=== PATIENT | male | born 1965 | race Caucasian/White ===

== ENCOUNTER 2019-09-06 09:58 | Inpatient (IN) | payer OTHER, MEDICARE, SELFPAY ==
[2019-09-06] VITALS (12 sets, daily range): BP systolic 123–150; BP diastolic 55–75; PULSE 64–118; RESP 15–24; TEMP 36.2–36.9; O2SAT 93–99; BMI 49.5
--- NOTE | ~2019-09-06 | US_ITS ---
US retroperitoneal comp 09/07/2019 14:34 Procedure: Realtime transabdominal ultrasound of the kidneys and bladder. Indication: Renal failure Comparison: No prior studies for comparison. Findings: Study is limited due to patient body habitus and bowel gas. Renal echotexture is normal coreen aterally without hydronephrosis, contour deforming mass or renal calculus. The right kidney measures 9.3 cm and left kidney measures 11.3 cm. Bladder within normal limits. Impression: 1: Unremarkable renal ultrasound. No stones, masses or hydronephrosis. Limited study. Reviewed, dictated and finalized at location A. Impression: 1: Unremarkable renal ultrasound. No stones, masses or hydronephrosis. Limited study.
--- NOTE | ~2019-09-06 | XR_ITS ---
EXAMINATION: XR fl guide central line place DATE: 09/14/2019 14:33 INDICATION: Central line placement. TECHNIQUE: 6 intraoperative fluoroscopic views of the chest were obtained. I was not present. Fluoros copy exposure time was 294 seconds. COMPARISON: Chest single view 09/14/2019 FINDINGS: There is a right internal jugular central venous catheter with tip at superior cavoatrial j unction. IMPRESSION: 1. Catheter tip at superior cavoatrial junction. Reviewed, dictated and finalized at location A.
--- NOTE | ~2019-09-06 | XR_ITS ---
XR chest port-a-cath/central 09/07/2019 14:15 Indication: Catheter placement Procedure: AP portable chest Comparison: Comparison to multiple prior studies sequentially, with oldest reviewed study dated 01/2006. Findings: Cardiomegaly. No focal air space disease, pulmonary edema, pleural effusion or suspected pn eumothorax. Right IJ central venous catheter tip in the SVC. Impression: 1: No acute cardiopulmonary disease. 2: Cardiomegaly. Reviewed, dictated and finalized at location A. Impression: 1: No acute cardiopulmonary disease. 2: Cardiomegaly.
--- NOTE | ~2019-09-06 | XR_ITS ---
EXAMINATION: XR chest port-a-cath/central DATE: 09/14/2019 14:55 INDICATION: Central line placement. TECHNIQUE: A single frontal view of the chest was obtained on 2 radiographs. COMPARISON: Chest single view 09/07/2019 FINDINGS: There is mild atelectasis in left lower lung zone. No pleural effusion or pneumothorax. Car diomegaly is distended. There is a right internal jugular central venous catheter with tip at superio r cavoatrial junction. A left internal jugular central venous catheter is seen with tip at superior c avoatrial junction. IMPRESSION: 1. Central line tips at superior cavoatrial junction. 2. Mild atelectasis in left lower lung zone. 3. Cardiomegaly. Reviewed, dictated and finalized at location A.
--- NOTE | ~2019-09-06 | XR_ITS ---
EXAMINATION: XR foot RT min 3V DATE: 09/06/2019 10:30 INDICATION: Necrosis at the heel and first metatarsal of the right foot TECHNIQUE: Dorsoplantar, two oblique and lateral views of the right foot were obtained. COMPARISON: 01/20/2019 FINDINGS: Again seen are changes of prior fourth metatarsal proximal trans diaphyseal amputation. Deep ulcerati ons are seen along the plantar aspect of the foot at the level of the base of the great toe, at the m idfoot and at the heel, the latter extending to near the surface of the calcaneus. There is cortical erosion of the underlying inferior margin of the posterior tuberosity of the calcaneus consistent wit h osteomyelitis. Again seen is disorganization and destructive changes with increased density involvi ng the tarsal bones and the midfoot most likely related to chronic Charcot joint. Osteolysis cannot b e absolutely excluded however the overlying ulceration appears relatively shallow and there is no def initive cortical erosion to the profiled plantar surfaces of the tarsal bones to more specifically sandoval ggest this. Interval appearance of a chronic deformity of the first proximal and distal phalanges whi ch are fused which are without evident osteolysis to suggest osteomyelitis. IMPRESSION: 1. Likely osteomyelitis at the inferior most posterior tuberosity of the calcaneus underlying a deep plantar ulceration. 2. Advanced Charcot joint/neuropathic changes involving the tarsal bones in the midfoot without findi ngs to more specifically suggest osteomyelitis. 3. Chronic deformity of the first proximal distal phalanges and fusion across the interphalangeal aníbal nt likely sequela of prior trauma, surgery or chronic osteomyelitis without findings to more specific ally suggest osteomyelitis. Reviewed, dictated and finalized at location A. IMPRESSION: 1. Likely osteomyelitis at the inferior most posterior tuberosity of the calcan eus underlying a deep plantar ulceration. 2. Advanced Charcot joint/neuropathic changes involving the tarsal bones in the midfoot without findings to more specifically suggest osteomyelitis. 3. Chronic deformity of the first proximal distal phalanges and fusion across t he interphalangeal joint likely sequela of prior trauma, surgery or chronic ost eomyelitis without findings to more specifically suggest osteomyelitis.
--- NOTE | ~2019-09-06 | US_ITS ---
EXAMINATION: US art doppler w press LE BI EXAM DATE: 09/06/2019 15:46 INDICATION: Left big toe amputation/surgery. Right-sided fourth toes. Right foot ulcer. Peripheral ar terial disease. TECHNIQUE: Segmental pressures and plethysmographic and Doppler waveforms of the brachial and lower e xtremity arteries were obtained. There is no prior study for comparison. FINDINGS: Right and left brachial artery pressures of 179 mm Hg and 162 mm Hg, respectively, are concordant (no rmal difference <= 30 mmHg). RIGHT LEG: The ankle-brachial index (JASE) is 0.90 (normal >= 0.9-1). The great toe-brachial index (TBI) is 0.64 (normal >= 0.65). The lower extremity ratios, segmental pressure gradients as follows; Proximal superficial femoral artery:- Difficult due to body habitus ( mmHg). Distal superficial femoral artery: ----- 0.88 (158 mmHg). Popliteal: 1.03 (185 mmHg). Dorsalis pedis: 0.77 (137 mmHg). Posterior tibial: 0.90 (161 mmHg). (Normal gradients <= 20-30 mmHg between adjacent levels on the same leg or the same levels on the two legs). Arterial waveforms are essentially monophasic. LEFT LEG: The ankle-brachial index (JASE) is 0.84 (normal >= 0.9-1). The second toe-brachial index (TBI) is 0.86 (normal >= 0.65). The lower extremity ratios, segmental pressure gradients as follows; Proximal superficial femoral artery:- Difficult, body habitus limitations ( mmHg). Distal superficial femoral artery: ----- 0.94 (168 mmHg). Popliteal: 0.85 (152 mmHg). Dorsalis pedis: 0.84 (150 mmHg). Posterior tibial: 0.75 (135 mmHg). (Normal gradients <= 20-30 mmHg between adjacent levels on the same leg or the same levels on the two legs). Arterial waveforms are essentially monophasic. IMPRESSION: 1. Right ankle-brachial index 0.90, normal. 2. Left ankle-brachial index 0.84, mildly decreased. 3. Segmental pressures as above. Reviewed, dictated and finalized at location A.
--- NOTE | 2019-09-06 10:14 | ED.WOUNDLAC ---
HPI - Wound/Laceration General Chief Complaint: Wound/Laceration Stated Complaint: wound treatment Time Seen by Provider: 09/06/19 10:01 History of Present Illness HPI narrative: Patient is a 53-year-old male who presents the ER from wound care clinic for a significant foot wound on the right side. Patient reports over the last month he has developed a wound over his heel that has been breaking down and has been draining. He contacted his primary care physician on 08/25/2019. At that time he had told him he was having fevers and some sweats that had resolved but he was having purulent drainage. He was started on clindamycin. Patient reports he is completed his clindamycin but the wound has not improved. He has difficulty feeling his foot due to his diabetes. He is not having any pain up his leg. He does have increased swelling to the foot over the last month. No chest pain or shortness of breath. It appears he has had a previous foot surgery with amputation of the fourth toe and metatarsal in 2012. Reports he was recently hospitalized last January for a infection of the right foot. Related Data Home Medications Medication Instructions Recorded Confirmed oxycodone 15 mg tablet 15 mg PO Q6H PRN 08/25/19 09/06/19 gabapentin 600 mg PO TID 09/06/19 09/06/19 Allergies Allergy/AdvReac Type Severity Reaction Status Date / Time Penicillins Allergy Unknown Unknown Verified 08/25/19 13:19 Review of Systems Review of Systems: All systems reviewed & are unremarkable except as noted in HPI and below Constitutional: Constitutional: Denies chills, Reports fever(s) and Denies weakness ENT: Denies nasal congestion and Denies sore throat Cardiovascular: Cardiovascular: Denies chest pain Respiratory: Respiratory: Denies cough, Denies dyspnea and Denies wheezing Gastrointestinal: Gastrointestinal: Denies abdominal pain, Denies nausea and Denies vomiting Musculoskeletal: Comments: Right foot swelling with plantar foot wounds at the first MTP and over the heel and midfoot PMFSH Past Medical History Medical History (Updated 09/06/19 @ 12:58 by Ayaan Lobo MD) Anxiety Charcot's joint of right foot Chronic low back pain with sciatica CKD (chronic kidney disease) stage 4, GFR 15-29 ml/min Depression Diabetic polyneuropathy associated with type 2 diabetes mellitus Dyslipidemia 10/19/2018 Essential (primary) hypertension Insomnia KT (obstructive sleep apnea) Type 2 diabetes mellitus with hyperglycemia, without long-term current use of insulin Surgical History Surgical History (Updated 09/06/19 @ 11:41 by Ayaan Lobo MD) Amputated toe Social History Social History (Updated 08/25/19 @ 16:21 by Lyly Carrera) Smoking status: Heavy tobacco smoker Tobacco type: cigarettes Second hand tobacco smoke exposure: Yes Alcohol intake: current Substance use: never Substance use type: does not use Gender identity (if verbalized by the patient): Male Exam Narrative: Exam Narrative: GENERAL: Unkempt-appearing, obese, and in no acute distress. HEAD: Normocephalic, atraumatic. EYES: PERRL and EOMI. ENT: Mucous membranes moist. CHEST: Clear to auscultation. No respiratory distress. HEART: Regular rate and rhythm. Normal peripheral pulses. ABDOMEN: Soft, nontender, nondistended. EXTREMITIES: Swelling of the right foot compared to the left. Previous fourth toe amputation on the right side. There is a 2 cm x 2 cm chronic wound to the first MTP plantar aspect but there is a large and deep heel ulceration nearly to the bone with fetid odor and skin breakdown to the midfoot. No cellulitis moving proximal to this. Normal strength and range of motion of the upper extremities left lower extremity. SKIN: Warm, dry, wounds as noted above NEURO: Alert and oriented x3. Course Course Emergency Course: Patient informed of results. After further discussion patient reports he has been told he has kidney issues
[2019-09-06 10:17] LABS: Glucose Point of Care 117 (65-105)
[2019-09-06 10:54] LABS: Basophils Absolute Auto 0.1 K/mm3 (0.0-0.1); Basophils Percent Auto 0.4 % (0.2-1.2); Eosinophils Absolute Auto 0.3 K/mm3 (0-0.3); Eosinophils Percent Auto 1.9 % (0-4.4); Hemoglobin 7.7 g/dL (14.0-18.0); Immature Granulocyte Percent A 1.6 % (0-0.5); Lymphocytes Absolute Auto 2.53 K/mm3 (0.9-3.2); Lymphocytes Percent Auto 13.8 % (18.3-44.2); Mean Corpuscular HGB Conc 29.6 g/dl (32-36); Mean Corpuscular Hemoglobin 26.6 pg (26-34); Mean Platelet Volume 9.6 fl (7.4-10.4); Monocytes Absolute Auto 1.4 K/mm3 (0.1-0.6); Monocytes Percent Auto 7.5 % (2.6-8.5); Neutrophils Absolute Auto 13.7 K/mm3 (1.3-6.7); Neutrophils Percent Auto 74.8 % (45.5-73.1); Platelet Count Result 527 k/mm3 (150-375); Red Blood Count 2.89 M/mm3 (4.6-6.20); Red Cell Distribution Width 14.2 % (11.5-14.5); White Blood Count 18.3 K/mm3 (4.5-10.0)
[2019-09-06 10:59] LABS: Hypochromasia 1+ (NORMAL); Platelet Estimate Increased (Adequate)
[2019-09-06 11:06] LABS: Lactic Acid Reflex 0.9 mmol/L (0.7-2.1)
[2019-09-06 11:11] LABS: INR 1.2; Prothrombin Time 15.2 Seconds (11.1-14.7)
[2019-09-06 11:13] LABS: Blood Urea Nitrogen 67 mg/dL (9-20); Calcium 8.2 mg/dL (8.4-10.2); Carbon Dioxide 16 mmol/L (22-30); Chloride 107 mmol/L (98-107); Estimated CRCL calculation 20 ml/min; Estimated Glomerular Filt Rate 10; Glucose 119 mg/dL (75-110); Partial Thromboplastin Time 45.8 SECONDS (22.3-36.8); Sodium 134 mmol/L (137-145)
--- NOTE | 2019-09-06 11:13 | ECG_ITS ---
Measurements Intervals [place] Rate: 68 P: 9 DE: 202 QRS: 9 QRSD: 99 T: 25 QT: 382 QTc: 408 Interpretive Statements SINUS RHYTHM BORDERLINE AV CONDUCTION DELAY DELAYED PRECORDIAL R/S TRANSITION BASELINE WANDER- V1 BORDERLINE ECG Electronically Signed On 09-06-2019 12:32:24 CDT by Obed Duncan D.O.
[2019-09-06 11:17] LABS: Erythrocyte Sedimentation Rate > 140 mm/hr (0-20)
[2019-09-06 11:26] LABS: CRP 16.7 mg/dL (<1.0)
[2019-09-06] MEDS: SODIUM CHLORIDE 0.9% IV 1,000 ML 999 ML IV CONT (11:31)
[2019-09-06] MEDS: LACTULOSE 20 GM/30 ML UDC PO (11:54)
--- NOTE | 2019-09-06 12:31 | PC.NURSE ---
Addendum entered by Stewart Fuentes RN 09/06/19 12:32: Phlebotomy called to stick Pt. for blood. Original Note: Multiple attempts by RN and certified appliance service technician to draw blood and was unsuccessful. store associate notified.
--- NOTE | 2019-09-06 14:28 | PM.CNCAR ---
Assessment and Plan Assessment and plan (1) Diabetic foot ulcer: Qualifiers: Diabetes mellitus type: type 2 Diabetic foot ulcer location: unspecified part of foot Laterality: right Non-pressure ulcer stage: unspecified non-pressure ulcer stage Qualified Code(s): E11.621 - Type 2 diabetes mellitus with foot ulcer; L97.519 - Non-pressure chronic ulcer of other part of right foot with unspecified severity Code(s): E11.621 - Type 2 diabetes mellitus with foot ulcer; L97.509 - Non-pressure chronic ulcer of other part of unspecified foot with unspecified severity Status: Acute Assessment and Plan: 53 y/o with h/o morbid obesity, HTN, DM and HLD who presents with diabetic foot ulcer and JAMILA He has deep infected ulcer with bone exposed. Will check JASE/arterial duplex to assess for PVD however it appears unfortunately he will likely need amputation. Surgery consult pending Will check 2D echocardiogram to assess cardiac function for pre op risk assessment for potential surgery . (2) Acute on chronic renal failure: Code(s): N17.9 - Acute kidney failure, unspecified; N18.9 - Chronic kidney disease, unspecified Status: Acute Assessment and Plan: K is 6. EKG with sinus rhythm and no ST changes. Monitor on tele. plan to start dialysis. (3) Dyslipidemia: Code(s): E78.5 - Hyperlipidemia, unspecified Status: Acute (4) Diabetic polyneuropathy associated with type 2 diabetes mellitus: Code(s): E11.42 - Type 2 diabetes mellitus with diabetic polyneuropathy Status: Acute (5) Hypertension: Code(s): I10 - Essential (primary) hypertension Status: Acute History of Present Illness History of Present Illness Consult date/time: 09/06/19 14:28 53 y/o male with h/o HTN, HLD, CKD, morbid obesity, DM complicated with foot ulcer requiring toes amputation on the left foot who presents now with right foot ulcer. He reports developing large blister on the planter surface of his right foot around the heel about 5 weeks ago. It has been progressively getting larger but he did not seek medical attention till today. He finally presented to wound clinic and was sent to the hospital. His bone is exposed at the base of the ulcer. He denies pain. We were consulted for evaluation for possible peripheral vascular disease that may be contributing to his foot ulcer. He reports having ultrasound of his legs a year ago and reports he was told he has no blockages. He denies chest pain or dyspnea. His labs are notable for Creatinine of 6 with hyperkalemia. Nephrology consulted and plan is to start on dialysis. He denies any prior cardiac history. No recent cardiac work up. He quit smoking in Feb 2019. Now smokes occasional e cigarette. Reason For Visit: osteomyelitis,acute on chronic renal failure,diabe Review of Systems Review of Systems: All systems reviewed & are unremarkable except as noted in HPI and below Constitutional: Constitutional: Denies fatigue and Denies headache(s) Eyes: Eyes: Denies blurry vision ENT: Reports Normal hearing present and Denies headache(s) Cardiovascular: Cardiovascular: Denies chest pain, Denies diaphoresis, Denies pedal edema, Denies leg edema, Denies lightheadedness, Denies palpitations and Denies dyspnea Respiratory: Respiratory: Denies cough and Denies dyspnea Gastrointestinal: Gastrointestinal: Denies abdominal pain Musculoskeletal: Musculoskeletal: Denies back pain Neurologic: Reports Normal hearing present and Denies headache(s) Psychiatric: Psychiatric: Denies anxiety Endocrine: Endocrine: Denies fatigue and Denies palpitations [facility] Past Medical History Medical History (Updated 09/06/19 @ 14:52 by Edyta Jordan MD) Anxiety Charcot's joint of right foot Chronic low back pain with sciatica CKD (chronic kidney disease) stage 4, GFR 15-29 ml/min Depression Diabetic polyneuropathy associated with type 2 diabetes mellitus
--- NOTE | 2019-09-06 14:55 | ECHO_ITS ---
Patient Info Name: Satish Reeder Age: 53 years : 1965 Gender: Male Ht: 70 in Wt: 362 lbs BSA: 2.94 m2 HR: 66 bpm BP: 146 / 71 mmHg Heart Rhythm: Sinus Rhythm Technical Quality: Fair Exam Date: 09/06/2019 4:15 PM Exam Location: [facility] Patient Status: Inpatient Admit Date: 09/06/2019 Staff Ordering Physician: Edyta Jordan MD (johnnie/carmela) Global Category Manager: Britton Ramos, TIMA Attending Provider: Devan Ramírez MD Exam Type: CA echo dop color flow w con Study Info Indications Z01.810 - Encounter for preprocedural cardiovascular examination R06.00 - Dyspnea, unspecified Complete two-dimensional, color flow and Doppler transthoracic echocardiogram is performed with contrast to opacify the left ventrical and to improve the deliniation of the left ventrical endocarial boarders. Contrast/Agitated Saline Contrast/Ag. Saline: Definity Amount: 2.00 ml Administered By: Mildred Zuniga RN Existing IV Access: Yes History/Risk Factors HTN, TYSON, osteomyelitis, CKD4, DM2. Summary 1. Left ventricular chamber dimension is mildly enlarged. 2. Left ventricular systolic function is normal, estimated at 55-60%. 3. E/e' is elevated consistent with elevated left atrial filling pressures . 4. Left atrial chamber dimension is top normal in size. 5. There is no aortic valve stenosis. 6. There is no mitral valve regurgitation. 7. Mild pulmonary hypertension, estimated pulmonary arterial systolic pressure is 45mmHg. 8. There is no pericardial effusion. Left Ventricle Left ventricular chamber dimension is mildly enlarged. Left ventricular systolic function is normal, estimated at 55-60%. There is mildly increased left ventricular wall thickness. Left ventricular septal wall motion is normal. The left ventricular diastolic function is grade II diastolic dysfunction. E/e' is elevated consistent with elevated left atrial filling pressures . Right Ventricle Right ventricular systolic function is not well visualized but appears normal in size and systolic function. Left Atria Left atrial chamber dimension is top normal in size. Right Atria Right atrial chamber dimension is normal. Aortic Valve The aortic valve is not well visualized but appears likely trileaflet. There is no aortic valve sclerosis. There is no aortic valve stenosis. There is no aortic valve regurgitation. Pulmonic Valve The pulmonic valve is not well visualized. There is no pulmonic valve stenosis. There is no pulmonic regurgitation. Mitral Valve The mitral valve has normal leaflets. There is no mitral valve stenosis. There is no mitral valve regurgitation. Tricuspid Valve The tricuspid valve leaflets are normal. There is no significant tricuspid valve stenosis. There is no tricuspid valve regurgitation. Mild pulmonary hypertension, estimated pulmonary arterial systolic pressure is 45mmHg. Pericardium/Pleural The pericardium appears normal. There is no pericardial effusion. Inferior Vena Cava Normal inferior vena cava with >50% collapse upon inspiration. Aorta The aortic root size at the sinus of Valsalva is normal. The prox ascending aorta size is normal. Left Ventricular Outflow Tract Name Value Normal LVO
--- NOTE | 2019-09-06 15:15 | PM.CNOR ---
Assessment and Plan Assessment and plan (1) Acute osteomyelitis of right calcaneus: Code(s): M86.171 - Other acute osteomyelitis, right ankle and foot Status: Acute Assessment and Plan: Radiographs of the right foot reveal evidence of osteomyelitis at the calcaneus with an underlying deep plantar ulceration and advanced charcot joint/neuropathic changes involving the tarsal bones in the midfoot. Previous 4th metatarsal amputation noted. History, exam and radiographs reviewed with the patient. Condition, nature, etiology and course of natural history discussed. Conservative and operative treatment options reviewed as well as the risks and benefits of both. ABIs ordered. Wound cultures obtained. Begin dressing changes BID with dakins soaked gauze/cover dry. Wound nurses following as well. NWB RLE. Pending further testing, will discuss surgical options. Will need to be medically stable prior to surgical intervention. (2) History of amputation of hallux: Code(s): Z89.419 - Acquired absence of unspecified great toe Status: Acute Assessment and Plan: ABIs/TBI to be obtained of 2nd toe on the LEFT foot for evaluation. Ultrasound notified. (3) Acute hyperkalemia: Code(s): E87.5 - Hyperkalemia Status: Acute (4) Acute on chronic renal failure: Code(s): N17.9 - Acute kidney failure, unspecified; N18.9 - Chronic kidney disease, unspecified Status: Acute Assessment and Plan: Plans to start dialysis. Will need to be medically stable prior to surgical intervention. History of Present Illness HPI Consult date: 09/06/19 Requesting physician: Ayaan Lobo MD Consult reason: other (RIGHT diabetic foot ulcer ) Chief complaint: Right diabetic foot wound. Narrative: 53 year old male admitted to the [facility] s/p wound clinic evaluation for a large diabetic foot ulcer on the plantar aspect of the right foot. Patient reports the ulcer has been present for 5-6 weeks. He was evaluated by his PCP via telehealth on 08/24 and started on oral antibiotics which he completed on Thursday. He endorses a low-grade fever for several days before evaluation by his PCP. He denies nausea, vomiting, diarrhea, chest pain or shortness of breath. He does not know how his BG levels have been as he has not checked levels in several weeks and does not have an health records technology teacher. He was told he had renal insufficiency in January but then went out of town for 4 months and never followed up. He has been self-treating his ulcers for the past few weeks. He does have a previous right 4th ray amputation and left 1st ray amputation. Review of Systems Constitutional: Constitutional: Denies chills, Denies fatigue and Denies weakness ENT: Denies dysphagia Cardiovascular: Cardiovascular: Denies chest pain, Reports pedal edema, Reports leg edema and Denies lightheadedness Respiratory: Respiratory: Denies cough and Denies dyspnea Gastrointestinal: Gastrointestinal: Denies abdominal pain, Denies diarrhea, Denies nausea and Denies vomiting Genitourinary: Genitourinary: Denies dysuria Musculoskeletal: Musculoskeletal: Reports arthralgias and Reports joint swelling Comments: RIGHT plantar DFU with surrounding erythema and foul odor Integumentary/Breasts: Skin/Breast: Reports erythema and Reports wounds (RIGHT plantar foot ) Comments: see above Neurologic: Denies headache(s) and Reports numbness Comments: decreased sensation b/l feet Psychiatric: Psychiatric: Reports no additional psychiatric complaints Endocrine: Endocrine: Denies fatigue, Denies polyuria and Denies palpitations [facility] Past Medical History Medical History Anemia of chronic disease Charcot's joint of right foot Chronic kidney disease, stage 4 (severe) BUN and creatinine were 48 and 4.37 respectively on labs drawn 01/23/2019. Chronic low back pain with sciatica Depression with anxiety Emily
[2019-09-06 16:44] LABS: Immature Reticulocyte Fraction 16.6 % (3.0-15.9); Reticulocyte Hemoglobin Conten 26.5 pg (28.2-35.7); Reticulocyte Percent 1.72 % (0.7-4.3); Reticulocytes Absolute 0.05 B/L (32.2-175.7)
--- NOTE | 2019-09-06 16:45 | PM.IMHP ---
H&P: HPI History of Present Illness Chief complaint: Right diabetic foot wound. Narrative: aStish Reeder is a 53-year-old male with type 2 diabetes mellitus, diabetic peripheral neuropathy, Charcot right foot, chronic kidney disease stage 4, obstructive sleep apnea, and hypertension presented to the emergency department earlier today from the wound clinic for evaluation of a right diabetic foot wound. He has a history of osteomyelitis and necrotizing fasciitis requiring transmetatarsal amputation of the right 4th toe and excisional debridement in June and July 2012. He has also had a 1st ray amputation on the left done at [facility] several years ago. Over the past 6 weeks or so he has developed a wound over the right heel which has gotten progressively worse. He had a phone visit with his primary care provider on August 24 after he developed breakdown, foul-smelling serous drainage, and fever up to 101?. He was prescribed clindamycin at that time and completed the full course, with minimal improvement. His fever did clear, however. He was also referred to the wound clinic, and had his initial appointment today. Due to the extent of the wound, he was referred to the emergency department where he was found to have a myriad of findings including osteomyelitis of a portion of the calcaneus, cellulitis surrounding a large open right foot wound, and acute on chronic kidney injury. He has poor feeling in his lower limbs due to peripheral neuropathy, and has not been experiencing much pain although will have discomfort with palpation and occasional weight-bearing on that right foot. To his knowledge, he has not had a fever other than that a couple of weeks ago. No chills or sweats. He has no known history of MRSA or Pseudomonas infection. He believes his diabetes is well controlled, with his highest Accu-Cheks recently being in the 140s. He has not had blurry vision, polydipsia, or polyuria. His appetite has been good and he denies nausea and vomiting. No significant NSAID use. Review of Systems Review of Systems: Narrative: Twelve systems were reviewed with pertinent positives and negatives as per HPI. No headache. Denies recent cold and flu symptoms. No chest pain or shortness of breath. Denies cough. He has occasional constipation for which she will take a stool softener, however had loose stools while taking clindamycin so he quit taking the stool softener. His last bowel movement was 2 days ago. He has known history of chronic kidney disease, and had an initial appointment with Dr. Hollis sometime in the fall of 2018 however has not yet followed up with him as he has been out of town in [place] with his son for many months. The patient tries to stay hydrated, typically consuming 100 ounces of water per day. He has not noticed a decline in his urine output and tells me that his urine is always a light yellow color. Except as documented, all other systems were reviewed and are negative. [facility] Past Medical History Medical History (Updated 09/06/19 @ 17:42 by Rocio Mccallum PA-C) Anemia of chronic disease Charcot's joint of right foot Chronic kidney disease, stage 4 (severe) BUN and creatinine were 48 and 4.37 respectively on labs drawn 01/23/2019. 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 Obstructive sleep apnea on CPAP Osteomyelitis (~07/2012) Status post transmetatarsal amputation of the right 4th toe per Dr. Espino. Type 2 diabetes mellitus Surgical History Surgical History (Updated 09/06/19 @ 17:31 by Rocio Mccallum PA-C) History of amputation of hallux Left hallux amputation done at [facility]. History of complete ray amputation of fourth toe of right foot (~07/2012)
[2019-09-06] MEDS: PERFLUTREN LIPID MICROSPHERES 1.5 ML VIAL DILUTED TO 10 ML TOTAL VOLUME IV PUSH (16:50)
[2019-09-06 17:05] LABS: Alanine Aminotransferase 20 U/L (4-50); Albumin Level 3.7 g/dL (3.5-5.1); Alkaline Phosphatase 138 U/L (38-126); Aspartate Amino Transferase 20 U/L (17-59); Bilirubin,Total 0.3 mg/dL (0.2-1.3); Blood Urea Nitrogen 66 mg/dL (9-20); Calcium 8.2 mg/dL (8.4-10.2); Carbon Dioxide 15 mmol/L (22-30); Chloride 108 mmol/L (98-107); Creatine Kinase 78 U/L (55-170); Estimated CRCL calculation 20 ml/min; Estimated Glomerular Filt Rate 10; Glucose 95 mg/dL (75-110); Magnesium 2.1 mg/dL (1.6-2.3); Phosphorus 7.9 mg/dL (2.5-4.5); Sodium 134 mmol/L (137-145)
[2019-09-06 17:22] LABS: Potassium 5.5 mmol/L (3.4-5.0)
[2019-09-06 17:27] LABS: Iron 35 ug/dL (49-181)
[2019-09-06 17:37] LABS: Percent Iron Saturation 15 % (20-50)
[2019-09-06 18:02] LABS: Folic Acid 11.6 ng/mL (2.76->20)
[2019-09-06] MEDS: SOD HYPOCHLORITE 1/4 STRENGTH 473 ML 1 APPLIC TOPICAL (18:02)
[2019-09-06 18:21] LABS: Glucose Point of Care 94 (65-105)
[2019-09-06] MEDS: INSULIN HUMAN REGULAR (*BKC) 100 UNITS/ML 10 UNITS IV PUSH (18:29)
[2019-09-06] MEDS: DEXTROSE 50% 25 GM/50 ML SYRINGE IV PUSH (18:30)
[2019-09-06] MEDS: SODIUM CHLORIDE 0.9% IV 1,000 ML 100 ML IV CONT (18:41)
[2019-09-06] MEDS: CALCIUM GLUC 1,000 MG/NS 50 ML 1,000 MG/50 ML BAG 100 MG IVPB (18:42)
[2019-09-06] MEDS: GABAPENTIN 300 MG CAPSULE 600 MG PO (18:51)
[2019-09-06] MEDS: SODIUM BICARBONATE 8.4% 50 MEQ/50 ML VIAL IV PUSH (19:00)
[2019-09-06] MEDS: HEPARIN SODIUM 5,000 UNITS/ML VIAL 5000 UNITS SUB-Q (20:12)
[2019-09-06] MEDS: AMITRIPTYLINE HCL 25 MG TABLET 50 MG PO (20:13)
[2019-09-06] MEDS: ALPRAZOLAM 0.5 MG TABLET PO (20:25)
[2019-09-06 20:40] LABS: Glucose Point of Care 110 (65-105)
[2019-09-07] VITALS (28 sets, daily range): BP systolic 107–179; BP diastolic 55–89; PULSE 70–104; RESP 18–26; TEMP 36.4–37.2; O2SAT 94–99
[2019-09-07 00:08] LABS: Blood Urea Nitrogen 64 mg/dL (9-20); Calcium 7.8 mg/dL (8.4-10.2); Carbon Dioxide 16 mmol/L (22-30); Chloride 104 mmol/L (98-107); Estimated CRCL calculation 21 ml/min; Estimated Glomerular Filt Rate 10; Glucose 148 mg/dL (75-110); Potassium 5.8 mmol/L (3.4-5.0); Sodium 133 mmol/L (137-145)
[2019-09-07] MEDS: SODIUM BICARBONATE 8.4% 50 MEQ/50 ML VIAL IV PUSH ×2 (01:04→05:47)
[2019-09-07] MEDS: CALCIUM GLUC 1,000 MG/NS 50 ML 1,000 MG/50 ML BAG 100 MG IVPB (01:04)
[2019-09-07 04:34] LABS: Basophils Absolute Auto 0.1 K/mm3 (0.0-0.1); Basophils Percent Auto 0.3 % (0.2-1.2); Eosinophils Absolute Auto 0.2 K/mm3 (0-0.3); Eosinophils Percent Auto 0.9 % (0-4.4); Hematocrit 23.4 % (42.0-52.0); Immature Granulocyte Absolute 0.19 K/mm3 (0.00-0.031); Lymphocytes Absolute Auto 1.23 K/mm3 (0.9-3.2); Lymphocytes Percent Auto 6.2 % (18.3-44.2); Mean Corpuscular HGB Conc 29.1 g/dl (32-36); Mean Corpuscular Hemoglobin 26.5 pg (26-34); Mean Corpuscular Volume 91.1 fl (80-100); Mean Platelet Volume 9.8 fl (7.4-10.4); Monocytes Absolute Auto 1.2 K/mm3 (0.1-0.6); Monocytes Percent Auto 6.1 % (2.6-8.5); Neutrophils Percent Auto 85.5 % (45.5-73.1); Platelet Count Result 485 k/mm3 (150-375); Red Blood Count 2.57 M/mm3 (4.6-6.20); Red Cell Distribution Width 14.2 % (11.5-14.5); White Blood Count 19.9 K/mm3 (4.5-10.0)
[2019-09-07 05:00] LABS: Blood Urea Nitrogen 67 mg/dL (9-20); Calcium 7.8 mg/dL (8.4-10.2); Carbon Dioxide 17 mmol/L (22-30); Chloride 104 mmol/L (98-107); Estimated CRCL calculation 22 ml/min; Estimated Glomerular Filt Rate 11; Glucose 95 mg/dL (75-110); Hemoglobin 6.8 g/dL (14.0-18.0); Potassium 6.3 mmol/L (3.4-5.0); Sodium 131 mmol/L (137-145)
--- NOTE | 2019-09-07 05:24 | PM.EVENT ---
Event Note Event Note Event Note: Nursing staff called at 5:20 a.m. for hyperkalemia potassium of 6.3 and anemia hemoglobin of 6.8. 10 units of regular IV insulin, 1 amp of D50, amp of sodium bicarb, amp of calcium gluconate, and 15 gram of Kayexalate have been ordered for the patient's hyperkalemia. For his anemia [id number] units of Procrit have been ordered subq.
[2019-09-07] MEDS: DEXTROSE 50% 25 GM/50 ML SYRINGE IV PUSH (05:47)
[2019-09-07] MEDS: EPOETIN ALFA 10,000 UNITS/ML VIAL 10000 UNITS SUB-Q (05:47)
[2019-09-07] MEDS: SODIUM POLYSTYRENE SULFONONATE 15 GM/60 ML BTL PO (05:47)
[2019-09-07] MEDS: CALCIUM GLUCONATE 1,000 MG/10 ML VIAL 1000 MG IV PUSH (05:47)
[2019-09-07] MEDS: INSULIN HUMAN REGULAR (*BKC) 100 UNITS/ML 10 UNITS IV PUSH (06:03)
[2019-09-07] MEDS: SODIUM CHLORIDE 0.9% IV 1,000 ML 100 ML IV CONT ×2 (06:07→21:12)
[2019-09-07] MEDS: SOD HYPOCHLORITE 1/4 STRENGTH 473 ML 1 APPLIC TOPICAL ×2 (08:21→22:30)
[2019-09-07] MEDS: VENLAFAXINE HCL XR 75 MG CAP.ER.24H PO (08:21)
[2019-09-07] MEDS: HEPARIN SODIUM 5,000 UNITS/ML VIAL 5000 UNITS SUB-Q ×2 (08:22→21:13)
[2019-09-07] MEDS: AMLODIPINE BESYLATE 5 MG TABLET 10 MG PO (08:22)
[2019-09-07] MEDS: GABAPENTIN 300 MG CAPSULE 600 MG PO ×3 (08:22→17:56)
[2019-09-07] MEDS: METOPROLOL SUCCINATE EXT REL 50 MG TABCR PO (08:22)
[2019-09-07 08:59] LABS: Glucose Point of Care 136 (65-105)
--- NOTE | 2019-09-07 09:32 | PM.PNORT ---
Progress Note: A&P Assessment and Plan (1) Acute osteomyelitis of right calcaneus: Code(s): M86.171 - Other acute osteomyelitis, right ankle and foot Status: Acute Assessment and Plan: chronic diabetic foot ulcer right foot with evidence of osteomyelitis. Dressing changes with Dakin solution started. Lower extremity arterial ultrasound tests reviewed. Reasonably good blood flow bilaterally. Patient with elevated white count, worsening anemia, and renal failure. Continue with dressing changes at this time. Possible surgical treatment once medically stable. Not stable to proceed to operating room at this time. (2) Diabetic foot ulcer associated with diabetes mellitus due to underlying condition: Qualifiers: Diabetic foot ulcer location: heel Laterality: right Non-pressure ulcer stage: with necrosis of bone Qualified Code(s): E08.621 - Diabetes mellitus due to underlying condition with foot ulcer; L97.414 - Non-pressure chronic ulcer of right heel and midfoot with necrosis of bone Code(s): E08.621 - Diabetes mellitus due to underlying condition with foot ulcer; L97.509 - Non-pressure chronic ulcer of other part of unspecified foot with unspecified severity Status: Acute (3) Type 2 diabetes mellitus with peripheral neuropathy: Code(s): E11.42 - Type 2 diabetes mellitus with diabetic polyneuropathy Status: Acute (4) Acute kidney injury superimposed on chronic kidney disease: Code(s): N17.9 - Acute kidney failure, unspecified; N18.9 - Chronic kidney disease, unspecified Status: Acute Subjective Subjective Date/Time Seen: 09/07/19 09:32 No new complaints. New laboratory testing and ultrasound tests from yesterday reviewed. Review of Systems Constitutional: Constitutional: Denies chills, Denies fatigue and Denies weakness ENT: Denies dysphagia Cardiovascular: Cardiovascular: Denies chest pain, Reports pedal edema, Reports leg edema and Denies lightheadedness Respiratory: Respiratory: Denies cough and Denies dyspnea Gastrointestinal: Gastrointestinal: Denies abdominal pain, Denies diarrhea, Denies nausea and Denies vomiting Genitourinary: Genitourinary: Denies dysuria Musculoskeletal: Musculoskeletal: Reports arthralgias and Reports joint swelling Comments: RIGHT plantar DFU with surrounding erythema and foul odor Integumentary/Breasts: Skin/Breast: Reports erythema and Reports wounds (RIGHT plantar foot ) Comments: see above Neurologic: Denies headache(s) and Reports numbness Comments: decreased sensation b/l feet Psychiatric: Psychiatric: Reports no additional psychiatric complaints Endocrine: Endocrine: Denies fatigue, Denies polyuria and Denies palpitations Exam Const: General: comfortable and no acute distress HENMT: Mouth: Yes moist mucous membranes Eyes: General: appearance normal, both eyes and all related structures Neck: Neck: supple and no JVD Resp: Effort & Inspection: normal respiratory effort Auscultation: no wheezes Cardio: Rate: regular rate Rhythm: regular rhythm GI: Other: obese Skin: Wounds: wounds noted (RIGHT plantar foot ) Other: Right plantar hallux ulcer measures 2.0x2.0cm with large amount of callus formation surrounding ulcer. Ulcer with 90% red/pink wound bed and 10% necrosis. Surrounding tissue with redness/swelling. Right plantar midfoot ulcer which extends into the hindfoot measures [id number] with 50% red/pink wound bed and 50% necrosis, probing to bone. Malodor noted. Right foot with redness/warmth and swelling extending to the dorsal midfoot. Previous right 4th ray amputation noted. Previous left hallux amputation noted, no ulcerations noted. Neuro: General: gait normal Cognition (Neuro): normal cognition Extrem: Right upper extremity: normal to inspection and full ROM Left upper extremity: normal to inspection and full ROM Right lower extremity: lower leg (swelling ) and foot Left lower
[2019-09-07 11:10] LABS: Immature Reticulocyte Fraction 14.1 % (3.0-15.9); Reticulocyte Hemoglobin Conten 26.9 pg (28.2-35.7); Reticulocyte Percent 1.73 % (0.7-4.3); Reticulocytes Absolute 0.05 B/L (32.2-175.7)
[2019-09-07 11:20] LABS: Creatine Kinase 84 U/L (55-170)
--- NOTE | 2019-09-07 11:20 | PM.PNCARD ---
Progress Note: A&P Assessment and Plan (1) Diabetic foot ulcer: Qualifiers: Diabetes mellitus type: type 2 Diabetic foot ulcer location: unspecified part of foot Laterality: right Non-pressure ulcer stage: unspecified non-pressure ulcer stage Qualified Code(s): E11.621 - Type 2 diabetes mellitus with foot ulcer; L97.519 - Non-pressure chronic ulcer of other part of right foot with unspecified severity Code(s): E11.621 - Type 2 diabetes mellitus with foot ulcer; L97.509 - Non-pressure chronic ulcer of other part of unspecified foot with unspecified severity Status: Acute Assessment and Plan: 53 y/o with h/o morbid obesity, HTN, DM and HLD who presents with diabetic foot ulcer and JAMILA Arterial duplex with only mild PVD 2D echocardiogram with normal EF and no embolic source Plan for surgery once medically stable (2) Acute on chronic renal failure: Code(s): N17.9 - Acute kidney failure, unspecified; N18.9 - Chronic kidney disease, unspecified Status: Acute Assessment and Plan: K is 6. EKG with sinus rhythm and no ST changes. Monitor on tele. plan to start dialysis. (3) Dyslipidemia: Onset Date: ~10/2018 Code(s): E78.5 - Hyperlipidemia, unspecified Status: Acute Assessment and Plan: Continue Statin (4) Diabetic polyneuropathy associated with type 2 diabetes mellitus: Code(s): E11.42 - Type 2 diabetes mellitus with diabetic polyneuropathy Status: Acute (5) Hypertension: Code(s): I10 - Essential (primary) hypertension Status: Acute Assessment and Plan: Well controlled Subjective Date/time seen: 09/07/19 11:20 Denies chest pain or dyspnea. Just met with nephrology and told about plan to start dialysis Review of Systems Review of Systems: All systems reviewed & are unremarkable except as noted in HPI and below Constitutional: Constitutional: Denies fatigue and Denies headache(s) Eyes: Eyes: Denies blurry vision ENT: Reports Normal hearing present and Denies headache(s) Cardiovascular: Cardiovascular: Denies chest pain, Denies diaphoresis, Denies pedal edema, Denies leg edema, Denies lightheadedness, Denies palpitations and Denies dyspnea Respiratory: Respiratory: Denies cough and Denies dyspnea Gastrointestinal: Gastrointestinal: Denies abdominal pain Musculoskeletal: Musculoskeletal: Denies back pain Neurologic: Reports Normal hearing present and Denies headache(s) Psychiatric: Psychiatric: Denies anxiety Endocrine: Endocrine: Denies fatigue and Denies palpitations Exam Narrative: Exam Narrative: Morbidly obese. Const: General: no acute distress Eyes: Sclera: sclerae normal Neck: Neck: no JVD Carotids: no bruits Resp: Effort & Inspection: normal respiratory effort Auscultation: clear to auscultation bilaterally Cardio: Rate: regular rate and not tachycardic Rhythm: regular rhythm Heart sounds: no gallops, no murmurs and no rubs Skin: General skin exam: normal color Neuro: Cranial nerves: Yes Normal hearing present Speech: normal speech Extrem: Other: Foul smelling, deep ulcer with bone exposed on the planter surface of the right foot with surrounding erythema Psych: Affect: normal affect Objective Data Vital Signs Vital Signs: Vital Signs - 24 hr 09/06/19 12:15 09/06/19 13:30 09/06/19 13:35 Temperature 36.2 C L Pulse Rate 67 64 75 Respiratory Rate 17 15 22 H Blood Pressure 125/72 137/62 146/71 H Pulse Oximetry 96 97 99 09/06/19 16:00 09/06/19 17:27 09/06/19 18:00 Temperature 36.5 C Pulse Rate 68 77 80 Respiratory Rate 24 H Blood Pressure 150/64 H Pulse Oximetry 99 09/06/19 19:45 09/06/19 20:00 09/06/19 20:55 Temperature 36.7 C Pulse Rate 91 90 103 H Respiratory Rate 20 22 H 23 H Blood Pressure 130/55 L Pulse Oximetry 98 93 93 09/06/19 22:00 09/06/19 23:42 09/07/19 00:00 Temperature 36.6 C Pulse Rate 102 H 118 H 96 Resp
[2019-09-07 11:28] LABS: Complement C3 134 mg/dL (88-165)
[2019-09-07 11:38] LABS: Erythrocyte Sedimentation Rate > 140 mm/hr (0-20)
[2019-09-07 12:32] LABS: Iron 26 ug/dL (49-181)
[2019-09-07 12:37] LABS: Add Urine Microscopic? YES; Appearance Urine Clear (Clear); Bacteria Urine Trace /hpf; Bilirubin Urine Negative (Negative); Blood Urine 1+ (Negative); Color Urine Straw (Yellow); Glucose Urine UA 1+ mg/dL (Negative); Ketones Urine Negative (Negative); Leukocyte Esterase Ur Negative LEU/UL (NEGATIVE); Mucus Urine Rare /lpf; Nitrate Urine Negative (Negative); Protein Urine 2+ mg/dL (Negative); RBC Urine 0-2 /hpf (0-2); Specific Grav Ur 1.011 (1.001-1.035); Squamous Epithelial Cell Urine Rare /hpf (Few); Urobilinogen Urine Negative mg/dL (<2.0); WBC Urine 0-3 /hpf (0-3)
[2019-09-07 12:38] LABS: Creatinine Urine 62.4 mg/dL
[2019-09-07 12:44] LABS: Sodium Urine Random 48 meq/L
[2019-09-07 12:45] LABS: Glucose Point of Care 86 (65-105)
[2019-09-07 12:46] LABS: Percent Iron Saturation 12 % (20-50)
[2019-09-07 13:03] LABS: Total Protein Urine Random 276 mg/dL
--- NOTE | 2019-09-07 14:10 | PM.CNGS ---
Assessment and Plan Assessment and plan (1) Acute kidney injury superimposed on chronic kidney disease: Code(s): N17.9 - Acute kidney failure, unspecified; N18.9 - Chronic kidney disease, unspecified Status: Acute Assessment and Plan: The patient is in need of dialysis due to his persistent high potassium levels and worsening renal function. He has a current infection of his foot which appears to be osteomyelitis. Due to the infection risk, it is higher risk to place a permanent tunneled dialysis catheter at this time. Will place a Joe dialysis catheter at this time so that he can start hemodialysis soon. Once signs of infection are improving and there is confirmed negative blood cultures, this can be removed and a tunneled dialysis catheter can be placed. I have discussed the procedure, risks, benefits, and alternatives with the patient. Questions were answered. (2) Diabetic foot ulcer associated with diabetes mellitus due to underlying condition: Qualifiers: Diabetic foot ulcer location: heel Laterality: right Non-pressure ulcer stage: with necrosis of bone Qualified Code(s): E08.621 - Diabetes mellitus due to underlying condition with foot ulcer; L97.414 - Non-pressure chronic ulcer of right heel and midfoot with necrosis of bone Code(s): E08.621 - Diabetes mellitus due to underlying condition with foot ulcer; L97.509 - Non-pressure chronic ulcer of other part of unspecified foot with unspecified severity Status: Acute (3) Acute hyperkalemia: Code(s): E87.5 - Hyperkalemia Status: Acute History of Present Illness Consult details Consult date: 09/07/19 Narrative: This is a 53-year-old man who I am asked to see in consultation for dialysis access. He presented to the emergency department yesterday with a diabetic foot wound that is requiring further treatment. He has evidence of osteomyelitis and acute on chronic renal failure. He has had hyperkalemia since being admitted yesterday. He is in need of urgent dialysis. Patient has no prior known history of chronic kidney disease and has never been on dialysis in the past. His white count on admission was 18,000 but he has been afebrile. Review of Systems Review of Systems: All systems reviewed & are unremarkable except as noted in HPI and below PMFSH Past Medical History Medical History Anemia of chronic disease Charcot's joint of right foot Chronic kidney disease, stage 4 (severe) BUN and creatinine were 48 and 4.37 respectively on labs drawn 01/23/2019. 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 Obstructive sleep apnea on CPAP Osteomyelitis (~07/2012) Status post transmetatarsal amputation of the right 4th toe per Dr. Espino. Type 2 diabetes mellitus Surgical History Surgical History History of amputation of hallux Left hallux amputation done at [facility]. History of complete ray amputation of fourth toe of right foot (~07/2012) Per Dr. Espino. Status post excisional debridement (~06/2012) Right foot necrotizing fasciitis per Dr. Espino. Family History Family History Unknown Diabetes mellitus Hypertension Social History Social History Social History: The patient lives in [place], [place] with his . They have 2 children. His son lives in [place], and the patient frequently visits him. He is on disability. He smoked up to 2 packs of cigarettes per
--- NOTE | 2019-09-07 14:19 | P.OP_ITS ---
Procedure Note - Detailed Date of procedure: 09/07/19 Pre-op diagnosis: Right diabetic foot wound. Acute/Chronic Renal failure Post-op diagnosis: same Procedure performed: Right IJ Sean Dialysis Catheter Placement with U/S Guidance Description of procedure: * Procedure, risks, benefits, and alternatives were discussed with the patient. Written consent was obtained and placed in chart prior to procedure. Patient was placed supine in hospital bed and placed in slight Trendelenburg position. Time-out was done to confirm patient and procedure. His right neck and chest area was prepped and draped in sterile fashion using chlorhexidine prep. SonoSite ultrasound was used to identify the right internal jugular vein. 1% lidocaine was infiltrated directly over this area. An 18 gauge introducer needle was advanced under ultrasound guidance directly into the right internal jugular vein. Dark nonpulsatile blood was aspirated. A 0.035 in guidewire was then advanced through the needle. The guidewire advanced smoothly. The needle was then withdrawn leaving the guidewire in place. A small david incision was made at the insertion site using an 11 blade scalpel. The blue dilators were then a dvanced over the guidewire to dilate the vessel. The 12 English triple lumen 16 cm dialysis catheter was then advanced over the guidewire until it was in place. The guidewire was removed. All 3 lumens were then aspirated and flushed with sterile saline. All 3 lumens function with ease. Caps were placed over the lumens. A stat lock was placed at the insertion site and the catheter was secured in place using 3 0 nylon simple interrupted sutures. A Tegaderm dressing was then applied over top. The patient was then sat up in bed and chest x-ray was ordered to confirm placement. Implants: 12 English 16 cm triple-lumen dialysis catheter Anesthesia: local ( 1% lidocaine) Surgeon: Von Hunter DO Estimated blood loss (mL): 5 Complications: No immediate complications Condition: stable Disposition: floor Findings: Ultrasound guidance was used to identify the right internal jugular vein. This was visualized as a compressible vessel just lateral to the pulsatile carotid artery. The vein was accessed with an 18 gauge introducer needle under ultrasound guidance. The guidewire advanced smoothly. X-ray was ordered to confirm placement.
--- NOTE | 2019-09-07 15:21 | P.PNIM_ITS ---
Progress Note: A&P Assessment and Plan (1) Acute osteomyelitis of right calcaneus: Code(s): M86.171 - Other acute osteomyelitis, right ankle and foot Status: Acute Assessment and Plan: * He has been started on vancomycin and imipenem for diabetic foot ulcer. * Will encourage elevation of the affected extremity. * Wound culture has been collected and is pending. * Dr. Edmonds has been consulted, and his input is appreciated. And further intervention pending dialysis and continued antibiotic treatment (2) Acute kidney injury superimposed on chronic kidney disease: Code(s): N17.9 - Acute kidney failure, unspecified; N18.9 - Chronic kidney disease, unspecified Status: Acute Assessment and Plan: * I assume this is progression of his kidney disease, as he gives no history to suggest dehydration. * Renal ultrasound no obstruction * Dr. Hollis consulted and proceeding done dialysis today with persistent hyperkalemia l hold his PARMINDER-inhibitor and sulfonylurea. (3) Acute hyperkalemia: Code(s): E87.5 - Hyperkalemia Status: Acute Assessment and Plan: * Insulin, glucose, and Kayexalate yesterday and again today. Proceed to dialysis this p.m. * Parminder inhibitor is on hold as detailed above. (4) Type 2 diabetes mellitus with peripheral neuropathy: Code(s): E11.42 - Type 2 diabetes mellitus with diabetic polyneuropathy Status: Acute Assessment and Plan: * Well controlled with a hemoglobin A1c of 6.0% * Sulfonylurea is on hold given acute kidney injury. * Initiate sliding scale insulin, Accu-Cheks, and hypoglycemic protocol. (5) Anemia of chronic disease: Code(s): D63.8 - Anemia in other chronic diseases classified elsewhere Status: Acute Assessment and Plan: * Iron studies compatible with anemia chronic disease with low iron TIBC and ferritin at 270. B12 level normal. (6) Essential hypertension: Code(s): I10 - Essential (primary) hypertension Status: Acute Assessment and Plan: * Blood pressures are reasonably well controlled. * PARMINDER-inhibitor is currently on hold given worsening renal function. * Will restart beta-hebert and lower dose HS and resume amlodipine if pressure rises further * Echo normal ejection fraction 60-65% (7) Obstructive sleep apnea on CPAP: Code(s): G47.33 - Obstructive sleep apnea (adult) (pediatric); Z99.89 - Dependence on other enabling machines and devices Status: Acute Assessment and Plan: * States compliance with CPAP. * CPAP provided by the hospital will be available for him to use while sleeping. (8) DVT prophylaxis: Code(s): Z29.9 - Encounter for prophylactic measures, unspecified Status: Acute Assessment and Plan: Subcu heparin with the renal failure Subjective Date/time seen: 09/07/19 15:21 Interval history: Date of visit 09/06. 53-year-old hypertensive type 2 diabetic with severe peripheral neuropathy and Charcot joint presents with infected right foot with osteomyelitis and acute on chronic renal failure with hyperkalemia. No complaints of shortness of breath chest discomfort. Dialysis cath will
--- NOTE | 2019-09-07 15:21 | PM.IMPN ---
Progress Note: A&P Assessment and Plan (1) Acute osteomyelitis of right calcaneus: Code(s): M86.171 - Other acute osteomyelitis, right ankle and foot Status: Acute Assessment and Plan: He has been started on vancomycin and imipenem for diabetic foot ulcer. Will encourage elevation of the affected extremity. Wound culture has been collected and is pending. Dr. Edmonds has been consulted, and his input is appreciated. And further intervention pending dialysis and continued antibiotic treatment (2) Acute kidney injury superimposed on chronic kidney disease: Code(s): N17.9 - Acute kidney failure, unspecified; N18.9 - Chronic kidney disease, unspecified Status: Acute Assessment and Plan: I assume this is progression of his kidney disease, as he gives no history to suggest dehydration. Renal ultrasound no obstruction Dr. Hollis consulted and proceeding done dialysis today with persistent hyperkalemia l hold his PARMINDER-inhibitor and sulfonylurea. (3) Acute hyperkalemia: Code(s): E87.5 - Hyperkalemia Status: Acute Assessment and Plan: Insulin, glucose, and Kayexalate yesterday and again today. Proceed to dialysis this p.m. Parminder inhibitor is on hold as detailed above. (4) Type 2 diabetes mellitus with peripheral neuropathy: Code(s): E11.42 - Type 2 diabetes mellitus with diabetic polyneuropathy Status: Acute Assessment and Plan: Well controlled with a hemoglobin A1c of 6.0% Sulfonylurea is on hold given acute kidney injury. Initiate sliding scale insulin, Accu-Cheks, and hypoglycemic protocol. (5) Anemia of chronic disease: Code(s): D63.8 - Anemia in other chronic diseases classified elsewhere Status: Acute Assessment and Plan: Iron studies compatible with anemia chronic disease with low iron TIBC and ferritin at 270. B12 level normal. (6) Essential hypertension: Code(s): I10 - Essential (primary) hypertension Status: Acute Assessment and Plan: Blood pressures are reasonably well controlled. PARMINDER-inhibitor is currently on hold given worsening renal function. Will restart beta-hebert and lower dose HS and resume amlodipine if pressure rises further Echo normal ejection fraction 60-65% (7) Obstructive sleep apnea on CPAP: Code(s): G47.33 - Obstructive sleep apnea (adult) (pediatric); Z99.89 - Dependence on other enabling machines and devices Status: Acute Assessment and Plan: States compliance with CPAP. CPAP provided by the hospital will be available for him to use while sleeping. (8) DVT prophylaxis: Code(s): Z29.9 - Encounter for prophylactic measures, unspecified Status: Acute Assessment and Plan: Subcu heparin with the renal failure Subjective Date/time seen: 09/07/19 15:21 Interval history: Date of visit 09/06. 53-year-old hypertensive type 2 diabetic with severe peripheral neuropathy and Charcot joint presents with infected right foot with osteomyelitis and acute on chronic renal failure with hyperkalemia. No complaints of shortness of breath chest discomfort. Dialysis cath will be placed today and dialysis to follow. Receiving IV antibiotics and will need probable below-knee amputation. Some peripheral vascular disease on Doppler but not significant.. No new complaints of nausea or shortness of breath. Exam Narrative: Exam Narrative: Blood pressure 126/56 pulse is 76 sat 99% on room air afebrile Pupils equal reactive to light sclera anicteric Lungs clear CV regular rate rhythm no m
[2019-09-07 16:23] LABS: Hepatitis B Surface Antigen Negative (Negative)
--- NOTE | 2019-09-07 16:36 | PM.CNNEP ---
Assessment and Plan Assessment and plan (1) CKD stage 5 due to type 1 diabetes mellitus: Code(s): E10.22 - Type 1 diabetes mellitus with diabetic chronic kidney disease; N18.5 - Chronic kidney disease, stage 5 Status: Acute Assessment and Plan: The patient has chronic kidney disease. This is been going on a long time. It has gradually worsened. Most likely this is due to diabetes, hypertension, sleep apnea, and morbid obesity. The latter to could cause focal segmental sclerosis leading to proteinuria and eventually elevated creatinine. Likely he also has involvement of the former two. Whether there is an acute component to this is unclear. If so the infection would have something to do with this. However his underlying chronic kidney disease is substantial and he may not recover even if there is an acute component. There are other causes of kidney disease such as infiltrative diseases or inflammatory diseases. I will get some testing done to check on these but I think the likelihood is low. We will check a renal ultrasound to make sure he does not have obstruction which might be reversible. At this point the patient has asterixis (which is a uremic symptom) and has potassium which his resisted medical therapy. So I told him that he needed to start dialysis. I think it is likely that he will stay on dialysis but we will watch for recovery as we treat the infection. We discussed the risks, benefits, alternatives, and process of dialysis. He is willing to proceed. I discussed with Dr. Hunter. We will place a temporary dialysis catheter. I do not want to put a tunneled catheter in at this point because of the infection. Once he has had a few days of antibiotics and if the blood cultures are negative we can switch to a tunneled catheter at that point. (2) Diabetic foot ulcer associated with diabetes mellitus due to underlying condition: Qualifiers: Diabetic foot ulcer location: heel Laterality: right Non-pressure ulcer stage: with necrosis of bone Qualified Code(s): E08.621 - Diabetes mellitus due to underlying condition with foot ulcer; L97.414 - Non-pressure chronic ulcer of right heel and midfoot with necrosis of bone Code(s): E08.621 - Diabetes mellitus due to underlying condition with foot ulcer; L97.509 - Non-pressure chronic ulcer of other part of unspecified foot with unspecified severity Status: Acute Assessment and Plan: The patient is getting antibiotics. Dr. Edmonds has been consulted as well. (3) Obstructive sleep apnea on CPAP: Code(s): G47.33 - Obstructive sleep apnea (adult) (pediatric); Z99.89 - Dependence on other enabling machines and devices Status: Acute Assessment and Plan: The patient needs to use a CPAP/BiPAP (4) Anemia of chronic disease: Code(s): D63.8 - Anemia in other chronic diseases classified elsewhere Status: Acute Assessment and Plan: We will give him Epogen. He is going to receive a unit of blood as well. (5) Essential hypertension: Code(s): I10 - Essential (primary) hypertension Status: Acute Assessment and Plan: His blood pressure is a little bit high. We will follow this along as we do dialysis. (6) Acute hyperkalemia: Code(s): E87.5 - Hyperkalemia Status: Acute Assessment and Plan: He had 2 rounds of Kayexalate. The dialysis should help this as well. (7) Dyslipidemia: Onset Date: ~10/2018 Code(s): E78.5 - Hyperlipidemia, unspecified Status: Acute Assessment and Plan: He has been on pravastatin. History of Present Illness Reason for Consult Consult date: 09/07/19 Chief Complaint Chief complaint: Right diabetic foot wound. History of Present Illness Narrative: Satish is a very pleasant 53-year-old gentleman who has diabetes, hypertension, morbid obesity, anxiety, chronic pain, depression, sleep apnea, and hyperlipidemia. The patie
[2019-09-07 16:40] LABS: Hepatitis B Surface Anti Res Negative
--- NOTE | 2019-09-07 16:58 | PM.EVENT ---
Event Note Event Note Event Note: The patient is on dialysis and tolerating well. He was seen at 4:45 p.m.
[2019-09-07] MEDS: ALPRAZOLAM 0.5 MG TABLET PO (17:56)
[2019-09-07 18:01] LABS: Glucose Point of Care 86 (65-105)
[2019-09-07 20:49] LABS: Glucose Point of Care 146 (65-105)
[2019-09-07] MEDS: AMITRIPTYLINE HCL 25 MG TABLET 50 MG PO (21:14)
[2019-09-08] VITALS (23 sets, daily range): BP systolic 118–189; BP diastolic 29–81; PULSE 56–99; RESP 0–22; TEMP 36.7–37.7; O2SAT 95–99
[2019-09-08 04:50] LABS: Basophils Absolute Auto 0.1 K/mm3 (0.0-0.1); Basophils Percent Auto 0.7 % (0.2-1.2); Eosinophils Absolute Auto 0.4 K/mm3 (0-0.3); Eosinophils Percent Auto 3.7 % (0-4.4); Hematocrit 26.9 % (42.0-52.0); Hemoglobin 7.9 g/dL (14.0-18.0); Immature Granulocyte Absolute 0.15 K/mm3 (0.00-0.031); Immature Granulocyte Percent A 1.4 % (0-0.5); Lymphocytes Absolute Auto 1.63 K/mm3 (0.9-3.2); Lymphocytes Percent Auto 15.3 % (18.3-44.2); Mean Corpuscular HGB Conc 29.4 g/dl (32-36); Mean Corpuscular Hemoglobin 26.2 pg (26-34); Mean Corpuscular Volume 89.4 fl (80-100); Mean Platelet Volume 9.7 fl (7.4-10.4); Monocytes Absolute Auto 1.5 K/mm3 (0.1-0.6); Monocytes Percent Auto 13.7 % (2.6-8.5); Neutrophils Percent Auto 65.2 % (45.5-73.1); Platelet Count Result 399 k/mm3 (150-375); Red Blood Count 3.01 M/mm3 (4.6-6.20); Red Cell Distribution Width 15.5 % (11.5-14.5); White Blood Count 10.7 K/mm3 (4.5-10.0)
[2019-09-08 05:23] LABS: Albumin Level 3.5 g/dL (3.5-5.1); Blood Urea Nitrogen 51 mg/dL (9-20); Calcium 8.2 mg/dL (8.4-10.2); Carbon Dioxide 24 mmol/L (22-30); Chloride 101 mmol/L (98-107); Estimated CRCL calculation 24 ml/min; Estimated Glomerular Filt Rate 13; Glucose 110 mg/dL (75-110); Phosphorus 7.6 mg/dL (2.5-4.5); Potassium 4.9 mmol/L (3.4-5.0); Sodium 136 mmol/L (137-145)
[2019-09-08 07:48] LABS: Glucose Point of Care 135 (65-105)
--- NOTE | 2019-09-08 08:49 | WPDCDIQUERY2 ---
CDI Query Clarification Request - ADDENDUM Patient also meets criteria for sepsis with tachycardia and leukocytosis in the setting of infection. Lactic acid level is within normal limits. Vital signs have remained stable. Blood cultures have been obtained and are pending. Was documented in H&P - No further mention of sepsis Please clarify if sepsis was ruled in or ruled out. <Keyana Garcia RN - Last Filed: 09/08/19 08:53>
--- NOTE | 2019-09-08 08:53 | PM.PNNEP ---
Progress Note: A&P Assessment and Plan (1) CKD stage 5 due to type 1 diabetes mellitus: Code(s): E10.22 - Type 1 diabetes mellitus with diabetic chronic kidney disease; N18.5 - Chronic kidney disease, stage 5 Status: Acute Assessment and Plan: The patient has chronic kidney disease. This is been going on a long time. It has gradually worsened. Most likely this is due to diabetes, hypertension, sleep apnea, and morbid obesity. Evaluation underway. He did well in dialysis yesterday. His asterixis is better. Will do another treatment today. (2) Diabetic foot ulcer associated with diabetes mellitus due to underlying condition: Qualifiers: Diabetic foot ulcer location: heel Laterality: right Non-pressure ulcer stage: with necrosis of bone Qualified Code(s): E08.621 - Diabetes mellitus due to underlying condition with foot ulcer; L97.414 - Non-pressure chronic ulcer of right heel and midfoot with necrosis of bone Code(s): E08.621 - Diabetes mellitus due to underlying condition with foot ulcer; L97.509 - Non-pressure chronic ulcer of other part of unspecified foot with unspecified severity Status: Acute Assessment and Plan: The patient is getting antibiotics. Dr. Edmonds has been consulted as well. (3) Obstructive sleep apnea on CPAP: Code(s): G47.33 - Obstructive sleep apnea (adult) (pediatric); Z99.89 - Dependence on other enabling machines and devices Status: Acute Assessment and Plan: The patient has been using his CPAP at home. (4) Anemia of chronic disease: Code(s): D63.8 - Anemia in other chronic diseases classified elsewhere Status: Acute Assessment and Plan: We will give him Epogen. Hemoglobin is better at 7.9. (5) Essential hypertension: Code(s): I10 - Essential (primary) hypertension Status: Acute Assessment and Plan: His blood pressure is a little bit high. We will follow this along as we do dialysis. (6) Acute hyperkalemia: Code(s): E87.5 - Hyperkalemia Status: Acute Assessment and Plan: Resolved (7) Dyslipidemia: Onset Date: ~10/2018 Code(s): E78.5 - Hyperlipidemia, unspecified Status: Acute Assessment and Plan: He has been on pravastatin. Subjective Date/time seen: 09/08/19 08:53 Interval history: Patient feels better today. Less tremor/asterixis. No shortness of breath. Review of Systems Cardiovascular: Cardiovascular: Reports no additional cardiovascular complaints Respiratory: Respiratory: Reports no additional respiratory complaints Gastrointestinal: Gastrointestinal: Reports no additional gastrointestinal complaints Genitourinary: Genitourinary: Reports no additional male genitourinary complaints Exam Narrative: Exam Narrative: WDWN in NAD skin no rash head ncat lungs clear cor reg no rub abd BS+ nontender and soft ext 1+ edema. Objective Data Vital Signs Vital Signs: Vital Signs - 24 hr 09/07/19 10:04 09/07/19 12:00 09/07/19 14:32 Temperature 36.7 C Pulse Rate 86 79 75 Pulse Rate [Radial] Respiratory Rate 22 H Blood Pressure 128/55 L Blood Pressure [Orthostatic Lying] Pulse Oximetry 99 09/07/19 15:21 09/07/19 15:30 09/07/19 15:45 Temperature 36.6 C Pulse Rate 70 70 82 Pulse Rate [Radial] 75 Respiratory Rate 18 Blood Pressure 166/87 H 171/80 H 168/70 H Blood Pressure [Orthostatic Lying] 172/78 H Pulse Oximetry 09/07/19 16:00 09/07/19 16:15 09/07/19 16:17 Temperature 36.6 C Pulse Rate 74 76 78 Pulse Rate [Radial] Respiratory Rate 18 Blood Pressure 147/83 H 163/89 H 147/87 H Blood Pressure [Orthostatic Lying] Pulse Oximetry 09/07/19 16:30 09/07/19 16:41 09/07/19 16:45 Temperature 37.1 C Pulse Rate 76 87 75 Pulse Rate [Radial] Respiratory Rate 18 Blood Pressure 160/82 H 160/83 H 160/83 H Blood Pressure [Orthostatic Lying] Pulse Oximetry
[2019-09-08] MEDS: HEPARIN SODIUM 5,000 UNITS/ML VIAL 5000 UNITS SUB-Q ×2 (09:01→20:24)
[2019-09-08] MEDS: VENLAFAXINE HCL XR 75 MG CAP.ER.24H PO (09:01)
[2019-09-08] MEDS: AMLODIPINE BESYLATE 5 MG TABLET 10 MG PO (09:02)
[2019-09-08] MEDS: METOPROLOL SUCCINATE EXT REL 50 MG TABCR PO (09:02)
[2019-09-08] MEDS: GABAPENTIN 300 MG CAPSULE 600 MG PO (09:02)
[2019-09-08] MEDS: SOD HYPOCHLORITE 1/4 STRENGTH 473 ML 1 APPLIC TOPICAL (11:21)
--- NOTE | 2019-09-08 12:37 | PC.NURSE ---
This patient, Satish Reeder, was received from IMU on 09/08/19 at 1237. Personal belongings list checked and signed. Patient/family oriented to unit policies and routines
--- NOTE | 2019-09-08 12:43 | PC.NURSE ---
This patient, Satish Reeder, was transferred to [facility] on 09/08/19 at 1234. Personal belongings sent with patient. Belongings list checked. Report given to ASHLY Jean. Appropriate documentation sent with patient.
--- NOTE | 2019-09-08 12:58 | P.PNIM_ITS ---
Progress Note: A&P Assessment and Plan (1) Acute osteomyelitis of right calcaneus: Code(s): M86.171 - Other acute osteomyelitis, right ankle and foot Status: Acute Assessment and Plan: * He is on vancomycin and imipenem for diabetic foot ulcer. * elevation of the affected extremity. * Wound culture has been collected and is growing citrobacter and staph. BC no growth * Dr. Edmonds is following patient. And further intervention pending dialysis and continued antibiotic treatment (2) Acute kidney injury superimposed on chronic kidney disease: Code(s): N17.9 - Acute kidney failure, unspecified; N18.9 - Chronic kidney disease, unspecified Status: Acute Assessment and Plan: * I assume this is progression of his kidney disease, as he gives no history to suggest dehydration. * Renal ultrasound no obstruction * Dr. Hollis consulted and proceeding done dialysis again today , K4.9 l hold his PARMINDER-inhibitor and sulfonylurea. (3) Acute hyperkalemia: Code(s): E87.5 - Hyperkalemia Status: Acute Assessment and Plan: * Insulin, glucose, and Kayexalate yesterday and again today. Proceed to dialysis this p.m. * Parminder inhibitor is on hold as detailed above. * K 4.9 this am (4) Type 2 diabetes mellitus with peripheral neuropathy: Code(s): E11.42 - Type 2 diabetes mellitus with diabetic polyneuropathy Status: Acute Assessment and Plan: * Well controlled with a hemoglobin A1c of 6.0% * Sulfonylurea is on hold given acute kidney injury. * Initiate sliding scale insulin, Accu-Cheks, and hypoglycemic protocol. (5) Anemia of chronic disease: Code(s): D63.8 - Anemia in other chronic diseases classified elsewhere Status: Acute Assessment and Plan: * Iron studies compatible with anemia chronic disease with low iron TIBC and ferritin at 270. B12 level normal. * One unit of PRBC 09/06 amd hgb 7.9 today (6) Essential hypertension: Code(s): I10 - Essential (primary) hypertension Status: Acute Assessment and Plan: * Blood pressures are reasonably well controlled. * PARMINDER-inhibitor is currently on hold given worsening renal function. restarted beta-hebert and amlodipine * Echo normal ejection fraction 60-65% (7) Obstructive sleep apnea on CPAP: Code(s): G47.33 - Obstructive sleep apnea (adult) (pediatric); Z99.89 - Dependence on other enabling machines and devices Status: Acute Assessment and Plan: * States compliance with CPAP. * CPAP provided by the hospital will be available for him to use while sleeping. (8) DVT prophylaxis: Code(s): Z29.9 - Encounter for prophylactic measures, unspecified Status: Acute Assessment and Plan: Subcu heparin with the renal failure (9) Sepsis: Code(s): A41.9 - Sepsis, unspecified organism Status: Acute Assessment and Plan: with leukocytosis , tachycardia, and tachypnea secondary to osteo and cellulitis, BC no growth Subjective Date/time seen: 09/08/19 12:58 Interval history: Date of visit 09/07. 53-year-old hypertensive type 2 diabetic with severe peripheral
--- NOTE | 2019-09-08 12:58 | PM.IMPN ---
Progress Note: A&P Assessment and Plan (1) Acute osteomyelitis of right calcaneus: Code(s): M86.171 - Other acute osteomyelitis, right ankle and foot Status: Acute Assessment and Plan: He is on vancomycin and imipenem for diabetic foot ulcer. elevation of the affected extremity. Wound culture has been collected and is growing citrobacter and staph. BC no growth Dr. Edmonds is following patient. And further intervention pending dialysis and continued antibiotic treatment (2) Acute kidney injury superimposed on chronic kidney disease: Code(s): N17.9 - Acute kidney failure, unspecified; N18.9 - Chronic kidney disease, unspecified Status: Acute Assessment and Plan: I assume this is progression of his kidney disease, as he gives no history to suggest dehydration. Renal ultrasound no obstruction Dr. Hollis consulted and proceeding done dialysis again today , K4.9 l hold his PARMINDER-inhibitor and sulfonylurea. (3) Acute hyperkalemia: Code(s): E87.5 - Hyperkalemia Status: Acute Assessment and Plan: Insulin, glucose, and Kayexalate yesterday and again today. Proceed to dialysis this p.m. Parminder inhibitor is on hold as detailed above. K 4.9 this am (4) Type 2 diabetes mellitus with peripheral neuropathy: Code(s): E11.42 - Type 2 diabetes mellitus with diabetic polyneuropathy Status: Acute Assessment and Plan: Well controlled with a hemoglobin A1c of 6.0% Sulfonylurea is on hold given acute kidney injury. Initiate sliding scale insulin, Accu-Cheks, and hypoglycemic protocol. (5) Anemia of chronic disease: Code(s): D63.8 - Anemia in other chronic diseases classified elsewhere Status: Acute Assessment and Plan: Iron studies compatible with anemia chronic disease with low iron TIBC and ferritin at 270. B12 level normal. One unit of PRBC 5/6 amd hgb 7.9 today (6) Essential hypertension: Code(s): I10 - Essential (primary) hypertension Status: Acute Assessment and Plan: Blood pressures are reasonably well controlled. PARMINDER-inhibitor is currently on hold given worsening renal function. restarted beta-hebert and amlodipine Echo normal ejection fraction 60-65% (7) Obstructive sleep apnea on CPAP: Code(s): G47.33 - Obstructive sleep apnea (adult) (pediatric); Z99.89 - Dependence on other enabling machines and devices Status: Acute Assessment and Plan: States compliance with CPAP. CPAP provided by the hospital will be available for him to use while sleeping. (8) DVT prophylaxis: Code(s): Z29.9 - Encounter for prophylactic measures, unspecified Status: Acute Assessment and Plan: Subcu heparin with the renal failure (9) Sepsis: Code(s): A41.9 - Sepsis, unspecified organism Status: Acute Assessment and Plan: with leukocytosis , tachycardia, and tachypnea secondary to osteo and cellulitis, BC no growth Subjective Date/time seen: 09/08/19 12:58 Interval history: Date of visit 09/07. 53-year-old hypertensive type 2 diabetic with severe peripheral neuropathy and Charcot joint presents with infected right foot with osteomyelitis and acute on chronic renal failure with hyperkalemia. No complaints of shortness of breath chest discomfort. Dialysis cath placed 09/06 and received dialysis. Receiving IV antibiotics and will need probable below-knee amputation. Some peripheral vascular disease on Doppler but not significant.. No new complaints of nausea or shortness of breath.slept well E
[2019-09-08 16:29] LABS: Glucose Point of Care 152 (65-105)
[2019-09-08 16:38] LABS: Glucose Point of Care 96 (65-105)
[2019-09-08] MEDS: NICOTINE (*PBKC) 21 MG PATCH 1 PATCH TRANSDERM (20:24)
--- NOTE | 2019-09-08 21:28 | PC.NURSE ---
Patient to Dialysis 2119
[2019-09-08 21:42] LABS: Glucose Point of Care 108 (65-105)
[2019-09-08] MEDS: EPOETIN ALFA 10,000 UNITS/ML VIAL 10000 UNITS IV PUSH (23:11)
[2019-09-09] VITALS (24 sets, daily range): BP systolic 145–214; BP diastolic 51–120; PULSE 62–989; RESP 13–20; TEMP 36–36.8; O2SAT 95–99
[2019-09-09 00:15] LABS: Vancomycin Random 16.3 ug/mL (10-20)
[2019-09-09] MEDS: AMITRIPTYLINE HCL 25 MG TABLET 50 MG PO ×2 (01:33→20:12)
[2019-09-09] MEDS: SOD HYPOCHLORITE 1/4 STRENGTH 473 ML 1 APPLIC TOPICAL ×3 (01:34→20:11)
[2019-09-09 03:34] LABS: Kappa\\Lambda Light Chains 1.38 (0.26-1.65); Lambda Light Chain 217.3 mg/L (5.7-26.3)
[2019-09-09 04:56] LABS: Basophils Percent Auto 0.3 % (0.2-1.2); Eosinophils Absolute Auto 0.5 K/mm3 (0-0.3); Eosinophils Percent Auto 3.9 % (0-4.4); Hematocrit 25.7 % (42.0-52.0); Hemoglobin 7.8 g/dL (14.0-18.0); Immature Granulocyte Absolute 0.12 K/mm3 (0.00-0.031); Lymphocytes Absolute Auto 1.82 K/mm3 (0.9-3.2); Lymphocytes Percent Auto 15.7 % (18.3-44.2); Mean Corpuscular HGB Conc 30.4 g/dl (32-36); Mean Corpuscular Hemoglobin 26.5 pg (26-34); Mean Corpuscular Volume 87.4 fl (80-100); Mean Platelet Volume 9.6 fl (7.4-10.4); Monocytes Absolute Auto 1.1 K/mm3 (0.1-0.6); Monocytes Percent Auto 9.1 % (2.6-8.5); Neutrophils Absolute Auto 8.1 K/mm3 (1.3-6.7); Platelet Count Result 401 k/mm3 (150-375); Red Blood Count 2.94 M/mm3 (4.6-6.20); Red Cell Distribution Width 15.1 % (11.5-14.5); White Blood Count 11.6 K/mm3 (4.5-10.0)
[2019-09-09 05:19] LABS: Potassium 4.7 mmol/L (3.4-5.0)
[2019-09-09 05:25] LABS: Albumin Level 3.5 g/dL (3.5-5.1); Blood Urea Nitrogen 36 mg/dL (9-20); Calcium 8.1 mg/dL (8.4-10.2); Carbon Dioxide 27 mmol/L (22-30); Chloride 99 mmol/L (98-107); Estimated CRCL calculation 32 ml/min; Estimated Glomerular Filt Rate 17; Glucose 123 mg/dL (75-110); Phosphorus 5.1 mg/dL (2.5-4.5); Sodium 135 mmol/L (137-145)
[2019-09-09 07:58] LABS: Glucose Point of Care 118 (65-105)
[2019-09-09] MEDS: VENLAFAXINE HCL XR 75 MG CAP.ER.24H PO (09:00)
[2019-09-09] MEDS: METOPROLOL SUCCINATE EXT REL 50 MG TABCR PO (09:00)
[2019-09-09] MEDS: GABAPENTIN 300 MG CAPSULE 600 MG PO (09:00)
[2019-09-09] MEDS: AMLODIPINE BESYLATE 5 MG TABLET 10 MG PO (09:00)
[2019-09-09] MEDS: HEPARIN SODIUM 5,000 UNITS/ML VIAL 5000 UNITS SUB-Q ×2 (09:01→20:11)
--- NOTE | 2019-09-09 10:30 | PC.NURSE ---
Patient to hemodialysis via bed.
--- NOTE | 2019-09-09 11:34 | PM.PNORT ---
Progress Note: A&P Assessment and Plan (1) Acute osteomyelitis of right calcaneus: Code(s): M86.171 - Other acute osteomyelitis, right ankle and foot Status: Acute Assessment and Plan: Patient with chronic diabetic foot ulcer right foot with evidence of osteomyelitis. Dressing changed today. Mild improvemetn in appearance/odor with Dakins dressing changes BID. Ulcer with large area of necrotic tissue on the heel, probing to bone. Discussed further nonoperative and operative treatment options with the patient. The patients questions were answered. The patient desires operative treatment. Discussed I&D Right DFU and excision of osteomyelitis vs. BKA. Risks of surgery including but not limited to neurovascular damage, wound complications, blood clot, pulmonary embolus, stroke, myocardial infarction, anesthetic risks up to and including were reviewed. Continued pain and possible dysfunction were explained. No guarantees were offered. The patient understands and wishes to proceed with salvage of foot. Plan: Excision osteomyelitis right calcaneus, debridement of right diabetic foot ulcer pending medical clearance. NPO after midnight for surgery planned THURSDAY. Obtain consent. Continue dressing changes BID and NWB RLE in the interim. (2) Diabetic foot ulcer associated with diabetes mellitus due to underlying condition: Qualifiers: Diabetic foot ulcer location: heel Laterality: right Non-pressure ulcer stage: with necrosis of bone Qualified Code(s): E08.621 - Diabetes mellitus due to underlying condition with foot ulcer; L97.414 - Non-pressure chronic ulcer of right heel and midfoot with necrosis of bone Code(s): E08.621 - Diabetes mellitus due to underlying condition with foot ulcer; L97.509 - Non-pressure chronic ulcer of other part of unspecified foot with unspecified severity Status: Acute (3) Type 2 diabetes mellitus with peripheral neuropathy: Code(s): E11.42 - Type 2 diabetes mellitus with diabetic polyneuropathy Status: Acute (4) Acute kidney injury superimposed on chronic kidney disease: Code(s): N17.9 - Acute kidney failure, unspecified; N18.9 - Chronic kidney disease, unspecified Status: Acute Subjective Subjective Date/Time Seen: 09/09/19 11:34 Principal diagnosis: Right Plantar DFU Interval history: No new complaints. No complaints of pain. Sitting in bed during HD. Review of Systems Constitutional: Constitutional: Denies chills, Denies fatigue and Denies weakness ENT: Denies dysphagia Cardiovascular: Cardiovascular: Denies chest pain, Reports pedal edema (RIGHT ), Reports leg edema (b/l LE ) and Denies lightheadedness Respiratory: Respiratory: Denies cough and Denies dyspnea Gastrointestinal: Gastrointestinal: Denies abdominal pain, Denies diarrhea, Denies nausea and Denies vomiting Genitourinary: Genitourinary: Denies dysuria Musculoskeletal: Musculoskeletal: Reports arthralgias and Reports joint swelling Comments: RIGHT plantar DFU with surrounding erythema and foul odor Integumentary/Breasts: Skin/Breast: Reports erythema and Reports wounds (RIGHT plantar foot ) Comments: see above Neurologic: Denies headache(s) and Reports numbness Comments: decreased sensation b/l feet Psychiatric: Psychiatric: Reports no additional psychiatric complaints Endocrine: Endocrine: Denies fatigue, Denies polyuria and Denies palpitations Exam Const: General: comfortable and no acute distress Resp: Effort & Inspection: normal respiratory effort Cardio: Rate: regular rate Rhythm: regular rhythm GI: Other: obese Skin: Wounds: wounds noted Other: Large DFU on the plantar aspect of the right foot from the midfoot extending to the hindfoot. Ulcer measures 10 cm width and 14 cm length with 1.0 cm depth to bone. 70% red/pink wound bed, 30% necrosis with probing to calcaneus. Foul odor noted. Ulcer on the plantar aspect of the 1st MTP joint
[2019-09-09] MEDS: hydrALAZINE HCL 20 MG/ML VIAL 10 MG IV PUSH (13:02)
--- NOTE | 2019-09-09 14:00 | PC.NURSE ---
Returned from hemodialysis via bed.
[2019-09-09 14:16] LABS: Glucose Point of Care 101 (65-105)
--- NOTE | 2019-09-09 14:39 | P.PNIM_ITS ---
Progress Note: A&P Assessment and Plan (1) Acute osteomyelitis of right calcaneus: Code(s): M86.171 - Other acute osteomyelitis, right ankle and foot Status: Acute Assessment and Plan: * He is on vancomycin and imipenem for diabetic foot ulcer.D# 4 * elevation of the affected extremity. * Wound culture has been collected and is growing citrobacter sens to all on panel and MSSA. BC no growth * Dr. Edmonds is following patient and plans surgery for Monday 09/11.,debridement and or amputation (2) Acute kidney injury superimposed on chronic kidney disease: Code(s): N17.9 - Acute kidney failure, unspecified; N18.9 - Chronic kidney disease, unspecified Status: Acute Assessment and Plan: * I assume this is progression of his kidney disease, as he gives no history to suggest dehydration. * Renal ultrasound no obstruction * Dr. Hollis consulted and proceeding to dialysis again today , K4.7 urine light chains increased. immunofixation pending (3) Acute hyperkalemia: Code(s): E87.5 - Hyperkalemia Status: Acute Assessment and Plan: * Insulin, glucose, and Kayexalate yesterday and again today. Proceed to dialysis this p.m. * Parminder inhibitor is on hold as detailed above. * K 4.7 this am (4) Type 2 diabetes mellitus with peripheral neuropathy: Code(s): E11.42 - Type 2 diabetes mellitus with diabetic polyneuropathy Status: Acute Assessment and Plan: * Well controlled with a hemoglobin A1c of 6.0% * Sulfonylurea is on hold given acute kidney injury. * Initiated sliding scale insulin, Accu-Cheks, and hypoglycemic protocol. (5) Anemia of chronic disease: Code(s): D63.8 - Anemia in other chronic diseases classified elsewhere Status: Acute Assessment and Plan: * Iron studies compatible with anemia chronic disease with low iron TIBC and ferritin at 270. B12 level normal. * One unit of PRBC 5/6 amd hgb 7.8 today * immunofixation still pending (6) Essential hypertension: Code(s): I10 - Essential (primary) hypertension Status: Acute Assessment and Plan: * Blood pressures are starting to rise so will restart parminder with his renal status not likely to improve. * PARMINDER-inhibitor is currently on hold given worsening renal function. restarted beta-hebert and amlodipine * Echo normal ejection fraction 60-65% (7) Obstructive sleep apnea on CPAP: Code(s): G47.33 - Obstructive sleep apnea (adult) (pediatric); Z99.89 - Dependence on other enabling machines and devices Status: Acute Assessment and Plan: * States compliance with CPAP. * CPAP provided by the hospital will be available for him to use while sleeping. (8) DVT prophylaxis: Code(s): Z29.9 - Encounter for prophylactic measures, unspecified Status: Acute Assessment and Plan: Subcu heparin with the renal failure (9) Sepsis: Code(s): A41.9 - Sepsis, unspecified organism Status: Acute Assessment and Plan: with leukocytosis , tachycardia, and tachypnea secondary to osteo and cellulitis, BC no growth Subjective Date/time seen: 09/09/19 14:39
--- NOTE | 2019-09-09 14:39 | PM.IMPN ---
Progress Note: A&P Assessment and Plan (1) Acute osteomyelitis of right calcaneus: Code(s): M86.171 - Other acute osteomyelitis, right ankle and foot Status: Acute Assessment and Plan: He is on vancomycin and imipenem for diabetic foot ulcer.D# 4 elevation of the affected extremity. Wound culture has been collected and is growing citrobacter sens to all on panel and MSSA. BC no growth Dr. Edmonds is following patient and plans surgery for Monday 09/11.,debridement and or amputation (2) Acute kidney injury superimposed on chronic kidney disease: Code(s): N17.9 - Acute kidney failure, unspecified; N18.9 - Chronic kidney disease, unspecified Status: Acute Assessment and Plan: I assume this is progression of his kidney disease, as he gives no history to suggest dehydration. Renal ultrasound no obstruction Dr. Hollis consulted and proceeding to dialysis again today , K4.7 urine light chains increased. immunofixation pending (3) Acute hyperkalemia: Code(s): E87.5 - Hyperkalemia Status: Acute Assessment and Plan: Insulin, glucose, and Kayexalate yesterday and again today. Proceed to dialysis this p.m. Parminder inhibitor is on hold as detailed above. K 4.7 this am (4) Type 2 diabetes mellitus with peripheral neuropathy: Code(s): E11.42 - Type 2 diabetes mellitus with diabetic polyneuropathy Status: Acute Assessment and Plan: Well controlled with a hemoglobin A1c of 6.0% Sulfonylurea is on hold given acute kidney injury. Initiated sliding scale insulin, Accu-Cheks, and hypoglycemic protocol. (5) Anemia of chronic disease: Code(s): D63.8 - Anemia in other chronic diseases classified elsewhere Status: Acute Assessment and Plan: Iron studies compatible with anemia chronic disease with low iron TIBC and ferritin at 270. B12 level normal. One unit of PRBC 5/6 amd hgb 7.8 today immunofixation still pending (6) Essential hypertension: Code(s): I10 - Essential (primary) hypertension Status: Acute Assessment and Plan: Blood pressures are starting to rise so will restart parminder with his renal status not likely to improve. PARMINDER-inhibitor is currently on hold given worsening renal function. restarted beta-hebert and amlodipine Echo normal ejection fraction 60-65% (7) Obstructive sleep apnea on CPAP: Code(s): G47.33 - Obstructive sleep apnea (adult) (pediatric); Z99.89 - Dependence on other enabling machines and devices Status: Acute Assessment and Plan: States compliance with CPAP. CPAP provided by the hospital will be available for him to use while sleeping. (8) DVT prophylaxis: Code(s): Z29.9 - Encounter for prophylactic measures, unspecified Status: Acute Assessment and Plan: Subcu heparin with the renal failure (9) Sepsis: Code(s): A41.9 - Sepsis, unspecified organism Status: Acute Assessment and Plan: with leukocytosis , tachycardia, and tachypnea secondary to osteo and cellulitis, BC no growth Subjective Date/time seen: 09/09/19 14:39 Interval history: Date of visit 09/08. 53-year-old hypertensive type 2 diabetic with severe peripheral neuropathy and Charcot joint presents with infected right foot with osteomyelitis and acute on chronic renal failure with hyperkalemia. No complaints of shortness of breath chest discomfort. Dialysis cath placed 09/06 and received dialysis. Receiving IV antibiotics and will need probable amputation. Some peripheral vascular disease on Dopp
--- NOTE | 2019-09-09 15:44 | PM.PNNEP ---
Progress Note: A&P Assessment and Plan (1) CKD stage 5 due to type 1 diabetes mellitus: Code(s): E10.22 - Type 1 diabetes mellitus with diabetic chronic kidney disease; N18.5 - Chronic kidney disease, stage 5 Status: Acute Assessment and Plan: The patient has chronic kidney disease. This is been going on a long time. It has gradually worsened. CPK is 84. Sed rate is greater than 140. Urine electrolytes non pre renal. Urine protein is about 5 grams per g of creatinine Urinalysis shows 1+ blood 2+ protein. If this continues he probably should see a urologist. [place] lambda ratio is normal. Await immunofixation This is likely end-stage renal disease due to diabetes and hypertension. Sleep apnea and obesity are probably playing a role as well. (2) Diabetic foot ulcer associated with diabetes mellitus due to underlying condition: Qualifiers: Diabetic foot ulcer location: heel Laterality: right Non-pressure ulcer stage: with necrosis of bone Qualified Code(s): E08.621 - Diabetes mellitus due to underlying condition with foot ulcer; L97.414 - Non-pressure chronic ulcer of right heel and midfoot with necrosis of bone Code(s): E08.621 - Diabetes mellitus due to underlying condition with foot ulcer; L97.509 - Non-pressure chronic ulcer of other part of unspecified foot with unspecified severity Status: Acute Assessment and Plan: The patient is getting antibiotics. Dr. Edmonds has been consulted as well. (3) Obstructive sleep apnea on CPAP: Code(s): G47.33 - Obstructive sleep apnea (adult) (pediatric); Z99.89 - Dependence on other enabling machines and devices Status: Acute Assessment and Plan: The patient has been using his CPAP at home. Echocardiogram showed mild pulmonary hypertension. (4) Anemia of chronic disease: Code(s): D63.8 - Anemia in other chronic diseases classified elsewhere Status: Acute Assessment and Plan: Reticulocyte count 1.73. T sat is low but we cannot give him iron because of his infection. We will continue to give him Epogen. Hemoglobin is stable (5) Essential hypertension: Code(s): I10 - Essential (primary) hypertension Status: Acute Assessment and Plan: His blood pressure tru with dialysis. He is on amlodipine. It does not look like he has much to take off. He is starting on lisinopril now. Hopefully this will help. (6) Acute hyperkalemia: Code(s): E87.5 - Hyperkalemia Status: Acute Assessment and Plan: Resolved (7) Dyslipidemia: Onset Date: ~10/2018 Code(s): E78.5 - Hyperlipidemia, unspecified Status: Acute Assessment and Plan: He has been on pravastatin. Subjective Date/time seen: 09/09/19 15:44 Interval history: Patient feels better today. \ He had dialysis today and he cramped and so they were unable to get much fluid off. His blood pressure did rise, it did not fall. No tremor or asterixis. Review of Systems Cardiovascular: Cardiovascular: Reports no additional cardiovascular complaints Respiratory: Respiratory: Reports no additional respiratory complaints Gastrointestinal: Gastrointestinal: Reports no additional gastrointestinal complaints Genitourinary: Genitourinary: Reports no additional male genitourinary complaints Exam Narrative: Exam Narrative: WDWN in NAD skin no rash or subcu nodules head ncat lungs clear cor reg no rub abd BS+ nontender and soft ext no more edema. Objective Data Vital Signs Vital Signs: Vital Signs - 24 hr 09/08/19 21:00 09/08/19 21:30 09/08/19 21:39 Temperature 37.7 C H 36.8 C Pulse Rate 84 81 76 Respiratory Rate 22 H 18 Blood Pressure 138/78 139/46 L 148/35 H Pulse Oximetry 97 09/08/19 21:45 09/08/19 22:00 09/08/19 22:05 Temperature Pulse Rate 71 79 82 Respiratory Rate Blood Pressure 138/43 L 118/29 L 126/42 L Pulse Oximetry
[2019-09-09] MEDS: lisinopriL 20 MG TABLET PO (16:02)
[2019-09-09 19:00] LABS: Glucose Point of Care 115 (65-105)
[2019-09-09 21:17] LABS: Glucose Point of Care 152 (65-105)
[2019-09-10 05:32] LABS: Albumin Level 3.5 g/dL (3.5-5.1); Blood Urea Nitrogen 29 mg/dL (9-20); Calcium 8.2 mg/dL (8.4-10.2); Carbon Dioxide 27 mmol/L (22-30); Chloride 99 mmol/L (98-107); Estimated CRCL calculation 32 ml/min; Estimated Glomerular Filt Rate 17; Glucose 124 mg/dL (75-110); Phosphorus 5.3 mg/dL (2.5-4.5); Potassium 4.4 mmol/L (3.4-5.0); Sodium 135 mmol/L (137-145)
[2019-09-10 05:35] LABS: Basophils Absolute Auto 0.1 K/mm3 (0.0-0.1); Basophils Percent Auto 0.6 % (0.2-1.2); Eosinophils Absolute Auto 0.6 K/mm3 (0-0.3); Eosinophils Percent Auto 4.9 % (0-4.4); Hematocrit 25.8 % (42.0-52.0); Hemoglobin 7.6 g/dL (14.0-18.0); Immature Granulocyte Absolute 0.15 K/mm3 (0.00-0.031); Immature Granulocyte Percent A 1.3 % (0-0.5); Lymphocytes Absolute Auto 2.03 K/mm3 (0.9-3.2); Lymphocytes Percent Auto 17.6 % (18.3-44.2); Mean Corpuscular HGB Conc 29.5 g/dl (32-36); Mean Corpuscular Hemoglobin 26.1 pg (26-34); Mean Corpuscular Volume 88.7 fl (80-100); Monocytes Absolute Auto 1.3 K/mm3 (0.1-0.6); Monocytes Percent Auto 10.9 % (2.6-8.5); Neutrophils Absolute Auto 7.4 K/mm3 (1.3-6.7); Neutrophils Percent Auto 64.7 % (45.5-73.1); Platelet Count Result 379 k/mm3 (150-375); Red Blood Count 2.91 M/mm3 (4.6-6.20); Red Cell Distribution Width 14.9 % (11.5-14.5); White Blood Count 11.5 K/mm3 (4.5-10.0)
[2019-09-10 05:59] VITALS: BP 158/86; PULSE 72; RESP 16; TEMP 36.2; O2SAT 100
[2019-09-10 07:42] LABS: Glucose Point of Care 132 (65-105)
[2019-09-10] MEDS: lisinopriL 20 MG TABLET 40 MG PO (08:52)
[2019-09-10] MEDS: GABAPENTIN 300 MG CAPSULE PO ×2 (08:52→21:15)
[2019-09-10] MEDS: AMLODIPINE BESYLATE 5 MG TABLET 10 MG PO (08:52)
[2019-09-10] MEDS: HEPARIN SODIUM 5,000 UNITS/ML VIAL 5000 UNITS SUB-Q ×2 (08:52→21:14)
[2019-09-10] MEDS: VENLAFAXINE HCL XR 75 MG CAP.ER.24H PO (08:52)
[2019-09-10 08:53] VITALS: PULSE 70
[2019-09-10] MEDS: METOPROLOL SUCCINATE EXT REL 50 MG TABCR PO (08:53)
[2019-09-10 09:15] VITALS: BP 160/77; PULSE 78
[2019-09-10] MEDS: SOD HYPOCHLORITE 1/4 STRENGTH 473 ML 1 APPLIC TOPICAL ×2 (10:45→21:17)
--- NOTE | 2019-09-10 13:06 | PM.IMPN ---
Progress Note: A&P Assessment and Plan (1) Acute osteomyelitis of right calcaneus: Code(s): M86.171 - Other acute osteomyelitis, right ankle and foot Status: Acute Assessment and Plan: He is on vancomycin and imipenem for diabetic foot ulcer.D# 5 Necrotic area in R heel Wound culture has been collected and is growing citrobacter sens to all on panel and MSSA. BC no growth Dr. Edmnods is following patient and plans surgery for Monday 09/11.,debridement and or amputation (2) Acute kidney injury superimposed on chronic kidney disease: Code(s): N17.9 - Acute kidney failure, unspecified; N18.9 - Chronic kidney disease, unspecified Status: Acute Assessment and Plan: Pt sp dialysis Continue to watch BMP potassium levels and UO. Renal ultrasound no obstruction Dr. Hollis consulted, pt may need further dialysis, potassium today is 4.4 (3) Acute hyperkalemia: Code(s): E87.5 - Hyperkalemia Status: Acute Assessment and Plan: Pt needing dialysis duet o hyperkalaemia (4) Type 2 diabetes mellitus with peripheral neuropathy: Code(s): E11.42 - Type 2 diabetes mellitus with diabetic polyneuropathy Status: Acute Assessment and Plan: Hemoglobin A1c of 6.0% Initiated sliding scale insulin, Accu-Cheks, and hypoglycemic protocol. (5) Anemia of chronic disease: Code(s): D63.8 - Anemia in other chronic diseases classified elsewhere Status: Acute Assessment and Plan: Iron studies compatible with anemia chronic disease. hb is 7.6 today (6) Essential hypertension: Code(s): I10 - Essential (primary) hypertension Status: Acute Assessment and Plan: Blood pressures is stable on current medications Echo normal ejection fraction 60-65% (7) Obstructive sleep apnea on CPAP: Code(s): G47.33 - Obstructive sleep apnea (adult) (pediatric); Z99.89 - Dependence on other enabling machines and devices Status: Acute Assessment and Plan: States compliance with CPAP. CPAP provided by the hospital will be available for him to use while sleeping. (8) DVT prophylaxis: Code(s): Z29.9 - Encounter for prophylactic measures, unspecified Status: Acute Assessment and Plan: Subcu heparin (9) Sepsis: Code(s): A41.9 - Sepsis, unspecified organism Status: Resolved Assessment and Plan: On admission pt had leukocytosis , tachycardia, and tachypnea secondary to [place] [address] BC no growth, pt is on vancomycin and imipenem for diabetic foot ulcer.D# 5 Subjective Date/time seen: 09/10/19 13:06 Interval history: 53-year-old hypertensive type 2 diabetic with severe peripheral neuropathy and Charcot joint presents with infected right foot with osteomyelitis and acute on chronic renal failure with hyperkalemia. Pt feeling better after dialysis. Dialysis cath placed 5/ and received dialysis. Receiving IV antibiotics and will need probable amputation. Continue wound care, continue to watch kidney function and Uo. Today potassium level is 4.4. No other compilants pleasant gentleman. Review of Systems Review of Systems: All systems reviewed & are unremarkable except as noted in HPI and below Exam Narrative: Exam Narrative: Vital Signs Temp 36.2 C L 09/10/19 05:59 Pulse 70 09/10/19 08:53 Resp 16 09/10/19 05:59 BP 158/86 H 09/10/19 05:59 Pulse Ox 100 05/
[2019-09-10 13:46] LABS: Glucose Point of Care 100 (65-105)
[2019-09-10 14:00] VITALS: BP 169/83; PULSE 77; RESP 16; TEMP 36.2; O2SAT 97
--- NOTE | 2019-09-10 14:53 | PM.PNNEP ---
Progress Note: A&P Assessment and Plan (1) CKD stage 5 due to type 1 diabetes mellitus: Code(s): E10.22 - Type 1 diabetes mellitus with diabetic chronic kidney disease; N18.5 - Chronic kidney disease, stage 5 Status: Acute Assessment and Plan: The patient has chronic kidney disease. This is been going on a long time. It has gradually worsened. CPK is 84. Sed rate is greater than 140. Urine electrolytes non pre renal. Urine protein is about 5 grams per g of creatinine Urinalysis shows 1+ blood 2+ protein. If this continues he probably should see a urologist. [place] lambda ratio is normal. Await immunofixation This is likely end-stage renal disease due to diabetes and hypertension. Sleep apnea and obesity are probably playing a role as well. Long discussion with the patient. He is wondering if his kidneys will recover. I doubt if they will but we will be watching for recovery if it happens. At this point we will leave the temporary catheter in. He will get surgery on Thursday. If he does okay infectious hardy then Thursday we can put a new catheter in of the tunnelled variety so that I can stay on longer. He will need to look toward getting a fistula placed in the next couple of weeks as an outpatient if the kidney function does not improve. I answered questions for the patient. (2) Diabetic foot ulcer associated with diabetes mellitus due to underlying condition: Qualifiers: Diabetic foot ulcer location: heel Laterality: right Non-pressure ulcer stage: with necrosis of bone Qualified Code(s): E08.621 - Diabetes mellitus due to underlying condition with foot ulcer; L97.414 - Non-pressure chronic ulcer of right heel and midfoot with necrosis of bone Code(s): E08.621 - Diabetes mellitus due to underlying condition with foot ulcer; L97.509 - Non-pressure chronic ulcer of other part of unspecified foot with unspecified severity Status: Acute Assessment and Plan: The patient is getting antibiotics. Dr. Kendal white is on the case. (3) Obstructive sleep apnea on CPAP: Code(s): G47.33 - Obstructive sleep apnea (adult) (pediatric); Z99.89 - Dependence on other enabling machines and devices Status: Acute Assessment and Plan: The patient has been using his CPAP at home. Echocardiogram showed mild pulmonary hypertension. (4) Anemia of chronic disease: Code(s): D63.8 - Anemia in other chronic diseases classified elsewhere Status: Acute Assessment and Plan: Reticulocyte count 1.73. T sat is low but we cannot give him iron because of his infection. We will continue to give him Epogen. Hemoglobin is stable (5) Essential hypertension: Code(s): I10 - Essential (primary) hypertension Status: Acute Assessment and Plan: His blood pressure was high yesterday and today. He is on amlodipine and lisinopril now. To help maintain fluid status we will start it diuretic. I will add hydralazine also to help control the blood pressure. (6) Acute hyperkalemia: Code(s): E87.5 - Hyperkalemia Status: Acute Assessment and Plan: Resolved (7) Dyslipidemia: Onset Date: ~10/2018 Code(s): E78.5 - Hyperlipidemia, unspecified Status: Acute Assessment and Plan: He has been on pravastatin. Subjective Date/time seen: 09/10/19 14:53 Interval history: Patient feels better today. He did not have dialysis today. His blood pressure is up and down. No tremor or asterixis. Review of Systems Cardiovascular: Cardiovascular: Reports no additional cardiovascular complaints Respiratory: Respiratory: Reports no additional respiratory complaints Gastrointestinal: Gastrointestinal: Reports no additional gastrointestinal complaints Genitourinary: Genitourinary: Reports no additional male genitourinary complaints Exam Narrative: Exam Narrative: WDWN in NAD skin no rash or subcu nodule
[2019-09-10 16:33] LABS: Glucose Point of Care 108 (65-105)
[2019-09-10] MEDS: FUROSEMIDE 80 MG TABLET PO (17:27)
[2019-09-10] MEDS: hydrALAZINE 10 MG TABLET PO ×2 (17:28→23:18)
[2019-09-10 20:03] LABS: Complement Total CH50 >60 U/mL (31-60)
[2019-09-10 21:08] VITALS: BP 138/69; PULSE 75; RESP 18; TEMP 36.3; O2SAT 97
[2019-09-10] MEDS: AMITRIPTYLINE HCL 25 MG TABLET 50 MG PO (21:15)
[2019-09-10 21:42] LABS: Glucose Point of Care 125 (65-105)
[2019-09-10 23:50] VITALS: PULSE 75; RESP 21; O2SAT 97
[2019-09-11 02:02] LABS: Hepatitis B Core Ab Total Nonreactive (Nonreactive)
[2019-09-11 03:33] VITALS: PULSE 76; RESP 19; O2SAT 96
[2019-09-11 05:03] VITALS: BP 127/74; PULSE 67; RESP 16; TEMP 36.3; O2SAT 97
[2019-09-11 06:21] LABS: Albumin Level 3.5 g/dL (3.5-5.1); Blood Urea Nitrogen 34 mg/dL (9-20); Calcium 8.4 mg/dL (8.4-10.2); Carbon Dioxide 27 mmol/L (22-30); Chloride 99 mmol/L (98-107); Estimated CRCL calculation 28 ml/min; Estimated Glomerular Filt Rate 15; Glucose 116 mg/dL (75-110); Phosphorus 6.5 mg/dL (2.5-4.5); Potassium 4.6 mmol/L (3.4-5.0); Sodium 133 mmol/L (137-145)
[2019-09-11 06:31] LABS: Vancomycin Random 13.9 ug/mL (10-20)
[2019-09-11] MEDS: hydrALAZINE 10 MG TABLET PO ×3 (06:33→21:29)
[2019-09-11] MEDS: AMLODIPINE BESYLATE 5 MG TABLET 10 MG PO (07:56)
[2019-09-11] MEDS: lisinopriL 20 MG TABLET 40 MG PO (07:56)
[2019-09-11] MEDS: GABAPENTIN 300 MG CAPSULE PO ×2 (07:56→17:20)
[2019-09-11] MEDS: VENLAFAXINE HCL XR 75 MG CAP.ER.24H PO (07:57)
[2019-09-11] MEDS: FUROSEMIDE 80 MG TABLET PO ×2 (07:57→17:20)
[2019-09-11 07:59] VITALS: PULSE 65
[2019-09-11] MEDS: METOPROLOL SUCCINATE EXT REL 50 MG TABCR PO (07:59)
[2019-09-11] MEDS: HEPARIN SODIUM 5,000 UNITS/ML VIAL 5000 UNITS SUB-Q ×2 (08:14→21:43)
[2019-09-11] MEDS: SOD HYPOCHLORITE 1/4 STRENGTH 473 ML 1 APPLIC TOPICAL ×2 (08:16→23:48)
--- NOTE | 2019-09-11 09:22 | PM.PNNEP ---
Progress Note: A&P Assessment and Plan (1) CKD stage 5 due to type 1 diabetes mellitus: Code(s): E10.22 - Type 1 diabetes mellitus with diabetic chronic kidney disease; N18.5 - Chronic kidney disease, stage 5 Status: Acute Assessment and Plan: The patient has chronic kidney disease. This is been going on a long time. It has gradually worsened. CPK is 84. Sed rate is greater than 140. Urine electrolytes non pre renal. Urine protein is about 5 grams per g of creatinine Urinalysis shows 1+ blood 2+ protein. If this continues he probably should see a urologist. [place] lambda ratio is normal. Await immunofixation This is likely end-stage renal disease due to diabetes and hypertension. Sleep apnea and obesity are probably playing a role as well. Long discussion with the patient. Creatinine is rising between treatments. Will need to do dialysis tomorrow. He has a temporary catheter. Dialysis tomorrow. Follow infectious parameters and put PermCath in Thursday if no fever. His white count continues to improve (2) Diabetic foot ulcer associated with diabetes mellitus due to underlying condition: Qualifiers: Diabetic foot ulcer location: heel Laterality: right Non-pressure ulcer stage: with necrosis of bone Qualified Code(s): E08.621 - Diabetes mellitus due to underlying condition with foot ulcer; L97.414 - Non-pressure chronic ulcer of right heel and midfoot with necrosis of bone Code(s): E08.621 - Diabetes mellitus due to underlying condition with foot ulcer; L97.509 - Non-pressure chronic ulcer of other part of unspecified foot with unspecified severity Status: Acute Assessment and Plan: The patient is getting antibiotics. Dr. Edmonds is on the case. Surgery tomorrow White cell count coming down (3) Obstructive sleep apnea on CPAP: Code(s): G47.33 - Obstructive sleep apnea (adult) (pediatric); Z99.89 - Dependence on other enabling machines and devices Status: Acute Assessment and Plan: The patient has been using his CPAP at home. Echocardiogram showed mild pulmonary hypertension. (4) Anemia of chronic disease: Code(s): D63.8 - Anemia in other chronic diseases classified elsewhere Status: Acute Assessment and Plan: Reticulocyte count 1.73. T sat is low but we cannot give him iron because of his infection. We will continue to give him Epogen. Hemoglobin is stable in the mid sevens (5) Essential hypertension: Code(s): I10 - Essential (primary) hypertension Status: Acute Assessment and Plan: His blood pressure was high yesterday and today. He is on amlodipine and lisinopril now. To help maintain fluid status we will start it diuretic. I will add hydralazine also to help control the blood pressure. (6) Acute hyperkalemia: Code(s): E87.5 - Hyperkalemia Status: Acute Assessment and Plan: Resolved (7) Dyslipidemia: Onset Date: ~10/2018 Code(s): E78.5 - Hyperlipidemia, unspecified Status: Acute Assessment and Plan: He has been on pravastatin. Subjective Date/time seen: 09/11/19 09:22 Interval history: Patient feels okay. Sitting up in a chair. His blood pressure is much better today. Eating well. Review of Systems Cardiovascular: Cardiovascular: Reports no additional cardiovascular complaints Respiratory: Respiratory: Reports no additional respiratory complaints Gastrointestinal: Gastrointestinal: Reports no additional gastrointestinal complaints Genitourinary: Genitourinary: Reports no additional male genitourinary complaints Exam Narrative: Exam Narrative: WDWN in NAD skin no rash or subcu nodules head ncat lungs clear bilaterally cor reg no rub or gallop abd BS+ nontender and soft ext no more edema. No cyanosis Objective Data Vital Signs Vital Signs: Vital Signs - 24 hr 09/10/19 14:00 09/10/19 21:08 09/09
[2019-09-11 09:44] LABS: Glucose Point of Care 129 (65-105)
--- NOTE | 2019-09-11 11:28 | P.PNIM_ITS ---
Progress Note: A&P Assessment and Plan (1) Acute osteomyelitis of right calcaneus: Code(s): M86.171 - Other acute osteomyelitis, right ankle and foot Status: Acute Assessment and Plan: * He is on vancomycin and imipenem for diabetic foot ulcer.D# 6 * Necrotic area in R heel * Wound culture has been collected and is growing citrobacter sens to all on panel and MSSA. BC no growth * Dr. Edmonds is following patient and plans surgery for Monday 09/11,debridement and or amputation (2) Acute kidney injury superimposed on chronic kidney disease: Code(s): N17.9 - Acute kidney failure, unspecified; N18.9 - Chronic kidney disease, unspecified Status: Acute Assessment and Plan: * Pt sp dialysis * Continue to watch BMP potassium levels and UO. * Renal ultrasound no obstruction * Dr. Hollis consulted, pt may need further dialysis, potassium today is 4.6 * Pt due to have dialysis tomorrow (3) Acute hyperkalemia: Code(s): E87.5 - Hyperkalemia Status: Acute Assessment and Plan: * Pt needing dialysis due to hyperkalaemia and worsening kidney function * pt will go for dialysis omorrow (4) Type 2 diabetes mellitus with peripheral neuropathy: Code(s): E11.42 - Type 2 diabetes mellitus with diabetic polyneuropathy Status: Acute Assessment and Plan: * Hemoglobin A1c of 6.0% * Initiated sliding scale insulin, Accu-Cheks, and hypoglycemic protocol. (5) Anemia of chronic disease: Code(s): D63.8 - Anemia in other chronic diseases classified elsewhere Status: Acute Assessment and Plan: * Iron studies compatible with anemia chronic disease. hb is 7.6 today (6) Essential hypertension: Code(s): I10 - Essential (primary) hypertension Status: Acute Assessment and Plan: * Blood pressures is stable on current medications * Echo normal ejection fraction 60-65% (7) Obstructive sleep apnea on CPAP: Code(s): G47.33 - Obstructive sleep apnea (adult) (pediatric); Z99.89 - Dependence on other enabling machines and devices Status: Acute Assessment and Plan: * States compliance with CPAP. * CPAP provided by the hospital will be available for him to use while sleeping. (8) DVT prophylaxis: Code(s): Z29.9 - Encounter for prophylactic measures, unspecified Status: Acute Assessment and Plan: Subcu heparin (9) Sepsis: Code(s): A41.9 - Sepsis, unspecified organism Status: Resolved Assessment and Plan: On admission pt had leukocytosis , tachycardia, and tachypnea secondary to OM [place]ul[place] [address] BC no growth, pt is on vancomycin and imipenem for diabetic foot ulcer.D# 6 Subjective Date/time seen: 09/11/19 11:28 Interval history: 53-year-old hypertensive type 2 diabetic with severe peripheral neuropathy and Charcot joint presents with infected right foot with osteomyelitis and acute on chronic renal failure with hyperkalemia. Pt feeling better after dialysis. Dialysis cath placed 09/06 and received dialysis. Receiving IV antibiotics. Continue wound care, continue to watch kidney function and UO. Today jil
--- NOTE | 2019-09-11 11:28 | PM.IMPN ---
Progress Note: A&P Assessment and Plan (1) Acute osteomyelitis of right calcaneus: Code(s): M86.171 - Other acute osteomyelitis, right ankle and foot Status: Acute Assessment and Plan: He is on vancomycin and imipenem for diabetic foot ulcer.D# 6 Necrotic area in R heel Wound culture has been collected and is growing citrobacter sens to all on panel and MSSA. BC no growth Dr. Edmonds is following patient and plans surgery for Monday 09/11,debridement and or amputation (2) Acute kidney injury superimposed on chronic kidney disease: Code(s): N17.9 - Acute kidney failure, unspecified; N18.9 - Chronic kidney disease, unspecified Status: Acute Assessment and Plan: Pt sp dialysis Continue to watch BMP potassium levels and UO. Renal ultrasound no obstruction Dr. Hollis consulted, pt may need further dialysis, potassium today is 4.6 Pt due to have dialysis tomorrow (3) Acute hyperkalemia: Code(s): E87.5 - Hyperkalemia Status: Acute Assessment and Plan: Pt needing dialysis due to hyperkalaemia and worsening kidney function pt will go for dialysis omorrow (4) Type 2 diabetes mellitus with peripheral neuropathy: Code(s): E11.42 - Type 2 diabetes mellitus with diabetic polyneuropathy Status: Acute Assessment and Plan: Hemoglobin A1c of 6.0% Initiated sliding scale insulin, Accu-Cheks, and hypoglycemic protocol. (5) Anemia of chronic disease: Code(s): D63.8 - Anemia in other chronic diseases classified elsewhere Status: Acute Assessment and Plan: Iron studies compatible with anemia chronic disease. hb is 7.6 today (6) Essential hypertension: Code(s): I10 - Essential (primary) hypertension Status: Acute Assessment and Plan: Blood pressures is stable on current medications Echo normal ejection fraction 60-65% (7) Obstructive sleep apnea on CPAP: Code(s): G47.33 - Obstructive sleep apnea (adult) (pediatric); Z99.89 - Dependence on other enabling machines and devices Status: Acute Assessment and Plan: States compliance with CPAP. CPAP provided by the hospital will be available for him to use while sleeping. (8) DVT prophylaxis: Code(s): Z29.9 - Encounter for prophylactic measures, unspecified Status: Acute Assessment and Plan: Subcu heparin (9) Sepsis: Code(s): A41.9 - Sepsis, unspecified organism Status: Resolved Assessment and Plan: On admission pt had leukocytosis , tachycardia, and tachypnea secondary to OM [place] [address] BC no growth, pt is on vancomycin and imipenem for diabetic foot ulcer.D# 6 Subjective Date/time seen: 09/11/19 11:28 Interval history: 53-year-old hypertensive type 2 diabetic with severe peripheral neuropathy and Charcot joint presents with infected right foot with osteomyelitis and acute on chronic renal failure with hyperkalemia. Pt feeling better after dialysis. Dialysis cath placed 09/06 and received dialysis. Receiving IV antibiotics. Continue wound care, continue to watch kidney function and UO. Today potassium level is 4.6 and creat is 4.3. Dialysis scheduled for tomorrow. With probable amputation afterwards. No other compliants. Review of Systems Review of Systems: All systems reviewed & are unremarkable except as noted in HPI and below Exam Narrative: Exam Narrative: Vital Signs Temp Pulse Resp BP Pulse Ox 36.3 C L 65
[2019-09-11 11:39] LABS: Glucose Point of Care 108 (65-105)
[2019-09-11 14:00] VITALS: BP 150/77; PULSE 75; RESP 22; TEMP 36.3; O2SAT 98
[2019-09-11 17:30] LABS: Glucose Point of Care 102 (65-105)
[2019-09-11] MEDS: AMITRIPTYLINE HCL 25 MG TABLET 50 MG PO (21:28)
[2019-09-11 22:00] VITALS: BP 134/69; PULSE 75; RESP 18; TEMP 36.8; O2SAT 97
[2019-09-11 23:12] LABS: Glucose Point of Care 129 (65-105)
[2019-09-12] VITALS (23 sets, daily range): BP systolic 131–194; BP diastolic 61–99; PULSE 66–91; RESP 12–20; TEMP 7.2–37.1; O2SAT 96–100
[2019-09-12 05:18] LABS: Hematocrit 26.6 % (42.0-52.0); Mean Corpuscular HGB Conc 30.1 g/dl (32-36); Mean Corpuscular Hemoglobin 26.7 pg (26-34); Mean Corpuscular Volume 88.7 fl (80-100); Mean Platelet Volume 9.3 fl (7.4-10.4); Platelet Count Result 350 k/mm3 (150-375); Red Cell Distribution Width 15.2 % (11.5-14.5)
[2019-09-12 05:34] LABS: Albumin Level 3.5 g/dL (3.5-5.1); Blood Urea Nitrogen 41 mg/dL (9-20); Calcium 8.3 mg/dL (8.4-10.2); Carbon Dioxide 25 mmol/L (22-30); Chloride 100 mmol/L (98-107); Estimated CRCL calculation 25 ml/min; Estimated Glomerular Filt Rate 13; Glucose 122 mg/dL (75-110); Phosphorus 7.3 mg/dL (2.5-4.5); Potassium 4.8 mmol/L (3.4-5.0); Sodium 134 mmol/L (137-145)
--- NOTE | 2019-09-12 09:22 | PM.PNNEP ---
Progress Note: A&P Assessment and Plan (1) End stage renal disease: Code(s): N18.6 - End stage renal disease Status: Chronic Assessment and Plan: known advanced kidney disease for a significant period of time from diabetes and hypertension now with progression to end stage renal disease HD today before operative intervention continue dialytic support to ensure stability in electrolyes, volume status, and clearance if WBC/infection continues to improve, consult Surgery for tunneled HD catheter (currently has temporary HD catheter) outpatient Urology follow-up for hematuria if continues/persists (2) Diabetic foot ulcer associated with diabetes mellitus due to underlying condition: Qualifiers: Diabetic foot ulcer location: heel Laterality: right Non-pressure ulcer stage: with necrosis of bone Qualified Code(s): E08.621 - Diabetes mellitus due to underlying condition with foot ulcer; L97.414 - Non-pressure chronic ulcer of right heel and midfoot with necrosis of bone Code(s): E08.621 - Diabetes mellitus due to underlying condition with foot ulcer; L97.509 - Non-pressure chronic ulcer of other part of unspecified foot with unspecified severity Status: Acute Assessment and Plan: continue antibiotics Surgery today by Dr. Edmonds (3) Essential hypertension: Code(s): I10 - Essential (primary) hypertension Status: Acute Assessment and Plan: elevated on admission doing better at this time follow trend of hemodynamics (4) Anemia of chronic disease: Code(s): D63.8 - Anemia in other chronic diseases classified elsewhere Status: Acute Assessment and Plan: due to iron deficiency and avanced CKD unable to give IV venofer due to acute infection continue Epogen with HD follow trend of H/H (5) Acute hyperkalemia: Code(s): E87.5 - Hyperkalemia Status: Acute Assessment and Plan: resolved with dialytic intervention follow trend Will continue to follow. Subjective Date/time seen: 09/12/19 09:22 Tolerating dialysis treatment at the time of my visit (seen on HD at ~ 9:10AM); plan to end treatment early due to necessity of surgery later this AM; major complaint is that of pain in his right foot. Exam Narrative: Exam Narrative: General: WD/WN male in NAD Heart: normal S1 and S2; no rub Lungs: clear to auscultation Abdomen: soft, nontender, nondistended, positive bowel sounds Extremities: no cyanosis or clubbing; no edema Skin: warm and dry Objective Data Vital Signs Vital Signs: Vital Signs Temp Pulse Resp BP Pulse Ox 09/12/19 06:00 36.1 C L 69 20 145/71 H 99 09/11/19 22:00 36.8 C 75 18 134/69 97 09/11/19 14:00 36.3 C L 75 22 H 150/77 H 98 Intake/Output Intake/Output: Intake & Output 09/09/19 09/10/19 09/11/19 09/12/19 23:59 23:59 23:59 23:59 Intake Total 5180 4810 4710 1300 Output Total 7250 1850 3575 1600 Balance -2070 2960 1135 -300 Meds/Results Medications: Active Medications Generic Name Dose Route Start Last Admin Trade Name Freq PRN Reason Stop Dose Admin Acetaminophen 650 mg 09/06/19 12:47 Tylenol Tablet PO Q4H PRN Mild Pain (1-3) or Fever Hydrocodone Bitart/Acetaminophen 1 tab 09/06/19 12:47 09/07/19 21:13 [place] 5-325 Mg PO 1 tab Q4H PRN Administration Pain Rated 4-6 Alprazolam 0.5 mg 09/06/19 16:51 09/07/19 17:56 Xanax PO 0.5 mg DAILY PRN Administration anxiety Amitriptyline HCl 50 mg 09/06/19 21:00 09/11/19 21:28 Elavil PO 50 mg HS SARA Administration Amlodipine Besylate 10 mg 09/07/19 09:00 09/11/19 07:56 Norvasc PO 10 mg DAILY SARA Administration Dextrose 12.5 gm 09/06/19 17:19 Dextrose 50% Syringe IV PUSH PRN PRN Hypoglycemia Protocol Furosemide 80 mg 09/10/19 17:00 09/11/19 17:20 Lasix Tablet PO 80 mg BID SARA Administration Gabapentin
[2019-09-12 11:31] LABS: Glucose Point of Care 118 (65-105)
[2019-09-12] MEDS: SODIUM CHLORIDE 0.9% IV 500 ML 30 ML IV CONT (11:45)
--- NOTE | 2019-09-12 11:59 | WPDANESEFPP ---
Anes - Eval Final PreProcedure Day of Procedure 09/12/19 11:59 Patient weight: morbidly obese Heart: regular rate and rhythm Lungs: decreased breath sounds Airway: Mallampati scale class II Neurological: alert and oriented Last oral intake: >/= 8 hours ASA classification: IV Emergent: no Anesthetic plan: proceed Anesthesia type and monitoring: general LMA and standard monitoring Informed Consent: The patient's anesthetic plan and its attendant risks and benefits were discussed with the patient/family/POA. Questions were solicited and answers provided to the satisfaction of the patient/family/POA.
--- NOTE | 2019-09-12 12:04 | WPDHPUPDATE1 ---
History and Physical Update Update Date/Time: 09/12/19 12:04 History and Physical has been reviewed, including an updated exam of the patient. There are NO changes in the patient's condition. Risks, benefits, and alternatives have been discussed and questions answered. Patient agrees to proceed with procedure.
[2019-09-12 13:16] LABS: Glucose Point of Care 100 (65-105)
--- NOTE | 2019-09-12 13:34 | P.OP_ITS ---
Procedure Note - Detailed Date of procedure: 09/12/19 Pre-op diagnosis: Right diabetic foot wound. Calcaneus osteomyelitis Post-op diagnosis: same Procedure performed: excision of osteomyelitis right calcaneus, excisional debridement of diabetic foot ulcer times 2 Description of procedure: Indications: Patient is a 53-year-old gentleman with insulin-dependent diabetes and chronic renal failure. Recently started h emodialysis. Chronic right diabetic foot ulcer now with acute osteomyelitis of the calcaneus. Long discussion was had with the patient about salvage of the limb versus amputation. He has declined amputation at this time. He presents for debridement of the diabetic foot ulcer and excision of osteomyelitis. What was done: Patient identified in the preoperative holding. Informed consent given. Operative extremity marked. Patient received intravenous antibiotics. Patient brought to the operating room where underwent general anesthetic by anesthesia team. Positioned supine on operating room table. Time-out performed confirming the patient, site of the surgery and the plan. Right foot prepped and draped usual sterile surgical fashion using Betadine prep solution. Ankle and leg exsanguinated and thigh tourniquet inflated to 250 mmHg. Ten blade knife was used to elevate the soft tissue around the calcaneal tuberosity Which was visible. osteotome then used to resect the plantar aspect of the calcaneal tuberosity which had infection. Resection taken down to good bleeding healthy appearing bone. [place] used to smooth the edge. Thorough irrigation with antibiotic solution. Deep wound culture over the calcaneal tuberosity as well as bone specimen within the culture tube. Fifteen blade knife was used to perform excisional debridement of the plantar diabetic foot ulcer over the hindfoot as well as the ulcer under the great toe. Hindfoot ulcer measured 7 x 8 cm with 2 cm of depth. The hallux ulcer measured 1.5 x 1.5 cm with 0.5 cm depth. Fifteen blade knife and rongeur were used to sharply excise and remove devitalized and infected, nonviable tissue which was passed off. Skin, subcutaneous tissue, muscle debrided excised and removed. Healthy appearing tissue left in place. Wounds thoroughly irrigated with antibiotic solution using pulsatile lavage. Wounds packed open with Betadine- soaked gauze dressing and sterile fluff gauze overlying. Sterile dressing applied. The patient was then woken from anesthesia, extubated and taken to the recovery room in stable condition. All sponge, needle, instrument counts were correct at the end of the case. Anesthesia: GLMA Surgeon: Tomas Edmonds MD Director Information Security: 1st ict sales assistant Estimated blood loss (mL): 10 Tourniquet time (min): 40 Drains: No Packing: Yes Pathology: other ( deep wound culture with bone) Complications: None Condition: stable Disposition: PACU
[2019-09-12] MEDS: AMLODIPINE BESYLATE 5 MG TABLET 10 MG PO (14:20)
[2019-09-12] MEDS: METOPROLOL SUCCINATE EXT REL 50 MG TABCR PO (14:22)
[2019-09-12] MEDS: VENLAFAXINE HCL XR 75 MG CAP.ER.24H PO (14:22)
[2019-09-12] MEDS: lisinopriL 20 MG TABLET 40 MG PO (14:22)
[2019-09-12] MEDS: hydrALAZINE 10 MG TABLET PO ×2 (14:23→20:45)
[2019-09-12 15:07] LABS: Vancomycin Trough 15.7 ug/mL (10.0-20.0)
[2019-09-12 17:07] LABS: Glucose Point of Care 126 (65-105)
--- NOTE | 2019-09-12 17:09 | PM.IMPN ---
Progress Note: A&P Assessment and Plan (1) Acute osteomyelitis of right calcaneus: Code(s): M86.171 - Other acute osteomyelitis, right ankle and foot Status: Acute Assessment and Plan: He is on vancomycin and imipenem for diabetic foot ulcer.D# 6 Necrotic area in R heel Wound culture has been collected and is growing citrobacter sens to all on panel and MSSA. BC no growth Dr. Edmonds is following patient and plans surgery for Monday 09/11,debridement and or amputation 09/12/2019 53-year-old hypertensive type 2 diabetic with severe peripheral neuropathy and Charcot joint presents with infected right foot with osteomyelitis and acute on chronic renal failure with hyperkalemia. Pt feeling better after dialysis. Dialysis cath placed 09/06 and received dialysis. Receiving IV antibiotics. Continue wound care, continue to watch kidney function and UO. Today patient taken to OR by and had debridement of the right foot wound, patient states the pain is still persist but denies any fever or chills, No other compliants. (2) Acute kidney injury superimposed on chronic kidney disease: Code(s): N17.9 - Acute kidney failure, unspecified; N18.9 - Chronic kidney disease, unspecified Status: Acute Assessment and Plan: Pt had dialysis on 09/11/2019 Continue to watch BMP potassium levels and UO. Renal ultrasound no obstruction Dr. Hollis consulted, pt may need further dialysis, potassium today is 4.6 Pt due to have dialysis tomorrow (3) Acute hyperkalemia: Code(s): E87.5 - Hyperkalemia Status: Acute Assessment and Plan: Pt needing dialysis due to hyperkalaemia and worsening kidney function pt will go for dialysis omorrow (4) Type 2 diabetes mellitus with peripheral neuropathy: Code(s): E11.42 - Type 2 diabetes mellitus with diabetic polyneuropathy Status: Acute Assessment and Plan: Hemoglobin A1c of 6.0% Initiated sliding scale insulin, Accu-Cheks, and hypoglycemic protocol. (5) Anemia of chronic disease: Code(s): D63.8 - Anemia in other chronic diseases classified elsewhere Status: Acute Assessment and Plan: Iron studies compatible with anemia chronic disease. hb is 7.6 today (6) Essential hypertension: Code(s): I10 - Essential (primary) hypertension Status: Acute Assessment and Plan: Blood pressures is stable on current medications Echo normal ejection fraction 60-65% (7) Obstructive sleep apnea on CPAP: Code(s): G47.33 - Obstructive sleep apnea (adult) (pediatric); Z99.89 - Dependence on other enabling machines and devices Status: Acute Assessment and Plan: States compliance with CPAP. CPAP provided by the hospital will be available for him to use while sleeping. (8) DVT prophylaxis: Code(s): Z29.9 - Encounter for prophylactic measures, unspecified Status: Acute Assessment and Plan: Subcu heparin (9) Sepsis: Code(s): A41.9 - Sepsis, unspecified organism Status: Resolved Assessment and Plan: On admission pt had leukocytosis , tachycardia, and tachypnea secondary to [place] [address] BC no growth, pt is on vancomycin and imipenem for diabetic foot ulcer.D# 7 Subjective Date/time seen: 09/12/19 17:09 Interval history: 53-year-old hypertensive type 2 diabetic with severe peripheral neuropathy and Charcot joint presents with infected right foot with osteomyelitis and acute on chronic renal failure with hyperkalemia. Pt feeling better after dialysis.
[2019-09-12] MEDS: GABAPENTIN 300 MG CAPSULE PO (18:35)
[2019-09-12] MEDS: FUROSEMIDE 80 MG TABLET PO (18:36)
[2019-09-12] MEDS: HEPARIN SODIUM 5,000 UNITS/ML VIAL 5000 UNITS SUB-Q (20:44)
[2019-09-12] MEDS: AMITRIPTYLINE HCL 25 MG TABLET 50 MG PO (20:45)
[2019-09-12 20:50] LABS: Vancomycin Random 15.3 ug/mL (10-20)
[2019-09-12 22:47] LABS: Glucose Point of Care 136 (65-105)
[2019-09-13] VITALS (8 sets, daily range): BP systolic 142–159; BP diastolic 67–83; PULSE 67–89; RESP 16–21; TEMP 35.7–37.2; O2SAT 95–100
[2019-09-13 05:05] LABS: Hematocrit 28.3 % (42.0-52.0); Hemoglobin 8.3 g/dL (14.0-18.0); Mean Corpuscular HGB Conc 29.3 g/dl (32-36); Mean Corpuscular Hemoglobin 26.3 pg (26-34); Mean Corpuscular Volume 89.6 fl (80-100); Mean Platelet Volume 9.5 fl (7.4-10.4); Platelet Count Result 342 k/mm3 (150-375); Red Blood Count 3.16 M/mm3 (4.6-6.20); Red Cell Distribution Width 15.4 % (11.5-14.5); White Blood Count 12.4 K/mm3 (4.5-10.0)
[2019-09-13 05:28] LABS: Potassium 4.1 mmol/L (3.4-5.0)
[2019-09-13 05:31] LABS: Blood Urea Nitrogen 27 mg/dL (9-20); Calcium 7.8 mg/dL (8.4-10.2); Carbon Dioxide 28 mmol/L (22-30); Chloride 100 mmol/L (98-107); Estimated CRCL calculation 28 ml/min; Estimated Glomerular Filt Rate 15; Glucose 130 mg/dL (75-110); Sodium 137 mmol/L (137-145)
[2019-09-13] MEDS: hydrALAZINE 10 MG TABLET PO ×3 (05:33→21:48)
[2019-09-13 08:03] LABS: Glucose Point of Care 161 (65-105)
--- NOTE | 2019-09-13 08:56 | WPDANESPN ---
Anes - Prog Note Post-Op Date/Time: 09/13/19 08:56 Cardiovascular status: normal Respiratory status: normal Airway patency: baseline Mental status: baseline Post-Op hydration status: normal Vital Signs: Last Vital Signs Temp 35.7 C L 09/13/19 06:00 Pulse 67 09/13/19 06:00 Resp 21 H 09/13/19 06:00 BP 142/76 H 09/13/19 06:00 Pulse Ox 100 09/13/19 06:00 I/O: Intake & Output 09/12/19 09/13/19 09/13/19 23:59 07:59 15:59 Intake Total 1240 1850 Output Total 1950 1450 Balance -710 400 Laboratory Tests 09/13/19 04:42 09/13/19 04:42 09/07/19 09/12/19 09/12/19 11:01 11:24 13:13 WBC RBC Hgb Hct MCV MCH MCHC RDW Plt Count MPV Sodium Potassium Chloride Carbon Dioxide BUN Creatinine Estim Creat Clear Calc Estimated GFR Glucose POC Capillary Glucose 118 H 100 Calcium Vancomycin Trough Random Vancomycin Ur KAITY Interpret 24 hr see below Free Bellamy & Lambda LC Not indicated 09/12/19 09/12/19 09/12/19 14:12 17:05 19:53 WBC RBC Hgb Hct MCV MCH MCHC RDW Plt Count MPV Sodium Potassium Chloride Carbon Dioxide BUN Creatinine Estim Creat Clear Calc Estimated GFR Glucose POC Capillary Glucose 126 H Calcium Vancomycin Trough 15.7 Random Vancomycin 15.3 Ur KAITY Interpret 24 hr Free Bellamy & Lambda LC 09/12/19 09/13/19 09/13/19 20:20 04:42 04:42 WBC 12.4 H RBC 3.16 L Hgb 8.3 L Hct 28.3 L MCV 89.6 MCH 26.3 MCHC 29.3 L RDW 15.4 H Plt Count 342 MPV 9.5 Sodium 137 Potassium 4.1 Chloride 100 Carbon Dioxide 28 BUN 27 H D Creatinine 4.20 H Estim Creat Clear Calc 28 Estimated GFR 15 L Glucose 130 H POC Capillary Glucose 136 H Calcium 7.8 L Vancomycin Trough Random Vancomycin Ur KAITY Interpret 24 hr Free Bellamy & Lambda LC 09/13/19 07:54 WBC RBC Hgb Hct MCV MCH MCHC RDW Plt Count MPV Sodium Potassium Chloride Carbon Dioxide BUN Creatinine Estim Creat Clear Calc Estimated GFR Glucose POC Capillary Glucose 161 H Calcium Vancomycin Trough Random Vancomycin Ur KAITY Interpret 24 hr Free Bellamy & Lambda LC Microbiology 09/06/19 10:43 Blood Blood Culture - Final 09/06/19 10:43 Blood Blood Culture - Final Post-procedural complaints: none Patient Feedback: Patient satisfied with anesthetic care.
[2019-09-13] MEDS: FUROSEMIDE 80 MG TABLET PO ×2 (09:51→18:24)
[2019-09-13] MEDS: AMLODIPINE BESYLATE 5 MG TABLET 10 MG PO (09:51)
[2019-09-13] MEDS: METOPROLOL SUCCINATE EXT REL 50 MG TABCR PO (09:51)
[2019-09-13] MEDS: GABAPENTIN 300 MG CAPSULE PO ×2 (09:51→18:24)
[2019-09-13] MEDS: lisinopriL 20 MG TABLET 40 MG PO (09:52)
[2019-09-13] MEDS: HEPARIN SODIUM 5,000 UNITS/ML VIAL 5000 UNITS SUB-Q ×2 (09:52→23:00)
[2019-09-13] MEDS: VENLAFAXINE HCL XR 75 MG CAP.ER.24H PO (09:52)
--- NOTE | 2019-09-13 10:06 | PM.PNNEP ---
Progress Note: A&P Assessment and Plan (1) End stage renal disease: Code(s): N18.6 - End stage renal disease Status: Chronic Assessment and Plan: known advanced kidney disease for a significant period of time from diabetes and hypertension now with progression to end stage renal disease continues to make good urine output continue dialytic support to ensure stability in electrolyes, volume status, and clearance consult Surgery for tunneled HD catheter (currently has temporary HD catheter) if okay with Infectious Disease outpatient Urology follow-up for hematuria if continues/persists (2) Diabetic foot ulcer associated with diabetes mellitus due to underlying condition: Qualifiers: Diabetic foot ulcer location: heel Laterality: right Non-pressure ulcer stage: with necrosis of bone Qualified Code(s): E08.621 - Diabetes mellitus due to underlying condition with foot ulcer; L97.414 - Non-pressure chronic ulcer of right heel and midfoot with necrosis of bone Code(s): E08.621 - Diabetes mellitus due to underlying condition with foot ulcer; L97.509 - Non-pressure chronic ulcer of other part of unspecified foot with unspecified severity Status: Acute Assessment and Plan: continue antibiotics s/p excision of osteomyelitis right calcaneus with excisional debridement of diabetic foot ulcer yesterday by Dr. Edmonds local wound care Infectious Disease consultation (3) Essential hypertension: Code(s): I10 - Essential (primary) hypertension Status: Acute Assessment and Plan: elevated on admission doing better at this time follow trend of hemodynamics (4) Anemia of chronic disease: Code(s): D63.8 - Anemia in other chronic diseases classified elsewhere Status: Acute Assessment and Plan: due to iron deficiency and avanced CKD unable to give IV venofer due to acute infection continue Epogen with HD follow trend of H/H (5) Acute hyperkalemia: Code(s): E87.5 - Hyperkalemia Status: Acute Assessment and Plan: resolved with dialytic intervention follow trend Long and extensive discussion (> 20 minutes) with patient regarding his advanced CKD/ESRD and his need for dialysis to maintain his electrolytes and provide clearance of uremic toxins; he makes good urine output so his volume status remains stable. Will continue to follow Subjective Date/time seen: 09/13/19 10:06 Tolerated partial dialysis treatment and debridement of right foot wound/ulcer/bone yesterday without any acute issues or problems; working with PT/OT as tolerated; no other acute issues or problems to report at this time; no events overnight or earlier this AM. Exam Narrative: Exam Narrative: General: WD/WN male in NAD Heart: normal S1 and S2; no rub Lungs: clear to auscultation Abdomen: soft, nontender, nondistended, positive bowel sounds Extremities: no cyanosis or clubbing; no edema Skin: right foot with dressings in place Objective Data Vital Signs Vital Signs: Vital Signs Temp Pulse Resp BP Pulse Ox 09/13/19 10:00 36.0 C L 79 16 159/67 H 98 09/13/19 09:51 67 09/13/19 06:00 35.7 C L 67 21 H 142/76 H 100 09/13/19 02:00 37.2 C 72 20 150/81 H 98 09/12/19 22:00 36.4 C L 91 18 132/61 96 09/12/19 15:39 37.1 C 81 18 159/69 H 97 09/12/19 14:39 36.9 C 90 16 153/75 H 98 09/12/19 14:09 36.7 C 86 16 131/78 98 09/12/19 13:54 36.7 C 80 16 152/82 H 97 09/12/19 13:50 78 15 159/92 H 100 09/12/19 13:40 74 12 169/84 H 97 09/12/19 13:25 79 18 177/92 H 99 09/12/19 13:10 76 20 159/87 H 96 09/12/19 12:57 89 17 168/91 H 100 09/12/19 10:37 36.9 C 88 20 194/88 H 09/12/19 10:30 81 183/98 H Intake/Output Intake/Output: Intake & Output 09/10/19 0
--- NOTE | 2019-09-13 10:58 | PM.PNORT ---
Progress Note: A&P Assessment and Plan (1) Acute osteomyelitis of right calcaneus: Code(s): M86.171 - Other acute osteomyelitis, right ankle and foot Status: Acute Assessment and Plan: Postoperative day 1. Excision of osteomyelitis right calcaneus and debridement diabetic foot ulcer. Dressing change today. Wounds appear clean. Recommend wound VAC dressing to assist with granulation. Offloading with toe pressure or nonweightbearing only. Wound VAC dressing changes 3 times per week and p.r.n.. Appreciate Infectious Disease for recommendations. Discussed with patient once again difficult nature of problem and difficulty with healing requiring long-term care. Other option for amputation reviewed. Patient declined amputation. (2) Diabetic foot ulcer associated with diabetes mellitus due to underlying condition: Qualifiers: Diabetic foot ulcer location: heel Laterality: right Non-pressure ulcer stage: with necrosis of bone Qualified Code(s): E08.621 - Diabetes mellitus due to underlying condition with foot ulcer; L97.414 - Non-pressure chronic ulcer of right heel and midfoot with necrosis of bone Code(s): E08.621 - Diabetes mellitus due to underlying condition with foot ulcer; L97.509 - Non-pressure chronic ulcer of other part of unspecified foot with unspecified severity Status: Acute Subjective Subjective Date/Time Seen: 09/13/19 10:58 Patient up in chair, appears comfortable. States mild pain right foot. Eating Without difficulty Exam Const: General: healthy appearing; No in distress or confusion Orientation/consciousness: patient oriented x3 and No confusion HENMT: Head: normal to inspection, normocephalic and atraumatic Eyes: Conjunctivae: conjunctivae normal Sclera: sclerae normal Resp: Effort & Inspection: normal respiratory effort and no audible wheezes Neuro: General: patient oriented x3 and No confusion Extrem: Other: dressing removed right foot. Exposed plantar calcaneus with surrounding soft tissue bed. No active purulence. Good capillary refill in remaining toes. Ulcer plantar 1st metatarsal head with minimal sanguinous drainage. Psych: Affect: normal affect Objective Data Vital Signs Vital Signs: Vital Signs - 24 hr 09/12/19 12:57 09/12/19 13:10 09/12/19 13:25 Temperature Pulse Rate 89 76 79 Respiratory Rate 17 20 18 Blood Pressure 168/91 H 159/87 H 177/92 H Pulse Oximetry 100 96 99 09/12/19 13:40 09/12/19 13:50 09/12/19 13:54 Temperature 98.1 F Pulse Rate 74 78 80 Respiratory Rate 12 15 16 Blood Pressure 169/84 H 159/92 H 152/82 H Pulse Oximetry 97 100 97 09/12/19 14:09 09/12/19 14:39 09/12/19 15:39 Temperature 98.0 F 98.5 F 98.8 F Pulse Rate 86 90 81 Respiratory Rate 16 16 18 Blood Pressure 131/78 153/75 H 159/69 H Pulse Oximetry 98 98 97 09/12/19 22:00 09/13/19 02:00 09/13/19 06:00 Temperature 97.5 F L 98.9 F 96.3 F L Pulse Rate 91 72 67 Respiratory Rate 18 20 21 H Blood Pressure 132/61 150/81 H 142/76 H Pulse Oximetry 96 98 100 09/13/19 09:51 09/13/19 10:00 Temperature 96.8 F L Pulse Rate 67 79 Respiratory Rate 16 Blood Pressure 159/67 H Pulse Oximetry 98 Intake/Output Intake/Output: Intake & Output 09/10/19 09/11/19 09/12/19 09/13/19 23:59 23:59 23:59 23:59 Intake Total 4810 4710 2640 2090 Output Total 8350 6484 6739 1450 Balance 2960 7066 -4292 640 Meds/Results Medications: Active Medications Generic Name Dose Route Start Last Admin Trade Name Freq PRN Reason Stop Dose Admin Acetaminophen 650 mg 09/06/19 12:47 Tylenol Tablet PO Q4H PRN Mild Pain (1-3) or Fever Hydrocodone Bitart/Acetaminophen 1 tab 09/06/19 12:47 09/07/19 21:13 [place] 5-325 Mg PO 1 tab Q4H PRN Administration Pain Rated 4-6 Alprazolam 0.5 mg 09/06/19 16:51 09/07/19 17:56 Xanax PO 0.5 mg DAILY PRN Administration anxiety Amitriptyline HCl 50 mg 09/06/19 21:00
[2019-09-13 11:41] LABS: Glucose Point of Care 115 (65-105)
--- NOTE | 2019-09-13 11:49 | P.PNIM_ITS ---
Progress Note: A&P Assessment and Plan (1) Acute osteomyelitis of right calcaneus: Code(s): M86.171 - Other acute osteomyelitis, right ankle and foot Status: Acute Assessment and Plan: * Vancomycin and imipenem 5/2 PM -512 AM (6 days) * Ceftriaxone 09/12 (day 1) * Necrotic area in R heel * Wound culture has been collected and is growing citrobacter sens to all on panel and MSSA. * BC no growth * 09/11 Wound debridement (2) Acute kidney injury superimposed on chronic kidney disease: Code(s): N17.9 - Acute kidney failure, unspecified; N18.9 - Chronic kidney disease, unspecified Status: Acute Assessment and Plan: * Pt had dialysis on 09/11/2019 * Continue to watch BMP potassium levels and UO. * Renal ultrasound no obstruction * Dr. Hollis following * potassium today is 4.1 (3) Acute hyperkalemia: Code(s): E87.5 - Hyperkalemia Status: Acute Assessment and Plan: * Improved with HD (4) Type 2 diabetes mellitus with peripheral neuropathy: Code(s): E11.42 - Type 2 diabetes mellitus with diabetic polyneuropathy Status: Acute Assessment and Plan: * Hemoglobin A1c of 6.0% * Initiated sliding scale insulin, Accu-Cheks, and hypoglycemic protocol. (5) Anemia of chronic disease: Code(s): D63.8 - Anemia in other chronic diseases classified elsewhere Status: Acute Assessment and Plan: * Iron studies compatible with anemia chronic disease * 09/12 Hgb 8.3 (6) Essential hypertension: Code(s): I10 - Essential (primary) hypertension Status: Acute Assessment and Plan: * Blood pressures is stable on current medications * Echo normal ejection fraction 60-65% (7) Obstructive sleep apnea on CPAP: Code(s): G47.33 - Obstructive sleep apnea (adult) (pediatric); Z99.89 - Dependence on other enabling machines and devices Status: Acute Assessment and Plan: * Conitnue CPAP while sleeping (8) DVT prophylaxis: Code(s): Z29.9 - Encounter for prophylactic measures, unspecified Status: Acute Assessment and Plan: * SC heparin (9) Sepsis: Code(s): A41.9 - Sepsis, unspecified organism Status: Resolved Assessment and Plan: On admission pt had leukocytosis , tachycardia, and tachypnea secondary to OM and cellulitis Subjective Date/time seen: 09/13/19 11:49 Interval history: 53-year-old hypertensive type 2 diabetic with severe peripheral neuropathy and Charcot joint presented with infected right foot with osteomyelitis and acute on chronic renal failure with hyperkalemia. 09/12: Only mild pain in the right foot. Less erythema on leg. Tolerating diet. Denied chest pain or shortness of breath. Denied GI or complaints. Denied abnormal bleeding. Review of Systems Review of Systems: All systems reviewed & are unremarkable except as noted in HPI and below Exam Narrative: Exam Narrative: HEENT: EOMI, PERRL, sclerae nonicteric, pharyngeal mucosa pink and intact NECK: No JVD, adenopathy, or thyromegaly CHEST: Clear to auscultation. Normal effort.
--- NOTE | 2019-09-13 11:49 | PM.IMPN ---
Progress Note: A&P Assessment and Plan (1) Acute osteomyelitis of right calcaneus: Code(s): M86.171 - Other acute osteomyelitis, right ankle and foot Status: Acute Assessment and Plan: Vancomycin and imipenem 5/2 PM -09/12 AM (6 days) Ceftriaxone 09/12 (day 1) Necrotic area in R heel Wound culture has been collected and is growing citrobacter sens to all on panel and MSSA. BC no growth 09/11 Wound debridement (2) Acute kidney injury superimposed on chronic kidney disease: Code(s): N17.9 - Acute kidney failure, unspecified; N18.9 - Chronic kidney disease, unspecified Status: Acute Assessment and Plan: Pt had dialysis on 09/11/2019 Continue to watch BMP potassium levels and UO. Renal ultrasound no obstruction Dr. Hollis following potassium today is 4.1 (3) Acute hyperkalemia: Code(s): E87.5 - Hyperkalemia Status: Acute Assessment and Plan: Improved with HD (4) Type 2 diabetes mellitus with peripheral neuropathy: Code(s): E11.42 - Type 2 diabetes mellitus with diabetic polyneuropathy Status: Acute Assessment and Plan: Hemoglobin A1c of 6.0% Initiated sliding scale insulin, Accu-Cheks, and hypoglycemic protocol. (5) Anemia of chronic disease: Code(s): D63.8 - Anemia in other chronic diseases classified elsewhere Status: Acute Assessment and Plan: Iron studies compatible with anemia chronic disease 09/12 Hgb 8.3 (6) Essential hypertension: Code(s): I10 - Essential (primary) hypertension Status: Acute Assessment and Plan: Blood pressures is stable on current medications Echo normal ejection fraction 60-65% (7) Obstructive sleep apnea on CPAP: Code(s): G47.33 - Obstructive sleep apnea (adult) (pediatric); Z99.89 - Dependence on other enabling machines and devices Status: Acute Assessment and Plan: Conitnue CPAP while sleeping (8) DVT prophylaxis: Code(s): Z29.9 - Encounter for prophylactic measures, unspecified Status: Acute Assessment and Plan: SC heparin (9) Sepsis: Code(s): A41.9 - Sepsis, unspecified organism Status: Resolved Assessment and Plan: On admission pt had leukocytosis , tachycardia, and tachypnea secondary to OM and cellulitis Subjective Date/time seen: 09/13/19 11:49 Interval history: 53-year-old hypertensive type 2 diabetic with severe peripheral neuropathy and Charcot joint presented with infected right foot with osteomyelitis and acute on chronic renal failure with hyperkalemia. 09/12: Only mild pain in the right foot. Less erythema on leg. Tolerating diet. Denied chest pain or shortness of breath. Denied GI or complaints. Denied abnormal bleeding. Review of Systems Review of Systems: All systems reviewed & are unremarkable except as noted in HPI and below Exam Narrative: Exam Narrative: HEENT: EOMI, PERRL, sclerae nonicteric, pharyngeal mucosa pink and intact NECK: No JVD, adenopathy, or thyromegaly CHEST: Clear to auscultation. Normal effort. HEART: NL S1/S2, regular, no murmur ABDOMEN: BS+, soft, nontender, no mass, no bruits EXTREMITIES: Right foot is heavily bandaged shoots with some erythema extending circumferentially to the distal leg NEUROLOGIC: CN intact and symmetric to inspection. MUSCULOSKELETAL: Tone and strength symmetric. PSYCH: Alert. Oriented to person, place, and time. Objective Data Vital Signs Vital Signs: Vital Signs - 24 hr 09/12/19 12:57 09/12/19 13:10 09/12/19 13:25 Temperature Pulse Rate 89
--- NOTE | 2019-09-13 13:25 | WPDINFPN2 ---
Progress Note: A&P Assessment and Plan (1) Acute osteomyelitis of right calcaneus: Code(s): M86.171 - Other acute osteomyelitis, right ankle and foot Status: Acute Assessment and Plan: 1. R heel OM, acute, POD # 1 2. CRF 3. DM with PN REC Ctx # 1 / 42 days or more. F/U new micro. Ok tunelled HD catheter, also get Cai for prolonged IV rx Subjective Date/time seen: 09/13/19 13:25 Objective Data Vital Signs Vital Signs: Vital Signs - 24 hr 09/12/19 13:40 09/12/19 13:50 09/12/19 13:54 Temperature 36.7 C Pulse Rate 74 78 80 Respiratory Rate 12 15 16 Blood Pressure 169/84 H 159/92 H 152/82 H Pulse Oximetry 97 100 97 09/12/19 14:09 09/12/19 14:39 09/12/19 15:39 Temperature 36.7 C 36.9 C 37.1 C Pulse Rate 86 90 81 Respiratory Rate 16 16 18 Blood Pressure 131/78 153/75 H 159/69 H Pulse Oximetry 98 98 97 09/12/19 22:00 09/13/19 02:00 09/13/19 06:00 Temperature 36.4 C L 37.2 C 35.7 C L Pulse Rate 91 72 67 Respiratory Rate 18 20 21 H Blood Pressure 132/61 150/81 H 142/76 H Pulse Oximetry 96 98 100 09/13/19 09:51 09/13/19 10:00 Temperature 36.0 C L Pulse Rate 67 79 Respiratory Rate 16 Blood Pressure 159/67 H Pulse Oximetry 98 Intake/Output Intake/Output: Intake & Output 09/10/19 09/11/19 09/12/19 09/13/19 23:59 23:59 23:59 23:59 Intake Total 4810 4710 2640 2090 Output Total 1850 3705 6345 1450 Balance 2960 1135 -1835 640 Meds/Results Medications: Active Medications Generic Name Dose Route Start Last Admin Trade Name Freq PRN Reason Stop Dose Admin Acetaminophen 650 mg 09/06/19 12:47 Tylenol Tablet PO Q4H PRN Mild Pain (1-3) or Fever Hydrocodone Bitart/Acetaminophen 1 tab 09/06/19 12:47 09/07/19 21:13 [place] 5-325 Mg PO 1 tab Q4H PRN Administration Pain Rated 4-6 Alprazolam 0.5 mg 09/06/19 16:51 09/07/19 17:56 Xanax PO 0.5 mg DAILY PRN Administration anxiety Amitriptyline HCl 50 mg 09/06/19 21:00 09/12/19 20:45 Elavil PO 50 mg HS SARA Administration Amlodipine Besylate 10 mg 09/07/19 09:00 09/13/19 09:51 Norvasc PO 10 mg DAILY SARA Administration Dextrose 12.5 gm 09/06/19 17:19 Dextrose 50% Syringe IV PUSH PRN PRN Hypoglycemia Protocol Docusate Sodium 100 mg 09/12/19 17:00 09/13/19 09:52 Colace Capsule PO Not Given BID SARA Furosemide 80 mg 09/10/19 17:00 09/13/19 09:51 Lasix Tablet PO 80 mg BID SARA Administration Gabapentin 300 mg 09/10/19 09:00 09/13/19 09:51 Neurontin PO 300 mg BID SARA Administration Glucagon 1 mg 09/06/19 17:19 Glucagon For Inj IM PRN PRN Hypoglycemia Protocol Glucose 15 gm 09/06/19 17:19 Glutose 15 PO PRN PRN Hypoglycemia Protocol Heparin Sodium (Porcine) 5,000 units 09/06/19 21:00 09/13/19 09:52 Heparin Sodium SUB-Q 5,000 units Q12HR SARA Administration Hydralazine HCl 10 mg 09/09/19 12:51 09/09/19 13:02 Apresoline Hcl Inj IV PUSH 10 mg Q6H PRN Administration Blood Pressure - High Hydralazine HCl 10 mg 09/10/19 15:00 09/13/19 13:10 Apresoline Tablet PO 10 mg Q8HR SARA Administration Dextrose 1,000 mls @ 100 mls/hr 09/06/19 17:19 Dextrose 5% 1,000 Ml IVPB PRN PRN Hypoglycemia Protocol Ceftriaxone Sodium 2 gm in 100 mls @ 200 mls/hr 09/13/19 13:25 Rocephin 2 Gm/D5w 100 Ml IVPB 10/25/19 23:59 Q24H SARA Insulin Aspart 3 - 6 units 09/06/19 17:00 09/13/19 12:40 Novolog SUB-Q Not Given TIDWM SARA Protocol Lisinopril 40 mg 09/10/19 09:00 09/13/19 09:52 Prinivil PO 40 mg QAM SARA Administration Magnesium Hydroxide 30 ml 09/12/19 13:54 Milk Of Magnesia PO BID PRN Constipation Metoprolol Succinate 50 mg 09/07/19 09:00 09/13/19 09:51 Toprol Xl PO 50 mg DAILY SARA Administration Morphine Sulfate 4 mg 09/06/19 12:47 Morphine Sulfate Inj IV PU
--- NOTE | 2019-09-13 14:02 | PCDIET ---
Nutrition LOS Complete: Pt current nutrition is DBCC. Nutrition recommendation: Agree Last recorded weight is 149.6 kg. Bowel Motility: 09/11 BM+ Labs Reviewed:glucose 130, GFR 15 Meds Noted:Lasix, Oxycodone Additional Notes: Seeing pt today due to LOS. Pt with good appetite. Pt on appropriate diet and eating 100% of meals. Bowels moving. No immediate nutrition needs or questions. at this time. We will follow every seven days.
[2019-09-13] MEDS: SILVERGEL (ELTA) 45 ML 1 APPLIC TOPICAL (14:31)
[2019-09-13 16:26] LABS: Glucose Point of Care 147 (65-105)
--- NOTE | 2019-09-13 17:59 | CONS_ITS ---
DATE OF CONSULTATION: 09/13/2019 REASON FOR CONSULTATION: Osteomyelitis, right calcaneus. HISTORY OF PRESENT ILLNESS: The patient is a 53-year-old male, known to me from the past. 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 About 3 months before admission, he stepped on exposed plug without socks or shoes, and had bleeding at that time. Over the next 2 months, he has an ulcer that opened and closed, a blister from the popped open 1 month before admission and in the 2-3 weeks before admission he also developed drainage from the plantar calcaneus area, fever up to 38.3, and foul drainage. He was given clindamycin by his primary care physician. Due to worsening of the wound, he presented the emergency room on September 05 and was admitted. He has been given imipenem and vancomycin. He was taken to the operating room yesterday where he underwent excision of right calcaneus osteomyelitis, excisional debridement of ulcers. Findings included calcaneal tuberosity infection, and devitalized and infected tissue at the area of the plantar diabetic ulcer and right great toe ulcer, plantar aspect. The wounds were left open. He is now postop. He has severe sensory neuropathy and has had no pain. He knows of no other recent trauma. He has had no rigors. He had no side effects from his clindamycin or his present antibiotics. ALLERGIES: PENICILLIN CAUSES UNKNOWN REACTION A CHILD. HE TOLERATES AMOXICILLIN WITHOUT DIFFICULTY. PRESENT MEDICATIONS: No immunosuppressants. HABITS: No alcohol. Ex-smoker as of a year ago. PAST MEDICAL HISTORY: In addition to the above, KT, previous necrotizing fasciitis, hypertension, hyperlipidemia, depression and anxiety, stage 5 chronic renal insufficiency, now end-stage, Charcot deformity, anemia of chronic inflammation. FAMILY HISTORY: Diabetes, hypertension. SOCIAL HISTORY: He is . He has 2 children, travels to see his son in [place] frequently. He is disabled. REVIEW OF SYSTEMS: Constitutional, musculoskeletal, skin, GI, respiratory, otherwise negative. PHYSICAL EXAMINATION: GENERAL: This is a middle-aged male who appears older than his actual age, in no respiratory distress. VITAL SIGNS: Since arrival, T-max 37.7, 159/67, 79, 16, 98%. SKIN: Warm and dry. No generalized rashes. He has some stasis dermatitis changes, both legs. EENT: The conjunctivae are normal. Pupils equal, round, and reactive to light. Oropharynx and oral mucosa normal, well hydrated. NECK: No masses or thyromegaly. No meningismus. LUNGS: Clear to auscultation. CARDIAC: Regular rate and rhythm. No murmurs or gallops. Dorsalis pedis pulses 1+ and equal. ABDOMEN: No masses, organomegaly, tenderness. EXTREMITIES: Right foot is dressed. I did not remove his surgical dressing. The left foot has no evidence of erythema, tenderness, warmth or dehiscence of wound. He has 3+ edema of the right foot, not pitting. LABORATORY DATA: His wound culture preop showed Citrobacter and FRANTZ. Intraoperative culture in process. Gram-stain showed gram-positive cocci and gram-positive bacilli. Blood cultures, no growth final from September 05. His white blood cell count 18.3 initially, now 12.4, hemoglobin 8.3, platelets are 342, earlier differential with a minimal left shift. Chemistries show earlier hyponatremia, now resolved. BUN 27 and creatinine 4.2. Accu-Cheks variable, generally in the low to mid 100s. CRP was 16.7 on admission. Urinalysis, no evidence of infection. Vancomycin trough level is therapeutic. Hepatitis panel is nonreactive. RADIOLOGY DATA: Renal ultrasound, no abnormalities. Chest x-ray, no active disease with dialysis catheter in place. Art
[2019-09-13] MEDS: AMITRIPTYLINE HCL 25 MG TABLET 50 MG PO (21:48)
[2019-09-13 22:10] LABS: Glucose Point of Care 131 (65-105)
[2019-09-14] VITALS (15 sets, daily range): BP systolic 135–174; BP diastolic 60–95; PULSE 66–89; RESP 10–20; TEMP 36.1–37.1; O2SAT 94–100
[2019-09-14 05:38] LABS: Hematocrit 27.6 % (42.0-52.0); Mean Corpuscular Hemoglobin 26.6 pg (26-34); Mean Corpuscular Volume 91.7 fl (80-100); Mean Platelet Volume 9.8 fl (7.4-10.4); Platelet Count Result 335 k/mm3 (150-375); Red Blood Count 3.01 M/mm3 (4.6-6.20); Red Cell Distribution Width 15.8 % (11.5-14.5); White Blood Count 11.4 K/mm3 (4.5-10.0)
[2019-09-14] MEDS: hydrALAZINE 10 MG TABLET PO (06:19)
[2019-09-14 06:31] LABS: Blood Urea Nitrogen 33 mg/dL (9-20); Carbon Dioxide 26 mmol/L (22-30); Chloride 101 mmol/L (98-107); Estimated CRCL calculation 24 ml/min; Estimated Glomerular Filt Rate 13; Glucose 120 mg/dL (75-110); Potassium 4.1 mmol/L (3.4-5.0); Sodium 138 mmol/L (137-145)
[2019-09-14 07:47] LABS: Glucose Point of Care 114 (65-105)
--- NOTE | 2019-09-14 09:16 | PM.IMPN ---
Subjective Date/time seen: 09/14/19 09:16 Objective Data Vital Signs Vital Signs: Vital Signs - 24 hr 09/13/19 09:51 09/13/19 10:00 09/13/19 14:00 Temperature 96.8 F L 97.0 F L Pulse Rate 67 79 89 Respiratory Rate 16 16 Blood Pressure 159/67 H 146/83 H Pulse Oximetry 98 97 09/13/19 22:00 09/13/19 23:35 09/14/19 02:25 Temperature 98.7 F Pulse Rate 76 82 Respiratory Rate 20 20 15 Blood Pressure 150/72 H Pulse Oximetry 95 97 09/14/19 05:52 Temperature 98.1 F Pulse Rate 68 Respiratory Rate 20 Blood Pressure 153/80 H Pulse Oximetry 100 Intake/Output Intake/Output: Intake & Output 09/11/19 09/12/19 09/13/19 09/14/19 23:59 23:59 23:59 23:59 Intake Total 4710 2640 4120 600 Output Total 3575 4475 2800 700 Balance 1135 -1835 1320 -100 Meds/Results Medications: Active Medications Generic Name Dose Route Start Last Admin Trade Name Freq PRN Reason Stop Dose Admin Acetaminophen 650 mg 09/06/19 12:47 Tylenol Tablet PO Q4H PRN Mild Pain (1-3) or Fever Hydrocodone Bitart/Acetaminophen 1 tab 09/06/19 12:47 09/13/19 14:35 [place] 5-325 Mg PO 1 tab Q4H PRN Administration Pain Rated 4-6 Alprazolam 0.5 mg 09/06/19 16:51 09/07/19 17:56 Xanax PO 0.5 mg DAILY PRN Administration anxiety Amitriptyline HCl 50 mg 09/06/19 21:00 09/13/19 21:48 Elavil PO 50 mg HS SARA Administration Amlodipine Besylate 10 mg 09/07/19 09:00 09/13/19 09:51 Norvasc PO 10 mg DAILY SARA Administration Dextrose 12.5 gm 09/06/19 17:19 Dextrose 50% Syringe IV PUSH PRN PRN Hypoglycemia Protocol Docusate Sodium 100 mg 09/12/19 17:00 09/13/19 17:19 Colace Capsule PO Not Given BID SARA Epoetin [place] 10,000 units 09/14/19 18:00 Epogen IV PUSH 09/14/19 18:01 ONCE ONE Furosemide 80 mg 09/10/19 17:00 09/13/19 18:24 Lasix Tablet PO 80 mg BID SARA Administration Gabapentin 300 mg 09/10/19 09:00 09/13/19 18:24 Neurontin PO 300 mg BID SARA Administration Glucagon 1 mg 09/06/19 17:19 Glucagon For Inj IM PRN PRN Hypoglycemia Protocol Glucose 15 gm 09/06/19 17:19 Glutose 15 PO PRN PRN Hypoglycemia Protocol Heparin Sodium (Porcine) 5,000 units 09/06/19 21:00 09/13/19 23:00 Heparin Sodium SUB-Q 5,000 units Q12HR SARA Administration Hydralazine HCl 10 mg 09/09/19 12:51 09/09/19 13:02 Apresoline Hcl Inj IV PUSH 10 mg Q6H PRN Administration Blood Pressure - High Hydralazine HCl 10 mg 09/10/19 15:00 09/14/19 06:19 Apresoline Tablet PO 10 mg Q8HR SARA Administration Dextrose 1,000 mls @ 100 mls/hr 09/06/19 17:19 Dextrose 5% 1,000 Ml IVPB PRN PRN Hypoglycemia Protocol Ceftriaxone Sodium 2 gm in 100 mls @ 200 mls/hr 09/13/19 14:00 09/13/19 15:00 Rocephin 2 Gm/D5w 100 Ml IVPB 10/25/19 14:01 Infused Q24H SARA Infusion Albumin Human 50 mls @ 999 mls/hr 09/13/19 16:38 Albutein IVPB 10/13/19 16:39 Q10M PRN HYPOTENSION Lactated Ringer's 1,000 mls @ 30 mls/hr 09/14/19 06:50 Lr - Lactated Ringers Iv IV CONT .Q24H SARA Insulin Aspart 3 - 6 units 09/06/19 17:00 09/14/19 07:53 Novolog SUB-Q Not Given TIDWM SARA Protocol Lisinopril 40 mg 09/10/19 09:00 09/13/19 09:52 Prinivil PO 40 mg QAM SARA Administration Magnesium Hydroxide 30 ml 09/12/19 13:54 Milk Of Magnesia PO BID PRN Constipation Metoprolol Succinate 50 mg 09/07/19 09:00 09/13/19 09:51 Toprol Xl PO 50 mg DAILY SARA Administration Morphine Sulfate 4 mg 09/06/19 12:47 Morphine Sulfate Inj IV PUSH Q2H PRN If unrelieved by PO medication Ondansetron HCl 4 mg 09/06/19 12:47 Zofran Inj IV PUSH Q4H PRN Nausea Oxycodone HCl 15 mg 09/13/19 12:00 09/14/19 06:19 Roxicodone Ir Tablet PO 15 mg Q6H SARA Administration Silver Nitrate 1 a
--- NOTE | 2019-09-14 09:23 | P.PNIM_ITS ---
Progress Note: A&P Assessment and Plan (1) Acute osteomyelitis of right calcaneus: Code(s): M86.171 - Other acute osteomyelitis, right ankle and foot Status: Acute Assessment and Plan: * Vancomycin and imipenem 5/2 PM -5/12 AM (6 days) * Ceftriaxone day 2 * Necrotic area in R heel * Wound culture has been collected and is growing citrobacter sens to all on panel and MSSA * BC no growth * 09/11 Wound debrided in OR (2) Acute kidney injury superimposed on chronic kidney disease: Code(s): N17.9 - Acute kidney failure, unspecified; N18.9 - Chronic kidney disease, unspecified Status: Acute Assessment and Plan: * Pt had dialysis on 09/11/2019 * Continue to watch BMP potassium levels and UO. * Renal ultrasound no obstruction * Dr. Hollis following (3) Acute hyperkalemia: Code(s): E87.5 - Hyperkalemia Status: Acute Assessment and Plan: * Improved with HD (4) Type 2 diabetes mellitus with peripheral neuropathy: Code(s): E11.42 - Type 2 diabetes mellitus with diabetic polyneuropathy Status: Acute Assessment and Plan: * Hemoglobin A1c of 6.0% * Initiated sliding scale insulin, Accu-Cheks, and hypoglycemic protocol. (5) Anemia of chronic disease: Code(s): D63.8 - Anemia in other chronic diseases classified elsewhere Status: Acute Assessment and Plan: * Iron studies compatible with anemia chronic disease (6) Essential hypertension: Code(s): I10 - Essential (primary) hypertension Status: Acute Assessment and Plan: * Blood pressures is stable on current medications * Echo normal ejection fraction 60-65% (7) Obstructive sleep apnea on CPAP: Code(s): G47.33 - Obstructive sleep apnea (adult) (pediatric); Z99.89 - Dependence on other enabling machines and devices Status: Acute Assessment and Plan: * Conitnue CPAP while sleeping (8) DVT prophylaxis: Code(s): Z29.9 - Encounter for prophylactic measures, unspecified Status: Acute Assessment and Plan: * SC heparin (9) Sepsis: Code(s): A41.9 - Sepsis, unspecified organism Status: Resolved Assessment and Plan: On admission pt had leukocytosis , tachycardia, and tachypnea secondary to OM and cellulitis Subjective Date/time seen: 09/14/19 09:23 Interval history: Admitted with diabetic foot infection. 09/13: C/o LBP. Minimal RLE pain. Tolerating diet. No cp ro sob or edema. No gi/gu c/o. No bleeding. Review of Systems Review of Systems: All systems reviewed & are unremarkable except as noted in HPI and below Exam Narrative: Exam Narrative: General: Alert. NAD. Ox3 Heart: normal S1 and S2; no rub Lungs: clear to auscultation Abdomen: soft, nontender, BS WNL Extremities: no cyanosis or clubbing; no edema Skin: right foot with wound vac in place Objective Data Vital Signs Vital Signs: Vital Signs - 24 hr 09/13/19 09:51 09/13/19 10:00 09/13/19 14:00 Temperature 96.8 F L 97.0 F L
--- NOTE | 2019-09-14 09:23 | PM.IMPN ---
Progress Note: A&P Assessment and Plan (1) Acute osteomyelitis of right calcaneus: Code(s): M86.171 - Other acute osteomyelitis, right ankle and foot Status: Acute Assessment and Plan: Vancomycin and imipenem 5/2 PM -5/12 AM (6 days) Ceftriaxone day 2 Necrotic area in R heel Wound culture has been collected and is growing citrobacter sens to all on panel and MSSA BC no growth 09/11 Wound debrided in OR (2) Acute kidney injury superimposed on chronic kidney disease: Code(s): N17.9 - Acute kidney failure, unspecified; N18.9 - Chronic kidney disease, unspecified Status: Acute Assessment and Plan: Pt had dialysis on 09/11/2019 Continue to watch BMP potassium levels and UO. Renal ultrasound no obstruction Dr. Hollis following (3) Acute hyperkalemia: Code(s): E87.5 - Hyperkalemia Status: Acute Assessment and Plan: Improved with HD (4) Type 2 diabetes mellitus with peripheral neuropathy: Code(s): E11.42 - Type 2 diabetes mellitus with diabetic polyneuropathy Status: Acute Assessment and Plan: Hemoglobin A1c of 6.0% Initiated sliding scale insulin, Accu-Cheks, and hypoglycemic protocol. (5) Anemia of chronic disease: Code(s): D63.8 - Anemia in other chronic diseases classified elsewhere Status: Acute Assessment and Plan: Iron studies compatible with anemia chronic disease (6) Essential hypertension: Code(s): I10 - Essential (primary) hypertension Status: Acute Assessment and Plan: Blood pressures is stable on current medications Echo normal ejection fraction 60-65% (7) Obstructive sleep apnea on CPAP: Code(s): G47.33 - Obstructive sleep apnea (adult) (pediatric); Z99.89 - Dependence on other enabling machines and devices Status: Acute Assessment and Plan: Conitnue CPAP while sleeping (8) DVT prophylaxis: Code(s): Z29.9 - Encounter for prophylactic measures, unspecified Status: Acute Assessment and Plan: SC heparin (9) Sepsis: Code(s): A41.9 - Sepsis, unspecified organism Status: Resolved Assessment and Plan: On admission pt had leukocytosis , tachycardia, and tachypnea secondary to OM and cellulitis Subjective Date/time seen: 09/14/19 09:23 Interval history: Admitted with diabetic foot infection. 09/13: C/o LBP. Minimal RLE pain. Tolerating diet. No cp ro sob or edema. No gi/gu c/o. No bleeding. Review of Systems Review of Systems: All systems reviewed & are unremarkable except as noted in HPI and below Exam Narrative: Exam Narrative: General: Alert. NAD. Ox3 Heart: normal S1 and S2; no rub Lungs: clear to auscultation Abdomen: soft, nontender, BS WNL Extremities: no cyanosis or clubbing; no edema Skin: right foot with wound vac in place Objective Data Vital Signs Vital Signs: Vital Signs - 24 hr 09/13/19 09:51 09/13/19 10:00 09/13/19 14:00 Temperature 96.8 F L 97.0 F L Pulse Rate 67 79 89 Respiratory Rate 16 16 Blood Pressure 159/67 H 146/83 H Pulse Oximetry 98 97 09/13/19 22:00 09/13/19 23:35 09/14/19 02:25 Temperature 98.7 F Pulse Rate 76 82 Respiratory Rate 20 20 15 Blood Pressure 150/72 H Pulse Oximetry 95 97 09/14/19 05:52 Temperature 98.1 F Pulse Rate 68 Respiratory Rate 20 Blood Pressure 153/80 H Pulse Oximetry 100 Intake/Output Intake/Output: Intake & Output 09/11/19 09/12/19 09/13/19 09/14/19 23:59 23:59 23:59 23:59 Intake Total 4710 2640 4120 600 Output Total 3575 5 2800 700 [place]
--- NOTE | 2019-09-14 09:59 | PM.PNORT ---
Progress Note: A&P Assessment and Plan (1) Diabetic foot ulcer associated with diabetes mellitus due to underlying condition: Qualifiers: Diabetic foot ulcer location: heel Laterality: right Non-pressure ulcer stage: with necrosis of bone Qualified Code(s): E08.621 - Diabetes mellitus due to underlying condition with foot ulcer; L97.414 - Non-pressure chronic ulcer of right heel and midfoot with necrosis of bone Code(s): E08.621 - Diabetes mellitus due to underlying condition with foot ulcer; L97.509 - Non-pressure chronic ulcer of other part of unspecified foot with unspecified severity Status: Acute Assessment and Plan: wound VAC applied yesterday. May continue with toe-touch weight-bearing for ambulation and transfers. Continue physical therapy and occupational therapy. Appreciate Infectious Disease consultation. We will plan follow-up in the wound clinic. Will need home health for wound VAC dressing changes. Subjective Subjective Date/Time Seen: 09/14/19 09:59 wound VAC applied yesterday afternoon Exam Const: General: healthy appearing; No in distress or confusion Orientation/consciousness: patient oriented x3 and No confusion HENMT: Head: normal to inspection, normocephalic and atraumatic Eyes: Conjunctivae: conjunctivae normal Sclera: sclerae normal Resp: Effort & Inspection: normal respiratory effort and no audible wheezes Neuro: General: patient oriented x3 and No confusion Extrem: Other: dressing removed right foot. Exposed plantar calcaneus with surrounding soft tissue bed. No active purulence. Good capillary refill in remaining toes. Ulcer plantar 1st metatarsal head with minimal sanguinous drainage. Psych: Affect: normal affect Objective Data Vital Signs Vital Signs: Vital Signs - 24 hr 09/13/19 10:00 09/13/19 14:00 09/13/19 22:00 Temperature 96.8 F L 97.0 F L 98.7 F Pulse Rate 79 89 76 Respiratory Rate 16 16 20 Blood Pressure 159/67 H 146/83 H 150/72 H Pulse Oximetry 98 97 95 09/13/19 23:35 09/14/19 02:25 09/14/19 05:52 Temperature 98.1 F Pulse Rate 82 68 Respiratory Rate 20 15 20 Blood Pressure 153/80 H Pulse Oximetry 97 100 Intake/Output Intake/Output: Intake & Output 09/11/19 09/12/19 09/13/19 09/14/19 23:59 23:59 23:59 23:59 Intake Total 4710 2640 4120 600 Output Total 3409 1720 2809 700 Balance 1135 -1835 1320 -100 Meds/Results Medications: Active Medications Generic Name Dose Route Start Last Admin Trade Name Freq PRN Reason Stop Dose Admin Acetaminophen 650 mg 09/06/19 12:47 Tylenol Tablet PO Q4H PRN Mild Pain (1-3) or Fever Hydrocodone Bitart/Acetaminophen 1 tab 09/06/19 12:47 09/13/19 14:35 Arena 5-325 Mg PO 1 tab Q4H PRN Administration Pain Rated 4-6 Alprazolam 0.5 mg 09/06/19 16:51 09/07/19 17:56 Xanax PO 0.5 mg DAILY PRN Administration anxiety Amitriptyline HCl 50 mg 09/06/19 21:00 09/13/19 21:48 Elavil PO 50 mg HS SARA Administration Amlodipine Besylate 10 mg 09/07/19 09:00 09/13/19 09:51 Norvasc PO 10 mg DAILY SARA Administration Dextrose 12.5 gm 09/06/19 17:19 Dextrose 50% Syringe IV PUSH PRN PRN Hypoglycemia Protocol Docusate Sodium 100 mg 09/12/19 17:00 09/13/19 17:19 Colace Capsule PO Not Given BID SARA Epoetin James 10,000 units 09/14/19 18:00 Epogen IV PUSH 09/14/19 18:01 ONCE ONE Furosemide 80 mg 09/10/19 17:00 09/13/19 18:24 Lasix Tablet PO 80 mg BID SARA Administration Gabapentin 300 mg 09/10/19 09:00 09/13/19 18:24 Neurontin PO 300 mg BID SARA Administration Glucagon 1 mg 09/06/19 17:19 Glucagon For Inj IM PRN PRN Hypoglycemia Protocol Glucose 15 gm 09/06/19 17:19 Glutose 15 PO PRN PRN Hypoglycemia Protocol Heparin Sodium (Porcine) 5,000 units 09/06/19 21:00 09/13/19 23:00 Heparin Sodium SUB-Q 5,000 units
[2019-09-14] MEDS: VENLAFAXINE HCL XR 75 MG CAP.ER.24H PO (10:14)
[2019-09-14] MEDS: METOPROLOL SUCCINATE EXT REL 50 MG TABCR PO (10:14)
[2019-09-14] MEDS: AMLODIPINE BESYLATE 5 MG TABLET 10 MG PO (10:14)
[2019-09-14] MEDS: SILVERGEL (ELTA) 45 ML 1 APPLIC TOPICAL (10:14)
[2019-09-14 11:45] LABS: Glucose Point of Care 113 (65-105)
--- NOTE | 2019-09-14 12:10 | PC.NURSE ---
Pt to preop via hospital bed, IV intact.
[2019-09-14] MEDS: SODIUM CHLORIDE 0.9% IV 500 ML 30 ML IV CONT (12:15)
--- NOTE | 2019-09-14 12:25 | WPDANESEFPP ---
Anes - Eval Final PreProcedure Day of Procedure 09/14/19 12:25 Patient weight: morbidly obese Heart: regular rate and rhythm Lungs: decreased breath sounds Airway: Mallampati scale class II Neurological: alert and oriented Last oral intake: >/= 8 hours ASA classification: IV Emergent: no Anesthetic plan: proceed Anesthesia type and monitoring: general GIVS and standard monitoring Informed Consent: The patient's anesthetic plan and its attendant risks and benefits were discussed with the patient/family/POA. Questions were solicited and answers provided to the satisfaction of the patient/family/POA.
--- NOTE | 2019-09-14 12:56 | WPDHPUPDATE1 ---
History and Physical Update Update Date/Time: 09/14/19 12:56 History and Physical has been reviewed, including an updated exam of the patient. Patient is in need of tunneled dialsys catheter to continue dialysis and also needs Cai catheter to continue IV antibiotics. Will proceed with removal Sean, insertion TDC, and insertion Cai catheter. Risks, benefits, and alternatives have been discussed and questions answered. Patient agrees to proceed with procedure.
[2019-09-14] MEDS: LIDO 1%/EPINEPHRINE 1:100,000 20 ML VIAL INFILTRATE (13:46)
[2019-09-14] MEDS: HEPARIN SODIUM, PORCINE 10,000 UNITS/10 ML VIAL 2 UNITS IV PUSH (13:47)
[2019-09-14] MEDS: HEPARIN SODIUM 5,000 UNITS/ML VIAL 5000 UNITS IRRIGATION (13:49)
--- NOTE | 2019-09-14 14:27 | SUR.OPER ---
Ebl=25ml
--- NOTE | 2019-09-14 14:30 | PM.PROC ---
Procedure Note - Detailed Date of procedure: 09/14/19 Pre-op diagnosis: Right diabetic foot wound, ESRD Post-op diagnosis: same Procedure performed: 1. Removal of Sean dialysis catheter and placement of tunneled dialysis catheter in right IJ with fluoroscopic guidance 2. Placement of left IJ tunneled Cai catheter using u/s and fluoroscopic guidance Description of procedure: Procedure as well as risks, benefits, and alternatives were discussed with the patient. Written consent was obtained and placed in chart prior to procedure. Patient was brought back to surgical suite. He was placed supine on operating table to. Time-out was done to confirm patient and procedure. IV sedation was then administered by the Anesthesia Department, and then eventually who was placed under general anesthesia with LMA. His bilateral neck and upper chest area was prepped and draped in sterile fashion using chlorhexidine prep. The right IJ Joe dialysis catheter was also prepped and draped within the field. The patient was placed in slight Trendelenburg position. A location on his chest was measured out for proper placement of the tunneled dialysis catheter. 1% lidocaine with epinephrine was infiltrated along this area of the chest and for a tract up to the neck. The site of the Joe dialysis catheter was opened up further with a 15 blade scalpel to allow for advancement of the tunneler and catheter tubing. Another incision was made on his anterior chest, and the tunneler and catheter tubing was advanced from the chest incision up to the neck incision. The sutures holding the Joe dialysis catheter were then cut. A 0.035 in guidewire was then advanced through the Joe catheter, and the catheter was carefully removed over the guidewire. Fluoroscopy was used to identify the guidewire in proper position in the superior vena cava. The blue dilators were then advanced over the guidewire to dilate the vessel followed by the dilator and sheath. This was done under fluoroscopic guidance. The dilator and guidewire were removed leaving the sheath in place. The catheter tubing was then advanced through the sheath under fluoroscopic guidance. The head sheath was then snapped and carefully peeled away. Catheter tubing was released underneath the skin, and fluoroscopy was used to ensure proper positioning and curvature. Each lumen of the catheter was then aspirated and flushed with heparinized saline. Both lumens function with ease. The catheter was then flushed with Hep-Lock solution. Caps were placed over the ends of the catheter. The skin of the neck and chest incision was reapproximated using 4 O Monocryl subcuticular sutures and the catheter was secured to the chest wall using 3 0 nylon simple interrupted sutures. Exofin glue was applied over the neck incision and 4 x 4 gauze and Tegaderm dressing was applied over the chest incision. I then moved my attention over to the left neck to place the Cai catheter. SonoSite ultrasound was used to identify the left internal jugular vein. 1% lidocaine with epinephrine was infiltrated directly over this area. An 18 gauge introducer needle was then advanced under ultrasound guidance directly into the lumen of the left internal jugular vein. The guide-wire advanced smoothly through the needle and under fluoroscopic guidance. The needle was withdrawn leaving the guidewire in place. A location on the anterior chest was identified for tunneling the catheter. This was anesthetized with 1% lidocaine with epinephrine and along the tract going up to the neck. A 15 blade scalpel then used to make a neck incision at the insertion site as well as a chest incision. The tunneler was then advanced from the chest incision up to the neck incision and the catheter tubing was then brought up through this tunnel tract. The catheter was then cut to appropriate length by measuring under fluoroscopic guidance. The dilator and sheath were the
[2019-09-14 14:47] LABS: Glucose Point of Care 112 (65-105)
--- NOTE | 2019-09-14 16:20 | P.PNNP_ITS ---
Progress Note: A&P Assessment and Plan (1) End stage renal disease: Code(s): N18.6 - End stage renal disease Status: Chronic Assessment and Plan: * known advanced kidney disease for a significant period of time from diabetes and hypertension * now with progression to end stage renal disease * continues to make good urine output * continue dialytic support to ensure stability in electrolyes, volume status, and clearance * s/p tunneled HD catheter placement * plan HD later this evening or tomorrow * outpatient dialysis has apparently been arranged (// schedule at [place]) (2) Diabetic foot ulcer associated with diabetes mellitus due to underlying condition: Qualifiers: Diabetic foot ulcer location: heel Laterality: right Non-pressure ulcer stage: with necrosis of bone Qualified Code(s): E08.621 - Diabetes mellitus due to underlying condition with foot ulcer; L97.414 - Non-pressure chronic ulcer of right heel and midfoot with necrosis of bone Code(s): E08.621 - Diabetes mellitus due to underlying condition with foot ulcer; L97.509 - Non-pressure chronic ulcer of other part of unspecified foot with unspecified severity Status: Acute Assessment and Plan: * continue antibiotics per ID recommendations * s/p excision of osteomyelitis right calcaneus with excisional debridement of d iabetic foot ulcer yesterday by Dr. Edmonds * local wound care * (3) Essential hypertension: Code(s): I10 - Essential (primary) hypertension Status: Acute Assessment and Plan: * elevated on admission * doing better at this time * follow trend of hemodynamics (4) Anemia of chronic disease: Code(s): D63.8 - Anemia in other chronic diseases classified elsewhere Status: Acute Assessment and Plan: * due to iron deficiency and avanced CKD * unable to give IV venofer due to acute infection * continue Epogen with HD * follow trend of H/H (5) Acute hyperkalemia: Code(s): E87.5 - Hyperkalemia Status: Acute Assessment and Plan: * resolved with dialytic intervention * follow trend Will continue to follow - would not be opposed to discharge tomorrow (after dialysis) from renal perspective if outpatient dialysis has been finalized and he is otherwise medically stable. Subjective Date/time seen: 09/14/19 16:20 Status post placement of tunneled HD catheter this afternoon -- tolerated procedure reasonably well; no other acute issues or problems voiced at this time time; he is hoping for discharge by Thursday. Exam Narrative: Exam Narrative: General: WD/WN male in NAD Heart: normal S1 and S2; no rub Lungs: clear to auscultation Abdomen: soft, nontender, nondistended, positive bowel sounds Extremities: no cyanosis or clubbing; no edema Skin: right foot with wound vac in place Objective Data Vital Signs Vital Signs: Vital Signs Temp Pulse Resp BP Pulse Ox 09/14/19 15:20 71 13 166/80 H 98 09/14/19 15:10 70 16 155/92 H 96 09/14/19 14:55 66 14 172/79 H 95 09/14/19 14:39 36.3 C L 71 10 L 174/95 H 98 09/14/19 12:11 36.7 C 75 18 146/75 H 100 09/14/19 11:57 36.2 C L 78 16 138/60 94 09/14/19 10:14 68 09/14/19 08:00 78 16 94 09/14/19 05:52 36.7 C 68 20 153/80 H 100
--- NOTE | 2019-09-14 16:20 | PM.PNNEP ---
Progress Note: A&P Assessment and Plan (1) End stage renal disease: Code(s): N18.6 - End stage renal disease Status: Chronic Assessment and Plan: known advanced kidney disease for a significant period of time from diabetes and hypertension now with progression to end stage renal disease continues to make good urine output continue dialytic support to ensure stability in electrolyes, volume status, and clearance s/p tunneled HD catheter placement plan HD later this evening or tomorrow outpatient dialysis has apparently been arranged (// schedule at [place]) (2) Diabetic foot ulcer associated with diabetes mellitus due to underlying condition: Qualifiers: Diabetic foot ulcer location: heel Laterality: right Non-pressure ulcer stage: with necrosis of bone Qualified Code(s): E08.621 - Diabetes mellitus due to underlying condition with foot ulcer; L97.414 - Non-pressure chronic ulcer of right heel and midfoot with necrosis of bone Code(s): E08.621 - Diabetes mellitus due to underlying condition with foot ulcer; L97.509 - Non-pressure chronic ulcer of other part of unspecified foot with unspecified severity Status: Acute Assessment and Plan: continue antibiotics per ID recommendations s/p excision of osteomyelitis right calcaneus with excisional debridement of diabetic foot ulcer yesterday by Dr. Edmonds local wound care (3) Essential hypertension: Code(s): I10 - Essential (primary) hypertension Status: Acute Assessment and Plan: elevated on admission doing better at this time follow trend of hemodynamics (4) Anemia of chronic disease: Code(s): D63.8 - Anemia in other chronic diseases classified elsewhere Status: Acute Assessment and Plan: due to iron deficiency and avanced CKD unable to give IV venofer due to acute infection continue Epogen with HD follow trend of H/H (5) Acute hyperkalemia: Code(s): E87.5 - Hyperkalemia Status: Acute Assessment and Plan: resolved with dialytic intervention follow trend Will continue to follow - would not be opposed to discharge tomorrow (after dialysis) from renal perspective if outpatient dialysis has been finalized and he is otherwise medically stable. Subjective Date/time seen: 09/14/19 16:20 Status post placement of tunneled HD catheter this afternoon -- tolerated procedure reasonably well; no other acute issues or problems voiced at this time time; he is hoping for discharge by Thursday. Exam Narrative: Exam Narrative: General: WD/WN male in NAD Heart: normal S1 and S2; no rub Lungs: clear to auscultation Abdomen: soft, nontender, nondistended, positive bowel sounds Extremities: no cyanosis or clubbing; no edema Skin: right foot with wound vac in place Objective Data Vital Signs Vital Signs: Vital Signs Temp Pulse Resp BP Pulse Ox 09/14/19 15:20 71 13 166/80 H 98 09/14/19 15:10 70 16 155/92 H 96 09/14/19 14:55 66 14 172/79 H 95 09/14/19 14:39 36.3 C L 71 10 L 174/95 H 98 09/14/19 12:11 36.7 C 75 18 146/75 H 100 09/14/19 11:57 36.2 C L 78 16 138/60 94 09/14/19 10:14 68 09/14/19 08:00 78 16 94 09/14/19 05:52 36.7 C 68 20 153/80 H 100 09/14/19 02:25 15 09/13/19 23:35 82 20 97 09/13/19 22:00 37.1 C 76 20 150/72 H 95 Intake/Output Intake/Output: Intake & Output 09/11/19 09/12/19 09/13/19 09/14/19 23:59 23:59 23:59 23:59 Intake Total 4710 2640 4120 600 Output Total 3575 4475 2800 700 Balance 1135 -1835 1320 -100 Meds/Results Medications: Active Medications Generic Name Dose Route Start Last Admin Trade Name Joselitoq PRN Reason Stop Dose Admin Acetaminophen 650 mg 09/06/19 12:47 Tylenol Tablet PO Q4H PRN Mild Pain (1-3) or Fever
[2019-09-14 17:15] LABS: Glucose Point of Care 186 (65-105)
[2019-09-14] MEDS: FUROSEMIDE 80 MG TABLET PO (17:19)
[2019-09-14] MEDS: GABAPENTIN 300 MG CAPSULE PO (17:19)
[2019-09-15] VITALS (21 sets, daily range): BP systolic 109–157; BP diastolic 59–86; PULSE 73–99; RESP 18–20; TEMP 36.2–37.1; O2SAT 97–98
[2019-09-15] MEDS: hydrALAZINE 10 MG TABLET PO ×3 (00:09→14:46)
[2019-09-15] MEDS: HEPARIN SODIUM 5,000 UNITS/ML VIAL 5000 UNITS SUB-Q ×2 (00:09→12:24)
[2019-09-15] MEDS: AMITRIPTYLINE HCL 25 MG TABLET 50 MG PO (00:11)
[2019-09-15 01:09] LABS: Glucose Point of Care 158 (65-105)
[2019-09-15 06:26] LABS: Hemoglobin 8.2 g/dL (14.0-18.0); Mean Corpuscular HGB Conc 29.3 g/dl (32-36); Mean Corpuscular Hemoglobin 26.5 pg (26-34); Mean Corpuscular Volume 90.6 fl (80-100); Mean Platelet Volume 9.8 fl (7.4-10.4); Platelet Count Result 327 k/mm3 (150-375); Red Blood Count 3.09 M/mm3 (4.6-6.20); White Blood Count 11.8 K/mm3 (4.5-10.0)
[2019-09-15 06:39] LABS: Blood Urea Nitrogen 34 mg/dL (9-20); Calcium 7.8 mg/dL (8.4-10.2); Carbon Dioxide 24 mmol/L (22-30); Chloride 101 mmol/L (98-107); Estimated CRCL calculation 22 ml/min; Estimated Glomerular Filt Rate 11; Glucose 115 mg/dL (75-110); Potassium 4.6 mmol/L (3.4-5.0); Sodium 136 mmol/L (137-145)
--- NOTE | 2019-09-15 08:18 | PC.NURSE ---
Patient to hemodialysis via bed with IV saline locked.
[2019-09-15 08:29] LABS: Glucose Point of Care 221 (65-105)
[2019-09-15 08:47] LABS: Glucose Point of Care 201 (65-105)
--- NOTE | 2019-09-15 09:11 | PCPTNOTE ---
Attempted to see patient for PT, however unable to due to patient getting dialysis.
--- NOTE | 2019-09-15 10:04 | P.PNNP_ITS ---
Progress Note: A&P Assessment and Plan (1) End stage renal disease: Code(s): N18.6 - End stage renal disease Status: Chronic Assessment and Plan: * known advanced kidney disease for a significant period of time from diabetes and hypertension * now with progression to end stage renal disease * continues to make good urine output * continue dialytic support to ensure stability in electrolyes, volume status, and clearance * s/p tunneled HD catheter placement * HD today and again tomorrow (if still hospitalized) * outpatient dialysis has apparently been arranged (// schedule at [place]) (2) Diabetic foot ulcer associated with diabetes mellitus due to underlying condition: Qualifiers: Diabetic foot ulcer location: heel Laterality: right Non-pressure ulcer stage: with necrosis of bone Qualified Code(s): E08.621 - Diabetes ann marie litus due to underlying condition with foot ulcer; L97.414 - Non-pressure chronic ulcer of right heel and midfoot with necrosis of bone Code(s): E08.621 - Diabetes mellitus due to underlying condition with foot ulcer; L97.509 - Non-pressure chronic ulcer of other part of unspecified foot with unspecified severity Status: Acute Assessment and Plan: * continue antibiotics per ID recommendations * s/p excision of osteomyelitis right calcaneus with excisional debridement of diabetic foot ulcer yesterday by Dr. Edmonds * local wound care * (3) Essential hypertension: Code(s): I10 - Essential (primary) hypertension Status: Acute Assessment and Plan: * elevated on admission * doing better at this time * follow trend of hemodynamics (4) Anemia of chronic disease: Code(s): D63.8 - Anemia in other chronic diseases classified elsewhere Status: Acute Assessment and Plan: * due to iron deficiency and avanced CKD * unable to give IV venofer due to acute infection * continue Epogen with HD * follow trend of H/H (5) Acute hyperkalemia: Code(s): E87.5 - Hyperkalemia Status: Acute Assessment and Plan: * resolved with dialytic intervention * follow trend Will continue to follow - would not be opposed to discharge today (after dialysis) from renal perspective if outpatient dialysis has been finalized and he is otherwise medically stable. Subjective Date/time seen: 09/15/19 10:04 Tolerating dialysis at the time of my visit (seen on HD at ~ 9:50AM); tolerating treatment reasonalby well; no apparent issues or problems to report at this time. Exam Narrative: Exam Narrative: General: WD/WN male in NAD Heart: normal S1 and S2; no rub Lungs: clear to auscultation Abdomen: soft, nontender, nondistended, positive bowel sounds Extremities: no cyanosis or clubbing; no edema Skin: right foot with wound vac in place Objective Data Vital Signs Vital Signs: Vital Signs Temp Pulse Resp BP Pulse Ox 09/15/19 09:45 88 140/74 09/15/19 09:30 83 150/70 H 09/15/19 09:15 84 143/78 H 09/15/19 09:00 81 156/72 H 09/15/19 08:45 87 156/79 H 09/15/19 08:35 90 134/80 09/15/19 08:29 37.1 C 90 20 138/77 09/15/19 05:51 37.0 C 73 20 109/59 L 98 09/14/19 22:00 37.1 C 85 20 159/80 H 98 09/14/19 17:25 36.2 C L 89 16 142/61 H 100
--- NOTE | 2019-09-15 10:04 | PM.PNNEP ---
Progress Note: A&P Assessment and Plan (1) End stage renal disease: Code(s): N18.6 - End stage renal disease Status: Chronic Assessment and Plan: known advanced kidney disease for a significant period of time from diabetes and hypertension now with progression to end stage renal disease continues to make good urine output continue dialytic support to ensure stability in electrolyes, volume status, and clearance s/p tunneled HD catheter placement HD today and again tomorrow (if still hospitalized) outpatient dialysis has apparently been arranged (// schedule at [place]) (2) Diabetic foot ulcer associated with diabetes mellitus due to underlying condition: Qualifiers: Diabetic foot ulcer location: heel Laterality: right Non-pressure ulcer stage: with necrosis of bone Qualified Code(s): E08.621 - Diabetes mellitus due to underlying condition with foot ulcer; L97.414 - Non-pressure chronic ulcer of right heel and midfoot with necrosis of bone Code(s): E08.621 - Diabetes mellitus due to underlying condition with foot ulcer; L97.509 - Non-pressure chronic ulcer of other part of unspecified foot with unspecified severity Status: Acute Assessment and Plan: continue antibiotics per ID recommendations s/p excision of osteomyelitis right calcaneus with excisional debridement of diabetic foot ulcer yesterday by Dr. Edmonds local wound care (3) Essential hypertension: Code(s): I10 - Essential (primary) hypertension Status: Acute Assessment and Plan: elevated on admission doing better at this time follow trend of hemodynamics (4) Anemia of chronic disease: Code(s): D63.8 - Anemia in other chronic diseases classified elsewhere Status: Acute Assessment and Plan: due to iron deficiency and avanced CKD unable to give IV venofer due to acute infection continue Epogen with HD follow trend of H/H (5) Acute hyperkalemia: Code(s): E87.5 - Hyperkalemia Status: Acute Assessment and Plan: resolved with dialytic intervention follow trend Will continue to follow - would not be opposed to discharge today (after dialysis) from renal perspective if outpatient dialysis has been finalized and he is otherwise medically stable. Subjective Date/time seen: 09/15/19 10:04 Tolerating dialysis at the time of my visit (seen on HD at ~ 9:50AM); tolerating treatment reasonalby well; no apparent issues or problems to report at this time. Exam Narrative: Exam Narrative: General: WD/WN male in NAD Heart: normal S1 and S2; no rub Lungs: clear to auscultation Abdomen: soft, nontender, nondistended, positive bowel sounds Extremities: no cyanosis or clubbing; no edema Skin: right foot with wound vac in place Objective Data Vital Signs Vital Signs: Vital Signs Temp Pulse Resp BP Pulse Ox 09/15/19 09:45 88 140/74 09/15/19 09:30 83 150/70 H 09/15/19 09:15 84 143/78 H 09/15/19 09:00 81 156/72 H 09/15/19 08:45 87 156/79 H 09/15/19 08:35 90 134/80 09/15/19 08:29 37.1 C 90 20 138/77 09/15/19 05:51 37.0 C 73 20 109/59 L 98 09/14/19 22:00 37.1 C 85 20 159/80 H 98 09/14/19 17:25 36.2 C L 89 16 142/61 H 100 09/14/19 16:25 36.1 C L 76 18 152/70 H 100 09/14/19 15:55 36.3 C L 82 18 163/76 H 100 09/14/19 15:40 36.2 C L 76 18 135/67 94 09/14/19 15:20 71 13 166/80 H 98 09/14/19 15:10 70 16 155/92 H 96 09/14/19 14:55 66 14 172/79 H 95 09/14/19 14:39 36.3 C L 71 10 L 174/95 H 98 09/14/19 12:11 36.7 C 75 18 146/75 H 100 09/14/19 11:57 36.2 C L 78 16 138/60 94 09/14/19 10:14 68 Intake/Output Intake/Output: Intake & Output 09/12/19 09/13/19 09/14/19 09/15/19 23:59 23:59 23:59 23:59 Intake Total 2640 4
--- NOTE | 2019-09-15 10:44 | PCOTNOTE ---
Patient off unit for dialysis. OT treatment not able to be completed. Will attempt at later time
[2019-09-15] MEDS: EPOETIN ALFA 10,000 UNITS/ML VIAL 10000 UNITS IV PUSH (11:27)
--- NOTE | 2019-09-15 12:10 | PC.NURSE ---
Patient returned from hemodialysis via bed with IV saline locked.
[2019-09-15] MEDS: GABAPENTIN 300 MG CAPSULE PO ×2 (12:14→17:28)
[2019-09-15] MEDS: AMLODIPINE BESYLATE 5 MG TABLET 10 MG PO (12:17)
[2019-09-15] MEDS: VENLAFAXINE HCL XR 75 MG CAP.ER.24H PO (12:17)
[2019-09-15] MEDS: lisinopriL 20 MG TABLET 40 MG PO (12:17)
[2019-09-15] MEDS: METOPROLOL SUCCINATE EXT REL 50 MG TABCR PO (12:18)
[2019-09-15] MEDS: SILVERGEL (ELTA) 45 ML 1 APPLIC TOPICAL (12:21)
--- NOTE | 2019-09-15 12:25 | PC.NURSE ---
Call to pharmacy to request 0900 lasix be sent to floor for administration.
[2019-09-15 13:26] LABS: Glucose Point of Care 130 (65-105)
--- NOTE | 2019-09-15 13:55 | WPDINFPN2 ---
Progress Note: A&P Assessment and Plan (1) Acute osteomyelitis of right calcaneus: Code(s): M86.171 - Other acute osteomyelitis, right ankle and foot Status: Acute Assessment and Plan: 1. R heel OM, acute, POD # 3. Preop and intraop cultures = FRANTZ and citrobacter 2. CRF 3. DM with PN REC Ctx # 3 / 42 days or more. Catheters in place. Ok discharge. He asks about potential need for oral therapy, I told him that such a decision will be made when closer to end of therapy IV. Patient asks that his pain medication be refilled until appt with his pain specialist 09/27, he is aware that his primary care team will address this rather than me Subjective Date/time seen: 09/15/19 13:55 Interval history: foot feels better Exam Narrative: Exam Narrative: afebrile Const: General: no acute distress Eyes: General: appearance normal, both eyes and all related structures Skin: General skin exam: normal color, no rashes or lesions noted and erythema Other: wound vac in place Objective Data Vital Signs Vital Signs: Vital Signs - 24 hr 09/14/19 14:39 09/14/19 14:55 09/14/19 15:10 Temperature 36.3 C L Pulse Rate 71 66 70 Respiratory Rate 10 L 14 16 Blood Pressure 174/95 H 172/79 H 155/92 H Pulse Oximetry 98 95 96 09/14/19 15:20 09/14/19 15:40 09/14/19 15:55 Temperature 36.2 C L 36.3 C L Pulse Rate 71 76 82 Respiratory Rate 13 18 18 Blood Pressure 166/80 H 135/67 163/76 H Pulse Oximetry 98 94 100 09/14/19 16:25 09/14/19 17:25 09/14/19 22:00 Temperature 36.1 C L 36.2 C L 37.1 C Pulse Rate 76 89 85 Respiratory Rate 18 16 20 Blood Pressure 152/70 H 142/61 H 159/80 H Pulse Oximetry 100 100 98 09/15/19 05:51 09/15/19 08:29 09/15/19 08:35 Temperature 37.0 C 37.1 C Pulse Rate 73 90 90 Respiratory Rate 20 20 Blood Pressure 109/59 L 138/77 134/80 Pulse Oximetry 98 09/15/19 08:45 09/15/19 09:00 09/15/19 09:15 Temperature Pulse Rate 87 81 84 Respiratory Rate Blood Pressure 156/79 H 156/72 H 143/78 H Pulse Oximetry 09/15/19 09:30 09/15/19 09:45 09/15/19 10:00 Temperature Pulse Rate 83 88 99 Respiratory Rate Blood Pressure 150/70 H 140/74 133/65 Pulse Oximetry 09/15/19 10:15 09/15/19 10:30 09/15/19 10:45 Temperature Pulse Rate 80 81 85 Respiratory Rate Blood Pressure 149/75 H 142/74 H 145/75 H Pulse Oximetry 09/15/19 11:00 09/15/19 11:15 09/15/19 11:30 Temperature Pulse Rate 77 75 80 Respiratory Rate Blood Pressure 147/73 H 149/77 H 151/82 H Pulse Oximetry 09/15/19 11:35 09/15/19 12:01 09/15/19 12:18 Temperature 37.1 C Pulse Rate 80 82 76 Respiratory Rate 18 Blood Pressure 151/82 H 157/82 H Pulse Oximetry 09/15/19 13:44 Temperature 36.7 C Pulse Rate 88 Respiratory Rate 18 Blood Pressure 143/80 H Pulse Oximetry 97 Intake/Output Intake/Output: Intake & Output 09/12/19 09/13/19 09/14/19 09/15/19 23:59 23:59 23:59 23:59 Intake Total 2640 4120 2420 2100 Output Total 4475 2800 2800 1300 Balance -1835 1320 -380 800 Meds/Results Medications: Active Medications Generic Name Dose Route Start Last Admin Trade Name Joselitoq PRN Reason Stop Dose Admin Acetaminophen 650 mg 09/06/19 12:47 Tylenol Tablet PO Q4H PRN Mild Pain (1-3) or Fever Hydrocodone Bitart/Acetaminophen 1 tab 09/06/19 12:47 09/13/19 14:35 [place] 5-325 Mg PO 1 tab Q4H PRN Administration Pain Rated 4-6 Alprazolam 0.5 mg 09/06/19 16:51 09/07/19 17:56 Xanax PO 0.5 mg DAILY PRN Administration anxiety Amitriptyline HCl 50 mg 09/06/19 21:00 09/15/19 00:11 Elavil PO 50 mg HS SARA Administration Amlodipine Besylate 10 mg 09/07/19 09:00 09/15/19 12:17 Norvasc PO 10 mg DAILY SARA Administration Dextrose 12.5 gm 09/06/19 17:19 Dextrose 50% Syringe IV PUSH PRN PRN Hypoglycemia Protocol Docusate Sodium 100 mg 09/12/19 17:00 09/14/19 15:49 Colace Capsule
[2019-09-15 16:55] LABS: Glucose Point of Care 109 (65-105)
--- NOTE | 2019-09-15 17:36 | P.PNIM_ITS ---
Progress Note: A&P Assessment and Plan (1) Acute osteomyelitis of right calcaneus: Code(s): M86.171 - Other acute osteomyelitis, right ankle and foot Status: Acute Assessment and Plan: * Vancomycin and imipenem 5/2 PM -512 AM (6 days) * Ceftriaxone day * Necrotic area in R heel * Wound culture has been collected and is growing citrobacter sens to all on panel and MSSA * BC no growth * 09/11 Wound debrided in OR * Likely home with home infusion 09/15 (2) Acute kidney injury superimposed on chronic kidney disease: Code(s): N17.9 - Acute kidney failure, unspecified; N18.9 - Chronic kidney disease, unspecified Status: Acute Assessment and Plan: * Tolerates HD well * Renal ultrasound no obstruction * Dr. Hollis following (3) Acute hyperkalemia: Code(s): E87.5 - Hyperkalemia Status: Acute Assessment and Plan: * Resolved with HD (4) Type 2 diabetes mellitus with peripheral neuropathy: Code(s): E11.42 - Type 2 diabetes mellitus with diabetic polyneuropathy Status: Acute Assessment and Plan: * Hemoglobin A1c of 6.0% * Initiated sliding scale insulin, Accu-Cheks, and hypoglycemic protocol. (5) Anemia of chronic disease: Code(s): D63.8 - Anemia in other chronic diseases classified elsewhere Status: Acute Assessment and Plan: * Iron studies compatible with anemia chronic disease (6) Essential hypertension: Code(s): I10 - Essential (primary) hypertension Status: Acute Assessment and Plan: * Blood pressures is stable on current medications * Echo normal ejection fraction 60-65% (7) Obstructive sleep apnea on CPAP: Code(s): G47.33 - Obstructive sleep apnea (adult) (pediatric); Z99.89 - Dependence on other enabling machines and devices Status: Acute Assessment and Plan: * Conitnue CPAP while sleeping (8) DVT prophylaxis: Code(s): Z29.9 - Encounter for prophylactic measures, unspecified Status: Acute Assessment and Plan: * SC heparin (9) Sepsis: Code(s): A41.9 - Sepsis, unspecified organism Status: Resolved Assessment and Plan: On admission pt had leukocytosis , tachycardia, and tachypnea secondary to OM and cellulitis Subjective Date/time seen: 09/15/19 17:36 Interval history: Admitted with diabetic foot infection. 09/13: C/o LBP. Minimal RLE pain. Tolerating diet. No cp ro sob or edema. No gi/gu c/o. No bleeding. Review of Systems Review of Systems: All systems reviewed & are unremarkable except as noted in HPI and below Objective Data Vital Signs Vital Signs: Vital Signs - 24 hr 09/14/19 22:00 09/15/19 05:51 09/15/19 08:29 Temperature 98.8 F 98.6 F 98.8 F Pulse Rate 85 73 90 Respiratory Rate 20 20 20 Blood Pressure 159/80 H 109/59 L 138/77 Pulse Oximetry 98 98 09/15/19 08:35 09/15/19 08:45 09/15/19 09:00 Temperature Pulse Rate 90 87 81 Respi
--- NOTE | 2019-09-15 17:36 | PM.IMPN ---
Progress Note: A&P Assessment and Plan (1) Acute osteomyelitis of right calcaneus: Code(s): M86.171 - Other acute osteomyelitis, right ankle and foot Status: Acute Assessment and Plan: Vancomycin and imipenem 5/2 PM -12 AM (6 days) Ceftriaxone day Necrotic area in R heel Wound culture has been collected and is growing citrobacter sens to all on panel and MSSA BC no growth 09/11 Wound debrided in OR Likely home with home infusion 09/15 (2) Acute kidney injury superimposed on chronic kidney disease: Code(s): N17.9 - Acute kidney failure, unspecified; N18.9 - Chronic kidney disease, unspecified Status: Acute Assessment and Plan: Tolerates HD well Renal ultrasound no obstruction Dr. Hollis following (3) Acute hyperkalemia: Code(s): E87.5 - Hyperkalemia Status: Acute Assessment and Plan: Resolved with HD (4) Type 2 diabetes mellitus with peripheral neuropathy: Code(s): E11.42 - Type 2 diabetes mellitus with diabetic polyneuropathy Status: Acute Assessment and Plan: Hemoglobin A1c of 6.0% Initiated sliding scale insulin, Accu-Cheks, and hypoglycemic protocol. (5) Anemia of chronic disease: Code(s): D63.8 - Anemia in other chronic diseases classified elsewhere Status: Acute Assessment and Plan: Iron studies compatible with anemia chronic disease (6) Essential hypertension: Code(s): I10 - Essential (primary) hypertension Status: Acute Assessment and Plan: Blood pressures is stable on current medications Echo normal ejection fraction 60-65% (7) Obstructive sleep apnea on CPAP: Code(s): G47.33 - Obstructive sleep apnea (adult) (pediatric); Z99.89 - Dependence on other enabling machines and devices Status: Acute Assessment and Plan: Conitnue CPAP while sleeping (8) DVT prophylaxis: Code(s): Z29.9 - Encounter for prophylactic measures, unspecified Status: Acute Assessment and Plan: SC heparin (9) Sepsis: Code(s): A41.9 - Sepsis, unspecified organism Status: Resolved Assessment and Plan: On admission pt had leukocytosis , tachycardia, and tachypnea secondary to OM and cellulitis Subjective Date/time seen: 09/15/19 17:36 Interval history: Admitted with diabetic foot infection. 09/13: C/o LBP. Minimal RLE pain. Tolerating diet. No cp ro sob or edema. No gi/gu c/o. No bleeding. Review of Systems Review of Systems: All systems reviewed & are unremarkable except as noted in HPI and below Objective Data Vital Signs Vital Signs: Vital Signs - 24 hr 09/14/19 22:00 09/15/19 05:51 09/15/19 08:29 Temperature 98.8 F 98.6 F 98.8 F Pulse Rate 85 73 90 Respiratory Rate 20 20 20 Blood Pressure 159/80 H 109/59 L 138/77 Pulse Oximetry 98 98 09/15/19 08:35 09/15/19 08:45 09/15/19 09:00 Temperature Pulse Rate 90 87 81 Respiratory Rate Blood Pressure 134/80 156/79 H 156/72 H Pulse Oximetry 09/15/19 09:15 09/15/19 09:30 09/15/19 09:45 Temperature Pulse Rate 84 83 88 Respiratory Rate Blood Pressure 143/78 H 150/70 H 140/74 Pulse Oximetry 09/15/19 10:00 09/15/19 10:15 09/15/19 10:30 Temperature Pulse Rate 99 80 81 Respiratory Rate Blood Pressure 133/65 149/75 H 142/74 H Pulse Oximetry 09/15/19 10:45 09/15/19 11:00 09/15/19 11:15 Temperature Pulse Rate 85 77 75 Respiratory Rate Blood Pressure 145/75 H 147/73 H 149/77 H Pulse Oximetry 09/15/19 11:30 09/15/19 11:35 09/15/19 12:01 [facility]
[2019-09-16] VITALS (20 sets, daily range): BP systolic 127–182; BP diastolic 60–87; PULSE 78–92; RESP 16–21; TEMP 36.4–37; O2SAT 100
[2019-09-16] MEDS: AMITRIPTYLINE HCL 25 MG TABLET 50 MG PO (00:03)
[2019-09-16] MEDS: HEPARIN SODIUM 5,000 UNITS/ML VIAL 5000 UNITS SUB-Q (00:04)
[2019-09-16] MEDS: hydrALAZINE 10 MG TABLET PO ×3 (00:04→14:12)
[2019-09-16 03:03] LABS: Glucose Point of Care 116 (65-105)
[2019-09-16 05:52] LABS: Hematocrit 27.6 % (42.0-52.0); Hemoglobin 8.1 g/dL (14.0-18.0); Mean Corpuscular HGB Conc 29.3 g/dl (32-36); Mean Corpuscular Hemoglobin 26.7 pg (26-34); Mean Corpuscular Volume 91.1 fl (80-100); Platelet Count Result 295 k/mm3 (150-375); Red Blood Count 3.03 M/mm3 (4.6-6.20); Red Cell Distribution Width 16.3 % (11.5-14.5); White Blood Count 8.4 K/mm3 (4.5-10.0)
[2019-09-16 06:30] LABS: Blood Urea Nitrogen 21 mg/dL (9-20); Calcium 7.8 mg/dL (8.4-10.2); Carbon Dioxide 27 mmol/L (22-30); Chloride 100 mmol/L (98-107); Estimated CRCL calculation 28 ml/min; Estimated Glomerular Filt Rate 15; Glucose 124 mg/dL (75-110); Potassium 4.4 mmol/L (3.4-5.0); Sodium 135 mmol/L (137-145)
[2019-09-16] MEDS: DOCUSATE SODIUM 100 MG CAPSULE PO (08:06)
[2019-09-16] MEDS: AMLODIPINE BESYLATE 5 MG TABLET 10 MG PO (08:06)
[2019-09-16] MEDS: GABAPENTIN 300 MG CAPSULE PO (08:06)
[2019-09-16 08:07] LABS: Glucose Point of Care 123 (65-105)
[2019-09-16] MEDS: METOPROLOL SUCCINATE EXT REL 50 MG TABCR PO (08:07)
[2019-09-16] MEDS: SILVERGEL (ELTA) 45 ML 1 APPLIC TOPICAL (08:08)
[2019-09-16] MEDS: VENLAFAXINE HCL XR 75 MG CAP.ER.24H PO (08:08)
[2019-09-16] MEDS: lisinopriL 20 MG TABLET 40 MG PO (08:08)
--- NOTE | 2019-09-16 08:44 | PCOTNOTE ---
Attempted to see patient this am, however patient was off floor for dialysis at this time.
--- NOTE | 2019-09-16 08:48 | PCPTNOTE ---
The PT treatment was unable to be completed this AM. Patient out of room for dialysis. Will continue per Plan of Care frequency and duration.
[2019-09-16] MEDS: EPOETIN ALFA 20,000 UNITS/ML VIAL 20000 UNITS IV PUSH (10:36)
--- NOTE | 2019-09-16 10:44 | PM.PNORT ---
Progress Note: A&P Assessment and Plan (1) Diabetic foot ulcer associated with diabetes mellitus due to underlying condition: Qualifiers: Diabetic foot ulcer location: heel Laterality: right Non-pressure ulcer stage: with necrosis of bone Qualified Code(s): E08.621 - Diabetes mellitus due to underlying condition with foot ulcer; L97.414 - Non-pressure chronic ulcer of right heel and midfoot with necrosis of bone Code(s): E08.621 - Diabetes mellitus due to underlying condition with foot ulcer; L97.509 - Non-pressure chronic ulcer of other part of unspecified foot with unspecified severity Status: Acute Assessment and Plan: POD #4 Continue PT/OT. TTWB RLE. Reverse post-op shoe ordered for heel pressure offloading, RN notified to obtain from [facility]. Only to be used when OOB. Elevate heel with pillows while in bed (offloading). Wound VAC dressing to be changed today by [facility] after HD. Then proceed with wound VAC changes MWF. Patient will need home health for wound VAC and IV therapy. Per ID, plans for 42 days of IV antibiotics. Follow up planned in the [facility] wound clinic next Thursday. Subjective Subjective Date/Time Seen: 09/16/19 10:44 Patient currently in HD. No new complaints. Feels foot is improving. Post Op day: 4 Principal diagnosis: Right DFU/Osteomyelitis Review of Systems Review of Systems: All systems reviewed & are unremarkable except as noted in HPI and below Exam Const: General: comfortable and no acute distress Resp: Effort & Inspection: normal respiratory effort Cardio: Rate: regular rate Rhythm: regular rhythm Skin: General skin exam: normal color and no erythema Other: Wound VAC to right heel c/d/i. No leaking around wound VAC site. Chamber with serousanguinous drainage. Surrounding tissue with marked improvement in redness/warmth/swelling. No malodor. Neuro: Cognition (Neuro): normal cognition Sensory Exam: No normal sensation Extrem: Other: Wound VAC right heel. No signs of worsening infection at this time. Good capillary refill in remaining toes. Ulcer plantar 1st metatarsal head with scant sanguinous drainage. Insenate b/l feet. Psych: Mental Status: mental status grossly normal Affect: normal affect Objective Data Vital Signs Vital Signs: Vital Signs - 24 hr 09/15/19 10:45 09/15/19 11:00 09/15/19 11:15 Temperature Pulse Rate 85 77 75 Respiratory Rate Blood Pressure 145/75 H 147/73 H 149/77 H Pulse Oximetry 09/15/19 11:30 09/15/19 11:35 09/15/19 12:01 Temperature 37.1 C Pulse Rate 80 80 82 Respiratory Rate 18 Blood Pressure 151/82 H 151/82 H 157/82 H Pulse Oximetry 09/15/19 12:18 09/15/19 13:44 09/15/19 22:00 Temperature 36.7 C 36.2 C L Pulse Rate 76 88 92 Respiratory Rate 18 20 Blood Pressure 143/80 H 139/86 Pulse Oximetry 97 98 09/16/19 06:00 09/16/19 08:07 09/16/19 08:40 Temperature 36.4 C 36.6 C Pulse Rate 90 92 92 Respiratory Rate 21 H 16 Blood Pressure 130/67 182/80 H Pulse Oximetry 100 09/16/19 08:52 09/16/19 09:00 09/16/19 09:15 Temperature Pulse Rate 86 87 88 Respiratory Rate Blood Pressure 175/87 H 157/76 H 157/77 H Pulse Oximetry 09/16/19 09:30 09/16/19 09:45 09/16/19 10:00 Temperature Pulse Rate 80 78 81 Respiratory Rate Blood Pressure 166/81 H 167/82 H 169/81 H Pulse Oximetry 09/16/19 10:15 09/16/19 10:30 Temperature Pulse Rate 82 81 Respiratory Rate Blood Pressure 154/83 H 164/83 H Pulse Oximetry Intake/Output Intake/Output: Intake & Output 09/13/19 09/14/19 09/15/19 09/16/19 23:59 23:59 23:59 23:59 Intake Total 4120 2420 2680 1420 Output Total 2800 2800 1350 1400 Balance 1320 -380 1330 20 Meds/Results Medications: Active Medications Generic Name Dose Route Start Last Admin Trade Name Freq PRN Reason Stop Dose Admin Acetaminophen 650 mg 09/06/19 12:47 Tylenol Tablet PO Q4H PRN Mi
--- NOTE | 2019-09-16 10:46 | PM.DS ---
DS: Summary Hospital Course Reason for hospitalization: right foot ulcer Hospital Course: Admitted with infected right foot ulcer. Imaging c/w osteomyelitis. Treated with vanc and primaxin. Debrided by surgery. Seen to ID. Culture with citrobacter and MSSA from wound. To complete 6 weeks IV ceftriaxone and wear sound vac. Status at Discharge Overall status at discharge: patient is progressing back to baseline Time Spent with Patient Time attestation: Total time spent providing and/or coordinating discharge services: Time spent: Greater than 30 minutes Exam Narrative: Exam Narrative: General: Alert. NAD. Ox3 Heart: normal S1 and S2; no rub Lungs: clear to auscultation Abdomen: soft, nontender, BS WNL Extremities: no cyanosis or clubbing; no edema Skin: right foot with wound vac in place DS: Data Data Completed and Pending Labs on day of discharge: Labs from last 24 hours 09/16/19 09/16/19 09/16/19 08:05 05:33 05:33 WBC 8.4 RBC 3.03 L Hgb 8.1 L Hct 27.6 L MCV 91.1 MCH 26.7 MCHC 29.3 L RDW 16.3 H Plt Count 295 MPV 10.0 Sodium 135 L Potassium 4.4 Chloride 100 Carbon Dioxide 27 BUN 21 H D Creatinine 4.20 H Estim Creat Clear Calc 28 Estimated GFR 15 L Glucose 124 H POC Capillary Glucose 123 H Calcium 7.8 L 09/16/19 09/15/19 09/15/19 00:08 16:44 12:19 WBC RBC Hgb Hct MCV MCH MCHC RDW Plt Count MPV Sodium Potassium Chloride Carbon Dioxide BUN Creatinine Estim Creat Clear Calc Estimated GFR Glucose POC Capillary Glucose 116 H 109 130 H Calcium Preliminary micro results at discharge 09/12/19 12:31 Anaerobic Culture - Preliminary Foot Right Discharge Plan Discharge Consulting providers: Tomas Edmonds ; Felipe Hollis ; Edyta Jordan ; Von Hunter ; Celia Anderson ; Rocio Mccallum ; Berto Kennedy ; Obed Duncan ; Chavez Gaffney ; Sahra Ramos ; Chidi Smith V. ; Romulo Villatoro ; Nicki Garcia ; Salazar Varner ; Carolina Bean ; Gil Rhodes Discharging Clinician: Sawyer Grewal Patient Disposition: Home Health Service Activity: as tolerated Diet: renal Discharge Instructions: Per Care Coordination: [facility] RN has been arranged at discharge to follow for IV infusion, IV line site, lab draws, and wound care. [facility] will contact you prior to their first visit. [facility] can be reached at [phone]. [facility] infusion has been arranged to follow for IV antibiotics. [facility] can be contacted at [phone]. Home wound VAC dressing. Dressing changes 3 times/ week with [facility]. Toe-touch weight-bearing on right foot. Walker or crutches for assistance with ambulation. Dialysis has been arranged through [facility]. You are scheduled for Thursday, Thursday, and Thursday at 3:30pm. Please arrive an hour early to your first dialysis session. Please bring your corporate driver's license, medication list, and your discharge paperwork. [facility] can be contacted at [phone]. Patient Instructions: Antibiotic Form, Sleep Apnea (DC), Chronic Kidney Disease (DC), Dialysis Diet (DC), Osteomyelitis (DC), Pain Management (DC), Diabetic Foot Ulcers (DC), Hypertension (DC), CPAP (GEN), Hemodialysis (DC), Chronic Wounds (DC), Type 2 Diabetes Management for Adults (DC) Stand Alone Forms: General Discharge Information Follow-up/Referrals: Tomas Edmonds MD [Physician] - 1 Week (Patient to be seen by Dr Edmonds at the [facility] wound center on Monday September 23, 2019 at 8:45am. Any questions call [phone].) Discharge Medications: New acetaminophen [Mapap (acetaminophen)] 325 mg Tablet 650 mg PO Q4H PRN (Reason: Mild Pain (1-3) Or Fever) Qty: 60 RF: 0 ceftriaxone 2 gram Recon Soln 2 g IV Q24H Qty: 38 RF: 0 hydralazine
--- NOTE | 2019-09-16 12:06 | P.PNNP_ITS ---
Progress Note: A&P Assessment and Plan (1) End stage renal disease: Code(s): N18.6 - End stage renal disease Status: Chronic Assessment and Plan: * known advanced kidney disease for a significant period of time from diabetes and hypertension * now with progression to end stage renal disease * continues to make good urine output * continue dialytic support to ensure stability in electrolyes, volume status, and clearance * s/p tunneled HD catheter placement * HD today continue M/W/F schedule on discharge (outpatient dialysis has apparently been arranged for M/W/F schedule at [place]) (2) Diabetic foot ulcer associated with diabetes mellitus due to underlying condition: Qualifiers: Diabetic foot ulcer location: heel Laterality: right Non-pressure ulcer stage: with necrosis of bone Qualified Code(s): E08.621 - Diabetes mellit us due to underlying condition with foot ulcer; L97.414 - Non-pressure chronic ulcer of right heel and midfoot with necrosis of bone Code(s): E08.621 - Diabetes mellitus due to underlying condition with foot ulcer; L97.509 - Non-pressure chronic ulcer of other part of unspecified foot with unspecified severity Status: Acute Assessment and Plan: * continue antibiotics per ID recommendations * s/p excision of osteomyelitis right calcaneus with excisional debridement of diabetic foot ulcer yesterday by Dr. Edmonds * local wound care (3) Essential hypertension: Code(s): I10 - Essential (primary) hypertension Status: Acute Assessment and Plan: * elevated on admission * doing better at this time * follow trend of hemodynamics (4) Anemia of chronic disease: Code(s): D63.8 - Anemia in other chronic diseases classified elsewhere Status: Acute Assessment and Plan: * due to iron deficiency and advanced CKD * unable to give IV venofer due to acute infection * continue Epogen with HD * follow trend of H/H (5) Acute hyperkalemia: Code(s): E87.5 - Hyperkalemia Status: Acute Assessment and Plan: * resolved with dialytic intervention * follow trend Not opposed to discharge from renal perspective. Will continue to follow Subjective Date/time seen: 09/16/19 12:06 Tolerating dialysis at the time of my visit (seen on HD at ~ 11:50AM); overall, seems to be doing reasonably well; noted plans for discharge later today; no apparent distress voiced. Exam Narrative: Exam Narrative: General: WD/WN male in NAD Heart: normal S1 and S2; no rub Lungs: clear to auscultation Abdomen: soft, nontender, nondistended, positive bowel sounds Extremities: no cyanosis or clubbing; no edema Skin: wound vac in place on right foot Objective Data Vital Signs Vital Signs: Vital Signs Temp Pulse Resp BP Pulse Ox 09/16/19 11:45 84 163/79 H 09/16/19 11:29 86 155/78 H 09/16/19 11:15 82 148/77 H 09/16/19 11:00 81 166/84 H 09/16/19 10:45 85 163/60 H 09/16/19 10:30 81 164/83 H 09/16/19 10:15 82 154/83 H 09/16/19 10:00 81 169/81 H 09/16/19 09:45 78 167/82 H 09/16/19 09:30 80 166/81 H 09/16/19 09:15 88 157/77 H 09/16/19 09:00 87 157/76 H 09/16/19 08:52 86 175/87 H
--- NOTE | 2019-09-16 12:06 | PM.PNNEP ---
Progress Note: A&P Assessment and Plan (1) End stage renal disease: Code(s): N18.6 - End stage renal disease Status: Chronic Assessment and Plan: known advanced kidney disease for a significant period of time from diabetes and hypertension now with progression to end stage renal disease continues to make good urine output continue dialytic support to ensure stability in electrolyes, volume status, and clearance s/p tunneled HD catheter placement HD today continue M/W/F schedule on discharge (outpatient dialysis has apparently been arranged for M/W/F schedule at [facility]) (2) Diabetic foot ulcer associated with diabetes mellitus due to underlying condition: Qualifiers: Diabetic foot ulcer location: heel Laterality: right Non-pressure ulcer stage: with necrosis of bone Qualified Code(s): E08.621 - Diabetes mellitus due to underlying condition with foot ulcer; L97.414 - Non-pressure chronic ulcer of right heel and midfoot with necrosis of bone Code(s): E08.621 - Diabetes mellitus due to underlying condition with foot ulcer; L97.509 - Non-pressure chronic ulcer of other part of unspecified foot with unspecified severity Status: Acute Assessment and Plan: continue antibiotics per ID recommendations s/p excision of osteomyelitis right calcaneus with excisional debridement of diabetic foot ulcer yesterday by Dr. Edmonds local wound care (3) Essential hypertension: Code(s): I10 - Essential (primary) hypertension Status: Acute Assessment and Plan: elevated on admission doing better at this time follow trend of hemodynamics (4) Anemia of chronic disease: Code(s): D63.8 - Anemia in other chronic diseases classified elsewhere Status: Acute Assessment and Plan: due to iron deficiency and advanced CKD unable to give IV venofer due to acute infection continue Epogen with HD follow trend of H/H (5) Acute hyperkalemia: Code(s): E87.5 - Hyperkalemia Status: Acute Assessment and Plan: resolved with dialytic intervention follow trend Not opposed to discharge from renal perspective. Will continue to follow Subjective Date/time seen: 09/16/19 12:06 Tolerating dialysis at the time of my visit (seen on HD at ~ 11:50AM); overall, seems to be doing reasonably well; noted plans for discharge later today; no apparent distress voiced. Exam Narrative: Exam Narrative: General: WD/WN male in NAD Heart: normal S1 and S2; no rub Lungs: clear to auscultation Abdomen: soft, nontender, nondistended, positive bowel sounds Extremities: no cyanosis or clubbing; no edema Skin: wound vac in place on right foot Objective Data Vital Signs Vital Signs: Vital Signs Temp Pulse Resp BP Pulse Ox 09/16/19 11:45 84 163/79 H 09/16/19 11:29 86 155/78 H 09/16/19 11:15 82 148/77 H 09/16/19 11:00 81 166/84 H 09/16/19 10:45 85 163/60 H 09/16/19 10:30 81 164/83 H 09/16/19 10:15 82 154/83 H 09/16/19 10:00 81 169/81 H 09/16/19 09:45 78 167/82 H 09/16/19 09:30 80 166/81 H 09/16/19 09:15 88 157/77 H 09/16/19 09:00 87 157/76 H 09/16/19 08:52 86 175/87 H 09/16/19 08:40 36.6 C 92 16 182/80 H 09/16/19 08:07 92 09/16/19 06:00 36.4 C 90 21 H 130/67 100 09/15/19 22:00 36.2 C L 92 20 139/86 98 09/15/19 13:44 36.7 C 88 18 143/80 H 97 09/15/19 12:18 76 Intake/Output Intake/Output: Intake & Output 09/13/19 09/14/19 09/15/19 09/16/19 23:59 23:59 23:59 23:59 Intake Total 4120 2420 2680 1420 Output Total 2800 2800 1350 1400 Balance 1320 -380 1330 20 Meds/Results Medications: Active Medications Generic Name Dose Route Start Last Admin Trade Name Freq PRN Reason Stop Dose Admin Acetaminophen 650 mg
[2019-09-16] MEDS: HEPARIN SODIUM 1,000 UNITS/ML VIAL 1000 UNITS IV PUSH (12:46)
[2019-09-16 12:48] LABS: Glucose Point of Care 151 (65-105)
--- NOTE | 2019-09-16 14:13 | PCPTNOTE ---
The PT treatment was unable to be completed this PM. Patient is preparing for discharge, states he has a good understanding of therapeutic exercises and has no questions for PT at this time.
== END 2019-09-16 15:37 | disposition home health service (06) | DRG 853 ==
LOC: ANHED 12:57 → ANHIMU 14:13 → ANH2MED 09-09 11:43 → ANHIMU 09-19 10:01
PROVIDERS: Family Medicine; Internal Medicine Nephrology; Orthopaedic Surgery; Physician Assistant; Surgery; Admitting Provider Internal Medicine; Emergency Provider Emergency Medicine; PCP Family Medicine; Visit Provider Internal Medicine
PROC: 0QBL0ZZ Excision of Right Tarsal, Open Approach (ICD-10-PCS; principal; 2019-09-12 12:00)
PROC: 0JH60XZ Insertion of Tunneled Vascular Access Device into Chest Subcutaneous Tissue and Fascia, Open Approach (ICD-10-PCS; CPT 36908; principal; 2019-09-14 13:00)
DX: A41.9 Sepsis, unspecified organism (principal); N18.6 End stage renal disease; L97.414 Non-pressure chronic ulcer of right heel and midfoot with necrosis of bone; M86.171 Other acute osteomyelitis, right ankle and foot; A52.16 Charcot's arthropathy (tabetic); N17.9 Acute kidney failure, unspecified; Z68.42 Body mass index [BMI] 45.0-49.9, adult; E11.621 Type 2 diabetes mellitus with foot ulcer; E87.5 Hyperkalemia; E11.42 Type 2 diabetes mellitus with diabetic polyneuropathy; E78.5 Hyperlipidemia, unspecified; I12.9 Hypertensive chronic kidney disease with stage 1 through stage 4 chronic kidney disease, or unspecified chronic kidney disease; G47.33 Obstructive sleep apnea (adult) (pediatric); F41.8 Other specified anxiety disorders; Z87.891 Personal history of nicotine dependence; D63.1 Anemia in chronic kidney disease; E66.01 Morbid (severe) obesity due to excess calories; E11.21 Type 2 diabetes mellitus with diabetic nephropathy
CPT/HCPCS: 36415; 36430; 73630; 76770; 77001; 80048; 80053; 80069; 80202; 81001; 82550; 82570; 82607; 82728; 82746; 82948; 83036; 83540; 83550; 83605; 83735; 83883; 84100; 84156; 84300; 85025; 85027; 85046; 85610; 85652; 85730; 85999; 86038; 86140; 86160; 86162; 86334; 86335; 86704; 86706; 86850; 86900; 86901; 86923; 87040; 87070; 87075; 87077; 87147; 87186; 87205; 87340; 93005; 93923; 96361; 96374; 97110; 97162; 97165; 97530; 99291; A9270; C1750; C1751; C1752; C8929; G0257; J0360; J0610; J0696; J0743; J1644; J1815; J2001; J2250; J2405; J2704; J3010; J3370; J7030; J7040; P9016; Q4081; Q9957

== ENCOUNTER 2019-09-21 13:58 | Outpatient (NON) | payer OTHER, MEDICARE, SELFPAY ==
[2019-09-21 14:29] LABS: Basophils Absolute Auto 0.04 K/mm3 (0.00-0.10); Basophils Percent Auto 0.4 % (0.0-1.0); Eosinophils Absolute Auto 0.49 K/mm3 (0.02-0.50); Eosinophils Percent Auto 4.6 % (1.0-6.0); Hematocrit 28.8 % (40.0-54.0); Hemoglobin 8.7 g/dL (14.0-18.0); Immature Granulocyte Absolute 0.09 K/mm3 (0.00-0.00); Immature Granulocyte Percent A 0.8 % (0.0-0.0); Lymphocytes Absolute Auto 1.86 K/mm3 (1.10-4.50); Lymphocytes Percent Auto 17.4 % (18.0-42.0); Mean Corpuscular HGB Conc 30.2 g/dL (32.0-36.0); Mean Corpuscular Hemoglobin 27.5 pg (27.0-31.0); Mean Corpuscular Volume 91.1 fL (78.0-102.0); Monocytes Absolute Auto 1.01 K/mm3 (0.10-0.90); Monocytes Percent Auto 9.5 % (2.0-11.0); Neutrophils Absolute Auto 7.2 K/mm3 (1.7-7.2); Neutrophils Percent Auto 67.3 % (50.0-70.0); Platelet Count Result 363 K/mm3 (150-420); Red Blood Count 3.16 M/mm3 (4.70-6.10); Red Cell Distribution Width 16.9 % (11.6-14.4); White Blood Count 10.7 K/mm3 (4.8-10.8)
[2019-09-21 14:39] LABS: Anion Gap 16.3 mmol/L (7-16); Blood Urea Nitrogen 43 mg/dL (7-18); CRP 6.1 mg/dL (0.0-0.9); Calcium 8.1 mg/dL (8.5-10.1); Carbon Dioxide 24 mmol/L (21-32); Chloride 99 mmol/L (98-108); Estimated Glomerular Filt Rate 14; Glucose 151 mg/dL (70-99); Osmolality Calculated 293 mOsm/kg (285-295); Potassium 4.3 mmol/L (3.5-5.1); Sodium 135 mmol/L (136-145)
== END 2019-09-21 13:59 ==
PROVIDERS: Visit Provider Internal Medicine Infectious Disease
DX: M86.171 Other acute osteomyelitis, right ankle and foot (principal)
CPT/HCPCS: 36415; 80048; 85025; 86140

== ENCOUNTER 2019-09-28 14:33 | Outpatient (NON) | payer OTHER, MEDICARE, SELFPAY ==
[2019-09-28 15:05] LABS: Basophils Absolute Auto 0.03 K/mm3 (0.00-0.10); Basophils Percent Auto 0.3 % (0.0-1.0); Eosinophils Absolute Auto 0.35 K/mm3 (0.02-0.50); Eosinophils Percent Auto 3.9 % (1.0-6.0); Hematocrit 26.4 % (40.0-54.0); Hemoglobin 8.1 g/dL (14.0-18.0); Immature Granulocyte Absolute 0.04 K/mm3 (0.00-0.00); Immature Granulocyte Percent A 0.4 % (0.0-0.0); Lymphocytes Absolute Auto 1.68 K/mm3 (1.10-4.50); Lymphocytes Percent Auto 18.9 % (18.0-42.0); Mean Corpuscular HGB Conc 30.7 g/dL (32.0-36.0); Mean Corpuscular Hemoglobin 27.6 pg (27.0-31.0); Mean Corpuscular Volume 89.8 fL (78.0-102.0); Mean Platelet Volume 10.9 fl (8.7-11.0); Monocytes Absolute Auto 1.01 K/mm3 (0.10-0.90); Monocytes Percent Auto 11.3 % (2.0-11.0); Neutrophils Absolute Auto 5.8 K/mm3 (1.7-7.2); Neutrophils Percent Auto 65.2 % (50.0-70.0); Platelet Count Result 369 K/mm3 (150-420); Red Blood Count 2.94 M/mm3 (4.70-6.10); Red Cell Distribution Width 16.8 % (11.6-14.4); White Blood Count 8.9 K/mm3 (4.8-10.8)
[2019-09-28 15:09] LABS: Anion Gap 15.6 mmol/L (7-16); Blood Urea Nitrogen 44 mg/dL (7-18); CRP 5.7 mg/dL (0.0-0.9); Carbon Dioxide 24 mmol/L (21-32); Chloride 98 mmol/L (98-108); Estimated Glomerular Filt Rate 11; Glucose 145 mg/dL (70-99); Osmolality Calculated 290 mOsm/kg (285-295); Potassium 4.6 mmol/L (3.5-5.1); Sodium 133 mmol/L (136-145)
== END 2019-09-28 14:34 ==
PROVIDERS: Visit Provider Internal Medicine Infectious Disease
DX: M86.171 Other acute osteomyelitis, right ankle and foot (principal)
CPT/HCPCS: 36415; 80048; 85025; 86140

== ENCOUNTER 2019-10-03 13:42 | Outpatient (NON) | payer OTHER, MEDICARE, SELFPAY ==
[2019-10-03 14:07] LABS: Basophils Absolute Auto 0.03 K/mm3 (0.00-0.10); Basophils Percent Auto 0.3 % (0.0-1.0); Eosinophils Absolute Auto 0.38 K/mm3 (0.02-0.50); Eosinophils Percent Auto 3.4 % (1.0-6.0); Hematocrit 27.6 % (40.0-54.0); Hemoglobin 8.5 g/dL (14.0-18.0); Immature Granulocyte Absolute 0.09 K/mm3 (0.00-0.00); Immature Granulocyte Percent A 0.8 % (0.0-0.0); Lymphocytes Absolute Auto 2.63 K/mm3 (1.10-4.50); Lymphocytes Percent Auto 23.7 % (18.0-42.0); Mean Corpuscular HGB Conc 30.8 g/dL (32.0-36.0); Mean Corpuscular Hemoglobin 27.7 pg (27.0-31.0); Mean Corpuscular Volume 89.9 fL (78.0-102.0); Mean Platelet Volume 10.3 fl (8.7-11.0); Monocytes Absolute Auto 1.64 K/mm3 (0.10-0.90); Monocytes Percent Auto 14.8 % (2.0-11.0); Neutrophils Absolute Auto 6.3 K/mm3 (1.7-7.2); Platelet Count Result 363 K/mm3 (150-420); Red Blood Count 3.07 M/mm3 (4.70-6.10); Red Cell Distribution Width 16.5 % (11.6-14.4); White Blood Count 11.1 K/mm3 (4.8-10.8)
[2019-10-03 14:18] LABS: Anion Gap 16.1 mmol/L (7-16); Blood Urea Nitrogen 32 mg/dL (7-18); CRP 7.2 mg/dL (0.0-0.9); Carbon Dioxide 24 mmol/L (21-32); Chloride 98 mmol/L (98-108); Estimated Glomerular Filt Rate 11; Glucose 61 mg/dL (70-99); Osmolality Calculated 282 mOsm/kg (285-295); Potassium 4.1 mmol/L (3.5-5.1); Sodium 134 mmol/L (136-145)
== END 2019-10-03 13:43 ==
LOC: CHSHH 13:44
PROVIDERS: Visit Provider Internal Medicine Infectious Disease
DX: M86.171 Other acute osteomyelitis, right ankle and foot (principal)
CPT/HCPCS: 36415; 80048; 85025; 86140

== ENCOUNTER 2019-10-04 00:30 | Outpatient (CLI) | payer OTHER, MEDICARE, SELFPAY ==
[2019-10-04 18:39] LABS: SARS-CoV-2 RNA PCR Negative
== END 2019-10-04 00:31 | disposition home or self-care (01) ==
LOC: ANHCOVIDDT 00:30
PROVIDERS: PCP Family Medicine; Visit Provider Orthopaedic Surgery
DX: Z01.812 Encounter for preprocedural laboratory examination (principal); Z20.828 Contact with and (suspected) exposure to other viral communicable diseases
CPT/HCPCS: 87635; C9803; U0003

== ENCOUNTER 2019-10-06 01:18 | Day surgery (SDC) | payer OTHER, MEDICARE, SELFPAY ==
[2019-09-27 11:34] VITALS: BMI 44.7
[2019-10-06] VITALS (8 sets, daily range): BP systolic 98–129; BP diastolic 50–88; PULSE 62–78; RESP 12; TEMP 36.3–36.8; O2SAT 96–100
--- NOTE | 2019-10-06 06:54 | WPDANESEPPF ---
Anes - Initial Pre Proc Eval Procedure: Operation Date: 10/06/19 07:30 Proposed Procedures p Debridement Right Diabetic Foot Ulcer With Graft Placement - Tomas Edmonds MD Date/Time: 10/06/19 06:54 Surgeon: Tomas Edmonds MD Pre Op Diagnosis: Right Diabetic Foot Ulcer Patient Data Age: 53 Gender: M Height: 5 ft 10 in Weight: 141.52 kg Allergies Allergy/AdvReac Type Severity Reaction Status Date / Time Penicillins Allergy Unknown Unknown Verified 09/27/19 11:34 Home Medications Medication Instructions Recorded Confirmed Type alprazolam 0.5 mg tablet 0.5 mg PO DAILY PRN #90 tablet 08/05/19 10/06/19 Rx amlodipine 10 mg tablet 10 mg PO DAILY #90 tablet 08/05/19 10/06/19 Rx metoprolol succinate 50 mg 50 mg PO DAILY #90 tablet 08/05/19 10/06/19 Rx tablet,extended release 24 hr venlafaxine 75 mg capsule,extended 75 mg PO DAILY #90 cap 08/05/19 09/27/19 Rx release 24 hr amitriptyline 50 mg PO HS 09/06/19 10/06/19 History gabapentin 600 mg PO DAILY 09/06/19 10/06/19 History ceftriaxone 2 g IV Q24H #38 ea 09/16/19 10/06/19 Rx foam bandage [Optifoam #30 ea 09/16/19 Rx Non-Adhesive] lisinopril 40 mg PO QAM #30 tablet 09/16/19 10/06/19 Rx oxycodone 15 mg PO Q4-6H PRN #60 tablet 09/16/19 10/06/19 Rx silver [Silver-Sept] 1 applic TOPICAL DAILY #15 g 09/16/19 10/06/19 Rx aspirin 81 mg PO DAILY 09/27/19 10/06/19 History heparin flush(porcine)-0.9NaCl DAILY 09/27/19 History hydralazine 10 mg PO Q12H 09/27/19 10/06/19 History Patient hx anesthesia problems: none Family hx anesthesia problems: none PMFSH Past Medical History Medical History Anemia of chronic disease Charcot's joint of right foot Chronic kidney disease, stage 4 (severe) BUN and creatinine were 48 and 4.37 respectively on labs drawn 01/23/2019. 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 Obstructive sleep apnea on CPAP Osteomyelitis (~07/2012) Status post transmetatarsal amputation of the right 4th toe per Dr. Espino. Type 2 diabetes mellitus Surgical History Surgical History History of amputation of hallux Left hallux amputation done at [facility]. History of complete ray amputation of fourth toe of right foot (~07/2012) Per Dr. Espino. Status post excisional debridement (~06/2012) Right foot necrotizing fasciitis per Dr. Espino. Family History Family History Unknown Diabetes mellitus Hypertension Social History Social History Social History: The patient lives in [place], [place] with his . They have 2 children. His son lives in [place], and the patient frequently visits him. He is on disability. He smoked up to 2 packs of cigarettes per day for at least 30 years, and quit in June 2018. He denies alcohol and illicit drug use. His , Kirti, is his surrogate decision maker and he wishes to be a full code. Smoking packs per day: 1.5 Smoking cigarettes per day: 30.0 Smoking status: Former smoker Tobacco type: cigarettes Second hand tobacco smoke exposure: Yes Smoking end date: 06/04/18 Alcohol intake: never Other substance usage details: Spiritual care concerns: No Agree to blood products: Yes Anes - Eval Final PreProcedure Day of Procedure 10/06/19 06:54 Patient weight: morbidly obese Heart: regular rate and rhythm Lungs: decreased breath sounds Airway: Mallampati scale cla
--- NOTE | 2019-10-06 06:56 | WPDHPUPDATE1 ---
History and Physical Update Update Date/Time: 10/06/19 06:56 History and Physical has been reviewed, including an updated exam of the patient. There are NO changes in the patient's condition. Risks, benefits, and alternatives have been discussed and questions answered. Patient agrees to proceed with procedure.
[2019-10-06] MEDS: SODIUM CHLORIDE 0.9% IV 500 ML 30 ML IV CONT (07:00)
[2019-10-06 07:06] LABS: Glucose Point of Care 108 (65-105)
[2019-10-06 07:18] LABS: Blood Urea Nitrogen 32 mg/dL (9-20); Calcium 8.2 mg/dL (8.4-10.2); Carbon Dioxide 21 mmol/L (22-30); Chloride 104 mmol/L (98-107); Estimated CRCL calculation 26 ml/min; Estimated Glomerular Filt Rate 15; Glucose 111 mg/dL (75-110); Sodium 135 mmol/L (137-145)
[2019-10-06] MEDS: ceFAZolin 3 GM/D5W 100 ML 100 ML IVPB (07:26)
--- NOTE | 2019-10-06 07:36 | SUR.PREOP ---
0700- SPOKE WITH DR. JAVIER AND HE STATED PT CAN HAVE ANCEF 3 G.
[2019-10-06 07:38] LABS: INR 1.1; Prothrombin Time 13.6 Seconds (11.1-14.7)
[2019-10-06 07:41] LABS: Partial Thromboplastin Time 41.3 SECONDS (22.3-36.8)
[2019-10-06 08:55] LABS: Glucose Point of Care 100 (65-105)
--- NOTE | 2019-10-06 09:07 | P.OP_ITS ---
Procedure Note - Detailed Date of procedure: 10/06/19 Pre-op diagnosis: Right Diabetic Foot Ulcer Post-op diagnosis: same Procedure performed: Excisional debridement of right diabetic foot ulcer including bone, application synthetic skin graft, total contact cast and wound VAC Description of procedure: Indications: Patient is a 53-year-old gentleman with diabetes and peripheral neuropathy with a large diabetic foot ulcer involving the right heel and midfoot. Initially with osteomyelitis of the calcaneus. Underwent previous debridement. Now presents for secondary debridement and application of graft. What was done: Patient identified in the preoperative holding. Informed consent given. Operative extremity marked. Patient received intravenous antibiotics. Patient brought to the operating room where underwent general anesthetic by anesthesia team. Positioned supine on operating room table. Time-out performed confirming the patient, site of the surgery and the plan. Right lower extremity prepped draped usual sterile surgical fashion using a Betadine prep solution. Wound measurements taken. Fifteen blade knife used to sharply excise skin, subcutaneous tissue, muscle that was nonviable from the wound. Rongeur used to remove nonviable bone. This was passed off. Wound thoroughly irrigated with antibiotic solution. Cultures then taken. Final wound measurements noted below. Amnion matrix injectable amniotic tissue was then prepared on the back table and injected using 22 gauge needle. Amnion XL 3 x 3 cm graft applied. Prime matrix 3 x 3 cm graft prepared on the back table and applied to the deep calcaneal wound bed. On the graft then applied over this with anne for fixation. Wound VAC dressing then applied and good suction noted. Total contact cast then applied. The patient was then woken from anesthesia, extubated and taken to the recovery room in stable condition. All sponge, needle, instrument counts were correct at the end of the case. Implants: Omnigraft 5X5cm x 2 Primatrix 3x3cm Amniomatrix 3cc Amnioexcel plus 3x3cm TCC Anesthesia: GLMA Surgeon: Tomas Edmonds MD Geographic Information System Analyst: 1st communications assistant Estimated blood loss (mL): 20 Drains: Yes (Wound VAC) Pathology: other (Deep wound culture) Complications: None Condition: stable Disposition: PACU Findings: No obvious purulence drainage. Necrotic tissue around the posterior heel noted. Necrotic skin on the medial and lateral aspect. Wound measured 12.5 cm x 8 cm x 1 cm
== END 2019-10-06 10:58 | disposition home or self-care (01) ==
PROVIDERS: PCP Family Medicine; Visit Provider Orthopaedic Surgery
DX: E11.621 Type 2 diabetes mellitus with foot ulcer (principal); L97.414 Non-pressure chronic ulcer of right heel and midfoot with necrosis of bone; I12.0 Hypertensive chronic kidney disease with stage 5 chronic kidney disease or end stage renal disease; N18.5 Chronic kidney disease, stage 5; E11.22 Type 2 diabetes mellitus with diabetic chronic kidney disease; M86.171 Other acute osteomyelitis, right ankle and foot; E11.69 Type 2 diabetes mellitus with other specified complication; D63.8 Anemia in other chronic diseases classified elsewhere; F41.8 Other specified anxiety disorders; E11.40 Type 2 diabetes mellitus with diabetic neuropathy, unspecified; E78.5 Hyperlipidemia, unspecified; G47.33 Obstructive sleep apnea (adult) (pediatric); E11.610 Type 2 diabetes mellitus with diabetic neuropathic arthropathy; Z87.891 Personal history of nicotine dependence; E66.01 Morbid (severe) obesity due to excess calories; Z68.42 Body mass index [BMI] 45.0-49.9, adult; Z89.419 Acquired absence of unspecified great toe; Z99.2 Dependence on renal dialysis
CPT/HCPCS: 15275; 11044; 11047 ×4; 36415; 80048; 85610; 85730; 87070; 87075; 87205; A9270; J0330; J0690; J1100; J1940; J2250; J2405; J2704; J3010; J3370; J7040; Q4105; Q4110; Q4137; Q4139

== ENCOUNTER 2019-10-10 14:25 | Outpatient (NON) | payer OTHER, MEDICARE, SELFPAY ==
[2019-10-10 16:04] LABS: Basophils Absolute Auto 0.02 K/mm3 (0.00-0.10); Basophils Percent Auto 0.2 % (0.0-1.0); Eosinophils Absolute Auto 0.32 K/mm3 (0.02-0.50); Eosinophils Percent Auto 3.6 % (1.0-6.0); Hemoglobin 8.4 g/dL (14.0-18.0); Immature Granulocyte Absolute 0.06 K/mm3 (0.00-0.00); Immature Granulocyte Percent A 0.7 % (0.0-0.0); Lymphocytes Absolute Auto 1.76 K/mm3 (1.10-4.50); Lymphocytes Percent Auto 19.9 % (18.0-42.0); Mean Corpuscular HGB Conc 31.1 g/dL (32.0-36.0); Mean Corpuscular Hemoglobin 28.2 pg (27.0-31.0); Mean Corpuscular Volume 90.6 fL (78.0-102.0); Mean Platelet Volume 10.9 fl (8.7-11.0); Monocytes Absolute Auto 0.56 K/mm3 (0.10-0.90); Monocytes Percent Auto 6.3 % (2.0-11.0); Neutrophils Absolute Auto 6.1 K/mm3 (1.7-7.2); Neutrophils Percent Auto 69.3 % (50.0-70.0); Platelet Count Result 280 K/mm3 (150-420); Red Blood Count 2.98 M/mm3 (4.70-6.10); White Blood Count 8.9 K/mm3 (4.8-10.8)
[2019-10-10 16:07] LABS: Anion Gap 14.9 mmol/L (7-16); Blood Urea Nitrogen 56 mg/dL (7-18); CRP 1.6 mg/dL (0.0-0.9); Calcium 8.2 mg/dL (8.5-10.1); Carbon Dioxide 25 mmol/L (21-32); Chloride 99 mmol/L (98-108); Estimated Glomerular Filt Rate 11; Glucose 129 mg/dL (70-99); Osmolality Calculated 293 mOsm/kg (285-295); Potassium 5.9 mmol/L (3.5-5.1); Sodium 133 mmol/L (136-145)
== END 2019-10-10 14:26 ==
LOC: CHSHH 14:27
PROVIDERS: Visit Provider Internal Medicine Infectious Disease
DX: M86.171 Other acute osteomyelitis, right ankle and foot (principal)
CPT/HCPCS: 36415; 80048; 85025; 86140

== ENCOUNTER 2019-10-17 11:30 | Outpatient (NON) | payer OTHER, MEDICARE, SELFPAY ==
[2019-10-25 13:05] LABS: Red Blood Count 3.16 M/mm3 (4.70-6.10); White Blood Count 7.9 K/mm3 (4.8-10.8)
[2019-10-25 13:06] LABS: Basophils Percent Auto 0.3 % (0.0-1.0); Hematocrit 28.9 % (40.0-54.0); Hemoglobin 8.9 g/dL (14.0-18.0); Immature Granulocyte Percent A 0.8 % (0.0-0.0); Lymphocytes Percent Auto 19.4 % (18.0-42.0); Mean Corpuscular HGB Conc 30.8 g/dL (32.0-36.0); Mean Corpuscular Hemoglobin 28.2 pg (27.0-31.0); Mean Corpuscular Volume 91.5 fL (78.0-102.0); Mean Platelet Volume 10.6 fl (8.7-11.0); Monocytes Percent Auto 8.7 % (2.0-11.0); Neutrophils Percent Auto 67.8 % (50.0-70.0); Platelet Count Result 287 K/mm3 (150-420)
[2019-10-25 13:07] LABS: Basophils Absolute Auto 0.02 K/mm3 (0.00-0.10); Eosinophils Absolute Auto 0.24 K/mm3 (0.02-0.50); Immature Granulocyte Absolute 0.06 K/mm3 (0.00-0.00); Lymphocytes Absolute Auto 1.54 K/mm3 (1.10-4.50); Monocytes Absolute Auto 0.69 K/mm3 (0.10-0.90); Neutrophils Absolute Auto 5.4 K/mm3 (1.7-7.2)
[2019-10-25 13:08] LABS: Chloride 100 mmol/L (98-108); Potassium 5.3 mmol/L (3.5-5.1); Sodium 132 mmol/L (136-145)
[2019-10-25 13:09] LABS: Anion Gap 14.3 mmol/L (7-16); Blood Urea Nitrogen 39 mg/dL (7-18); CRP 2.7 mg/dL (0.0-0.9); Calcium 8.5 mg/dL (8.5-10.1); Carbon Dioxide 23 mmol/L (21-32); Estimated Glomerular Filt Rate 12; Glucose 131 mg/dL (70-99); Osmolality Calculated 285 mOsm/kg (285-295)
== END 2019-10-22 11:31 | disposition home or self-care (01) ==
PROVIDERS: Visit Provider Internal Medicine Infectious Disease
DX: M86.171 Other acute osteomyelitis, right ankle and foot (principal)
CPT/HCPCS: 36415; 80048; 85025; 86140

== ENCOUNTER 2019-10-24 13:17 | Outpatient (RCR) | payer OTHER, MEDICARE, SELFPAY ==
[2019-09-19 13:35] LABS: Basophils Absolute Auto 0.1 K/mm3 (0.0-0.1); Basophils Percent Auto 0.4 % (0.2-1.2); Eosinophils Absolute Auto 0.6 K/mm3 (0-0.3); Hematocrit 28.5 % (42.0-52.0); Hemoglobin 8.4 g/dL (14.0-18.0); Immature Granulocyte Percent A 1.6 % (0-0.5); Lymphocytes Percent Auto 12.9 % (18.3-44.2); Mean Corpuscular HGB Conc 29.5 g/dl (32-36); Mean Corpuscular Hemoglobin 26.9 pg (26-34); Mean Corpuscular Volume 91.3 fl (80-100); Mean Platelet Volume 11.1 fl (7.4-10.4); Monocytes Absolute Auto 0.9 K/mm3 (0.1-0.6); Neutrophils Absolute Auto 9.1 K/mm3 (1.3-6.7); Neutrophils Percent Auto 73.1 % (45.5-73.1); Platelet Count Result 343 k/mm3 (150-375); Red Blood Count 3.12 M/mm3 (4.6-6.20); Red Cell Distribution Width 17.2 % (11.5-14.5); White Blood Count 12.4 K/mm3 (4.5-10.0)
[2019-09-19 13:50] LABS: Blood Urea Nitrogen 40 mg/dL (9-20); CRP 3.4 mg/dL (<1.0); Calcium 8.1 mg/dL (8.4-10.2); Carbon Dioxide 21 mmol/L (22-30); Chloride 99 mmol/L (98-107); Estimated Glomerular Filt Rate 12; Glucose 197 mg/dL (75-110); Potassium 4.3 mmol/L (3.4-5.0); Sodium 133 mmol/L (137-145)
[2019-10-20 11:51] LABS: Blood Urea Nitrogen 22 mg/dL (9-20); Calcium 8.4 mg/dL (8.4-10.2); Carbon Dioxide 23 mmol/L (22-30); Chloride 105 mmol/L (98-107); Estimated Glomerular Filt Rate 17; Glucose 96 mg/dL (75-110); Potassium 4.5 mmol/L (3.4-5.0); Sodium 138 mmol/L (137-145)
[2019-10-20 12:09] LABS: Basophils Percent Auto 0.5 % (0.2-1.2); Eosinophils Absolute Auto 0.3 K/mm3 (0-0.3); Eosinophils Percent Auto 4.8 % (0-4.4); Hemoglobin 8.8 g/dL (14.0-18.0); Immature Granulocyte Absolute 0.05 K/mm3 (0.00-0.031); Immature Granulocyte Percent A 0.8 % (0-0.5); Lymphocytes Absolute Auto 1.23 K/mm3 (0.9-3.2); Mean Corpuscular HGB Conc 29.3 g/dl (32-36); Mean Corpuscular Hemoglobin 27.8 pg (26-34); Mean Corpuscular Volume 94.6 fl (80-100); Mean Platelet Volume 11.1 fl (7.4-10.4); Monocytes Absolute Auto 0.8 K/mm3 (0.1-0.6); Monocytes Percent Auto 12.2 % (2.6-8.5); Neutrophils Absolute Auto 4.1 K/mm3 (1.3-6.7); Neutrophils Percent Auto 62.7 % (45.5-73.1); Platelet Count Result 289 k/mm3 (150-375); Red Blood Count 3.17 M/mm3 (4.6-6.20); Red Cell Distribution Width 16.8 % (11.5-14.5); White Blood Count 6.5 K/mm3 (4.5-10.0)
[2019-10-24 14:55] LABS: Basophils Percent Auto 0.3 % (0.2-1.2); Eosinophils Absolute Auto 0.4 K/mm3 (0-0.3); Eosinophils Percent Auto 4.3 % (0-4.4); Hematocrit 29.8 % (42.0-52.0); Hemoglobin 8.9 g/dL (14.0-18.0); Immature Granulocyte Absolute 0.05 K/mm3 (0.00-0.031); Immature Granulocyte Percent A 0.5 % (0-0.5); Lymphocytes Absolute Auto 2.03 K/mm3 (0.9-3.2); Lymphocytes Percent Auto 21.4 % (18.3-44.2); Mean Corpuscular HGB Conc 29.9 g/dl (32-36); Mean Corpuscular Hemoglobin 28.2 pg (26-34); Mean Corpuscular Volume 94.3 fl (80-100); Mean Platelet Volume 11.1 fl (7.4-10.4); Monocytes Absolute Auto 0.8 K/mm3 (0.1-0.6); Neutrophils Absolute Auto 6.2 K/mm3 (1.3-6.7); Neutrophils Percent Auto 65.5 % (45.5-73.1); Platelet Count Result 301 k/mm3 (150-375); Red Blood Count 3.16 M/mm3 (4.6-6.20); Red Cell Distribution Width 16.8 % (11.5-14.5); White Blood Count 9.5 K/mm3 (4.5-10.0)
[2019-10-24 14:57] LABS: Blood Urea Nitrogen 37 mg/dL (9-20); Calcium 8.3 mg/dL (8.4-10.2); Carbon Dioxide 19 mmol/L (22-30); Chloride 103 mmol/L (98-107); Estimated Glomerular Filt Rate 11; Glucose 137 mg/dL (75-110); Potassium 4.7 mmol/L (3.4-5.0); Sodium 135 mmol/L (137-145)
[2019-10-24 15:31] LABS: Hypochromasia 1+ (NORMAL); Platelet Estimate Adequate (Adequate)
[2019-10-24 15:32] LABS: Anisocytosis 2+ (NORMAL)
== END 2019-12-18 23:59 | disposition home or self-care (01) ==
LOC: HOME HLTH 13:17
PROVIDERS: PCP Family Medicine; Visit Provider Internal Medicine Infectious Disease
DX: M86.171 Other acute osteomyelitis, right ankle and foot (principal)
CPT/HCPCS: 80048; 85025; 86140

== ENCOUNTER 2019-11-21 09:39 | Outpatient (CLI) | payer OTHER, MEDICARE, SELFPAY ==
[2019-11-21 11:08] LABS: Hemoglobin A1C 5.1 % (<5.7)
== END 2019-11-21 09:40 | disposition home or self-care (01) ==
PROVIDERS: PCP Family Medicine; Visit Provider Nurse Practitioner Family
DX: E11.9 Type 2 diabetes mellitus without complications (principal)
CPT/HCPCS: 36415; 83036

== ENCOUNTER 2019-12-05 07:44 | Outpatient (RCR) | payer OTHER, MEDICARE, SELFPAY ==
[2019-09-06 10:33] VITALS: BMI 51.3
--- NOTE | 2019-09-23 09:05 | PM.PNORT ---
Progress Note: A&P Assessment and Plan (1) Diabetic foot ulcer associated with diabetes mellitus due to underlying condition: Qualifiers: Diabetic foot ulcer location: heel Laterality: right Non-pressure ulcer stage: with necrosis of bone Qualified Code(s): E08.621 - Diabetes mellitus due to underlying condition with foot ulcer; L97.414 - Non-pressure chronic ulcer of right heel and midfoot with necrosis of bone <Celia SumanADAM Charles - Last Filed: 09/23/19 09:22> Code(s): E08.621 - Diabetes mellitus due to underlying condition with foot ulcer; L97.509 - Non-pressure chronic ulcer of other part of unspecified foot with unspecified severity <Celia SumanMarisol Anderson, ASSISTED LIVING HOME DIRECTOR - Last Filed: 09/23/19 09:22> Status: Acute <Celia SumanADAM Charles - Last Filed: 09/23/19 09:22> Assessment and Plan: 1 week, 4 days s/p I&D Right DFU/excision osteomyelitis. Patient evaluated in [facility] wound clinic today. Wound VAC removed. Plantar foot ulcer with 100% red/pink wound bed, good tissue covering calcaneus at this point. Patient would be a candidate for debridement and graft application in the OR for optimal healing. Discussed nonoperative and operative treatment options with the patient. The patients questions were answered. The patient desires operative treatment. Discussed Debridement RIGHT DFU and graft application. Risks of surgery including but not limited to neurovascular damage, wound complications, blood clot, pulmonary embolus, stroke, myocardial infarction, anesthetic risks up to and including were reviewed. Continued pain and possible dysfunction were explained. No guarantees were offered. The patient understands and wishes to proceed. Plan: Debridement RIGHT DFU and graft application by Dr. Edmonds. Patient to continue wound VAC at this time with dressing changes three times weekly by home health RN. Continue reverse post op shoe for pressure offloading. Encouraged elevation of the RLE when in bed, offload heel on pillows. Continue IV antibiotics with Dr. Rhodes. Follow up in 1 week for assessment and VAC change by [facility] wound clinic RN. <Celia SumanADAM Charles - Last Filed: 09/23/19 09:22> (2) Sepsis: Code(s): A41.9 - Sepsis, unspecified organism <ADAM Charles - Last Filed: 09/23/19 09:22> Status: Resolved <ADAM Charles - Last Filed: 09/23/19 09:22> Subjective Subjective Date/Time Seen: 09/23/19 09:05 53 year old male evaluated in the [facility] Wound clinic 1 week, 4 days s/p I&D right DFU and excision of osteomyelitis. Patient is continue on IV antibioitics under the direction of Dr. Rhodes for a total of #42 days. He denies fever, chills, night sweats, nausea, vomiting or diarrhea. <ADAM Charles - Last Filed: 09/23/19 09:22> Review of Systems Review of Systems: All systems reviewed & are unremarkable except as noted in HPI and below <ADAM Charles - Last Filed: 09/23/19 09:22> Constitutional: Constitutional: Denies fever(s) <Tomas Edmonds MD - Last Filed: 09/23/19 09:27> Eyes: Eyes: Denies blurry vision <Tomas Edmonds MD - Last Filed: 09/23/19 09:27> ENT: Reports Normal hearing present <Tomas Edmonds MD - Last Filed: 09/23/19 09:27> Cardiovascular: Cardiovascular: Denies chest pain and Denies dyspnea <Tomas Edmonds MD - Last Filed: 09/23/19 09:27> Respiratory: Respiratory: Denies dyspnea and Denies wheezing <Tomas Edmonds MD - Last Filed: 09/23/19 09:27> Gastrointestinal: Gastrointestinal: Denies abdominal pain <Tomas Edmonds MD - Last Filed: 09/23/19 09:27> Genitourinary: Genitourinary: Denies urinary urgency <Tomas Edmonds MD - Last Filed: 09/23/19 09:27> Musculoskeletal: Musculoskeletal: Reports as per HPI <Tomas Edmonds MD - Last Filed: 09/23/19 09:27> Integumentary/Breasts: Skin/Breast: Denies changing lesions and Denies sores <Tomas Edmonds MD - Last Filed: 05
--- NOTE | 2019-09-30 08:13 | PM.IMHP ---
H&P: HPI History of Present Illness Chief complaint: E11.621 Type 2 diabetes mellitus with foot ulcer Narrative: Satish Reeder is a 53 year old male presents to [facility] wound clinic for follow-up right calcaneus osteomyelitis and diabetic foot ulcer. Right foot with chronic Charcot degenerative changes and diabetic foot ulcer for the past 6 weeks. Wound VAC dressing in place. Patient complains of episode 2 days ago where he got his right foot caught between screen the floor. Home health nurse evaluated took pictures of a deep tissue injury on the medial aspect. No fever chills. No nausea or vomiting. Continues with hemodialysis. Continues with IV antibiotics. Review of Systems Constitutional: Constitutional: Denies fever(s) Eyes: Eyes: Denies blurry vision ENT: Reports Normal hearing present Cardiovascular: Cardiovascular: Denies chest pain and Denies dyspnea Respiratory: Respiratory: Denies dyspnea and Denies wheezing Gastrointestinal: Gastrointestinal: Denies abdominal pain Genitourinary: Genitourinary: Denies urinary urgency Musculoskeletal: Musculoskeletal: Reports as per HPI Integumentary/Breasts: Skin/Breast: Denies changing lesions and Denies sores Neurologic: Reports Normal hearing present, Denies behavioral changes, Denies confusion and Denies convulsions Psychiatric: Psychiatric: Denies behavioral changes, Denies confusion and Denies hallucinations Endocrine: Endocrine: Denies heat intolerance Hematologic/Lymphatic: Hematologic/Lymphatic: Denies easy bleeding Allergic/Immunologic: Allergic/Immunologic: Denies wheezing PMFSH Past Medical History Medical History Anemia of chronic disease Charcot's joint of right foot Chronic kidney disease, stage 4 (severe) BUN and creatinine were 48 and 4.37 respectively on labs drawn 01/23/2019. 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 Obstructive sleep apnea on CPAP Osteomyelitis (~07/2012) Status post transmetatarsal amputation of the right 4th toe per Dr. Espino. Type 2 diabetes mellitus Surgical History Surgical History History of amputation of hallux Left hallux amputation done at [facility]. History of complete ray amputation of fourth toe of right foot (~07/2012) Per Dr. Espino. Status post excisional debridement (~06/2012) Right foot necrotizing fasciitis per Dr. Espino. Family History Family History Unknown Diabetes mellitus Hypertension Social History Social History Social History: The patient lives in [place], [place] with his . They have 2 children. His son lives in [place], and the patient frequently visits him. He is on disability. He smoked up to 2 packs of cigarettes per day for at least 30 years, and quit in June 2018. He denies alcohol and illicit drug use. His , Kirti, is his surrogate decision maker and he wishes to be a full code. Smoking packs per day: 1.5 Smoking cigarettes per day: 30.0 Smoking status: Former smoker Tobacco type: cigarettes Second hand tobacco smoke exposure: Yes Smoking end date: 06/04/18 Alcohol intake: never Other substance usage details: Spiritual care concerns: No Agree to blood products: Yes Meds Home Medications and Allergies Home Medications Medication Instructions Recorded Confirmed Type alprazolam 0.5 mg tablet 0.5 mg PO DAILY PRN #90 tablet
--- NOTE | 2019-10-11 08:45 | P.PNWOUND_ITS ---
Wound Care Note Date/Time: 10/11/19 08:45 Patient presents for postoperative follow-up to the [facility] wound clinic. Five days status post right diabetic foot debridement with application graft. Patient noted incident late last night where he put pressure cast felt some shifting foot. Otherwise no other complaints. No fever or chills. Assessment and Plan Assessment and plan (1) Diabetic foot ulcer associated with diabetes mellitus due to underlying condition: Qualifiers: Diabetic foot ulcer location: heel Laterality: right Non-pressure ulcer stage: with necrosis of bone Qualified Code(s): E08.621 - Diabetes mellitus due to underlying condition with foot ulcer; L97.414 - Non-pressure chronic ulcer of right heel and midfoot with necrosis of bone Code(s): E08.621 - Diabetes mellitus due to underlying condition with foot ulcer; L97.509 - Non-pressure chronic ulcer of other part of unspecified foot with unspecified severity Status: Acute Assessment and Plan: Five days status post debridement with application graft. A portion of the silicone graft removed today. We will discontinue wound VAC as it was not able to hold with the pressure of weight-bearing. Mepitel with extra sort dressing applied. New total contact cast applied. Continue with protected weight- bearing and offloading as much as possible. Patient unable to present for follo w-up in 3 days due to social constraints. He does not have a ride. We will see him back at his next earliest available which is 1 week for cast change and removal of remaining silicone. (2) Acute osteomyelitis of right calcaneus: Code(s): M86.171 - Other acute osteomyelitis, right ankle and foot Status: Acute Assessment and Plan: Status post debridement. Has completed 4 weeks of IV antibiotics. Plan for 2 more weeks. Exam Const: General: comfortable and no acute distress Resp: Effort & Inspection: normal respiratory effort Cardio: Rate: regular rate Rhythm: regular rhythm Skin: General skin exam: normal color and no erythema Other: Cast right lower extremity removed. Wound VAC to right heel removed. Wound VAC noted to dislodged. Some fluid buildup around the dressing. Silicone portion of graft with migration as well and dehiscence of the anne. Distal anne removed. Distal silicone layer removed. The proximal silicone layer and heel anne left in place. Wound measure 12.5 cm length by 8 cm with by 1.5 cm depth. No purulence or active drainage. Ulcer under the hallux is healed with good epidermal coverage. Neuro: Cognition (Neuro): normal cognition Sensory Exam: No normal sensation Extrem: Other: Severe CHARCOT RIGHT FOOT Insenate b/l feet. Psych: Mental Status: mental status grossly normal Affect: normal affect Fracture/Casting/Strapping Pre Procedure Consent was obtained, Procedures/risks were explained, Questions were answered, Correct patient identified and Correct side and site confirmed Episode of Care Return Visit Casting Cast: Total Contact Leg Cast (right) Modification and Status: Diabetic Application Exam of Affected Area: Color: Normal, Temp: Normal, Pulse: Normal, Blanching: Normal, Capillary Refill: Normal and Sensory Exam: Abnormal (neuropathy) Swelling: Yes (mild-moderate) and Tenderness: No Skin Apperance: Open Care: Alcohol Wipes and Anne removed Patient Tolerated Procedure Well: Yes
--- NOTE | 2019-10-18 08:53 | WPDWOUNDNOTE ---
Wound Care Note Date/Time: 10/18/19 08:53 Patient presents for postoperative follow-up to the [facility] wound clinic. 1 week, 5 days s/p right diabetic foot debridement with application graft. Patient noted malodor from drainage in cast, otherwise no new complaints. He is still on IV antibiotics but has not heard from Dr. Rhodes's office. Contact information dispensed today. No fever, chills, night sweats, nausea, vomiting or diarrhea. Assessment and Plan Assessment and plan (1) Diabetic foot ulcer associated with diabetes mellitus due to underlying condition: Qualifiers: Diabetic foot ulcer location: heel Laterality: right Non-pressure ulcer stage: with necrosis of bone Qualified Code(s): E08.621 - Diabetes mellitus due to underlying condition with foot ulcer; L97.414 - Non-pressure chronic ulcer of right heel and midfoot with necrosis of bone Code(s): E08.621 - Diabetes mellitus due to underlying condition with foot ulcer; L97.509 - Non-pressure chronic ulcer of other part of unspecified foot with unspecified severity Status: Acute Assessment and Plan: One-week, five days status post debridement with application of graft of the right heel. Remaining portion of silicone graft removed today. Corolla are removed as well. Patient had a large amount of drainage in the total contact cast today. Mild malodor noted, consistent with drainage. Surrounding tissue without redness, warmth, swelling or signs of active infection. Moderate serosanguineous drainage noted. No purulence. Recommended repeat application of total contact cast today. Highly encouraged cast change 2 times a week due to increased drainage, patient verbalized understanding. We have accommodated his schedule so that he will now be coming in on Mondays and . He will follow up this Thursday for cast change. Patient is currently on IV antibiotics under the direction of Dr. rhodes with Infectious Disease. Per his discharge instructions he was posted be on a total of 42 days of IV antibiotics. He has not heard from Infectious Disease in regards to continuation of antibiotics or transition to oral antibiotics. Contact information dispensed today, I recommended the patient follow up with infectious disease as soon as possible to determine further plan care. Continue home health as ordered for IV infusions. (2) Acute osteomyelitis of right calcaneus: Code(s): M86.171 - Other acute osteomyelitis, right ankle and foot Status: Acute Assessment and Plan: Follow-up with Dr. rhodes regarding oral versus IV antibiotics pending completion of ceftriaxone per 48 day total course. Additional Plan Discussed importance diabetic diet, proper nutrition and pressure offloading for optimal healing. Patient verbalized understanding. Plan to follow up on Thursday for total cast change. We will then begin total cast changes 2 times a week on Thursday and to accommodate the patient's dialysis schedule and family constraints with transportation. Review of Systems Constitutional: Constitutional: Denies fever(s) Eyes: Eyes: Denies blurry vision ENT: Reports Normal hearing present Cardiovascular: Cardiovascular: Denies chest pain and Denies dyspnea Respiratory: Respiratory: Denies dyspnea and Denies wheezing Gastrointestinal: Gastrointestinal: Denies abdominal pain Genitourinary: Genitourinary: Denies urinary urgency Musculoskeletal: Musculoskeletal: Reports as per HPI Integumentary/Breasts: Skin/Breast: Denies changing lesions and Denies sores Neurologic: Reports Normal hearing present, Denies behavioral changes, Denies confusion and Denies convulsions Psychiatric: Psychiatric: Denies behavioral changes, Denies confusion and Denies hallucinations Endocrine: Endocrine: Denies heat intolerance Hematologic/Lymphatic: Hematologic/Lymphatic: Denies easy bleeding Allergic/Immunologic: Allergic/Immunologic: Denies w
--- NOTE | 2019-10-21 09:39 | PCWOUND ---
WOCN NOTE patient called to say he wasn't going to make it for his appointment today as his mode of transportation fell through at the last minute. Patient is already scheduled for Thursday10/24/19.
--- NOTE | 2019-10-24 08:39 | WPDWOUNDNOTE ---
Wound Care Note Date/Time: 10/24/19 08:39 Patient presents for postoperative follow-up to the [facility] wound clinic. 2 weeks, 4 days s/p right diabetic foot debridement with application graft. Patient upset that his daughter could not transport him to his appointment last Thursday for a cast change. He notes some malodor from drainage in cast, otherwise no new complaints. He has been NWB RLE. He is still on IV antibiotics and has an appointment with Dr. Rhodes's office on 10/31. No fever, chills, night sweats, nausea, vomiting or diarrhea. 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 Patient had a large amount of drainage in the total contact cast today as he missed his appointment on Thursday due to transportation issues with his daughter. Mild malodor noted, consistent with drainage. Surrounding tissue without redness, warmth, swelling or signs of active infection. Moderate serosanguineous drainage noted. No purulence. Marked improvement in new granulation tissue. Recommended repeat application of total contact cast today. Plan for cast changes 2 times per week. Patient is currently on IV antibiotics under the direction of Dr. rhodes with Infectious Disease. He has an appointment with Dr. Rhodes on 10/31 for reevluation of IV antibiotics. (2) Acute osteomyelitis of right calcaneus: Code(s): M86.171 - Other acute osteomyelitis, right ankle and foot Status: Acute Assessment and Plan: Follow-up with Dr. rhodes regarding oral versus IV antibiotics pending completion of ceftriaxone per 48 day total course. Additional Plan Discussed importance diabetic diet, proper nutrition and pressure offloading for optimal healing. We will begin total cast changes 2 times a week on Thursday and to accommodate the patient's dialysis schedule and family constraints with transportation. Review of Systems Constitutional: Constitutional: Denies fever(s) Eyes: Eyes: Denies blurry vision ENT: Reports Normal hearing present Cardiovascular: Cardiovascular: Denies chest pain and Denies dyspnea Respiratory: Respiratory: Denies dyspnea and Denies wheezing Gastrointestinal: Gastrointestinal: Denies abdominal pain Genitourinary: Genitourinary: Denies urinary urgency Musculoskeletal: Musculoskeletal: Reports as per HPI Integumentary/Breasts: Skin/Breast: Denies changing lesions and Denies sores Neurologic: Reports Normal hearing present, Denies behavioral changes, Denies confusion and Denies convulsions Psychiatric: Psychiatric: Denies behavioral changes, Denies confusion and Denies hallucinations Endocrine: Endocrine: Denies heat intolerance Hematologic/Lymphatic: Hematologic/Lymphatic: Denies easy bleeding Allergic/Immunologic: Allergic/Immunologic: Denies wheezing Exam Const: General: comfortable and no acute distress Resp: Effort & Inspection: normal respiratory effort Cardio: Rate: regular rate Rhythm: regular rhythm Skin: General skin exam: normal color and no erythema Other: Cast right lower extremity removed. Remaining silicone portion of graft removed. Wound measure 13.5x8.0x1.2cm. No purulence. Moderate serousanguinous drainage. Malodor. No signs of active infection. Ulcer under the hallux is healed with goo
--- NOTE | 2019-10-31 13:13 | WPDWOUNDNOTE ---
Wound Care Note Date/Time: 10/31/19 13:13 Patient presents for postoperative follow-up to the [facility] wound clinic. 3 weeks, 4 days s/p right diabetic foot debridement with application graft. He has been NWB RLE. He is still on IV antibiotics and has an appointment with Dr. Rhodes's office on 10/31. 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 Ulcer with continued improvement and marked new granulation tissue. No signs of active infection at this time. Surrounding tissue without redness, warmth, swelling or signs of active infection. Moderate serosanguineous drainage noted. No purulence. Recommended repeat application of total contact cast today. Patient is unable to make an additional appointment this week for a cast change due to family transportation issues. The patient will follow up in 1 week. Discussed signs and symptoms that need to be evaluated in the office or emergency room sooner. Patient is currently on IV antibiotics under the direction of Dr. rhodes with Infectious Disease. He has an appointment with Dr. Rhodes on 10/31 for reevluation of IV antibiotics. (2) Acute osteomyelitis of right calcaneus: Code(s): M86.171 - Other acute osteomyelitis, right ankle and foot Status: Acute Assessment and Plan: Follow-up with Dr. rhodes regarding oral versus IV antibiotics pending completion of ceftriaxone per 48 day total course. Additional Plan Discussed importance diabetic diet, proper nutrition and pressure offloading for optimal healing. We will begin total cast changes 2 times a week on Thursday and to accommodate the patient's dialysis schedule and family constraints with transportation. Review of Systems Review of Systems: All systems reviewed & are unremarkable except as noted in HPI and below Constitutional: Constitutional: Denies fever(s) Eyes: Eyes: Denies blurry vision ENT: Reports Normal hearing present Cardiovascular: Cardiovascular: Denies chest pain and Denies dyspnea Respiratory: Respiratory: Denies dyspnea and Denies wheezing Gastrointestinal: Gastrointestinal: Denies abdominal pain Genitourinary: Genitourinary: Denies urinary urgency Musculoskeletal: Musculoskeletal: Reports as per HPI Integumentary/Breasts: Skin/Breast: Denies changing lesions and Denies sores Neurologic: Reports Normal hearing present, Denies behavioral changes, Denies confusion and Denies convulsions Psychiatric: Psychiatric: Denies behavioral changes, Denies confusion and Denies hallucinations Endocrine: Endocrine: Denies heat intolerance Hematologic/Lymphatic: Hematologic/Lymphatic: Denies easy bleeding Allergic/Immunologic: Allergic/Immunologic: Denies wheezing Exam Const: General: comfortable and no acute distress Resp: Effort & Inspection: normal respiratory effort Cardio: Rate: regular rate Rhythm: regular rhythm Skin: General skin exam: normal color and no erythema Other: Cast right lower extremity removed. Marked improvement in granulation tissue. Wound measurments improved today. No purulence. Moderate serousanguinous drainage. Malodor. No signs of active infection. Ulcer under the hallux is healed. Neuro: Cogn
--- NOTE | 2019-11-14 08:50 | WPDWOUNDNOTE ---
Wound Care Note Date/Time: 11/14/19 08:50 Patient presents for postoperative follow-up to the [facility] wound clinic. 5 weeks, 4 days s/p right diabetic foot debridement with application graft. He has been NWB RLE. The patient is no longer on IV antibiotics. His IV antibiotics were discontinued by Dr. Rhodes. He has been undergoing total contact cast changes 1 to 2 times a week depending on transportation from his family. He is nonweightbearing of the right lower extremity. His wound continues to show signs of improvement. No signs of active infection today. Patient denies fever, chills, night sweats, nausea, vomiting and diarrhea. 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 Ulcer with continued improvement and marked new granulation tissue. No signs of active infection at this time. Surrounding tissue without redness, warmth, swelling or signs of active infection. Moderate serosanguineous drainage noted. No purulence. The patient would benefit from graft application as an outpatient for optimal wound healing. Will begin insurance authorization process at this time. Recommended repeat application of total contact cast today. Will add Henrietta to dressing as well. Follow-up in 4 days for repeat assessment. (2) Acute osteomyelitis of right calcaneus: Code(s): M86.171 - Other acute osteomyelitis, right ankle and foot Status: Acute Additional Plan Discussed importance diabetic diet, proper nutrition and pressure offloading for optimal healing. We will continue total cast changes 2 times a week on Thursday and to accommodate the patient's dialysis schedule and family constraints with transportation. Review of Systems Review of Systems: All systems reviewed & are unremarkable except as noted in HPI and below Constitutional: Constitutional: Denies fever(s) Eyes: Eyes: Denies blurry vision ENT: Reports Normal hearing present Cardiovascular: Cardiovascular: Denies chest pain and Denies dyspnea Respiratory: Respiratory: Denies dyspnea and Denies wheezing Gastrointestinal: Gastrointestinal: Denies abdominal pain Genitourinary: Genitourinary: Denies urinary urgency Musculoskeletal: Musculoskeletal: Reports as per HPI Integumentary/Breasts: Skin/Breast: Denies changing lesions and Denies sores Neurologic: Reports Normal hearing present, Denies behavioral changes, Denies confusion and Denies convulsions Psychiatric: Psychiatric: Denies behavioral changes, Denies confusion and Denies hallucinations Endocrine: Endocrine: Denies heat intolerance Hematologic/Lymphatic: Hematologic/Lymphatic: Denies easy bleeding Allergic/Immunologic: Allergic/Immunologic: Denies wheezing Exam Const: General: comfortable and no acute distress Resp: Effort & Inspection: normal respiratory effort Cardio: Rate: regular rate Rhythm: regular rhythm Skin: General skin exam: normal color and no erythema Other: Cast right lower extremity removed. Marked improvement in granulation tissue. Wound measurments improved today. No purulence. Moderate serousanguinous drainage. Malodor. No signs of active infection. Ulcer under the hallux is healed. Wound measures 12.4x8.3x0.9 cm. 100% red/pink wound bed. Neuro: Cognition (Neuro):
--- NOTE | 2019-11-21 08:48 | WPDWOUNDNOTE ---
Wound Care Note Date/Time: 11/21/19 08:48 Patient presents for postoperative follow-up to the [facility] wound clinic. 6 weeks, 4 days s/p right diabetic foot debridement with application graft. He has been NWB RLE. He has been undergoing total contact cast changes 1 to 2 times a week depending on transportation from his family. He is nonweightbearing of the right lower extremity. His wound continues to show signs of good improvement. No signs of active infection today. Patient denies fever, chills, night sweats, nausea, vomiting and diarrhea. 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 Ulcer with continued improvement and marked new granulation tissue. No signs of active infection at this time. Surrounding tissue without redness, warmth, swelling or signs of active infection. Moderate serosanguineous drainage noted. No purulence. The patient would benefit from graft application as an outpatient for optimal wound healing. Will plan for Omnigraft application on Thursday next week. Recommended repeat application of total contact cast today. Will continue Henrietta to dressing as well. Follow up on Thursday with Dr. Edmonds. (2) Acute osteomyelitis of right calcaneus: Code(s): M86.171 - Other acute osteomyelitis, right ankle and foot Status: Acute Additional Plan Discussed importance diabetic diet, proper nutrition and pressure offloading for optimal healing. We will continue total cast changes 2 times a week on Thursday and to accommodate the patient's dialysis schedule and family constraints with transportation. Review of Systems Review of Systems: All systems reviewed & are unremarkable except as noted in HPI and below Constitutional: Constitutional: Denies fever(s) Eyes: Eyes: Denies blurry vision ENT: Reports Normal hearing present Cardiovascular: Cardiovascular: Denies chest pain and Denies dyspnea Respiratory: Respiratory: Denies dyspnea and Denies wheezing Gastrointestinal: Gastrointestinal: Denies abdominal pain Genitourinary: Genitourinary: Denies urinary urgency Musculoskeletal: Musculoskeletal: Reports as per HPI Integumentary/Breasts: Skin/Breast: Denies changing lesions and Denies sores Neurologic: Reports Normal hearing present, Denies behavioral changes, Denies confusion and Denies convulsions Psychiatric: Psychiatric: Denies behavioral changes, Denies confusion and Denies hallucinations Endocrine: Endocrine: Denies heat intolerance Hematologic/Lymphatic: Hematologic/Lymphatic: Denies easy bleeding Allergic/Immunologic: Allergic/Immunologic: Denies wheezing Exam Const: General: comfortable and no acute distress Resp: Effort & Inspection: normal respiratory effort Cardio: Rate: regular rate Rhythm: regular rhythm Skin: General skin exam: normal color and no erythema Other: Cast right lower extremity removed. Marked improvement in granulation tissue. Wound measurments improved today. No purulence. Moderate serousanguinous drainage. Malodor. No signs of active infection. Ulcer under the hallux is healed. Wound measures 11.5x7.7x0.9cm cm. 100% red/pink wound bed. Neuro: Cognition (Neuro): normal cognition Sensory Exam: No normal sensation Extrem: Other: Severe CHARCOT RIGHT F
--- NOTE | 2019-11-29 11:39 | PM.PROC ---
Procedure Note - Detailed Date of procedure: 11/29/19 Pre-op diagnosis: E11.621 Type 2 diabetes mellitus with foot ulcer Post-op diagnosis: same Procedure performed: Application of synthetic skin graft right hindfoot Description of procedure: Indications: Patient is a 54-year-old with diabetes and peripheral neuropathy, peripheral vascular disease. Right plantar heel ulcer, status post debridement. Currently treated with total contact casting. Patient is indicated for skin grafting as he has improved granulation but still open wound. What was done: Patient identified in the preoperative holding. Informed consent given. Operative extremity marked. Time-out performed confirming the patient, site of the surgery and the plan. Alcohol prep solution to the surrounding skin. 4 x 4 cm on the graft applied to the plantar heel ulcer and stapled into position. Sterile dressing applied. Anesthesia: none Surgeon: Tomas Edmonds MD Estimated blood loss (mL): 2 Drains: No Packing: No Pathology: none sent Complications: None Condition: stable Disposition: other ( Home)
--- NOTE | 2019-11-29 12:33 | WPDWOUNDNOTE ---
Wound Care Note Date/Time: 11/29/19 12:33 Patient presents for postoperative follow-up to the [facility] wound clinic. 7 weeks, 4 days s/p right diabetic foot debridement with application graft. He has been NWB RLE. He has been undergoing total contact cast changes 1 to 2 times a week depending on transportation from his family. He is nonweightbearing of the right lower extremity. His wound continues to show signs of good improvement. No signs of active infection today. Patient denies fever, chills, night sweats, nausea, vomiting and diarrhea. 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 Ulcer with continued improvement and marked new granulation tissue. No signs of active infection at this time. Surrounding tissue without redness, warmth, swelling or signs of active infection. Moderate serosanguineous drainage noted. No purulence. Recommended application of Omnigraft today under sterile conditions by Dr. Edmonds. Graft applied, see operative notes. Henrietta and Endoform applied to the remainder of the wound. Recommended repeat TCC for pressure offloading. Continue PWB. Follow up in 1 week for cast change. (2) Acute osteomyelitis of right calcaneus: Code(s): M86.171 - Other acute osteomyelitis, right ankle and foot Status: Acute Additional Plan Discussed importance diabetic diet, proper nutrition and pressure offloading for optimal healing. We will continue total cast changes 2 times a week on Thursday and to accommodate the patient's dialysis schedule and family constraints with transportation. Review of Systems Review of Systems: All systems reviewed & are unremarkable except as noted in HPI and below Constitutional: Constitutional: Denies fever(s) Eyes: Eyes: Denies blurry vision ENT: Reports Normal hearing present Cardiovascular: Cardiovascular: Denies chest pain and Denies dyspnea Respiratory: Respiratory: Denies dyspnea and Denies wheezing Gastrointestinal: Gastrointestinal: Denies abdominal pain Genitourinary: Genitourinary: Denies urinary urgency Musculoskeletal: Musculoskeletal: Reports as per HPI Integumentary/Breasts: Skin/Breast: Denies changing lesions and Denies sores Neurologic: Reports Normal hearing present, Denies behavioral changes, Denies confusion and Denies convulsions Psychiatric: Psychiatric: Denies behavioral changes, Denies confusion and Denies hallucinations Endocrine: Endocrine: Denies heat intolerance Hematologic/Lymphatic: Hematologic/Lymphatic: Denies easy bleeding Allergic/Immunologic: Allergic/Immunologic: Denies wheezing Exam Const: General: comfortable and no acute distress Resp: Effort & Inspection: normal respiratory effort Cardio: Rate: regular rate Rhythm: regular rhythm Skin: General skin exam: normal color and no erythema Other: Cast right lower extremity removed. Marked improvement in granulation tissue. Wound measurments improved today. No purulence. Moderate serousanguinous drainage. Malodor. No signs of active infection. Ulcer under the hallux is healed. Wound measures 10.5x7.0x0.8cm cm. 100% red/pink wound bed. Neuro: Cognition (Neuro): normal cognition Sensory Exam: No normal sensation Extrem: Other: Severe CHARCOT RIGHT FOOT Insen
--- NOTE | 2019-12-05 10:52 | WPDWOUNDNOTE ---
Wound Care Note Date/Time: 12/05/19 10:52 Patient presents for postoperative follow-up to the [facility] wound clinic. 8 weeks s/p right diabetic foot debridement with application graft. He has been NWB RLE. He has been undergoing total contact cast changes 1 to 2 times a week depending on transportation from his family. He is nonweightbearing of the right lower extremity. His wound continues to show signs of good improvement. No signs of active infection today. Patient denies fever, chills, night sweats, nausea, vomiting and diarrhea. He underwent a repeat omni- graft application in the wound clinic on 11/[address] 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 Ulcer with continued improvement and marked new granulation tissue. Omnigraft remains stapled in place. No signs of active infection at this time. Surrounding tissue without redness, warmth, swelling or signs of active infection. Moderate serosanguineous drainage noted. No purulence. Continue abdoul/endoform to more distal plantar aspect of the wound. Repeat TCC for pressure offloading. Anitra SANTOS RLE. Follow up in 1 week for graft removal and possible repeat grafting. (2) Acute osteomyelitis of right calcaneus: Code(s): M86.171 - Other acute osteomyelitis, right ankle and foot Status: Acute Additional Plan Discussed importance diabetic diet, proper nutrition and pressure offloading for optimal healing. We will continue total cast changes 2 times a week on Thursday and to accommodate the patient's dialysis schedule and family constraints with transportation. Review of Systems Review of Systems: All systems reviewed & are unremarkable except as noted in HPI and below Constitutional: Constitutional: Denies fever(s) Eyes: Eyes: Denies blurry vision ENT: Reports Normal hearing present Cardiovascular: Cardiovascular: Denies chest pain and Denies dyspnea Respiratory: Respiratory: Denies dyspnea and Denies wheezing Gastrointestinal: Gastrointestinal: Denies abdominal pain Genitourinary: Genitourinary: Denies urinary urgency Musculoskeletal: Musculoskeletal: Reports as per HPI Integumentary/Breasts: Skin/Breast: Denies changing lesions and Denies sores Neurologic: Reports Normal hearing present, Denies behavioral changes, Denies confusion and Denies convulsions Psychiatric: Psychiatric: Denies behavioral changes, Denies confusion and Denies hallucinations Endocrine: Endocrine: Denies heat intolerance Hematologic/Lymphatic: Hematologic/Lymphatic: Denies easy bleeding Allergic/Immunologic: Allergic/Immunologic: Denies wheezing Exam Const: General: comfortable and no acute distress Resp: Effort & Inspection: normal respiratory effort Cardio: Rate: regular rate Rhythm: regular rhythm Skin: General skin exam: normal color and no erythema Other: Cast right lower extremity removed. Marked improvement in granulation tissue. Wound measurments improved today. No purulence. Moderate serousanguinous drainage. Malodor. No signs of active infection. Ulcer under the hallux is healed. Unable to perform complete measurements as omnigraft is stapled in place covering 1/2 of the wound bed. More di
== END 2019-12-05 23:59 | disposition home or self-care (01) ==
LOC: ANHWOC 07:44
PROVIDERS: PCP Family Medicine; Visit Provider Nurse Practitioner Family
DX: E11.621 Type 2 diabetes mellitus with foot ulcer (principal); L97.509 Non-pressure chronic ulcer of other part of unspecified foot with unspecified severity
CPT/HCPCS: 29445; 97606; 99212; A9270; G0463

== ENCOUNTER 2020-03-05 07:36 | Outpatient (RCR) | payer OTHER, MEDICARE, SELFPAY ==
--- NOTE | 2019-12-13 12:23 | WPDWOUNDNOTE ---
Wound Care Note Date/Time: 12/13/19 12:23 Patient presents for follow-up to the [facility] wound clinic. 9 weeks s/p right diabetic foot debridement with application graft. He has been NWB RLE. He has been undergoing total contact cast changes 1 to 2 times a week depending on transportation from his family. He is nonweightbearing of the right lower extremity. His wound continues to show signs of good improvement. No signs of active infection today. Patient denies fever, chills, night sweats, nausea, vomiting and diarrhea. He underwent a repeat omni- graft application in the wound clinic on 11/[address] 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 Ulcer with continued improvement and marked new granulation tissue. Omnigraft removed today. No signs of active infection at this time. Surrounding tissue without redness, warmth, swelling or signs of active infection. Moderate serosanguineous drainage noted. No purulence. Apply abdoul/endoform to entire aspect of the wound. Allow 1 more week of encorporation of Omnigraft. Repeat TCC for pressure offloading. Cotinirene SANDERSONB RLE. Follow up in 1 week for repeat grafting. (2) Acute osteomyelitis of right calcaneus: Code(s): M86.171 - Other acute osteomyelitis, right ankle and foot Status: Acute Additional Plan Discussed importance diabetic diet, proper nutrition and pressure offloading for optimal healing. We will continue total cast changes 2 times a week on Thursday and to accommodate the patient's dialysis schedule and family constraints with transportation. Review of Systems Review of Systems: All systems reviewed & are unremarkable except as noted in HPI and below Constitutional: Constitutional: Denies fever(s) Eyes: Eyes: Denies blurry vision ENT: Reports Normal hearing present Cardiovascular: Cardiovascular: Denies chest pain and Denies dyspnea Respiratory: Respiratory: Denies dyspnea and Denies wheezing Gastrointestinal: Gastrointestinal: Denies abdominal pain Genitourinary: Genitourinary: Denies urinary urgency Musculoskeletal: Musculoskeletal: Reports as per HPI Integumentary/Breasts: Skin/Breast: Denies changing lesions and Denies sores Neurologic: Reports Normal hearing present, Denies behavioral changes, Denies confusion and Denies convulsions Psychiatric: Psychiatric: Denies behavioral changes, Denies confusion and Denies hallucinations Endocrine: Endocrine: Denies heat intolerance Hematologic/Lymphatic: Hematologic/Lymphatic: Denies easy bleeding Allergic/Immunologic: Allergic/Immunologic: Denies wheezing Exam Const: General: comfortable and no acute distress Resp: Effort & Inspection: normal respiratory effort Cardio: Rate: regular rate Rhythm: regular rhythm Skin: General skin exam: normal color and no erythema Other: Cast right lower extremity removed. Marked improvement in granulation tissue. Wound measurments improved today. No purulence. Moderate serousanguinous drainage. Malodor. No signs of active infection. Ulcer under the hallux is healed. Omnigraft removed today, marked improvement in wound appearance and dimensions, see wound nurse note for measurements. More dis
--- NOTE | 2019-12-19 13:00 | WPDWOUNDNOTE ---
Wound Care Note Date/Time: 12/19/19 13:00 Patient presents for follow-up to the [facility] wound clinic. 10 weeks s/p right diabetic foot debridement with application graft. He has been NWB RLE. He has been undergoing total contact cast changes 1 to 2 times a week depending on transportation from his family. He is nonweightbearing of the right lower extremity. His wound continues to show signs of good improvement. No signs of active infection today. Patient denies fever, chills, night sweats, nausea, vomiting and diarrhea. He underwent a repeat omni- graft application in the wound clinic on 11/[address] Edmonds, recommended repeat of graft application at this time. (12/19/19). 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 Ulcer with continued improvement and marked new granulation tissue. No signs of active infection at this time. Surrounding tissue without redness, warmth, swelling or signs of active infection. Moderate serosanguineous drainage noted. No purulence. Recommended repeat omnigraft application today for assistance with healing. Apply abdoul/endoform to entire aspect of the wound. Recommended repeat TCC at this time for pressure offloading. Follow up in 1 week for TCC application. (2) Acute osteomyelitis of right calcaneus: Code(s): M86.171 - Other acute osteomyelitis, right ankle and foot Status: Acute Additional Plan Discussed importance diabetic diet, proper nutrition and pressure offloading for optimal healing. We will continue total cast changes 2 times a week on Thursday and to accommodate the patient's dialysis schedule and family constraints with transportation. Review of Systems Review of Systems: All systems reviewed & are unremarkable except as noted in HPI and below Constitutional: Constitutional: Denies fever(s) Eyes: Eyes: Denies blurry vision ENT: Reports Normal hearing present Cardiovascular: Cardiovascular: Denies chest pain and Denies dyspnea Respiratory: Respiratory: Denies dyspnea and Denies wheezing Gastrointestinal: Gastrointestinal: Denies abdominal pain Genitourinary: Genitourinary: Denies urinary urgency Musculoskeletal: Musculoskeletal: Reports as per HPI Integumentary/Breasts: Skin/Breast: Denies changing lesions and Denies sores Neurologic: Reports Normal hearing present, Denies behavioral changes, Denies confusion and Denies convulsions Psychiatric: Psychiatric: Denies behavioral changes, Denies confusion and Denies hallucinations Endocrine: Endocrine: Denies heat intolerance Hematologic/Lymphatic: Hematologic/Lymphatic: Denies easy bleeding Allergic/Immunologic: Allergic/Immunologic: Denies wheezing Exam Const: General: comfortable and no acute distress Resp: Effort & Inspection: normal respiratory effort Cardio: Rate: regular rate Rhythm: regular rhythm Skin: General skin exam: normal color and no erythema Other: Cast right lower extremity removed. Marked improvement in granulation tissue. Wound measurments improved today. No purulence. Moderate serousanguinous drainage. Malodor. No signs of active infection. Ulcer under the hallux is healed. Continued improvement in wound appearance and dimens
--- NOTE | 2019-12-19 13:16 | PM.OP ---
Procedure Note - Brief Procedure Note - Brief Date of procedure: 12/19/19 Pre-op diagnosis: E11.621 Type 2 diabetes mellitus with foot ulcer Right DFU Post-op diagnosis: same Procedure performed: Omnigraft Application Description of procedure: Omnigraft application to the right plantar heel DFU Sterile application, stapled in place. Surgeon: ADAM Charles Drains: No Packing: No Pathology: other Complications: No immediate complications Condition: stable Disposition: same day (home ) Findings: TCC application performed today s/p graft application for pressure offloading.
--- NOTE | 2019-12-26 09:20 | WPDWOUNDNOTE ---
Wound Care Note Date/Time: 12/26/19 09:20 Patient presents for follow-up to the [facility] wound clinic. The patient is now 1 week status post Omnigraft application to the right plantar diabetic foot ulcer over the heel. He has gone undergone a graft application approximately [address] Edmonds in our outpatient clinic. And he is approximately 11 weeks status post I&D of the right diabetic foot ulcer and graft application. He denies fever, chills, night sweats, nausea, vomiting or diarrhea. He continues to be nonweightbearing of the right lower extremity with a total contact cast in place for graft application protection and pressure offloading. He is tolerating the total contact cast well. He has utilizing a wheelchair for ambulation. 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 The patient has now undergone 1 omni graft application as an outpatient and underwent his 2nd on the graft application last week. Total contact cast removed today, Omni graft fell off. Enigma then removed. Surrounding tissue with good improvement in granulation and dimensions. Wound measures 7.5 x 5.5 x 0.8 cm today. 100% red pink wound bed. Surrounding tissue without redness, warmth, swelling or signs of active infection. No purulence. Mild malodor consistent with foot smell. Repeat Henrietta and Endo form to the right heel at this time and continue to allow for the Omnigraft to incorporate. Total contact cast reapplied today for pressure offloading graft protection. Patient follow-up in 1 week for total contact cast removal and wound reassessment. We will determine repeat graft application at that time. (2) Acute osteomyelitis of right calcaneus: Code(s): M86.171 - Other acute osteomyelitis, right ankle and foot Status: Acute Assessment and Plan: Right plantar diabetic foot ulcer without signs of worsening infection at this time. No evidence of redness, warmth, swelling or signs of active infection. Discussed importance of is notifying our office or report to the emergency room with fever, chills, night sweats, nausea, vomiting or diarrhea. Follow-up in 1 week for reassessment. Additional Plan Discussed importance diabetic diet, proper nutrition and pressure offloading for optimal healing. We will continue total cast changes 2 times a week on Thursday and to accommodate the patient's dialysis schedule and family constraints with transportation. Review of Systems Review of Systems: All systems reviewed & are unremarkable except as noted in HPI and below Constitutional: Constitutional: Denies fever(s) Eyes: Eyes: Denies blurry vision ENT: Reports Normal hearing present Cardiovascular: Cardiovascular: Denies chest pain and Denies dyspnea Respiratory: Respiratory: Denies dyspnea and Denies wheezing Gastrointestinal: Gastrointestinal: Denies abdominal pain Genitourinary: Genitourinary: Denies urinary urgency Musculoskeletal: Musculoskeletal: Reports as per HPI Integumentary/Breasts: Skin/Breast: Denies changing lesions and Denies sores Neurologic: Reports Normal hearing present, Denies behavioral changes, Denies confusion and Denies convulsions Psychiatric: Psychiatric: Denies behavioral changes,
--- NOTE | 2020-01-03 09:42 | WPDWOUNDNOTE ---
Wound Care Note Date/Time: 01/03/20 09:42 Patient presents for follow-up to the [facility] wound clinic. The patient is now 2 weeks status post Omnigraft application to the right plantar diabetic foot ulcer over the heel. He is approximately 3 months status post I&D of the right diabetic foot ulcer and graft application. He denies fever, chills, night sweats, nausea, vomiting or diarrhea. He continues to be nonweightbearing of the right lower extremity with a total contact cast in place for graft application protection and pressure offloading. He is tolerating the total contact cast well. He has utilizing a wheelchair for ambulation. 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 He is 2 weeks s/p Omnigraft #2 application. Total contact cast removed today. Surrounding tissue with good improvement in granulation and dimensions. Marked improvement in depth of wound bed. Wound measures 7.5 x 5.0 x 0.5 cm today. 100% red pink wound bed. Surrounding tissue without redness, warmth, swelling or signs of active infection. No purulence. Mild malodor consistent with foot smell, recommended flagyl application today. Repeat Henrietta and Endo form to the right heel at this time. Total contact cast reapplied today for pressure offloading graft protection. Patient follow-up in 1 week for total contact cast removal and wound reassessment. We will determine repeat graft application at that time. (2) Acute osteomyelitis of right calcaneus: Code(s): M86.171 - Other acute osteomyelitis, right ankle and foot Status: Acute Assessment and Plan: Right plantar diabetic foot ulcer without signs of worsening infection at this time. No evidence of redness, warmth, swelling or signs of active infection. Discussed importance of is notifying our office or report to the emergency room with fever, chills, night sweats, nausea, vomiting or diarrhea. Follow-up in 1 week for reassessment. Additional Plan Discussed importance diabetic diet, proper nutrition and pressure offloading for optimal healing. We will continue total cast changes 1 x weekly for pressure offloading. Review of Systems Review of Systems: All systems reviewed & are unremarkable except as noted in HPI and below Constitutional: Constitutional: Denies fever(s) Eyes: Eyes: Denies blurry vision ENT: Reports Normal hearing present Cardiovascular: Cardiovascular: Denies chest pain and Denies dyspnea Respiratory: Respiratory: Denies dyspnea and Denies wheezing Gastrointestinal: Gastrointestinal: Denies abdominal pain Genitourinary: Genitourinary: Denies urinary urgency Musculoskeletal: Musculoskeletal: Reports as per HPI Integumentary/Breasts: Skin/Breast: Denies changing lesions and Denies sores Neurologic: Reports Normal hearing present, Denies behavioral changes, Denies confusion and Denies convulsions Psychiatric: Psychiatric: Denies behavioral changes, Denies confusion and Denies hallucinations Endocrine: Endocrine: Denies heat intolerance Hematologic/Lymphatic: Hematologic/Lymphatic: Denies easy bleeding Allergic/Immunologic: Allergic/Immunologic: Denies wheezing Exam Const: General: comfortable and no acute distress Resp: Effort & Inspection: normal re
--- NOTE | 2020-01-10 13:18 | WPDWOUNDNOTE ---
Wound Care Note Date/Time: 01/10/20 13:18 Patient presents for follow-up to the [facility] wound clinic. The patient is now 3 weeks status post Omnigraft application to the right plantar diabetic foot ulcer over the heel. He is 3 months status post I&D of the right diabetic foot ulcer and graft application. He denies fever, chills, night sweats, nausea, vomiting or diarrhea. He continues to be nonweightbearing of the right lower extremity with a total contact cast in place for graft application protection and pressure offloading. He is tolerating the total contact cast well. He has utilizing a wheelchair for ambulation. 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 He is 3 weeks s/p Omnigraft #2 application. Total contact cast removed today. Surrounding tissue with good improvement in granulation and dimensions. Marked improvement in depth of wound bed. Wound with improvement in measurements today. 100% red pink wound bed. Surrounding tissue without redness, warmth, swelling or signs of active infection. No purulence. Mild malodor consistent with foot smell, recommended flagyl application today. Repeat Henrietta and Endo form to the right heel at this time. Total contact cast reapplied today for pressure offloading graft protection. Will attempt to gain authorization for amnioexcel grafting as patient did very well with grafting in the past and would be a good candidate to induce healing. Patient follow-up in 1 week for total contact cast removal and wound reassessment. Continue PWB in the interim. (2) Acute osteomyelitis of right calcaneus: Code(s): M86.171 - Other acute osteomyelitis, right ankle and foot Status: Acute Assessment and Plan: Right plantar diabetic foot ulcer without signs of worsening infection at this time. No evidence of redness, warmth, swelling or signs of active infection. Discussed importance of is notifying our office or report to the emergency room with fever, chills, night sweats, nausea, vomiting or diarrhea. Follow-up in 1 week for reassessment. Additional Plan Discussed importance diabetic diet, proper nutrition and pressure offloading for optimal healing. We will continue total cast changes 1 x weekly for pressure offloading. Review of Systems Review of Systems: All systems reviewed & are unremarkable except as noted in HPI and below Constitutional: Constitutional: Denies fever(s) Eyes: Eyes: Denies blurry vision ENT: Reports Normal hearing present Cardiovascular: Cardiovascular: Denies chest pain and Denies dyspnea Respiratory: Respiratory: Denies dyspnea and Denies wheezing Gastrointestinal: Gastrointestinal: Denies abdominal pain Genitourinary: Genitourinary: Denies urinary urgency Musculoskeletal: Musculoskeletal: Reports as per HPI Integumentary/Breasts: Skin/Breast: Denies changing lesions and Denies sores Neurologic: Reports Normal hearing present, Denies behavioral changes, Denies confusion and Denies convulsions Psychiatric: Psychiatric: Denies behavioral changes, Denies confusion and Denies hallucinations Endocrine: Endocrine: Denies heat intolerance Hematologic/Lymphatic: Hematologic/Lymphatic: Denies easy bleeding Allergic/Immunologic: Allergic/Immunologi
--- NOTE | 2020-01-16 12:32 | WPDWOUNDNOTE ---
Wound Care Note Date/Time: 01/16/20 12:32 Patient presents for follow-up to the [facility] wound clinic. The patient is now 4 weeks status post Omnigraft application to the right plantar diabetic foot ulcer over the heel. He is approximately 3 months status post I&D of the right diabetic foot ulcer and graft application. He denies fever, chills, night sweats, nausea, vomiting or diarrhea. He continues to be nonweightbearing of the right lower extremity with a total contact cast in place for graft application protection and pressure offloading. He is tolerating the total contact cast well. He has utilizing a wheelchair for ambulation. 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 He is now 4 weeks s/p Omnigraft #2 application. Total contact cast removed today. Surrounding tissue with good improvement in granulation and dimensions. 100% red pink wound bed. Surrounding tissue without redness, warmth, swelling or signs of active infection. No purulence. Mild malodor consistent with foot smell, recommended flagyl application today. Repeat Henrietta and Endo form to the right heel at this time. Total contact cast reapplied today for pressure offloading graft protection. Insurance denied amnioexcel graft. Will proceed with Omnigraft application once we obtain graft. Continue protected weight-bearing with a total contact cast. Continue to increase protein intake. Patient to follow up on Thursday for Omni graft application. (2) Acute osteomyelitis of right calcaneus: Code(s): M86.171 - Other acute osteomyelitis, right ankle and foot Status: Acute Assessment and Plan: Right plantar diabetic foot ulcer without signs of worsening infection at this time. No evidence of redness, warmth, swelling or signs of active infection. Discussed importance of is notifying our office or report to the emergency room with fever, chills, night sweats, nausea, vomiting or diarrhea. Follow-up in 1 week for reassessment. Additional Plan Discussed importance diabetic diet, proper nutrition and pressure offloading for optimal healing. We will continue total cast changes 1 x weekly for pressure offloading. Review of Systems Review of Systems: All systems reviewed & are unremarkable except as noted in HPI and below Constitutional: Constitutional: Denies fever(s) Eyes: Eyes: Denies blurry vision ENT: Reports Normal hearing present Cardiovascular: Cardiovascular: Denies chest pain and Denies dyspnea Respiratory: Respiratory: Denies dyspnea and Denies wheezing Gastrointestinal: Gastrointestinal: Denies abdominal pain Genitourinary: Genitourinary: Denies urinary urgency Musculoskeletal: Musculoskeletal: Reports as per HPI Integumentary/Breasts: Skin/Breast: Denies changing lesions and Denies sores Neurologic: Reports Normal hearing present, Denies behavioral changes, Denies confusion and Denies convulsions Psychiatric: Psychiatric: Denies behavioral changes, Denies confusion and Denies hallucinations Endocrine: Endocrine: Denies heat intolerance Hematologic/Lymphatic: Hematologic/Lymphatic: Denies easy bleeding Allergic/Immunologic: Allergic/Immunologic: Denies wheezing Exam Const: General: comfortable and no acute distress Resp:
--- NOTE | 2020-01-23 12:11 | WPDWOUNDNOTE ---
Wound Care Note Date/Time: 01/23/20 12:11 Patient presents for follow-up to the [facility] wound clinic. The patient is now 5 weeks status post Omnigraft application to the right plantar diabetic foot ulcer over the heel. He is approximately 4 months status post I&D of the right diabetic foot ulcer and graft application. He denies fever, chills, night sweats, nausea, vomiting or diarrhea. He continues to be nonweightbearing of the right lower extremity with a total contact cast in place for graft application protection and pressure offloading. He is tolerating the total contact cast well. He has utilizing a wheelchair for ambulation. Assessment and Plan Assessment and plan (1) Diabetic foot ulcer associated with diabetes mellitus due to underlying condition: Qualifiers: Diabetic foot ulcer location: heel Laterality: right Non-pressure ulcer stage: with necrosis of bone Qualified Code(s): E08.621 - Diabetes mellitus due to underlying condition with foot ulcer; L97.414 - Non-pressure chronic ulcer of right heel and midfoot with necrosis of bone Code(s): E08.621 - Diabetes mellitus due to underlying condition with foot ulcer; L97.509 - Non-pressure chronic ulcer of other part of unspecified foot with unspecified severity Status: Acute Assessment and Plan: 4 months status post debridement of the right plantar diabetic foot ulcer with graft application. He is now 5 weeks s/p Omnigraft #2 application. Total contact cast removed today. Surrounding tissue with good improvement in granulation and dimensions. 100% red pink wound bed. Surrounding tissue without redness, warmth, swelling or signs of active infection. No purulence. Given good efficacy of improvement in wound dimensions after previous grafts, recommended continuation of grafts at this time. Omnigraft application performed under sterile conditions, stapled in place. Repeat Henrietta and Endoform to the remainder of the wound today. Total contact cast reapplied today for pressure offloading graft protection. Will keep graft in place for 2-3 weeks. Follow up in 1 week for cast change. (2) Acute osteomyelitis of right calcaneus: Code(s): M86.171 - Other acute osteomyelitis, right ankle and foot Status: Acute Assessment and Plan: Right plantar diabetic foot ulcer without signs of worsening infection at this time. No evidence of redness, warmth, swelling or signs of active infection. Discussed importance of notifying our office or report to the emergency room with fever, chills, night sweats, nausea, vomiting or diarrhea. Follow-up in 1 week for reassessment. Additional Plan Discussed importance diabetic diet, proper nutrition and pressure offloading for optimal healing. We will continue total cast changes 1 x weekly for pressure offloading. Review of Systems Review of Systems: All systems reviewed & are unremarkable except as noted in HPI and below Constitutional: Constitutional: Denies fever(s) Eyes: Eyes: Denies blurry vision ENT: Reports Normal hearing present Cardiovascular: Cardiovascular: Denies chest pain and Denies dyspnea Respiratory: Respiratory: Denies dyspnea and Denies wheezing Gastrointestinal: Gastrointestinal: Denies abdominal pain Genitourinary: Genitourinary: Denies urinary urgency Musculoskeletal: Musculoskeletal: Reports as per HPI Integumentary/Breasts: Skin/Breast: Denies changing lesions and Denies sores Neurologic: Reports Normal hearing present, Denies behavioral changes, Denies confusion and Denies convulsions Psychiatric: Psychiatric: Denies behavioral changes, Denies confusion and Denies hallucinations Endocrine: Endocrine: Denies heat intolerance Hematologic/Lymphatic: Hematologic/Lymphatic: Denies easy bleeding Allergic/Immunologic: Allergic/Immunologic: Denies wheezing Exam Const: General: comfortable and no acute distress Resp: Effort & Inspection: normal respiratory effort Ca
--- NOTE | 2020-01-23 12:18 | PM.OP ---
Procedure Note - Brief Procedure Note - Brief Date of procedure: 01/23/20 Pre-op diagnosis: E11.621 Type 2 diabetes mellitus with foot ulcer Right Foot DFU Post-op diagnosis: same Procedure performed: 4x4 Omnigraft application performed to the right plantar heel DFU, stapled in place. Wound dimensions 4.5x6.0x0.4cm. 100% red/pink wound bed. See note for wound dimensions. Product #: [id number] Exp: 06/03/2022 Description of procedure: Omnigraft application performed under sterile conditions. Anesthesia: none Surgeon: ADAM Charles Telephoto Installer: None Estimated blood loss (mL): 0 Tourniquet time (min): 0 IV fluids (mL): 0 Urine output (mL): 0 Drains: No Packing: No Pathology: none sent Complications: No immediate complications Condition: stable Disposition: other (Home (outpatient graft application) )
--- NOTE | 2020-01-30 15:44 | WPDWOUNDNOTE ---
Wound Care Note Date/Time: 01/30/20 15:44 Patient presents for follow-up to [facility]. He is 1 week s/p Omni graft application to the right plantar diabetic foot ulcer over the heel. Omni graft is still stapled in place at this time. surrounding tissue with mild breakdown of the previously healed ulcer. Mild swelling noted as well. He denies fever, chills, night sweats, nausea, vomiting or diarrhea. No purulence drainage. Wound bed is 100% red/pink. New granulation tissue noted. He reports mild increase in ambulation on the right lower extremity with a total contact cast. He is still utilizing a wheelchair for ambulation as well. He is tolerating his total contact cast and has no other complaints. Assessment and Plan Assessment and plan (1) Diabetic foot ulcer associated with diabetes mellitus due to underlying condition: Qualifiers: Diabetic foot ulcer location: heel Laterality: right Non-pressure ulcer stage: with necrosis of bone Qualified Code(s): E08.621 - Diabetes mellitus due to underlying condition with foot ulcer; L97.414 - Non-pressure chronic ulcer of right heel and midfoot with necrosis of bone Code(s): E08.621 - Diabetes mellitus due to underlying condition with foot ulcer; L97.509 - Non-pressure chronic ulcer of other part of unspecified foot with unspecified severity Status: Acute Assessment and Plan: Patient has recently undergone his 3rd omni-graft application in the outpatient wound clinic setting. He returns today for total contact cast removal and wound assessment. Patient continues to suffer from Charcot changes to the right foot with possible increase in widening of the midfoot today. Some expansion of the current ulceration noted into an area which was previously healed. No evidence of acute infection. No redness, warmth, purulence or malodor. Recommended continuing the course of treatment at this time as Omni graft to stapled in place. We will repeat the cast application today. We will also apply Henrietta and deformed to the remainder of the wound. Patient to follow-up in 1 week for cast removal. We will then make a follow-up appointment for the following week with Dr. Edmonds. We will obtain radiographs prior to his appointment with Dr. Edmonds for further evaluation. I recommended patient refrain from aggressive ambulation on the right lower extremity despite pressure offloading with the total contact cast. Recommended elevation of the right lower extremity as well. Discussed signs and symptoms of infection to report to the emergency room immediately. Patient verbalized understanding agrees with plan of care. (2) Acute osteomyelitis of right calcaneus: Code(s): M86.171 - Other acute osteomyelitis, right ankle and foot Status: Acute Assessment and Plan: Right plantar diabetic foot ulcer without signs of worsening infection at this time. No evidence of redness, warmth, swelling or signs of active infection. Discussed importance of notifying our office or report to the emergency room with fever, chills, night sweats, nausea, vomiting or diarrhea. Additional Plan Discussed importance diabetic diet, proper nutrition and pressure offloading for optimal healing. We will continue total cast changes 1 x weekly for pressure offloading. We plan to remove the Omni graft covering in approximately 1-2 weeks. Review of Systems Review of Systems: All systems reviewed & are unremarkable except as noted in HPI and below Constitutional: Constitutional: Denies fever(s) Eyes: Eyes: Denies blurry vision ENT: Reports Normal hearing present Cardiovascular: Cardiovascular: Denies chest pain and Denies dyspnea Respiratory: Respiratory: Denies dyspnea and Denies wheezing Gastrointestinal: Gastrointestinal: Denies abdominal pain Genitourinary: Genitourinary: Denies urinary urgency Musculoskeletal: Musculoskeletal: Reports as per HPI Integumentar
--- NOTE | 2020-02-06 12:43 | WPDWOUNDNOTE ---
Wound Care Note Date/Time: 02/06/20 12:43 54-year-old male follows up in the [facility] wound clinic today for total contact cast change and graft removal. Patient denies fever, chills, night sweats, nausea, vomiting or diarrhea. He endorses less weight-bearing on the right lower extremity today. He is tolerating his total contact cast well. Assessment and Plan Assessment and plan (1) Diabetic foot ulcer associated with diabetes mellitus due to underlying condition: Qualifiers: Diabetic foot ulcer location: heel Laterality: right Non-pressure ulcer stage: with necrosis of bone Qualified Code(s): E08.621 - Diabetes mellitus due to underlying condition with foot ulcer; L97.414 - Non-pressure chronic ulcer of right heel and midfoot with necrosis of bone Code(s): E08.621 - Diabetes mellitus due to underlying condition with foot ulcer; L97.509 - Non-pressure chronic ulcer of other part of unspecified foot with unspecified severity Status: Acute Assessment and Plan: Patient returns to [facility] wound clinic today for wound evaluation. Omni graft removed today. No evidence of acute infection. No redness, warmth, purulence or malodor. Recommended continuing the course of treatment with total contact cast changes. We will also apply Henrietta and deformed to the remainder of the wound. Patient will follow up in [address] Edmonds. We will obtain radiographs prior to that appointment. I recommended patient refrain from aggressive ambulation on the right lower extremity despite pressure offloading with the total contact cast. Recommended elevation of the right lower extremity as well. Discussed signs and symptoms of infection to report to the emergency room immediately. Patient verbalized understanding agrees with plan of care. (2) Acute osteomyelitis of right calcaneus: Code(s): M86.171 - Other acute osteomyelitis, right ankle and foot Status: Acute Assessment and Plan: Right plantar diabetic foot ulcer without signs of worsening infection at this time. No evidence of redness, warmth, swelling or signs of active infection. Discussed importance of notifying our office or report to the emergency room with fever, chills, night sweats, nausea, vomiting or diarrhea. (3) Charcot foot due to diabetes mellitus: Code(s): E11.610 - Type 2 diabetes mellitus with diabetic neuropathic arthropathy Status: Acute Assessment and Plan: Patient with Charcot changes of the right foot noted. Continue course of treatment with total contact casting and nonweightbearing of the right lower extremity. Patient verbalized understanding agrees the plan of care. We will repeat radiographs in 1 week and he will of follow-up appoint with Dr. Edmonds to discuss further treatment options. Additional Plan Discussed importance diabetic diet, proper nutrition and pressure offloading for optimal healing. We will continue total cast changes 1 x weekly for pressure offloading. We plan to remove the Omni graft covering in approximately 1-2 weeks. Review of Systems Review of Systems: All systems reviewed & are unremarkable except as noted in HPI and below Constitutional: Constitutional: Denies fever(s) Eyes: Eyes: Denies blurry vision ENT: Reports Normal hearing present Cardiovascular: Cardiovascular: Denies chest pain and Denies dyspnea Respiratory: Respiratory: Denies dyspnea and Denies wheezing Gastrointestinal: Gastrointestinal: Denies abdominal pain Genitourinary: Genitourinary: Denies urinary urgency Musculoskeletal: Musculoskeletal: Reports as per HPI Integumentary/Breasts: Skin/Breast: Denies changing lesions and Denies sores Neurologic: Reports Normal hearing present, Denies behavioral changes, Denies confusion and Denies convulsions Psychiatric: Psychiatric: Denies behavioral changes, Denies confusion and Denies hallucinations Endocrine: Endocrine: Denies heat intolerance Hematol
--- NOTE | 2020-02-14 09:06 | PM.IMHP ---
H&P: HPI History of Present Illness Date/Time: 02/14/20 09:06 Chief complaint: E11.621 Type 2 diabetes mellitus with foot ulcer Narrative: Satish Reeder is a 54 year old male presents for follow-up at the [facility] outpatient wound clinic for right heel ulcer. Patient in total contact cast. Denies any problems in the interim. Denies fever or chills. No pain. Review of Systems Review of Systems: All systems reviewed & are unremarkable except as noted in HPI and below Constitutional: Constitutional: Denies fever(s) Eyes: Eyes: Denies blurry vision ENT: Reports Normal hearing present Cardiovascular: Cardiovascular: Denies chest pain and Denies dyspnea Respiratory: Respiratory: Denies dyspnea and Denies wheezing Gastrointestinal: Gastrointestinal: Denies abdominal pain Genitourinary: Genitourinary: Denies urinary urgency Musculoskeletal: Musculoskeletal: Reports as per HPI Integumentary/Breasts: Skin/Breast: Denies changing lesions and Denies sores Neurologic: Reports Normal hearing present, Denies behavioral changes, Denies confusion and Denies convulsions Psychiatric: Psychiatric: Denies behavioral changes, Denies confusion and Denies hallucinations Endocrine: Endocrine: Denies heat intolerance Hematologic/Lymphatic: Hematologic/Lymphatic: Denies easy bleeding Allergic/Immunologic: Allergic/Immunologic: Denies wheezing PMFSH Past Medical History Medical History Anemia of chronic disease Charcot foot due to diabetes mellitus Charcot's joint of right foot Chronic kidney disease, stage 4 (severe) BUN and creatinine were 48 and 4.37 respectively on labs drawn 01/23/2019. 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 Obstructive sleep apnea on CPAP Osteomyelitis (~07/2012) Status post transmetatarsal amputation of the right 4th toe per Dr. Espino. Type 2 diabetes mellitus Type 2 diabetes mellitus with peripheral neuropathy Surgical History Surgical History History of amputation of hallux Left hallux amputation done at [facility]. - 2017 History of complete ray amputation of fourth toe of right foot (~07/2012) Per Dr. Espino. - 2012 Status post excisional debridement (~06/2012) Right foot necrotizing fasciitis per Dr. Espino. 09/2019 Family History Family History Unknown Diabetes mellitus Hypertension Social History Social History Social History: The patient lives in [place], [place] with his . They have 2 children. His son lives in [place], and the patient frequently visits him. He is on disability. He smoked up to 2 packs of cigarettes per day for at least 30 years, and quit in June 2018. He denies alcohol and illicit drug use. His , Kirti, is his surrogate decision maker and he wishes to be a full code. Smoking packs per day: 1.5 Smoking cigarettes per day: 30.0 Smoking status: Former smoker Tobacco type: cigarettes Second hand tobacco smoke exposure: Yes Smoking end date: 06/04/18 Alcohol intake: never Other substance usage details: Spiritual care concerns: No Agree to blood products: Yes Meds Home Medications and Allergies Home Medications Medication Instructions Recorded Confirmed Type oxycodone 15 mg PO Q4-6H PRN #60 tablet 09/16/19 11/07/19 Rx heparin flush(porcine)-0.9NaCl DAILY 09/27/19 History alprazolam 0.5 mg tablet 0.5 mg PO BID PRN #180 tablet 11/07/19 11/07/19 Rx
--- NOTE | 2020-02-14 09:21 | PM.PROC ---
Procedure Note - Detailed Date of procedure: 02/14/20 Pre-op diagnosis: E11.621 Type 2 diabetes mellitus with foot ulcer Post-op diagnosis: same Procedure performed: Application of on the graft right diabetic foot ulcer, application of total contact cast Description of procedure: Indications: Patient is a 54-year-old gentleman with neuropathy and right heel ulcer. Indicated for application of omnigraft and total contact cast. What was done: Patient identified. Informed consent given. Operative extremity marked. Time-out performed confirming the patient, site of the surgery and the plan. Right foot prepped with alcohol prep solution. 4 x 4 cm omnigraft applied to the ulcer and secured with anne. Remainder of wound covered with Endoform and Henrietta Sterile dressing applied. fiberglass total contact cast then applied. Anesthesia: none Surgeon: Tomas Edmonds MD Estimated blood loss (mL): 2 Drains: No Packing: Yes Complications: None Condition: stable Disposition: other ( Home)
--- NOTE | 2020-02-21 09:04 | PM.IMHP ---
H&P: HPI History of Present Illness Date/Time: 02/21/20 09:04 Chief complaint: E11.621 Type 2 diabetes mellitus with foot ulcer Narrative: Satish Reeder is a 54 year old male Follows up in [place] wound clinic today for total contact cast change and dressing changes. Patient denies fever, chills, night sweats, nausea, vomiting or diarrhea. He reports well-maintained blood glucose levels. He is not having difficulty with ambulation in the total contact cast. He has protected weight-bearing at this time. No new complaints. Review of Systems Review of Systems: All systems reviewed & are unremarkable except as noted in HPI and below Constitutional: Constitutional: Denies fever(s) Eyes: Eyes: Denies blurry vision ENT: Reports Normal hearing present Cardiovascular: Cardiovascular: Denies chest pain and Denies dyspnea Respiratory: Respiratory: Denies dyspnea and Denies wheezing Gastrointestinal: Gastrointestinal: Denies abdominal pain Genitourinary: Genitourinary: Denies urinary urgency Musculoskeletal: Musculoskeletal: Reports as per HPI Integumentary/Breasts: Skin/Breast: Denies changing lesions and Denies sores Neurologic: Reports Normal hearing present, Denies behavioral changes, Denies confusion and Denies convulsions Psychiatric: Psychiatric: Denies behavioral changes, Denies confusion and Denies hallucinations Endocrine: Endocrine: Denies heat intolerance Hematologic/Lymphatic: Hematologic/Lymphatic: Denies easy bleeding Allergic/Immunologic: Allergic/Immunologic: Denies wheezing PMFSH Past Medical History Medical History Anemia of chronic disease Charcot foot due to diabetes mellitus Charcot's joint of right foot Chronic kidney disease, stage 4 (severe) BUN and creatinine were 48 and 4.37 respectively on labs drawn 01/23/2019. 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 Obstructive sleep apnea on CPAP Osteomyelitis (~07/2012) Status post transmetatarsal amputation of the right 4th toe per Dr. Espino. Type 2 diabetes mellitus Type 2 diabetes mellitus with peripheral neuropathy Surgical History Surgical History History of amputation of hallux Left hallux amputation done at [facility]. - 2016 History of complete ray amputation of fourth toe of right foot (~07/2012) Per Dr. Espino. - 2012 Status post excisional debridement (~06/2012) Right foot necrotizing fasciitis per Dr. Espino. 09/2019 Family History Family History Unknown Diabetes mellitus Hypertension Social History Social History Social History: The patient lives in [place], [place] with his . They have 2 children. His son lives in [place], and the patient frequently visits him. He is on disability. He smoked up to 2 packs of cigarettes per day for at least 30 years, and quit in June 2018. He denies alcohol and illicit drug use. His , Kirti, is his surrogate decision maker and he wishes to be a full code. Smoking packs per day: 1.5 Smoking cigarettes per day: 30.0 Smoking status: Former smoker Tobacco type: cigarettes Second hand tobacco smoke exposure: Yes Smoking end date: 06/04/18 Alcohol intake: never Other substance usage details: Spiritual care concerns: No Agree to blood products: Yes Meds Home Medications and Allergies Home Medications Medication Instructions Recorded Confirmed Type oxycodone 15 mg PO Q4-6H PRN #60 tab
== END 2020-03-11 23:59 | disposition home or self-care (01) ==
LOC: ANHWOC 07:36
PROVIDERS: PCP Family Medicine; Visit Provider Nurse Practitioner Family
DX: E11.621 Type 2 diabetes mellitus with foot ulcer (principal); L97.519 Non-pressure chronic ulcer of other part of right foot with unspecified severity
CPT/HCPCS: 15275; 29445; A9270

== ENCOUNTER 2020-06-04 07:39 | Outpatient (RCR) | payer OTHER, MEDICARE, SELFPAY ==
--- NOTE | 2020-05-22 11:04 | PM.IMHP ---
H&P: HPI History of Present Illness Date/Time: 05/22/20 11:04 Chief Complaint: Right DFU Narrative: Satish Reeder is a 54 year old male who follows up in [facility] wound clinic today for total contact cast change and dressing changes. He has been following with the [facility] wound clinic nurses weekly for cast changes due to complications with scheduling and HD. Patient denies fever, chills, night sweats, nausea, vomiting or diarrhea. He reports well-maintained blood glucose levels. He is not having difficulty with ambulation in the total contact cast. He has protected weight-bearing at this time. No new complaints. Review of Systems Review of Systems: All systems reviewed & are unremarkable except as noted in HPI and below Constitutional: Constitutional: Denies fever(s) Eyes: Eyes: Denies blurry vision ENT: Reports Normal hearing present Cardiovascular: Cardiovascular: Denies chest pain and Denies dyspnea Respiratory: Respiratory: Denies dyspnea and Denies wheezing Gastrointestinal: Gastrointestinal: Denies abdominal pain Genitourinary: Genitourinary: Denies urinary urgency Musculoskeletal: Musculoskeletal: Reports as per HPI Integumentary/Breasts: Skin/Breast: Denies changing lesions and Denies sores Neurologic: Reports Normal hearing present, Denies behavioral changes, Denies confusion and Denies convulsions Psychiatric: Psychiatric: Denies behavioral changes, Denies confusion and Denies hallucinations Endocrine: Endocrine: Denies heat intolerance Hematologic/Lymphatic: Hematologic/Lymphatic: Denies easy bleeding Allergic/Immunologic: Allergic/Immunologic: Denies wheezing PMFSH Past Medical History Medical History Anemia of chronic disease Charcot foot due to diabetes mellitus Charcot's joint of right foot Chronic kidney disease, stage 4 (severe) BUN and creatinine were 48 and 4.37 respectively on labs drawn 01/23/2019. 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 Obstructive sleep apnea on CPAP Osteomyelitis (~07/2012) Status post transmetatarsal amputation of the right 4th toe per Dr. Espino. Type 2 diabetes mellitus Type 2 diabetes mellitus with peripheral neuropathy Surgical History Surgical History History of amputation of hallux Left hallux amputation done at [facility]. - 2016 History of complete ray amputation of fourth toe of right foot (~07/2012) Per Dr. Espino. - 2012 Status post excisional debridement (~06/2012) Right foot necrotizing fasciitis per Dr. Espino. 09/2019 Family History Family History Unknown Diabetes mellitus Hypertension Social History Social History Social History: The patient lives in [place], [place] with his . They have 2 children. His son lives in [place], and the patient frequently visits him. He is on disability. He smoked up to 2 packs of cigarettes per day for at least 30 years, and quit in June 2018. He denies alcohol and illicit drug use. His , Kirti, is his surrogate decision maker and he wishes to be a full code. Smoking packs per day: 1.5 Smoking cigarettes per day: 30.0 Smoking status: Former smoker Tobacco type: cigarettes Second hand tobacco smoke exposure: Yes Smoking end date: 06/04/18 Alcohol intake: never Other substance usage details: Spiritual care concerns: No Agree to blood products: Yes Meds Home Medications and Allergies Home Medications Me
== END 2020-06-10 23:59 | disposition home or self-care (01) ==
LOC: ANHWOC 07:39
PROVIDERS: PCP Family Medicine; Visit Provider Nurse Practitioner Family
DX: E11.621 Type 2 diabetes mellitus with foot ulcer (principal); L97.519 Non-pressure chronic ulcer of other part of right foot with unspecified severity
CPT/HCPCS: 29445; A9270

== ENCOUNTER 2020-08-17 16:36 | Inpatient (IN) | payer OTHER, MEDICARE, SELFPAY ==
[2020-08-17] VITALS (19 sets, daily range): BP systolic 116–149; BP diastolic 64–100; PULSE 82–109; RESP 16–26; TEMP 36.8–39.6; O2SAT 94–100; BMI 49.2
--- NOTE | ~2020-08-17 | XR_ITS ---
XR foot RT min 3V DATE: 08/17/2020 18:06 INDICATION: Infection. Type 2 diabetes mellitus. TECHNIQUE: AP and crosstable lateral views COMPARISON: 09/06/2019 right foot 02/14/2020 right foot FINDINGS: Again noted is amputation at the proximal shaft of the fourth metatarsal bone. There is chronic fusion at the interphalangeal joint of the first great toe. There is diffuse osteopenia. There is osteoarthritic change at the first metatarsophalangeal joint. There is considerable advancement of degenerative change at the second through fourth tarsometatarsal joints compared to 09/06/2019. Persistent severe neuropathic destructive changes at the tarsal joints (Charcot joint), with rocker-b ottom foot deformity. Mild subcutaneous emphysema at the posterior heel. Posterior calcaneal enthesopathy. IMPRESSION: Approximately 9 mm Subcutaneous emphysema of the posterior heel; no underlying osteomyeli tis changes are noted Status post application of the fourth proximal metatarsal shaft Chronic fusion of the first digit phalanges Severe neuropathic changes and destruction at the tarsal joints and advanced increased osteoarthritic changes at the second through fourth metatarsophalangeal joints Reviewed, dictated and finalized at location A. IMPRESSION: Approximately 9 mm Subcutaneous emphysema of the posterior heel; no underlying osteomyelitis changes are noted Status post application of the fourth proximal metatarsal shaft Chronic fusion of the first digit phalanges Severe neuropathic changes and destruction at the tarsal joints and advanced in creased osteoarthritic changes at the second through fourth metatarsophalangeal joints
--- NOTE | ~2020-08-17 | XR_ITS ---
XR foot LT min 3V DATE: 08/17/2020 18:06 INDICATION: Infection. Type 2 diabetes mellitus. TECHNIQUE: 4 views COMPARISON: None FINDINGS: There is amputation of the first metatarsal at the base. There are cystic changes and flattening of the third metatarsal head consistent with infarction. Mild posterior calcaneal enthesopathy. No fracture, dislocation, periosteal reaction or bone destruction is detected. 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
--- NOTE | ~2020-08-17 | XR_ITS ---
EXAMINATION: XR chest 1V portable INDICATION: Fever and wheezing TECHNIQUE: Portable AP chest at 1720 hours COMPARISON: 09/14/2019 FINDINGS: There are patchy opacities throughout all lung zones. Cardiomegaly is noted. There is no pl eural effusion or pneumothorax. The visualized osseous structures are unremarkable. IMPRESSION: 1. Diffuse lung disease, consistent with pneumonia and/or pulmonary edema. Reviewed, dictated and finalized at location B.
--- NOTE | 2020-08-17 16:38 | ED.FALL ---
HPI - Fall General Chief Complaint: Fever Stated Complaint: WEAKNESS/FALL Time Seen by Provider: 08/17/20 16:38 History of Present Illness HPI Narrative: 54 yo male w/ h/o DM, htn presents to the ED for fever, confusion, and weakness. The pateint's received a call from his step son saying that he was confused and short of breath. When she returned home she tried to get him up to bring him her, but he was not cooperative and then was unable to stand-up. She noted that he seemed SOb. He denies this. He is currently under the care of Dr. Edmonds for chronic foot wounds. He was previous here for necrotizing fasciitis. He had a fever of 103 during triage. Related Data Home Medications Medication Instructions Recorded Confirmed heparin flush(porcine)-0.9NaCl DAILY 09/27/19 hydralazine 50 mg tablet 50 mg PO TID 11/07/19 03/12/20 aspirin 81 mg tablet,delayed 81 mg PO DAILY 11/15/19 03/12/20 release Allergies Allergy/AdvReac Type Severity Reaction Status Date / Time Penicillins Allergy Unknown Unknown Verified 08/17/20 17:41 Review of Systems Review of Systems: All systems reviewed & are unremarkable except as noted in HPI and below Constitutional: Constitutional: Reports chills, Reports fever(s) and Reports weakness Eyes: Eyes: Reports no additional eye complaints ENT: Denies dizziness and Denies sore throat Cardiovascular: Cardiovascular: Denies chest pain Respiratory: Respiratory: Denies dyspnea Gastrointestinal: Gastrointestinal: Denies abdominal pain and Denies nausea Genitourinary: Genitourinary: Denies hematuria and Denies dysuria Neurologic: Denies system reviewed and no additional complaints, except as documented, Reports confusion, Denies dizziness, Denies headache(s) and Reports weakness PMFSH Past Medical History Medical History Anemia of chronic disease Charcot foot due to diabetes mellitus Charcot's joint of right foot Chronic kidney disease, stage 4 (severe) BUN and creatinine were 48 and 4.37 respectively on labs drawn 01/23/2019. 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 Obstructive sleep apnea on CPAP Osteomyelitis (~07/2012) Status post transmetatarsal amputation of the right 4th toe per Dr. Espino. Type 2 diabetes mellitus Type 2 diabetes mellitus with peripheral neuropathy Surgical History Surgical History History of amputation of hallux Left hallux amputation done at [facility]. - 2017 History of complete ray amputation of fourth toe of right foot (~07/2012) Per Dr. Espino. - 2013 Status post excisional debridement (~06/2012) Right foot necrotizing fasciitis per Dr. Espino. 09/2019 Family History Family History Unknown Diabetes mellitus Hypertension Social History Social History Social History: The patient lives in [place], [place] with his . They have 2 children. His son lives in [place], and the patient frequently visits him. He is on disability. He smoked up to 2 packs of cigarettes per day for at least 30 years, and quit in June 2018. He denies alcohol and illicit drug use. His , Kirti, is his surrogate decision maker and he wishes to be a full code. Smoking packs per day: 1.5 Smoking cigarettes per day: 30.0 Smoking status: Former smoker Tobacco type: cigarettes Second hand tobacco smoke exposure: Yes Smoking end date: 06/04/18 Alcohol intake: never Other substance us
--- NOTE | 2020-08-17 16:46 | ECG_ITS ---
Measurements Intervals [place] Rate: 105 P: 45 ID: 179 QRS: 10 QRSD: 103 T: 17 QT: 336 QTc: 445 Interpretive Statements SINUS TACHYCARDIA VENTRICULAR TRIGEMINY DELAYED PRECORDIAL R/S TRANSITION BASELINE ARTIFACT- I, II, III, AVR, AVL, AVF, V1-V6 ABNORMAL ECG Electronically Signed On 08-17-2020 19:09:47 CDT by Obed Duncan D.O.
[2020-08-17 17:18] LABS: Basophils Absolute Auto 0.1 K/mm3 (0.0-0.1); Basophils Percent Auto 0.3 % (0.2-1.2); Eosinophils Percent Auto 0.1 % (0-4.4); Hematocrit 31.3 % (42.0-52.0); Hemoglobin 9.7 g/dL (14.0-18.0); Immature Granulocyte Absolute 1.26 K/mm3 (0.00-0.031); Immature Granulocyte Percent A 2.9 % (0-0.5); Lymphocytes Absolute Auto 0.72 K/mm3 (0.9-3.2); Lymphocytes Percent Auto 1.7 % (18.3-44.2); Mean Corpuscular Hemoglobin 28.7 pg (26-34); Mean Corpuscular Volume 92.6 fl (80-100); Mean Platelet Volume 10.1 fl (7.4-10.4); Monocytes Absolute Auto 1.7 K/mm3 (0.1-0.6); Monocytes Percent Auto 3.9 % (2.6-8.5); Neutrophils Absolute Auto 39.6 K/mm3 (1.3-6.7); Neutrophils Percent Auto 91.1 % (45.5-73.1); Platelet Count Result 328 k/mm3 (150-375); Red Blood Count 3.38 M/mm3 (4.6-6.20); Red Cell Distribution Width 14.5 % (11.5-14.5); White Blood Count 43.4 K/mm3 (4.5-10.0)
[2020-08-17 17:26] LABS: INR 1.2; Prothrombin Time 15.6 Seconds (11.1-14.7)
[2020-08-17 17:27] LABS: Lactic Acid Reflex 1.6 mmol/L (0.7-2.1)
[2020-08-17 17:28] LABS: Partial Thromboplastin Time 41.2 SECONDS (22.3-36.8)
[2020-08-17 17:29] LABS: Alanine Aminotransferase 13 U/L (4-50); Albumin Level 3.8 g/dL (3.5-5.1); Alkaline Phosphatase 126 U/L (38-126); Anion Gap 11 mmol/L (8-16); Aspartate Amino Transferase 22 U/L (17-59); Bilirubin,Total 0.3 mg/dL (0.2-1.3); Blood Urea Nitrogen 48 mg/dL (9-20); CRP 6.1 mg/dL (<1.0); Calcium 8.2 mg/dL (8.4-10.2); Carbon Dioxide 21 mmol/L (22-30); Chloride 102 mmol/L (98-107); Estimated CRCL calculation 19 ml/min; Estimated Glomerular Filt Rate 10; Glucose 141 mg/dL (75-110); Potassium 4.1 mmol/L (3.4-5.0); Sodium 134 mmol/L (137-145)
[2020-08-17 18:02] LABS: NT Pro B Type Natriuretic Pept 6650 PG/ML (5-100); Troponin I 0.122 ng/mL (0.000-0.034)
[2020-08-17 18:39] LABS: Add Urine Microscopic? YES; Appearance Urine Cloudy (Clear); Bacteria Urine 1+ /hpf; Bilirubin Urine Negative (Negative); Blood Urine 1+ (Negative); Color Urine Yellow (Yellow); Glucose Urine UA 1+ mg/dL (Negative); Ketones Urine Negative (Negative); Leukocyte Esterase Ur Negative LEU/UL (Negative); Mucus Urine Rare /lpf; Nitrate Urine Negative (Negative); Protein Urine 3+ mg/dL (Negative); Specific Grav Ur 1.013 (1.001-1.035); Squamous Epithelial Cell Urine Rare /hpf (Few); Urobilinogen Urine Negative mg/dL (<2.0)
--- NOTE | 2020-08-17 20:51 | PM.IMHP ---
H&P: HPI History of Present Illness Date/Time: 08/17/20 20:51 Chief Complaint: Fever Narrative: 54-year-old male with past medical history of end-stage renal disease on peritoneal dialysis, diabetes mellitus, essential hypertension and nonhealing diabetic foot wound who presented to the ER via EMS with fever. The patient reports that he was feeling in his usual state of health but his family called EMS because they insisted he come in. Evidently the patient has stepson had been at home with them when the patient became confused. They also felt that the patient was short of breath. The patient's came home and tried to get the patient to come to the ER and he would not get up. The patient was significantly weak. they subsequently called EMS for transport. When EMS arrived on side the patient's fever was greater than 103?. The patient reports that he has a chronic smoker's cough. He denies any increased shortness of breath from baseline. He still does smoke a pack of cigarettes every 2 weeks and uses E cigarettes every day. He has a chronic right diabetic foot wound that he follows with Dr. Thao. He denies any increased drainage from the wound. He reports that his last hemoglobin A1c was 4.7 and that he has not been on any diabetic medications and the last 2 years. He has not had the COVID vaccine. He performs peritoneal dialysis nightly. He has not noticed any change in his peritoneal output. The dialysis nurse attempted to obtain a specimen to send for culture but there was no fluid available for testing. Patient has chronic constipation and denies any abdominal pain or increased distension. He denies any dysuria. He denies any nausea or vomiting. He has not noticed change in his appetite. He does have sleep apnea and uses his CPAP routinely. His CPAP settings are 27. The patient has multiple teeth that are broken off at the gumline 1 in the left upper jaw and 1 in the right. He denies any associated dental pain or swelling. The patient sees pain management and he reports that his OxyContin was recently decreased down to 10 mg t.i.d.. He had previously been on as much as 15 mg 6 times a day in the past. Review of Systems Review of Systems: Narrative: 12 systems were reviewed with pertinent positives and negatives per HPI. Except as documented in the HPI, all other systems were reviewed and are negative. [facility] Past Medical History Medical History (Updated 08/17/20 @ 22:19 by Sahra Ramos DO) Anemia of chronic disease Charcot's joint of right foot Chronic low back pain with sciatica Depression with anxiety Diabetic foot ulcer Diabetic peripheral neuropathy Dyslipidemia (~10/2018) End-stage renal disease on peritoneal dialysis September 2019 Essential (primary) hypertension Insomnia Necrotizing fasciitis (~06/2012) Right foot, status post excisional debridement. Obstructive sleep apnea on CPAP Type 2 diabetes mellitus Surgical History Surgical History (Updated 08/17/20 @ 22:11 by Sahra Ramos DO) AV (arteriovenous fistula) (~2019) Right forearm History of amputation of hallux Left hallux amputation done at [facility]. - 2016 History of complete ray amputation of fourth toe of right foot (~07/2012) Per Dr. Espino. - 2012 due to osteomyelitis Peritoneal dialysis catheter in place Status post excisional debridement (~06/2012) Right foot necrotizing fasciitis per Dr. Espino. 09/2019 Family History Family History (Updated 08/17/20 @ 21:37 by Rachel Farley RN) Mother Diabetes mellitus Hypertension Social History Social History (Updated 08/17/20 @ 20:59 by Sahra Ramos DO) Social History: The patient lives in [place], [place] with his . They have 2 children. His son lives in [place], and the patient frequently visits him. He is on disability. He smoked up to 2 packs of cigarettes per day for at least 30 years, and quit in June 2018. He denies alcohol and illicit drug use.
--- NOTE | 2020-08-17 21:19 | ADMGEN ---
This patient, Satish Reeder, was admitted to IMU Room 214-01 at 2100. Patient/family oriented to hospital policies and general routines including ID bracelet, bed and alarms, visiting hours, pain management, procedures, bathroom and other care routines, personal items, smoking policy, room service/diet, and visiting hours. Information on how to activate the Rapid Response Team has been discussed. Patient/Family are encouraged to report perceived risks to care and to ask questions if they do not understand what they are told or what they should do.
[2020-08-17 22:00] LABS: Glucose Point of Care 129 (65-105)
[2020-08-17] MEDS: HEPARIN SODIUM 5,000 UNITS/ML VIAL 5000 UNITS SUB-Q (22:06)
[2020-08-17] MEDS: AMITRIPTYLINE HCL 25 MG TABLET PO (23:30)
[2020-08-17] MEDS: hydrALAZINE HCL 50 MG TABLET PO (23:30)
[2020-08-18] VITALS (9 sets, daily range): BP systolic 139–144; BP diastolic 69–98; PULSE 84–119; RESP 18–20; TEMP 37.3–38.6; O2SAT 92–99
[2020-08-18 05:08] LABS: Basophils Absolute Auto 0.1 K/mm3 (0.0-0.1); Basophils Percent Auto 0.2 % (0.2-1.2); Hematocrit 35.4 % (42.0-52.0); Immature Granulocyte Absolute 0.19 K/mm3 (0.00-0.031); Immature Granulocyte Percent A 0.8 % (0-0.5); Lymphocytes Absolute Auto 0.68 K/mm3 (0.9-3.2); Lymphocytes Percent Auto 2.8 % (18.3-44.2); Mean Corpuscular HGB Conc 28.2 g/dl (32-36); Mean Corpuscular Hemoglobin 28.9 pg (26-34); Mean Corpuscular Volume 102.3 fl (80-100); Mean Platelet Volume 10.1 fl (7.4-10.4); Monocytes Percent Auto 4.1 % (2.6-8.5); Neutrophils Absolute Auto 22.1 K/mm3 (1.3-6.7); Neutrophils Percent Auto 92.1 % (45.5-73.1); Platelet Count Result 256 k/mm3 (150-375); Red Blood Count 3.46 M/mm3 (4.6-6.20); Red Cell Distribution Width 14.8 % (11.5-14.5); White Blood Count 24.1 K/mm3 (4.5-10.0)
[2020-08-18 08:53] LABS: Glucose Point of Care 126 (65-105)
[2020-08-18] MEDS: VENLAFAXINE HCL XR 75 MG CAP.ER.24H 150 MG PO (09:35)
[2020-08-18] MEDS: hydrALAZINE HCL 50 MG TABLET PO (09:35)
[2020-08-18] MEDS: oxyCODONE HCL (*CRX) 5 MG TAB IR 10 MG PO (09:35)
[2020-08-18] MEDS: METOPROLOL SUCCINATE EXT REL 50 MG TABCR PO (09:36)
[2020-08-18] MEDS: ASPIRIN 81 MG ENTERIC TABLET PO (09:36)
[2020-08-18] MEDS: HEPARIN SODIUM 5,000 UNITS/ML VIAL 5000 UNITS SUB-Q (09:37)
[2020-08-18] MEDS: amLODIPine BESYLATE 5 MG TABLET 10 MG PO (09:37)
[2020-08-18 12:44] LABS: Glucose Point of Care 125 (65-105)
--- NOTE | 2020-08-18 13:21 | PM.CNNEP ---
Assessment and Plan Assessment and plan (1) End stage renal disease: Code(s): N18.6 - End stage renal disease Status: Chronic Assessment and Plan: continue CCPD while hospitalized follow electrolytes, volume status, and clearance home PD Rx: 3000cc fill volume, 5 exchanges over 8 hours with no last fill (2) Febrile illness: Code(s): R50.9 - Fever, unspecified Status: Acute Assessment and Plan: possibly secondary to pneumonia versus diabetic foot ulcer follow culture data on antibiotics (3) Pneumonia: Qualifiers: Pneumonia type: due to unspecified organism Laterality: bilateral Lung location: unspecified part of lung Qualified Code(s): J18.9 - Pneumonia, unspecified organism Code(s): J18.9 - Pneumonia, unspecified organism Status: Acute Assessment and Plan: as suggested by CXR likely complicated by his ongoing smoking continue current therapy (4) Diabetic foot ulcer: Qualifiers: Diabetic foot ulcer location: heel Diabetes mellitus type: type 2 Laterality: right Non-pressure ulcer stage: unspecified non-pressure ulcer stage Qualified Code(s): E11.621 - Type 2 diabetes mellitus with foot ulcer; L97.419 - Non-pressure chronic ulcer of right heel and midfoot with unspecified severity Code(s): E11.621 - Type 2 diabetes mellitus with foot ulcer; L97.509 - Non-pressure chronic ulcer of other part of unspecified foot with unspecified severity Status: Acute Assessment and Plan: noted but does not appears to be acutely infected wound care and Orthopedics consulted Will continue to follow. History of Present Illness Reason for Consult Consult date: 08/18/20 Reason for consult: end stage renal disease Chief Complaint Chief complaint: Sepsis, foot wound infection, elevated troponin History of Present Illness Narrative: The patient is a 54-year-old male with past medical history as outlined below who presented to the [facility] ER via EMS for further evaluaton of fever. The patient reports that he was feeling in his usual state of health but his family called EMS because they insisted he come in for further evaluation of several issues. The patient's family has noted several problems in the last few days. He has reportedly had issues and problems with confusion, weakness, and just not his usual self. The family try to convince the patient to come the ER for evaluation but he did not feel this was necessary. Eventually, they called EMS for further evaluation of the symptoms. On arrival by EMS, he had a temperature greater than 103 associated with a cough but no overt shortness of breath. He gave no overt symptoms of chest pain shortness of breath nausea, vomiting, diarrhea, melena, hematochezia, or abdominal pain. He has been compliant with his home peritoneal dialysis has not had any problems with his treatments as far as he is aware either. Workup and evaluation in the emergency room confirmed the a for mentioned fever but he did not appear to be in otherwise any distress. He was alert and oriented did not complain of shortness of breath, and otherwise seems to be doing fairly well. Routine blood test demonstrated labs consistent with his known history of end-stage renal disease although his CBC did show marked and leukocytosis. His chest x-ray was concerning for possible pneumonia as well. Given the concerns of sepsis on top of his complex medical issues and problems, appropriate cultures were obtained, he was started on broad-spectrum IV antibiotic therapy, and subsequent mid Hospital for further evaluation and therapy. Renal consultation was requested due to his end-stage renal disease the patient is somewhat familiar to me as I have taken care of him before for his dialysis needs. He currently does peritoneal dialysis every night of the [facility] dialysis at which [facility] started [facility]
--- NOTE | 2020-08-18 14:06 | PC.NURSE ---
Patient discharged to home today. Medication education was provided and patient had no questions at this time.
[2020-08-18 19:44] LABS: SARS-CoV-2 RNA PCR Negative
--- NOTE | 2020-08-29 15:18 | PM.DS ---
DS: Admitting Diagnosis Admitting Diagnosis Admitting Diagnosis: (1) Sepsis: Qualifiers: Sepsis type: sepsis due to unspecified organism Sepsis acute organ dysfunction status: without acute organ dysfunction Qualified Code(s): A41.9 - Sepsis, unspecified organism Code(s): A41.9 - Sepsis, unspecified organism Status: Acute (2) Elevated troponin: Code(s): R77.8 - Other specified abnormalities of plasma proteins Status: Acute (3) Diabetic foot ulcer: Qualifiers: Diabetic foot ulcer location: heel Diabetes mellitus type: type 2 Laterality: right Non-pressure ulcer stage: unspecified non-pressure ulcer stage Qualified Code(s): E11.621 - Type 2 diabetes mellitus with foot ulcer; L97.419 - Non-pressure chronic ulcer of right heel and midfoot with unspecified severity Code(s): E11.621 - Type 2 diabetes mellitus with foot ulcer; L97.509 - Non-pressure chronic ulcer of other part of unspecified foot with unspecified severity Status: Acute (4) Pneumonia: Qualifiers: Pneumonia type: due to unspecified organism Laterality: bilateral Lung location: unspecified part of lung Qualified Code(s): J18.9 - Pneumonia, unspecified organism Code(s): J18.9 - Pneumonia, unspecified organism Status: Acute (5) KT (obstructive sleep apnea): Code(s): G47.33 - Obstructive sleep apnea (adult) (pediatric) Status: Acute Additional Plan The patient has sepsis based on criteria tachycardia, tachypnea, fever with marked leukocytosis with left shift. Source could include pneumonia given patient's chest x-ray findings he will be tested for COVID and isolated. The patient also has a chronic diabetic foot wound it does not appear to be acutely infected be does have some mild subcutaneous emphysema on x-ray. Orthopedic surgery has been consulted. Blood cultures have been obtained and are pending. The patient also has peritoneal dialysis catheter in place. He has not any abdominal pain. Peritoneal cultures have been ordered but the nurse was unable to obtain the specimens prior to dialysis. Patient has been placed on broad-spectrum antibiotic coverage with cefepime azithromycin and vancomycin pharmacy to dose. The patient also had had some confusion at home however his confusion has subsequently resolved. Is likely due to his high fever. Tylenol be ordered as needed for fever or pain. Patient does have some elevated troponin but this is likely due to his end-stage renal disease and acute stress from sepsis. Acute cardiac ischemia is less likely. Will repeat 0 blood drawn into monitor on telemetry. Wound care consult has been ordered. Will continue patient on his home gentamicin topical with transfer material, Kerlix and Coban. The patient's home CPAP has been ordered. The patient does have chronic pain and his home oxycodone has been ordered. Repeat CBC and electrolyte panel been ordered for a.m.. DS: Discharge Diagnosis Discharge Diagnosis (1) Sepsis: Qualifiers: Sepsis acute organ dysfunction status: without acute organ dysfunction Sepsis type: sepsis due to unspecified organism Qualified Code(s): A41.9 - Sepsis, unspecified organism Code(s): A41.9 - Sepsis, unspecified organism Status: Resolved Assessment and Plan: RULED OUT CULTURES CAME BACK NEGATIVE (2) Elevated troponin: Code(s): R77.8 - Other specified abnormalities of plasma proteins Status: Ruled-out Assessment and Plan: PATIENT WITH END-STAGE RENAL DISEASE LIKELY SECONDARY TO THESE (3) Diabetic foot ulcer: Qualifiers: Diabetic foot ulcer location: heel Diabetes mellitus type: type 2 Laterality: right Non-pressure ulcer stage: unspecified non-pressure ulcer stage Qualified Code(s): E11.621 - Type 2 diabetes mellitus with foot ulcer; L97.419 - Non-pressure chronic ulcer of right heel and midfoot with unspecified severity Code(s): E
== END 2020-08-18 13:43 | disposition home or self-care (01) | DRG 871 ==
LOC: ANHED 19:31 → ANHIMU 21:38
PROVIDERS: Internal Medicine; Admitting Provider Internal Medicine; Emergency Provider Emergency Medicine; PCP Family Medicine; Visit Provider Internal Medicine
DX: A41.9 Sepsis, unspecified organism (principal); J18.9 Pneumonia, unspecified organism; N18.6 End stage renal disease; L97.419 Non-pressure chronic ulcer of right heel and midfoot with unspecified severity; Z68.42 Body mass index [BMI] 45.0-49.9, adult; Z20.822 Contact with and (suspected) exposure to COVID-19; E11.22 Type 2 diabetes mellitus with diabetic chronic kidney disease; E66.01 Morbid (severe) obesity due to excess calories; E11.621 Type 2 diabetes mellitus with foot ulcer; E11.610 Type 2 diabetes mellitus with diabetic neuropathic arthropathy; G47.33 Obstructive sleep apnea (adult) (pediatric); F17.210 Nicotine dependence, cigarettes, uncomplicated; D63.8 Anemia in other chronic diseases classified elsewhere; F41.8 Other specified anxiety disorders; E11.42 Type 2 diabetes mellitus with diabetic polyneuropathy; E78.5 Hyperlipidemia, unspecified; Z89.412 Acquired absence of left great toe
CPT/HCPCS: 36415; 71045; 73630; 80053; 81001; 82948; 83605; 83880; 84484; 85025; 85610; 85730; 86140; 87040; 87804; 93005; 94002; 96365; 96375; 99285; A9270; C9803; J0131; J0456; J0692; J0696; J1644; J3370; U0003; U0005

== ENCOUNTER 2020-09-04 07:59 | Outpatient (RCR) | payer OTHER, MEDICARE, SELFPAY ==
--- NOTE | 2020-06-12 10:06 | PM.IMHP ---
H&P: HPI History of Present Illness Date/Time: 06/12/20 10:06 Chief Complaint: Right heel diabetic foot ulcer Narrative: Satish Reeder is a 54 year old male who follows up in [facility] outpatient wound clinic today for total contact cast change and dressing changes. He has been following with the [facility] wound clinic nurses weekly for cast changes due to complications with scheduling and HD. Patient denies fever, chills, night sweats, nausea, vomiting or diarrhea. He reports well-maintained blood glucose levels. He is not having difficulty with ambulation in the total contact cast. He has protected weight-bearing at this time. No new complaints. Review of Systems Review of Systems: All systems reviewed & are unremarkable except as noted in HPI and below Constitutional: Constitutional: Denies fever(s) Eyes: Eyes: Denies blurry vision ENT: Reports Normal hearing present Cardiovascular: Cardiovascular: Denies chest pain and Denies dyspnea Respiratory: Respiratory: Denies dyspnea and Denies wheezing Gastrointestinal: Gastrointestinal: Denies abdominal pain Genitourinary: Genitourinary: Denies urinary urgency Musculoskeletal: Musculoskeletal: Reports as per HPI Integumentary/Breasts: Skin/Breast: Denies changing lesions and Denies sores Neurologic: Reports Normal hearing present, Denies behavioral changes, Denies confusion and Denies convulsions Psychiatric: Psychiatric: Denies behavioral changes, Denies confusion and Denies hallucinations Endocrine: Endocrine: Denies heat intolerance Hematologic/Lymphatic: Hematologic/Lymphatic: Denies easy bleeding Allergic/Immunologic: Allergic/Immunologic: Denies wheezing PMFSH Past Medical History Medical History Anemia of chronic disease Charcot foot due to diabetes mellitus Charcot's joint of right foot Chronic kidney disease, stage 4 (severe) BUN and creatinine were 48 and 4.37 respectively on labs drawn 01/23/2019. 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 Obstructive sleep apnea on CPAP Osteomyelitis (~07/2012) Status post transmetatarsal amputation of the right 4th toe per Dr. Espino. Type 2 diabetes mellitus Type 2 diabetes mellitus with peripheral neuropathy Surgical History Surgical History History of amputation of hallux Left hallux amputation done at [facility]. - 2016 History of complete ray amputation of fourth toe of right foot (~07/2012) Per Dr. Espino. - 2012 Status post excisional debridement (~06/2012) Right foot necrotizing fasciitis per Dr. Espino. 09/2019 Family History Family History Unknown Diabetes mellitus Hypertension Social History Social History Social History: The patient lives in [place], [place] with his . They have 2 children. His son lives in [place], and the patient frequently visits him. He is on disability. He smoked up to 2 packs of cigarettes per day for at least 30 years, and quit in June 2018. He denies alcohol and illicit drug use. His , Kirti, is his surrogate decision maker and he wishes to be a full code. Smoking packs per day: 1.5 Smoking cigarettes per day: 30.0 Smoking status: Former smoker Tobacco type: cigarettes Second hand tobacco smoke exposure: Yes Smoking end date: 06/04/18 Alcohol intake: never Other substance usage details: Spiritual care concerns: No Agree to blood products: Yes Meds Home Medication
--- NOTE | 2020-06-12 10:12 | P.OP_ITS ---
Procedure Note - Detailed Date of procedure: 06/12/20 Pre-op diagnosis: E11.621 Type 2 diabetes mellitus with foot ulcer Post-op diagnosis: same Procedure performed: Application of allo graft right diabetic foot ulcer, application of total contact cast Description of procedure: Indications: Patient is a 54-year-old gentleman with neuropathy and right heel ulcer. Indicated for application of Amniotic allograft and application total contact cast. What was done: Patient identified. Informed consent given. Operative extremity marked. Time-out performed confirming the patient, site of the surgery and the plan. Right foot prepped with alcohol prep solution. 3 X 2 Amnioexcel amniotic allograft applied to the ulcer and secured with mepitel. Remainder of wound covered with sterile dressing Sterile dressing applied. fiberglass total contact cast then applied. Implants: Amnioexcel 3 X2 cm graft Tissue ID [id number], Product [place] [id number], Exp 10/13/2023 Anesthesia: none Surgeon: Tomas Edmonds MD [employer]ator Assembler: ADAM Anderson Estimated blood loss (mL): 1 Tourniquet time (min): 0 Drains: No Packing: Yes Pathology: none sent Complications: None Condition: stable Disposition: other ( Home with [facility])
--- NOTE | 2020-06-19 08:06 | PCWOUND ---
WOCN NOTE appointment cancelled for today due to Dr. Edmonds's office being closed. Patient unable to reschedule for Tuesday 06/20 due to transportation. Will try to reschedule for Thursday06/22/20. Will contact wound center later today or tomorrow to confirm new appointment.
--- NOTE | 2020-06-20 11:03 | PM.IMHP ---
H&P: HPI History of Present Illness Date/Time: 06/20/20 11:03 Chief Complaint: Right plantar diabetic foot ulcer Narrative: Satish Reeder is a 54 year old male who follows up in [facility] outpatient wound clinic today for total contact cast change and dressing changes. He has been following with the [facility] wound clinic nurses weekly for cast changes due to complications with scheduling and HD. Patient denies fever, chills, night sweats, nausea, vomiting or diarrhea. He reports well-maintained blood glucose levels. He is not having difficulty with ambulation in the total contact cast. He has protected weight-bearing at this time. No new complaints. Review of Systems Review of Systems: All systems reviewed & are unremarkable except as noted in HPI and below Constitutional: Constitutional: Denies fever(s) Eyes: Eyes: Denies blurry vision ENT: Reports Normal hearing present Cardiovascular: Cardiovascular: Denies chest pain and Denies dyspnea Respiratory: Respiratory: Denies dyspnea and Denies wheezing Gastrointestinal: Gastrointestinal: Denies abdominal pain Genitourinary: Genitourinary: Denies urinary urgency Musculoskeletal: Musculoskeletal: Reports as per HPI Integumentary/Breasts: Skin/Breast: Denies changing lesions and Denies sores Neurologic: Reports Normal hearing present, Denies behavioral changes, Denies confusion and Denies convulsions Psychiatric: Psychiatric: Denies behavioral changes, Denies confusion and Denies hallucinations Endocrine: Endocrine: Denies heat intolerance Hematologic/Lymphatic: Hematologic/Lymphatic: Denies easy bleeding Allergic/Immunologic: Allergic/Immunologic: Denies wheezing PMFSH Past Medical History Medical History Anemia of chronic disease Charcot foot due to diabetes mellitus Charcot's joint of right foot Chronic kidney disease, stage 4 (severe) BUN and creatinine were 48 and 4.37 respectively on labs drawn 01/23/2019. 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 Obstructive sleep apnea on CPAP Osteomyelitis (~07/2012) Status post transmetatarsal amputation of the right 4th toe per Dr. Espino. Type 2 diabetes mellitus Type 2 diabetes mellitus with peripheral neuropathy Surgical History Surgical History History of amputation of hallux Left hallux amputation done at [facility]. - 2016 History of complete ray amputation of fourth toe of right foot (~07/2012) Per Dr. Epsino. - 2012 Status post excisional debridement (~06/2012) Right foot necrotizing fasciitis per Dr. Espino. 09/2019 Family History Family History Unknown Diabetes mellitus Hypertension Social History Social History Social History: The patient lives in [place], [place] with his . They have 2 children. His son lives in [place], and the patient frequently visits him. He is on disability. He smoked up to 2 packs of cigarettes per day for at least 30 years, and quit in June 2018. He denies alcohol and illicit drug use. His , Kirti, is his surrogate decision maker and he wishes to be a full code. Smoking packs per day: 1.5 Smoking cigarettes per day: 30.0 Smoking status: Former smoker Tobacco type: cigarettes Second hand tobacco smoke exposure: Yes Smoking end date: 06/04/18 Alcohol intake: never Other substance usage details: Spiritual care concerns: No Agree to blood products: Yes Meds Home Medications and
--- NOTE | 2020-06-20 11:12 | PM.OP ---
Procedure Note - Brief Procedure Note - Brief Date of procedure: 06/20/20 Pre-op diagnosis: E11.621 Type 2 diabetes mellitus with foot ulcer right plantar diabetic foot ulcer Post-op diagnosis: same Procedure performed: Omnigraft application performed under sterile conditions to the right plantar heel DFU. Lot#: [id number], Expiration date is October 31, 2022. Description of procedure: wound cleansed with alcohol. Sterile procedure performed. Graft applied to right plantar diabetic foot ulcer and stapled in place. Graft then covered with Mepitel 1 and 4 x 4 gauze dressings. Patient then had a right total contact cast application. Anesthesia: none Surgeon: ADAM Charles Estimated blood loss (mL): 0 Tourniquet time (min): 0 IV fluids (mL): 0 Urine output (mL): 0 Drains: No Packing: No Pathology: none sent Complications: No immediate complications Condition: stable Disposition: same day
--- NOTE | 2020-07-03 16:42 | PM.IMHP ---
H&P: HPI History of Present Illness Date/Time: 07/03/20 16:42 Chief Complaint: right plantar diabetic foot ulcer Narrative: Satish Reeder is a 54 year old male who presents to [facility] today for re-evaluation of right plantar diabetic foot ulcer status post on the graft application. Patient underwent a an Omni graft application on June 20, 2019. He has been undergoing total contact cast changes weekly since that time. He denies fever, chills, night sweats, nausea, vomiting or diarrhea. He has no new concerns. Review of Systems Review of Systems: All systems reviewed & are unremarkable except as noted in HPI and below Constitutional: Constitutional: Denies fever(s) Eyes: Eyes: Denies blurry vision ENT: Reports Normal hearing present Cardiovascular: Cardiovascular: Denies chest pain and Denies dyspnea Respiratory: Respiratory: Denies dyspnea and Denies wheezing Gastrointestinal: Gastrointestinal: Denies abdominal pain Genitourinary: Genitourinary: Denies urinary urgency Musculoskeletal: Musculoskeletal: Reports as per HPI Integumentary/Breasts: Skin/Breast: Denies changing lesions and Denies sores Neurologic: Reports Normal hearing present, Denies behavioral changes, Denies confusion and Denies convulsions Psychiatric: Psychiatric: Denies behavioral changes, Denies confusion and Denies hallucinations Endocrine: Endocrine: Denies heat intolerance Hematologic/Lymphatic: Hematologic/Lymphatic: Denies easy bleeding Allergic/Immunologic: Allergic/Immunologic: Denies wheezing PMFSH Past Medical History Medical History Anemia of chronic disease Charcot foot due to diabetes mellitus Charcot's joint of right foot Chronic kidney disease, stage 4 (severe) BUN and creatinine were 48 and 4.37 respectively on labs drawn 01/23/2019. 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 Obstructive sleep apnea on CPAP Osteomyelitis (~07/2012) Status post transmetatarsal amputation of the right 4th toe per Dr. Espino. Type 2 diabetes mellitus Type 2 diabetes mellitus with peripheral neuropathy Surgical History Surgical History History of amputation of hallux Left hallux amputation done at [facility]. - 2016 History of complete ray amputation of fourth toe of right foot (~07/2012) Per Dr. Espino. - 2012 Status post excisional debridement (~06/2012) Right foot necrotizing fasciitis per Dr. Espino. 09/2019 Family History Family History Unknown Diabetes mellitus Hypertension Social History Social History Social History: The patient lives in [place], [place] with his . They have 2 children. His son lives in [place], and the patient frequently visits him. He is on disability. He smoked up to 2 packs of cigarettes per day for at least 30 years, and quit in June 2018. He denies alcohol and illicit drug use. His , Kirti, is his surrogate decision maker and he wishes to be a full code. Smoking packs per day: 1.5 Smoking cigarettes per day: 30.0 Smoking status: Former smoker Tobacco type: cigarettes Second hand tobacco smoke exposure: Yes Smoking end date: 06/04/18 Alcohol intake: never Other substance usage details: Spiritual care concerns: No Agree to blood products: Yes Meds Home Medications and Allergies Home Medications Medication Instructions Recorded Confirmed Type oxycodone 15 mg PO Q4-6H
--- NOTE | 2020-07-10 09:55 | PM.IMHP ---
H&P: HPI History of Present Illness Date/Time: 07/10/20 09:55 Chief Complaint: right heel diabetic foot ulcer Narrative: Satish Reeder is a 54 year old male with right diabetic heel ulcer and osteomyelitis, status post debridement. He has undergone several graft applications to try and affect healing. He has continue with total contact cast. Indicated for repeat graft and total contact casting. No interval complaints. Review of Systems Review of Systems: All systems reviewed & are unremarkable except as noted in HPI and below Constitutional: Constitutional: Denies fever(s) Eyes: Eyes: Denies blurry vision ENT: Reports Normal hearing present Cardiovascular: Cardiovascular: Denies chest pain and Denies dyspnea Respiratory: Respiratory: Denies dyspnea and Denies wheezing Gastrointestinal: Gastrointestinal: Denies abdominal pain Genitourinary: Genitourinary: Denies urinary urgency Musculoskeletal: Musculoskeletal: Reports as per HPI Integumentary/Breasts: Skin/Breast: Denies changing lesions and Denies sores Neurologic: Reports Normal hearing present, Denies behavioral changes, Denies confusion and Denies convulsions Psychiatric: Psychiatric: Denies behavioral changes, Denies confusion and Denies hallucinations Endocrine: Endocrine: Denies heat intolerance Hematologic/Lymphatic: Hematologic/Lymphatic: Denies easy bleeding Allergic/Immunologic: Allergic/Immunologic: Denies wheezing PMFSH Past Medical History Medical History Anemia of chronic disease Charcot foot due to diabetes mellitus Charcot's joint of right foot Chronic kidney disease, stage 4 (severe) BUN and creatinine were 48 and 4.37 respectively on labs drawn 01/23/2019. 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 Obstructive sleep apnea on CPAP Osteomyelitis (~07/2012) Status post transmetatarsal amputation of the right 4th toe per Dr. Espino. Type 2 diabetes mellitus Type 2 diabetes mellitus with peripheral neuropathy Surgical History Surgical History History of amputation of hallux Left hallux amputation done at [facility]. - 2017 History of complete ray amputation of fourth toe of right foot (~07/2012) Per Dr. Espino. - 2012 Status post excisional debridement (~06/2012) Right foot necrotizing fasciitis per Dr. Espino. 09/2019 Family History Family History Unknown Diabetes mellitus Hypertension Social History Social History Social History: The patient lives in [place], [place] with his . They have 2 children. His son lives in [place], and the patient frequently visits him. He is on disability. He smoked up to 2 packs of cigarettes per day for at least 30 years, and quit in June 2018. He denies alcohol and illicit drug use. His , Kirti, is his surrogate decision maker and he wishes to be a full code. Smoking packs per day: 1.5 Smoking cigarettes per day: 30.0 Smoking status: Former smoker Tobacco type: cigarettes Second hand tobacco smoke exposure: Yes Smoking end date: 06/04/18 Alcohol intake: never Other substance usage details: Spiritual care concerns: No Agree to blood products: Yes Meds Home Medications and Allergies Home Medications Medication Instructions Recorded Confirmed Type oxycodone 15 mg PO Q4-6H PRN #60 tablet 09/16/19 11/07/19 Rx heparin flush(porcine)-0.9NaCl DAILY 09/27/19 History hydralazine 50 mg t
--- NOTE | 2020-07-10 09:58 | PM.PROC ---
Procedure Note - Detailed Date of procedure: 07/10/20 Pre-op diagnosis: E11.621 Type 2 diabetes mellitus with foot ulcer Post-op diagnosis: same Procedure performed: application synthetic skin graft right heel, total contact cast Description of procedure: 54-year-old gentleman with right heel diabetic ulcer with no interval change in dimensions. Indicated for graft application and total contact cast. What was done: after informed consent the correct operative site was ensured and marked. Right foot prepped and draped usual technique with alcohol prep solution. 4 x 4 cm synthetic skin graft applied to the right heel and secured with anne. Sterile dressing applied. Total contact cast then applied. Patient tolerated without incident Implants: Integra Omnigraft 4x4cm Lot [id number], Exp 10/31/22 Anesthesia: none Surgeon: ADAM Bro Jumpbasting Armhole Baster: Kendal Estimated blood loss (mL): 1 Drains: No Packing: Yes Pathology: none sent Complications: None Condition: stable Disposition: other ( home with self-care)
--- NOTE | 2020-07-24 12:14 | PM.IMHP ---
H&P: HPI History of Present Illness Date/Time: 07/24/20 12:14 Satish Reeder is a 54 year old male with right diabetic heel ulcer and osteomyelitis, status post debridement. He has undergone several graft applications to try and expedite healing. He has continued with total contact cast. His most recent graft application was approximately 2 weeks ago. Total contact cast removed today. Improvement in dimensions noted. Patient would like to take a break from total contact cast as he has been in one since September of 2019. Chief Complaint: Right plantar diabetic foot ulcer Review of Systems Review of Systems: All systems reviewed & are unremarkable except as noted in HPI and below Constitutional: Constitutional: Denies fever(s) Eyes: Eyes: Denies blurry vision ENT: Reports Normal hearing present Cardiovascular: Cardiovascular: Denies chest pain and Denies dyspnea Respiratory: Respiratory: Denies dyspnea and Denies wheezing Gastrointestinal: Gastrointestinal: Denies abdominal pain Genitourinary: Genitourinary: Denies urinary urgency Musculoskeletal: Musculoskeletal: Reports as per HPI Integumentary/Breasts: Skin/Breast: Denies changing lesions and Denies sores Neurologic: Reports Normal hearing present, Denies behavioral changes, Denies confusion and Denies convulsions Psychiatric: Psychiatric: Denies behavioral changes, Denies confusion and Denies hallucinations Endocrine: Endocrine: Denies heat intolerance Hematologic/Lymphatic: Hematologic/Lymphatic: Denies easy bleeding Allergic/Immunologic: Allergic/Immunologic: Denies wheezing PMFSH Past Medical History Medical History Anemia of chronic disease Charcot foot due to diabetes mellitus Charcot's joint of right foot Chronic kidney disease, stage 4 (severe) BUN and creatinine were 48 and 4.37 respectively on labs drawn 01/23/2019. 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 Obstructive sleep apnea on CPAP Osteomyelitis (~07/2012) Status post transmetatarsal amputation of the right 4th toe per Dr. Espino. Type 2 diabetes mellitus Type 2 diabetes mellitus with peripheral neuropathy Surgical History Surgical History History of amputation of hallux Left hallux amputation done at [facility]. - 2016 History of complete ray amputation of fourth toe of right foot (~07/2012) Per Dr. Espino. - 2012 Status post excisional debridement (~06/2012) Right foot necrotizing fasciitis per Dr. Espino. 09/2019 Family History Family History Unknown Diabetes mellitus Hypertension Social History Social History Social History: The patient lives in [place], [place] with his . They have 2 children. His son lives in [place], and the patient frequently visits him. He is on disability. He smoked up to 2 packs of cigarettes per day for at least 30 years, and quit in June 2018. He denies alcohol and illicit drug use. His , Kirti, is his surrogate decision maker and he wishes to be a full code. Smoking packs per day: 1.5 Smoking cigarettes per day: 30.0 Smoking status: Former smoker Tobacco type: cigarettes Second hand tobacco smoke exposure: Yes Smoking end date: 06/04/18 Alcohol intake: never Other substance usage details: Spiritual care concerns: No Agree to blood products: Yes Meds Home Medications and Allergies Home Medications Medication Instructions Recorded Confirm
--- NOTE | 2020-07-30 07:26 | PCWOUND ---
WOCN NOTE patient left message to cancel appointment for today, states he has to much going on at home right now. Did not make new appointment.
--- NOTE | 2020-08-14 09:42 | PM.IMHP ---
H&P: HPI History of Present Illness Date/Time: 08/14/20 09:42 Chief Complaint: Right heel diabetic ulcer Narrative: patient returns for re-evaluation [facility] outpatient wound clinic. He was switched to a fracture boot to give him some time out of a total contact cast. He has noted a little more drainage and increased sized to the ulcer. No other components. Review of Systems Review of Systems: All systems reviewed & are unremarkable except as noted in HPI and below Constitutional: Constitutional: Denies fever(s) Eyes: Eyes: Denies blurry vision ENT: Reports Normal hearing present Cardiovascular: Cardiovascular: Denies chest pain and Denies dyspnea Respiratory: Respiratory: Denies dyspnea and Denies wheezing Gastrointestinal: Gastrointestinal: Denies abdominal pain Genitourinary: Genitourinary: Denies urinary urgency Musculoskeletal: Musculoskeletal: Reports as per HPI Integumentary/Breasts: Skin/Breast: Denies changing lesions and Denies sores Neurologic: Reports Normal hearing present, Denies behavioral changes, Denies confusion and Denies convulsions Psychiatric: Psychiatric: Denies behavioral changes, Denies confusion and Denies hallucinations Endocrine: Endocrine: Denies heat intolerance Hematologic/Lymphatic: Hematologic/Lymphatic: Denies easy bleeding Allergic/Immunologic: Allergic/Immunologic: Denies wheezing PMFSH Past Medical History Medical History Anemia of chronic disease Charcot foot due to diabetes mellitus Charcot's joint of right foot Chronic kidney disease, stage 4 (severe) BUN and creatinine were 48 and 4.37 respectively on labs drawn 01/23/2019. 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 Obstructive sleep apnea on CPAP Osteomyelitis (~07/2012) Status post transmetatarsal amputation of the right 4th toe per Dr. Espino. Type 2 diabetes mellitus Type 2 diabetes mellitus with peripheral neuropathy Surgical History Surgical History History of amputation of hallux Left hallux amputation done at [facility]. - 2017 History of complete ray amputation of fourth toe of right foot (~07/2012) Per Dr. Espino. - 2013 Status post excisional debridement (~06/2012) Right foot necrotizing fasciitis per Dr. Espino. 09/2019 Family History Family History Unknown Diabetes mellitus Hypertension Social History Social History Social History: The patient lives in [place], [place] with his . They have 2 children. His son lives in [place], and the patient frequently visits him. He is on disability. He smoked up to 2 packs of cigarettes per day for at least 30 years, and quit in June 2018. He denies alcohol and illicit drug use. His , Kirti, is his surrogate decision maker and he wishes to be a full code. Smoking packs per day: 1.5 Smoking cigarettes per day: 30.0 Smoking status: Former smoker Tobacco type: cigarettes Second hand tobacco smoke exposure: Yes Smoking end date: 06/04/18 Alcohol intake: never Other substance usage details: Spiritual care concerns: No Agree to blood products: Yes Meds Home Medications and Allergies Home Medications Medication Instructions Recorded Confirmed Type oxycodone 15 mg PO Q4-6H PRN #60 tablet 09/16/19 11/07/19 Rx heparin flush(porcine)-0.9NaCl DAILY 09/27/19 History hydralazine 50 mg tablet 50 mg PO TID 11/07/19 03/12/20 History aspirin 81
--- NOTE | 2020-09-04 09:12 | PM.IMHP ---
H&P: HPI History of Present Illness Date/Time: 08/28/20 0900 54-year-old male evaluated in [place] wound clinic on August 28 status post hospitalization. Patient was admitted for pneumonia or fluid overload. He was transitioned home shortly after inpatient hospitalization. Radiographs obtained the time of his hospitalization of the right foot revealed no signs or symptoms of osteomyelitis. Blood cultures were also negative. Patient follows up today for re-evaluation and worsening of wound dimensions due to kicking his hospital bed. Chief Complaint: Plantar right diabetic foot ulcer encounter date: 08/28/2020 Review of Systems Review of Systems: All systems reviewed & are unremarkable except as noted in HPI and below Constitutional: Constitutional: Denies fever(s) Eyes: Eyes: Denies blurry vision ENT: Reports Normal hearing present Cardiovascular: Cardiovascular: Denies chest pain and Denies dyspnea Respiratory: Respiratory: Denies dyspnea and Denies wheezing Gastrointestinal: Gastrointestinal: Denies abdominal pain Genitourinary: Genitourinary: Denies urinary urgency Musculoskeletal: Musculoskeletal: Reports as per HPI Integumentary/Breasts: Skin/Breast: Denies changing lesions and Denies sores Neurologic: Reports Normal hearing present, Denies behavioral changes, Denies confusion and Denies convulsions Psychiatric: Psychiatric: Denies behavioral changes, Denies confusion and Denies hallucinations Endocrine: Endocrine: Denies heat intolerance Hematologic/Lymphatic: Hematologic/Lymphatic: Denies easy bleeding Allergic/Immunologic: Allergic/Immunologic: Denies wheezing PMFSH Past Medical History Medical History Acute osteomyelitis of right calcaneus Anemia of chronic disease Charcot's joint of right foot Chronic low back pain Chronic low back pain with sciatica Depression with anxiety Diabetic peripheral neuropathy Dyslipidemia (~10/2018) End-stage renal disease on peritoneal dialysis September 2019 Essential (primary) hypertension Insomnia Necrotizing fasciitis (~06/2012) Right foot, status post excisional debridement. Obstructive sleep apnea on CPAP Type 2 diabetes mellitus Surgical History Surgical History AV (arteriovenous fistula) (~2019) Right forearm History of amputation of hallux Left hallux amputation done at [facility]. - 2017 History of complete ray amputation of fourth toe of right foot (~07/2012) Per Dr. Espino. - 2012 due to osteomyelitis History of skin graft 07/22, 06/24 - right heel Peritoneal dialysis catheter in place Status post excisional debridement (~06/2012) Right foot necrotizing fasciitis per Dr. Espino. 09/2019 Family History Family History Mother Diabetes mellitus Hypertension Social History Social History Social History: The patient lives in [place], [place] with his . They have 2 children. His son lives in [place], and the patient frequently visits him. He is on disability. He smoked up to 2 packs of cigarettes per day for at least 30 years. In 2018 he cut back to smoking a pack of cigarettes a week. He is still using E cigarettes. He denies alcohol and illicit drug use. His , Kirti, is his surrogate decision maker and he wishes to be a full code. Smoking packs per day: 1.5 Smoking cigarettes per day: 30.0 Smoking status: Current every day smoker Tobacco type: cigarettes Second hand tobacco smoke exposure: Yes Alcohol intake: never Substance use: never Other substance usage details: Gender identity (if verbalized by the patient): Male Spiritual care concerns: No Agree to blood products: Yes Meds Home Medications and Allergies Home Medications Medication Instructions Recorded
--- NOTE | 2020-09-04 09:12 | PM.IMHP ---
H&P: HPI History of Present Illness Date/Time: 09/04/20 09:12 Satish presents to the wound clinic today 1 week status post evaluation after hospitalization for worsening of right plantar diabetic foot ulcer after kicking his hospital bed. He was seen last week and transition to sandal to the plantar aspect of the right heel due to increasing left like tissue which was unable to be manually debrided. He and his have been performing daily dressing changes without complications. He denies fever, chills, night sweats, nausea, vomiting or diarrhea. He reports well-maintained blood glucose levels at this time. No new concerns. Chief Complaint: right plantar diabetic foot ulcer Review of Systems Review of Systems: All systems reviewed & are unremarkable except as noted in HPI and below Constitutional: Constitutional: Denies fever(s) Eyes: Eyes: Denies blurry vision ENT: Reports Normal hearing present Cardiovascular: Cardiovascular: Denies chest pain and Denies dyspnea Respiratory: Respiratory: Denies dyspnea and Denies wheezing Gastrointestinal: Gastrointestinal: Denies abdominal pain Genitourinary: Genitourinary: Denies urinary urgency Musculoskeletal: Musculoskeletal: Reports as per HPI Integumentary/Breasts: Skin/Breast: Denies changing lesions and Denies sores Neurologic: Reports Normal hearing present, Denies behavioral changes, Denies confusion and Denies convulsions Psychiatric: Psychiatric: Denies behavioral changes, Denies confusion and Denies hallucinations Endocrine: Endocrine: Denies heat intolerance Hematologic/Lymphatic: Hematologic/Lymphatic: Denies easy bleeding Allergic/Immunologic: Allergic/Immunologic: Denies wheezing PMFSH Past Medical History Medical History Acute osteomyelitis of right calcaneus Anemia of chronic disease Charcot's joint of right foot Chronic low back pain Chronic low back pain with sciatica Depression with anxiety Diabetic peripheral neuropathy Dyslipidemia (~10/2018) End-stage renal disease on peritoneal dialysis September 2019 Essential (primary) hypertension Insomnia Necrotizing fasciitis (~06/2012) Right foot, status post excisional debridement. Obstructive sleep apnea on CPAP Type 2 diabetes mellitus Surgical History Surgical History AV (arteriovenous fistula) (~2019) Right forearm History of amputation of hallux Left hallux amputation done at [facility]. - 2017 History of complete ray amputation of fourth toe of right foot (~07/2012) Per Dr. Espino. - 2012 due to osteomyelitis History of skin graft 07/22, 06/24 - right heel Peritoneal dialysis catheter in place Status post excisional debridement (~06/2012) Right foot necrotizing fasciitis per Dr. Espino. 09/2019 Family History Family History Mother Diabetes mellitus Hypertension Social History Social History Social History: The patient lives in [place], [place] with his . They have 2 children. His son lives in [place], and the patient frequently visits him. He is on disability. He smoked up to 2 packs of cigarettes per day for at least 30 years. In 2018 he cut back to smoking a pack of cigarettes a week. He is still using E cigarettes. He denies alcohol and illicit drug use. His , Kirti, is his surrogate decision maker and he wishes to be a full code. Smoking packs per day: 1.5 Smoking cigarettes per day: 30.0 Smoking status: Current every day smoker Tobacco type: cigarettes Second hand tobacco smoke exposure: Yes Alcohol intake: never Substance use: never Other substance usage details: Gender identity (if verbalized by the patient): Male Spiritual care concerns: No Agree to blood products: Yes Meds Home Medications and Allerg
== END 2020-09-10 23:59 | disposition home or self-care (01) ==
LOC: ANHWOC 07:59
PROVIDERS: PCP Family Medicine; Visit Provider Orthopaedic Surgery
DX: E11.610 Type 2 diabetes mellitus with diabetic neuropathic arthropathy (principal); E11.621 Type 2 diabetes mellitus with foot ulcer; L97.414 Non-pressure chronic ulcer of right heel and midfoot with necrosis of bone
CPT/HCPCS: 11042; 15275; 29445; 99212; 99213; A9270; G0463; Q4137

== ENCOUNTER 2020-12-04 07:10 | Outpatient (RCR) | payer OTHER, MEDICARE, SELFPAY ==
--- NOTE | 2020-09-11 11:06 | PM.IMHP ---
H&P: HPI History of Present Illness Date/Time: 09/11/20 11:06 Chief Complaint: Right diabetic foot ulcer, Charcot arthropathy Narrative: Satish presents For follow-up to the [facility] outpatient wound clinic. complains of increased drainage from the plantar right foot. Using Santyl for the past 2 weeks. He and his have been performing daily dressing changes without complications. He denies fever, chills, night sweats, nausea, vomiting or diarrhea. He reports well-maintained blood glucose levels at this time. No new concerns. Chief Complaint: right plantar diabetic foot ulcer Review of Systems Review of Systems: All systems reviewed & are unremarkable except as noted in HPI and below Constitutional: Constitutional: Denies fever(s) Eyes: Eyes: Denies blurry vision ENT: Reports Normal hearing present Cardiovascular: Cardiovascular: Denies chest pain and Denies dyspnea Respiratory: Respiratory: Denies dyspnea and Denies wheezing Gastrointestinal: Gastrointestinal: Denies abdominal pain Genitourinary: Genitourinary: Denies urinary urgency Musculoskeletal: Musculoskeletal: Reports as per HPI Integumentary/Breasts: Skin/Breast: Denies changing lesions and Denies sores Neurologic: Reports Normal hearing present, Denies behavioral changes, Denies confusion and Denies convulsions Psychiatric: Psychiatric: Denies behavioral changes, Denies confusion and Denies hallucinations Endocrine: Endocrine: Denies heat intolerance Hematologic/Lymphatic: Hematologic/Lymphatic: Denies easy bleeding Allergic/Immunologic: Allergic/Immunologic: Denies wheezing PMFSH Past Medical History Medical History Acute osteomyelitis of right calcaneus Anemia of chronic disease Charcot's joint of right foot Chronic low back pain Chronic low back pain with sciatica Depression with anxiety Diabetic peripheral neuropathy Dyslipidemia (~10/2018) End-stage renal disease on peritoneal dialysis September 2019 Essential (primary) hypertension Insomnia Necrotizing fasciitis (~06/2012) Right foot, status post excisional debridement. Obstructive sleep apnea on CPAP Type 2 diabetes mellitus Surgical History Surgical History AV (arteriovenous fistula) (~2019) Right forearm History of amputation of hallux Left hallux amputation done at [facility]. - 2017 History of complete ray amputation of fourth toe of right foot (~07/2012) Per Dr. Espino. - 2012 due to osteomyelitis History of skin graft 07/22, 06/24 - right heel Peritoneal dialysis catheter in place Status post excisional debridement (~06/2012) Right foot necrotizing fasciitis per Dr. Espino. 09/2019 Family History Family History Mother Diabetes mellitus Hypertension Social History Social History Social History: The patient lives in [place], [place] with his . They have 2 children. His son lives in [place], and the patient frequently visits him. He is on disability. He smoked up to 2 packs of cigarettes per day for at least 30 years. In 2018 he cut back to smoking a pack of cigarettes a week. He is still using E cigarettes. He denies alcohol and illicit drug use. His , Kirti, is his surrogate decision maker and he wishes to be a full code. Smoking packs per day: 1.5 Smoking cigarettes per day: 30.0 Smoking status: Current every day smoker Tobacco type: cigarettes Second hand tobacco smoke exposure: Yes Alcohol intake: never Substance use: never Other substance usage details: Gender identity (if verbalized by the patient): Male Spiritual care concerns: No Agree to blood products: Yes Meds Home Medications and Allergies Home Medications Medication Instructions Recorded Confirmed Type hydr
--- NOTE | 2020-09-11 11:19 | PM.PROC ---
Procedure Note - Detailed Date of procedure: 09/11/20 Pre-op diagnosis: E11.621 Type 2 diabetes mellitus with foot ulcer Post-op diagnosis: same Procedure performed: Excisional debridement right diabetic foot ulcer Description of procedure: patient identified, informed consent given. Right foot prepped with alcohol prep solution. 15 blade knife used to debride skin, subcutaneous tissue and muscle from the right plantar foot which measured 9 x 5 cm. Hemostasis controlled with pressure. Sterile dressing applied. Anesthesia: none Surgeon: Tomas Edmonds MD Estimated blood loss (mL): 1 Tourniquet time (min): 0 Drains: No Packing: Yes Pathology: none sent Complications: None Condition: stable Disposition: no change
--- NOTE | 2020-09-25 10:11 | PM.IMHP ---
H&P: HPI History of Present Illness Date/Time: 09/25/20 10:11 Chief Complaint: Right plantar diabetic foot ulcer Narrative: 54-year-old male presents today to the [place] wound clinic for re-evaluation of chronic right diabetic foot ulcer status post debridement approximately 1 year ago. Patient did have an episode of worsening of the wound status post hospitalization at which point he kicked his foot at the end of the bed. He has been having difficulty controlling drainage and having increased dimensions. He follows up today for re-evaluation. He denies fever, chills, night sweats, nausea, vomiting or diarrhea. Review of Systems Review of Systems: All systems reviewed & are unremarkable except as noted in HPI and below Constitutional: Constitutional: Denies fever(s) Eyes: Eyes: Denies blurry vision ENT: Reports Normal hearing present Cardiovascular: Cardiovascular: Denies chest pain and Denies dyspnea Respiratory: Respiratory: Denies dyspnea and Denies wheezing Gastrointestinal: Gastrointestinal: Denies abdominal pain Genitourinary: Genitourinary: Denies urinary urgency Musculoskeletal: Musculoskeletal: Reports as per HPI Integumentary/Breasts: Skin/Breast: Denies changing lesions and Denies sores Neurologic: Reports Normal hearing present, Denies behavioral changes, Denies confusion and Denies convulsions Psychiatric: Psychiatric: Denies behavioral changes, Denies confusion and Denies hallucinations Endocrine: Endocrine: Denies heat intolerance Hematologic/Lymphatic: Hematologic/Lymphatic: Denies easy bleeding Allergic/Immunologic: Allergic/Immunologic: Denies wheezing PMFSH Past Medical History Medical History Acute osteomyelitis of right calcaneus Anemia of chronic disease Charcot's joint of right foot Chronic low back pain Chronic low back pain with sciatica Depression with anxiety Diabetic peripheral neuropathy Dyslipidemia (~10/2018) End-stage renal disease on peritoneal dialysis September 2019 Essential (primary) hypertension Insomnia Necrotizing fasciitis (~06/2012) Right foot, status post excisional debridement. Obstructive sleep apnea on CPAP Type 2 diabetes mellitus Surgical History Surgical History AV (arteriovenous fistula) (~2019) Right forearm History of amputation of hallux Left hallux amputation done at [facility]. - 2017 History of complete ray amputation of fourth toe of right foot (~07/2012) Per Dr. Espino. - 2013 due to osteomyelitis History of skin graft 07/22, 06/24 - right heel Peritoneal dialysis catheter in place Status post excisional debridement (~06/2012) Right foot necrotizing fasciitis per Dr. Espino. 09/2019 Family History Family History Mother Diabetes mellitus Hypertension Social History Social History Social History: The patient lives in [place], [place] with his . They have 2 children. His son lives in [place], and the patient frequently visits him. He is on disability. He smoked up to 2 packs of cigarettes per day for at least 30 years. In 2018 he cut back to smoking a pack of cigarettes a week. He is still using E cigarettes. He denies alcohol and illicit drug use. His , Kirti, is his surrogate decision maker and he wishes to be a full code. Smoking packs per day: 1.5 Smoking cigarettes per day: 30.0 Smoking status: Current every day smoker Tobacco type: cigarettes Second hand tobacco smoke exposure: Yes Alcohol intake: never Substance use: never Other substance usage details: Gender identity (if verbalized by the patient): Male Spiritual care concerns: No Agree to blood products: Yes Meds Home Medications and Allergies Home Medications Medication Instructions Recorded Co
--- NOTE | 2020-10-09 09:45 | PM.IMHP ---
H&P: HPI History of Present Illness Date/Time: 10/09/20 09:45 Chief Complaint: Right diabetic foot ulcer with Charcot arthropathy Narrative: [facility] outpatient wound clinic follow-up visit for right diabetic foot ulcer and Charcot arthropathy. Patient notes and abundant serous drainage from the foot. There using extra padding and diapers to control drainage. His current fracture boot is no longer functional. He denies fever chills or any other systemic complaints. Review of Systems Review of Systems: All systems reviewed & are unremarkable except as noted in HPI and below Constitutional: Constitutional: Denies fever(s) Eyes: Eyes: Denies blurry vision ENT: Reports Normal hearing present Cardiovascular: Cardiovascular: Denies chest pain and Denies dyspnea Respiratory: Respiratory: Denies dyspnea and Denies wheezing Gastrointestinal: Gastrointestinal: Denies abdominal pain Genitourinary: Genitourinary: Denies urinary urgency Musculoskeletal: Musculoskeletal: Reports as per HPI Integumentary/Breasts: Skin/Breast: Denies changing lesions and Denies sores Neurologic: Reports Normal hearing present, Denies behavioral changes, Denies confusion and Denies convulsions Psychiatric: Psychiatric: Denies behavioral changes, Denies confusion and Denies hallucinations Endocrine: Endocrine: Denies heat intolerance Hematologic/Lymphatic: Hematologic/Lymphatic: Denies easy bleeding Allergic/Immunologic: Allergic/Immunologic: Denies wheezing PMFSH Past Medical History Medical History Acute osteomyelitis of right calcaneus Anemia of chronic disease Charcot's joint of right foot Chronic low back pain Chronic low back pain with sciatica Depression with anxiety Diabetic peripheral neuropathy Dyslipidemia (~10/2018) End-stage renal disease on peritoneal dialysis September 2019 Essential (primary) hypertension Insomnia Necrotizing fasciitis (~06/2012) Right foot, status post excisional debridement. Obstructive sleep apnea on CPAP Type 2 diabetes mellitus Surgical History Surgical History AV (arteriovenous fistula) (~2019) Right forearm History of amputation of hallux Left hallux amputation done at [facility]. - 2017 History of complete ray amputation of fourth toe of right foot (~07/2012) Per Dr. Espino. - 2012 due to osteomyelitis History of skin graft 07/22, 06/24 - right heel Peritoneal dialysis catheter in place Status post excisional debridement (~06/2012) Right foot necrotizing fasciitis per Dr. Espino. 09/2019 Family History Family History Mother Diabetes mellitus Hypertension Social History Social History Social History: The patient lives in [place], [place] with his . They have 2 children. His son lives in [place], and the patient frequently visits him. He is on disability. He smoked up to 2 packs of cigarettes per day for at least 30 years. In 2018 he cut back to smoking a pack of cigarettes a week. He is still using E cigarettes. He denies alcohol and illicit drug use. His , Kirti, is his surrogate decision maker and he wishes to be a full code. Smoking packs per day: 1.5 Smoking cigarettes per day: 30.0 Smoking status: Current every day smoker Tobacco type: cigarettes Second hand tobacco smoke exposure: Yes Alcohol intake: never Substance use: never Other substance usage details: Gender identity (if verbalized by the patient): Male Spiritual care concerns: No Agree to blood products: Yes Meds Home Medications and Allergies Home Medications Medication Instructions Recorded Confirmed Type hydralazine 50 mg tablet 50 mg PO TID 11/07/19 08/28/20 History aspirin 81 mg tablet,delayed 81 mg PO DAILY 11/15/19
--- NOTE | 2020-10-09 09:50 | W.PM.PROC2 ---
Procedure Note - Detailed Date of Procedure 10/09/20 Pre-op Diagnosis E11.621 Type 2 diabetes mellitus with foot ulcer right Post-op Diagnosis same Procedure Performed excisional debridement right diabetic foot ulcer skin, subcutaneous tissue Surgeon Tomas Edmonds MD Anesthesia none Indications 54-year-old gentleman with insulin-dependent diabetes, renal failure and diabetic neuropathy with right diabetic foot ulcer. Indicated for debridement. Description of Procedure 9 x 5 cm ulcer plantar right foot. Patient identified. Informed consent given. Foot prepped with alcohol prep solution. Fifteen blade knife used to sharply excise skin and subcutaneous tissue and callus from the ulcer. Patient tolerated without incident. Bleeding controlled with pressure. Sterile bandage applied. Estimated Blood Loss 1 Urine Output 0 Drains No Packing No Pathology none sent Complications None Condition stable Disposition no change
--- NOTE | 2020-10-23 07:25 | PCWOUND ---
WOCNNOTE patient left message to cancel for today, will keep appointment for next week.
--- NOTE | 2020-11-06 08:23 | PCWOUND ---
WOCN NOTE patient called to cancel appointment. States his is working and his daughter was supposed to bring him, but she is not answering her phone. States he will call back later once he was his 's work schedule to make new appointment.
--- NOTE | 2020-11-20 12:29 | PM.IMHP ---
H&P: HPI History of Present Illness Date/Time: 11/20/20 12:29 Chief Complaint: Right diabetic foot ulcer Narrative: [facility] wound clinic follow-up for right plantar diabetic foot ulcer. Patient has been performing daily dressing changes. He notes improvement in the wound bed today. He has also been seen by his primary care provider and had labs drawn. He is starting on some vitamin supplementation due to poor wound healing. No new concerns today. Review of Systems Review of Systems: All systems reviewed & are unremarkable except as noted in HPI and below Constitutional: Constitutional: Denies fever(s) Eyes: Eyes: Denies blurry vision ENT: Reports Normal hearing present Cardiovascular: Cardiovascular: Denies chest pain and Denies dyspnea Respiratory: Respiratory: Denies dyspnea and Denies wheezing Gastrointestinal: Gastrointestinal: Denies abdominal pain Genitourinary: Genitourinary: Denies urinary urgency Musculoskeletal: Musculoskeletal: Reports as per HPI Integumentary/Breasts: Skin/Breast: Denies changing lesions and Denies sores Neurologic: Reports Normal hearing present, Denies behavioral changes, Denies confusion and Denies convulsions Psychiatric: Psychiatric: Denies behavioral changes, Denies confusion and Denies hallucinations Endocrine: Endocrine: Denies heat intolerance Hematologic/Lymphatic: Hematologic/Lymphatic: Denies easy bleeding Allergic/Immunologic: Allergic/Immunologic: Denies wheezing PMFSH Past Medical History Medical History Acute osteomyelitis of right calcaneus Anemia of chronic disease Charcot's joint of right foot Chronic low back pain Chronic low back pain with sciatica Depression with anxiety Diabetic peripheral neuropathy Dyslipidemia (~10/2018) End-stage renal disease on peritoneal dialysis September 2019 Essential (primary) hypertension Insomnia Necrotizing fasciitis (~06/2012) Right foot, status post excisional debridement. Obstructive sleep apnea on CPAP Type 2 diabetes mellitus Surgical History Surgical History AV (arteriovenous fistula) (~2019) Right forearm History of amputation of hallux Left hallux amputation done at [facility]. - 2017 History of complete ray amputation of fourth toe of right foot (~07/2012) Per Dr. Espino. - 2012 due to osteomyelitis History of skin graft 07/22, 06/24 - right heel Peritoneal dialysis catheter in place Status post excisional debridement (~06/2012) Right foot necrotizing fasciitis per Dr. Espino. 09/2019 Family History Family History Mother Diabetes mellitus Hypertension Social History Social History Social History: The patient lives in [place], [place] with his . They have 2 children. His son lives in [place], and the patient frequently visits him. He is on disability. He smoked up to 2 packs of cigarettes per day for at least 30 years. In 2018 he cut back to smoking a pack of cigarettes a week. He is still using E cigarettes. He denies alcohol and illicit drug use. His , Kirti, is his surrogate decision maker and he wishes to be a full code. Smoking packs per day: 1.5 Smoking cigarettes per day: 30.0 Smoking status: Current every day smoker Tobacco type: cigarettes Second hand tobacco smoke exposure: Yes Alcohol intake: never Alcohol use details: consumes 1 beer rarely Substance use: never Other substance usage details: Gender identity (if verbalized by the patient): Male Spiritual care concerns: No Agree to blood products: Yes Meds Home Medications and Allergies Home Medications Medication Instructions Recorded Confirmed Type hydralazine 50 mg tablet 50 mg PO TID 11/07/19 08/28/20 History aspirin 81 mg tablet,delayed 81
--- NOTE | 2020-12-04 09:36 | PM.IMHP ---
H&P: HPI History of Present Illness Date/Time: 12/04/20 09:36 Chief Complaint: Right DFU Narrative: [facility] wound clinic follow-up for right plantar diabetic foot ulcer. Patient has been performing daily dressing changes. He notes improvement in the wound bed today. He has recently been seen by his PCP, had labs drawn and started on oral vitamin supplementation. He is hopeful this will help with his wound healing. No new concerns today. Review of Systems Review of Systems: All systems reviewed & are unremarkable except as noted in HPI and below Constitutional: Constitutional: Denies fever(s) Eyes: Eyes: Denies blurry vision ENT: Reports Normal hearing present Cardiovascular: Cardiovascular: Denies chest pain and Denies dyspnea Respiratory: Respiratory: Denies dyspnea and Denies wheezing Gastrointestinal: Gastrointestinal: Denies abdominal pain Genitourinary: Genitourinary: Denies urinary urgency Musculoskeletal: Musculoskeletal: Reports as per HPI Integumentary/Breasts: Skin/Breast: Denies changing lesions and Denies sores Neurologic: Reports Normal hearing present, Denies behavioral changes, Denies confusion and Denies convulsions Psychiatric: Psychiatric: Denies behavioral changes, Denies confusion and Denies hallucinations Endocrine: Endocrine: Denies heat intolerance Hematologic/Lymphatic: Hematologic/Lymphatic: Denies easy bleeding Allergic/Immunologic: Allergic/Immunologic: Denies wheezing PMFSH Past Medical History Medical History Acute osteomyelitis of right calcaneus Anemia of chronic disease Charcot's joint of right foot Chronic low back pain Chronic low back pain with sciatica Depression with anxiety Diabetic peripheral neuropathy Dyslipidemia (~10/2018) End-stage renal disease on peritoneal dialysis September 2019 Essential (primary) hypertension Insomnia Necrotizing fasciitis (~06/2012) Right foot, status post excisional debridement. Obstructive sleep apnea on CPAP Type 2 diabetes mellitus Surgical History Surgical History AV (arteriovenous fistula) (~2019) Right forearm History of amputation of hallux Left hallux amputation done at [facility]. - 2017 History of complete ray amputation of fourth toe of right foot (~07/2012) Per Dr. Espino. - 2012 due to osteomyelitis History of skin graft 07/22, 06/24 - right heel Peritoneal dialysis catheter in place Status post excisional debridement (~06/2012) Right foot necrotizing fasciitis per Dr. Espino. 09/2019 Family History Family History Mother Diabetes mellitus Hypertension Social History Social History Social History: The patient lives in [place], [place] with his . They have 2 children. His son lives in [place], and the patient frequently visits him. He is on disability. He smoked up to 2 packs of cigarettes per day for at least 30 years. In 2018 he cut back to smoking a pack of cigarettes a week. He is still using E cigarettes. He denies alcohol and illicit drug use. His , Kirti, is his surrogate decision maker and he wishes to be a full code. Smoking packs per day: 1.5 Smoking cigarettes per day: 30.0 Smoking status: Current every day smoker Tobacco type: cigarettes Second hand tobacco smoke exposure: Yes Alcohol intake: never Alcohol use details: consumes 1 beer rarely Substance use: never Other substance usage details: Gender identity (if verbalized by the patient): Male Spiritual care concerns: No Agree to blood products: Yes Meds Home Medications and Allergies Home Medications Medication Instructions Recorded Confirmed Type hydralazine 50 mg tablet 50 mg PO TID 11/07/19 08/28/20 History aspirin 81 mg tablet,delayed 81 mg PO DAILY
== END 2020-12-10 23:59 | disposition home or self-care (01) ==
LOC: ANHWOC 07:10
PROVIDERS: PCP Family Medicine; Referring Provider Nurse Practitioner Family; Visit Provider Orthopaedic Surgery
DX: E11.610 Type 2 diabetes mellitus with diabetic neuropathic arthropathy (principal); L97.414 Non-pressure chronic ulcer of right heel and midfoot with necrosis of bone
CPT/HCPCS: 11042; 99212; 99213; A9270; G0463

== ENCOUNTER → 2020-12-18 09:54 | Outpatient (CLI) | payer OTHER, MEDICARE, SELFPAY ==
--- NOTE | ~2020-12-18 | XR_ITS ---
EXAMINATION: XR hip LT min 2V DATE: 12/18/2020 10:30 INDICATION: Left hip pain. TECHNIQUE: 2 views of left hip were obtained. COMPARISON: None. FINDINGS: Bone alignment is normal. No fracture. There is advanced left hip osteoarthritis. There is at least moderate lumbar spondylosis. IMPRESSION: 1. Advanced left hip osteoarthritis. Reviewed, dictated and finalized at location B.
== END ==
PROVIDERS: Visit Provider Physical Medicine & Rehabilitation Pain Medicine
DX: M16.12 Unilateral primary osteoarthritis, left hip (principal)
CPT/HCPCS: 73502

== ENCOUNTER 2021-02-19 07:14 | Outpatient (RCR) | payer OTHER, MEDICARE, SELFPAY ==
--- NOTE | 2021-01-15 08:29 | PCWOUND ---
WOCN NOTE Patient left message to cancel for today due to illness. he is rescheduled for next Thursday.
--- NOTE | 2021-01-22 07:35 | PCWOUND ---
WOCN NOTE patient cancelled appointment due to grandson showing covid like symptoms yesterday. Getting him tested today. Will contact wound center once he has results.
--- NOTE | 2021-02-19 12:42 | PM.IMHP ---
H&P: HPI History of Present Illness Date/Time: 02/19/21 0900 Chief Complaint: Chronic right plantar foot wound Narrative: 55-year-old male returns [facility] wound clinic today for re-evaluation of right plantar foot wound. He has had a chronic wound on the plantar aspect of his right foot for over a year now. His wound was closed at 1 point and then reopened due to an injury after hitting his foot at the end of the bed while hospitalized due to confusion and pneumonia. He has been lost to follow-up since December. He denies fever, chills, night sweats, nausea, vomiting or diarrhea. The patient and his noticed an increase in dimensions of the wound on the right plantar foot. Review of Systems Review of Systems: All systems reviewed & are unremarkable except as noted in HPI and below Constitutional: Constitutional: Denies fever(s) Eyes: Eyes: Denies blurry vision ENT: Reports Normal hearing present Cardiovascular: Cardiovascular: Denies chest pain and Denies dyspnea Respiratory: Respiratory: Denies dyspnea and Denies wheezing Gastrointestinal: Gastrointestinal: Denies abdominal pain Genitourinary: Genitourinary: Denies urinary urgency Musculoskeletal: Musculoskeletal: Reports as per HPI Integumentary/Breasts: Skin/Breast: Denies changing lesions and Denies sores Neurologic: Reports Normal hearing present, Denies behavioral changes, Denies confusion and Denies convulsions Psychiatric: Psychiatric: Denies behavioral changes, Denies confusion and Denies hallucinations Endocrine: Endocrine: Denies heat intolerance Hematologic/Lymphatic: Hematologic/Lymphatic: Denies easy bleeding Allergic/Immunologic: Allergic/Immunologic: Denies wheezing PMFSH Past Medical History Medical History Acute osteomyelitis of right calcaneus Anemia of chronic disease Charcot's joint of right foot Chronic low back pain Chronic low back pain with sciatica Depression with anxiety Diabetic peripheral neuropathy Dyslipidemia (~10/2018) End-stage renal disease on peritoneal dialysis September 2019 Essential (primary) hypertension Insomnia Necrotizing fasciitis (~06/2012) Right foot, status post excisional debridement. Obstructive sleep apnea on CPAP Type 2 diabetes mellitus Surgical History Surgical History AV (arteriovenous fistula) (~2019) Right forearm History of amputation of hallux Left hallux amputation done at [facility]. - 2017 History of complete ray amputation of fourth toe of right foot (~07/2012) Per Dr. Espino. - 2012 due to osteomyelitis History of skin graft 07/22, 06/24 - right heel Peritoneal dialysis catheter in place Status post excisional debridement (~06/2012) Right foot necrotizing fasciitis per Dr. Espino. 09/2019 Family History Family History Mother Diabetes mellitus Hypertension Social History Social History Social History: The patient lives in [place], [place] with his . They have 2 children. His son lives in [place], and the patient frequently visits him. He is on disability. He smoked up to 2 packs of cigarettes per day for at least 30 years. In 2018 he cut back to smoking a pack of cigarettes a week. He is still using E cigarettes. He denies alcohol and illicit drug use. His , Kirti, is his surrogate decision maker and he wishes to be a full code. Smoking packs per day: 1.5 Smoking cigarettes per day: 30.0 Smoking status: Current every day smoker Tobacco type: cigarettes Second hand tobacco smoke exposure: Yes Alcohol intake: never Alcohol use details: consumes 1 beer rarely Substance use: never Other substance usage details: Gender identity (if verbalized by the patient): Male Spiritual care concerns: No Agree to blood produ
== END 2021-03-17 23:59 | disposition home or self-care (01) ==
LOC: ANHWOC 07:14
PROVIDERS: PCP Family Medicine; Visit Provider Nurse Practitioner Family
DX: Z48.01 Encounter for change or removal of surgical wound dressing (principal); L97.414 Non-pressure chronic ulcer of right heel and midfoot with necrosis of bone; E11.610 Type 2 diabetes mellitus with diabetic neuropathic arthropathy
CPT/HCPCS: 11042; 99212; 99213; G0463

== ENCOUNTER 2021-02-19 10:01 | Outpatient (CLI) | payer OTHER, MEDICARE, SELFPAY ==
[2021-02-19 11:29] LABS: Hemoglobin A1C 5.1 % (<5.7)
== END 2021-02-19 10:02 | disposition home or self-care (01) ==
PROVIDERS: PCP Family Medicine; Visit Provider Nurse Practitioner Family
DX: E11.42 Type 2 diabetes mellitus with diabetic polyneuropathy (principal); E11.610 Type 2 diabetes mellitus with diabetic neuropathic arthropathy; E11.65 Type 2 diabetes mellitus with hyperglycemia; L97.411 Non-pressure chronic ulcer of right heel and midfoot limited to breakdown of skin
CPT/HCPCS: 36415; 83036

== ENCOUNTER 2021-03-17 23:13 | Observation (INO) | payer OTHER, MEDICARE, SELFPAY ==
--- NOTE | ~2021-03-17 | XR_ITS ---
XR chest 1V portable DATE: 03/17/2021 23:44 INDICATION: Dyspnea. Smoker. TECHNIQUE: Portable upright AP chest on 03/17/2021 at 2338 hours COMPARISON: 08/17/2020 portable AP chest at 1719 and 1720 hours FINDINGS: There is cardiomegaly and pulmonary vascular congestion and redistribution as well as bilat eral predominantly central pulmonary infiltrates suggesting pulmonary edema. There is minimal if any pleural effusion. No pneumothorax. Degenerative spurring of the thoracic spine. IMPRESSION: Cardiomegaly, pulmonary edema, increased compared to 08/17/2020 Reviewed, dictated and finalized at location A. NSTRATOR KNITTING
[2021-03-17 23:12] VITALS: BP 169/75; PULSE 88; RESP 30; TEMP 36.7; O2SAT 93
[2021-03-17 23:27] VITALS: O2SAT 95
--- NOTE | 2021-03-17 23:32 | ECG_ITS ---
Rate 77 MT 198 QRSd 106 QT 419 QTc 475 --[place]-- P 47 QRS 12 T 35 SINUS RHYTHM DELAYED PRECORDIAL R/S TRANSITION BASELINE ARTIFACT- I, II, III, AVF, V1-V3 BORDERLINE ECG Electronically Signed On 03-18-2021 8:46:13 [employer] by Obed Duncan D.O. COMPARED TO ECG 08/17/2020 17:09:53 SINUS RHYTHM NOW PRESENT MTDD
[2021-03-17 23:36] VITALS: PULSE 74
[2021-03-17 23:44] LABS: Basophils Absolute Auto 0.1 K/mm3 (0.0-0.1); Basophils Percent Auto 0.3 % (0.2-1.2); Eosinophils Absolute Auto 0.3 K/mm3 (0-0.3); Eosinophils Percent Auto 1.7 % (0-4.4); Hematocrit 32.2 % (42.0-52.0); Hemoglobin 9.8 g/dL (14.0-18.0); Immature Granulocyte Absolute 0.11 K/mm3 (0.00-0.031); Immature Granulocyte Percent A 0.6 % (0-0.5); Lymphocytes Percent Auto 7.3 % (18.3-44.2); Mean Corpuscular HGB Conc 30.4 g/dl (32-36); Mean Corpuscular Hemoglobin 28.9 pg (26-34); Mean Platelet Volume 10.2 fl (7.4-10.4); Monocytes Absolute Auto 1.4 K/mm3 (0.1-0.6); Monocytes Percent Auto 8.1 % (2.6-8.5); Neutrophils Absolute Auto 14.6 K/mm3 (1.3-6.7); Platelet Count Result 347 k/mm3 (150-375); Red Blood Count 3.39 M/mm3 (4.6-6.20); White Blood Count 17.8 K/mm3 (4.5-10.0)
[2021-03-17 23:46] VITALS: BP 151/68; PULSE 74; RESP 18; O2SAT 98
[2021-03-17 23:47] VITALS: PULSE 98; RESP 22
[2021-03-17] MEDS: IPRATROPIUM BR 0.02% INH SOLN 0.5 MG/2.5 ML VIAL INHALATION (23:47)
[2021-03-17] MEDS: ALBUTEROL SULFATE NEB 2.5 MG/0.5 ML INH 5 MG INHALATION (23:47)
[2021-03-17 23:55] LABS: Alveolar/Arterial O2 Gradient 169.2 mmHg; Base Excess ABG -4.5 mEq/l (+/-2.0); Device HIGH FLOW NASAL CANN; Fractional Inspired Oxygen 44 %; Oxygen Content ABG 14.4 %vol (16.0-22.0); Oxygen Saturation ABG 97.1 % (95.0-100.0); Oxyhemoglobin 94.8 % THb (90.0-100.0); PCO2 ABG 40.1 mmHg (35.0-45.0); PO2 ABG 98.8 mmHg (80.0-100.0); PO2 FiO2 Ratio Arterial Blood 2.25 %; Site Drawn LEFT RADIAL; Total Hemoglobin 10.7 g/dL (12.0-18.0); pH ABG 7.336 (7.350-7.450)
[2021-03-17 23:56] LABS: Magnesium 2.1 mg/dL (1.6-2.3)
[2021-03-17 23:57] LABS: Alanine Aminotransferase 14 U/L (4-50); Alkaline Phosphatase 102 U/L (38-126); Anion Gap 12 mmol/L (8-16); Aspartate Amino Transferase 21 U/L (17-59); Bilirubin,Total 0.8 mg/dL (0.2-1.3); Blood Urea Nitrogen 45 mg/dL (9-20); Calcium 8.7 mg/dL (8.4-10.2); Carbon Dioxide 21 mmol/L (22-30); Chloride 103 mmol/L (98-107); Estimated CRCL calculation 21 ml/min; Estimated Glomerular Filt Rate 11; Glucose 153 mg/dL (65-110); Lactic Acid Reflex 0.9 mmol/L (0.7-2.1); Sodium 136 mmol/L (137-145)
[2021-03-17 23:59] VITALS: PULSE 74; RESP 18
[2021-03-18] VITALS (20 sets, daily range): BP systolic 137–167; BP diastolic 61–97; PULSE 65–111; RESP 17–26; TEMP 36.4–37.3; O2SAT 91–99; BMI 56.2; BMI 51.5
[2021-03-18 00:08] LABS: INR 1.2; Prothrombin Time 14.8 Seconds (11.1-14.7)
[2021-03-18 00:09] LABS: NT Pro B Type Natriuretic Pept 18900 pg/mL (5-100); Partial Thromboplastin Time 45.6 SECONDS (22.3-36.8); Troponin I 0.016 ng/mL (0.000-0.034)
--- NOTE | 2021-03-18 00:42 | ED.GENADULT ---
HPI - General Adult General Chief complaint: Shortness of Breath/Dyspnea Stated complaint: sob with congestion x 1 week Time Seen by Provider: 03/17/21 23:20 History of Present Illness HPI narrative: Patient 55-year-old gentleman who presents the emergency department with chief complaint of shortness of breath. Patient reports that he has history of peritoneal dialysis and reports that over the last couple days has been getting more short of breath. Patient states this evening he became extremely short of breath and called EMS. Patient was requiring supplemental oxygen and is currently on high flow oxygen and is feeling a little better on his breathing. Patient denies chest pain reports has had no weight gain reports that about a week and a half ago they changed his dialysis late to remove the less fluid. Related Data Home Medications Medication Instructions Recorded Confirmed hydralazine 50 mg tablet 50 mg PO TID 11/07/19 08/28/20 aspirin 81 mg tablet,delayed 81 mg PO DAILY 11/15/19 08/28/20 release metoprolol succinate 50 mg PO DAILY 08/17/20 08/28/20 oxycodone 10 mg PO TID 08/17/20 08/28/20 calcitriol 0.25 mcg capsule 0.25 mcg PO 3XW 08/28/20 08/28/20 gabapentin 600 mg tablet 600 mg PO TID 08/28/20 08/28/20 tizanidine 4 mg capsule 4 mg PO TID PRN 08/28/20 08/28/20 Allergies Allergy/AdvReac Type Severity Reaction Status Date / Time Penicillins Allergy Unknown Unknown Verified 03/17/21 23:34 Review of Systems Review of Systems: A 10 system review of systems was completed on the patient and is negative except for what is stated in the HPI. Nursing and ancillary documentation was reviewed. [facility] Past Medical History Medical History Acute osteomyelitis of right calcaneus Anemia of chronic disease Charcot's joint of right foot Chronic low back pain Chronic low back pain with sciatica Depression with anxiety Diabetic peripheral neuropathy Dyslipidemia (~10/2018) End-stage renal disease on peritoneal dialysis September 2019 Essential (primary) hypertension Insomnia Necrotizing fasciitis (~06/2012) Right foot, status post excisional debridement. Obstructive sleep apnea on CPAP Type 2 diabetes mellitus Surgical History Surgical History AV (arteriovenous fistula) (~2019) Right forearm History of amputation of hallux Left hallux amputation done at [facility]. - 2017 History of complete ray amputation of fourth toe of right foot (~07/2012) Per Dr. Espino. - 2012 due to osteomyelitis History of skin graft 07/22, 06/24 - right heel Peritoneal dialysis catheter in place Status post excisional debridement (~06/2012) Right foot necrotizing fasciitis per Dr. Espino. 09/2019 Family History Family History Mother Diabetes mellitus Hypertension Social History Social History Social History: The patient lives in [place], [place] with his . They have 2 children. His son lives in [place], and the patient frequently visits him. He is on disability. He smoked up to 2 packs of cigarettes per day for at least 30 years. In 2018 he cut back to smoking a pack of cigarettes a week. He is still using E cigarettes. He denies alcohol and illicit drug use. His , Kirti, is his surrogate decision maker and he wishes to be a full code. Smoking packs per day: 1.5 Smoking cigarettes per day: 30.0 Smoking status: Current every day smoker Tobacco type: cigarettes Second hand tobacco smoke exposure: Yes Alcohol intake: never Alcohol use details: consumes 1 beer rarely Substance use: never Other substance usage details: Gender identity (if verbalized by the patient): Male Spiritual care concerns: No Agree to blood products: Yes Exa
[2021-03-18 00:47] LABS: Add Urine Microscopic? YES; Appearance Urine Clear (Clear); Bilirubin Urine Negative (Negative); Blood Urine Negative (Negative); Color Urine Yellow (Yellow); Glucose Urine UA 1+ mg/dL (Negative); Ketones Urine Negative (Negative); Leukocyte Esterase Ur Negative LEU/UL (Negative); Mucus Urine Rare /lpf; Nitrate Urine Negative (Negative); Protein Urine 2+ mg/dL (Negative); RBC Urine 0-2 /hpf (0-2); Specific Grav Ur 1.011 (1.001-1.035); Squamous Epithelial Cell Urine Rare /hpf (Few); Urobilinogen Urine Negative mg/dL (<2.0); WBC Urine 0-3 /hpf
[2021-03-18] MEDS: FUROSEMIDE INJ 40 MG/4 ML VIAL IV PUSH (01:55)
--- NOTE | 2021-03-18 03:14 | PC.NURSE ---
Report to ASHLY Minor.
[2021-03-18 03:38] LABS: Troponin I 0.013 ng/mL (0.000-0.034)
--- NOTE | 2021-03-18 05:01 | ADMGEN ---
This patient, Satish Reeder, was admitted to IMU Room 211-01. Patient/family oriented to hospital policies and general routines including ID bracelet, bed and alarms, visiting hours, pain management, procedures, bathroom and other care routines, personal items, smoking policy, room service/diet, and visiting hours. Information on how to activate the Rapid Response Team has been discussed. Patient/Family are encouraged to report perceived risks to care and to ask questions if they do not understand what they are told or what they should do.
[2021-03-18 09:07] LABS: Hematocrit 36.7 % (42.0-52.0); Hemoglobin 10.2 g/dL (14.0-18.0); Mean Corpuscular HGB Conc 27.8 g/dl (32-36); Mean Corpuscular Hemoglobin 29.5 pg (26-34); Mean Corpuscular Volume 106.1 fl (80-100); Mean Platelet Volume 10.3 fl (7.4-10.4); Platelet Count Result 213 k/mm3 (150-375); Red Blood Count 3.46 M/mm3 (4.6-6.20); Red Cell Distribution Width 15.3 % (11.5-14.5); White Blood Count 13.5 K/mm3 (4.5-10.0)
[2021-03-18 09:58] LABS: Albumin Level 3.8 g/dL (3.5-5.1); Anion Gap 13 mmol/L (8-16); Blood Urea Nitrogen 48 mg/dL (9-20); Calcium 8.5 mg/dL (8.4-10.2); Carbon Dioxide 17 mmol/L (22-30); Chloride 106 mmol/L (98-107); Estimated CRCL calculation 21 ml/min; Estimated Glomerular Filt Rate 10; Glucose 119 mg/dL (65-110); Magnesium 2.5 mg/dL (1.6-2.3); Phosphorus 6.8 mg/dL (2.5-4.5); Potassium 4.7 mmol/L (3.4-5.0); Sodium 136 mmol/L (137-145)
[2021-03-18 10:12] LABS: Troponin I 0.014 ng/mL (0.000-0.034)
[2021-03-18] MEDS: oxyCODONE HCL (*CRX) 5 MG TAB IR 10 MG PO ×2 (12:52→16:38)
[2021-03-18] MEDS: hydrALAZINE HCL 50 MG TABLET PO ×2 (12:52→16:38)
[2021-03-18] MEDS: GABAPENTIN 300 MG CAPSULE 600 MG PO ×2 (12:52→16:38)
--- NOTE | 2021-03-18 13:31 | PM.IMHP ---
H&P: HPI History of Present Illness Date/Time: 03/18/21 13:31 ED-HPI narrative: Patient 55-year-old gentleman who presents the emergency department with chief complaint of shortness of breath. Patient reports that he has history of peritoneal dialysis and reports that over the last couple days has been getting more short of breath. Patient states this evening he became extremely short of breath and called EMS. Patient was requiring supplemental oxygen and is currently on high flow oxygen and is feeling a little better on his breathing. Patient denies chest pain reports has had no weight gain reports that about a week and a half ago they changed his dialysis late to remove the less fluid. 03/18/2021 Interval history: patient is 55-year-old morbidly obese history of end-stage renal disease on peritoneal dialysis had been working with a ultrasonic seaming machine operator and PD fluid extraction with adjusted however patient has become more short of breath for last 2 days it was getting progressively worse presented emergency department was requiring supplemental oxygen, most likely patient is volume overloaded as his BNP is 18,900, with his of grade II diastaltic dysfunction currently patient states not as short of breath as when he arrived, patient is scheduled to receive extra peritoneal dialysis today, will continue to monitor patient be seen by his ultrasonic seaming machine operator and further recommendation to follow. patient is admitted inpatient due to chronic medical problem including end-stage renal disease on peritoneal dialysis now volume overloaded, Chief Complaint: shortness of breath Review of Systems Review of Systems: All systems reviewed & are unremarkable except as noted in HPI and below PMFSH Past Medical History Medical History Acute osteomyelitis of right calcaneus Anemia of chronic disease Charcot's joint of right foot Chronic low back pain Chronic low back pain with sciatica Depression with anxiety Diabetic peripheral neuropathy Dyslipidemia (~10/2018) End-stage renal disease on peritoneal dialysis September 2019 Essential (primary) hypertension Insomnia Necrotizing fasciitis (~06/2012) Right foot, status post excisional debridement. Obstructive sleep apnea on CPAP Type 2 diabetes mellitus Surgical History Surgical History AV (arteriovenous fistula) (~2019) Right forearm History of amputation of hallux Left hallux amputation done at [facility]. - 2017 History of complete ray amputation of fourth toe of right foot (~07/2012) Per Dr. Espino. - 2013 due to osteomyelitis History of skin graft 07/22, 06/24 - right heel Peritoneal dialysis catheter in place Status post excisional debridement (~06/2012) Right foot necrotizing fasciitis per Dr. Espino. 09/2019 Family History Family History Mother Diabetes mellitus Hypertension Social History Social History Social History: The patient lives in [place], [place] with his . They have 2 children. His son lives in [place], and the patient frequently visits him. He is on disability. He smoked up to 2 packs of cigarettes per day for at least 30 years. In 2018 he cut back to smoking a pack of cigarettes a week. He is still using E cigarettes. He denies alcohol and illicit drug use. His , Kirti, is his surrogate decision maker and he wishes to be a full code. Smoking packs per day: 1 Smoking cigarettes per day: 20.0 Years smoked: 35 Smoking pack-years: 35.00 Smoking status: Current every day smoker Tobacco type: cigarettes Second hand tobacco smoke exposure: Yes Alcohol intake: never Alcohol use details: consumes 1 beer rarely Substance use: never Substance use type: does not use Other substance usage details:
--- NOTE | 2021-03-18 14:13 | PM.CNNEP ---
Assessment and Plan Assessment and plan (1) End stage renal disease: Code(s): N18.6 - End stage renal disease Status: Chronic Assessment and Plan: CCPD during the day TODAY and resume at night follow electrolytes, volume status, and clearance push fluid removal as tolerated (2) Shortness of breath: Code(s): R06.02 - Shortness of breath Status: Acute Assessment and Plan: likely due to #3 and possible CHF exacerbation fluid removal with ultrafiltration/dialysis as tolerated check Echo (unless recent one done) (3) Volume overload: Code(s): E87.70 - Fluid overload, unspecified Status: Acute Assessment and Plan: as evidence by exam and imaging studies on admission fluid removal with PD as tolerated extra session during the day and another one this evening follow respiratory status (4) Hypertension: Code(s): I10 - Essential (primary) hypertension Status: Chronic Assessment and Plan: a tad elevated at this time may improve with fluid removal/ultrafiltration with dialysis resume home medications (5) Anemia of chronic disease: Code(s): D63.8 - Anemia in other chronic diseases classified elsewhere Status: Chronic Assessment and Plan: due to ESRD H/H at goal start Epogen if Hgb falls below 10 (6) Diabetes: Code(s): E11.9 - Type 2 diabetes mellitus without complications Status: Chronic Assessment and Plan: follow accuchecks glycemic control Will continue to follow. History of Present Illness Reason for Consult Consult date: 03/18/21 Reason for consult: end stage renal disease Chief Complaint Chief complaint: Hypoxia,CHF,End-Stage Renal on Peritoneal Dialysis History of Present Illness Narrative: The patient is a 55-year-old male with a past medical history as outlined below who presented to [facility] Emergency room with complaints of shortness of breath. The patient has compliant with his peritoneal dialysis but he has noticed over the last couple of days the for mention shortness of breath. It seems shortness of breath have improved has been progressively getting worse despite conservative therapy and because of this he called EMS. He was noted to be hypoxic on presentation and required supplemental oxygen to improve his oxygen saturations but it did not really improve his shortness of breath. He gave no complaints of chest pain, palpitations, dizziness, lightheadedness, or any other systemic symptoms. He does report that his peritoneal dialysis prescription was adjusted as there was a concern from his point of view that too much fluid was being removed. Workup and evaluation emergency room demonstrated the patient to be hemodynamically stable but clearly in mild respiratory distress. Routine blood test demonstrated labs consistent with his known history of end-stage renal disease and his chest x-ray showed clear evidence of overt volume overload. His BNP was quite elevated as well and as his respiratory status is somewhat tenuous, BiPAP was applied to help with his respiratory status in general. This did seem to help to some degree but he still felt short of breath. Given the constellation of symptoms as mentioned above and his clear evidence of volume overload, he was admitted to the hospital for further evaluation and treatment. Renal consultation was requested due to his end-stage renal disease the patient is somewhat familiar to me as I have taken care of him before for his dialysis needs. He currently does peritoneal dialysis every night through [facility]. He has been doing fairly well with peritoneal dialysis as far as he tells me with no issues or problems with regard to critical electrolyte abnormalities, volume overload, or uremia. He does report a change in his dialysis prescription as there was a concern from his point of view that he was getting de
[2021-03-18] MEDS: GENTAMICIN SULFATE 0.1% OINT 15 GM TUBE 1 APPLIC TOPICAL (15:20)
[2021-03-18] MEDS: COLLAGENASE OINT 30 GM TUBE 1 APPLIC TOPICAL (15:20)
[2021-03-18 18:23] LABS: SARS-CoV-2 RNA PCR Negative
[2021-03-18] MEDS: AMITRIPTYLINE HCL 25 MG TABLET 50 MG PO (20:16)
[2021-03-18] MEDS: HEPARIN SODIUM 5,000 UNITS/ML VIAL 5000 UNITS SUB-Q (20:16)
[2021-03-19] VITALS (15 sets, daily range): BP systolic 136–155; BP diastolic 60–88; PULSE 69–106; RESP 14–20; TEMP 36.6–37.1; O2SAT 87–97
[2021-03-19 05:14] LABS: Hematocrit 30.5 % (42.0-52.0); Hemoglobin 9.3 g/dL (14.0-18.0); Mean Corpuscular HGB Conc 30.5 g/dl (32-36); Mean Corpuscular Hemoglobin 28.4 pg (26-34); Mean Corpuscular Volume 93.3 fl (80-100); Mean Platelet Volume 9.7 fl (7.4-10.4); Platelet Count Result 292 k/mm3 (150-375); Red Blood Count 3.27 M/mm3 (4.6-6.20); Red Cell Distribution Width 14.9 % (11.5-14.5); White Blood Count 12.5 K/mm3 (4.5-10.0)
[2021-03-19 05:35] LABS: Albumin Level 3.7 g/dL (3.5-5.1); Anion Gap 9 mmol/L (8-16); Blood Urea Nitrogen 36 mg/dL (9-20); Calcium 8.5 mg/dL (8.4-10.2); Carbon Dioxide 24 mmol/L (22-30); Chloride 101 mmol/L (98-107); Estimated CRCL calculation 22 ml/min; Estimated Glomerular Filt Rate 11; Glucose 123 mg/dL (65-110); Phosphorus 5.1 mg/dL (2.5-4.5); Potassium 3.4 mmol/L (3.4-5.0); Sodium 134 mmol/L (137-145)
[2021-03-19] MEDS: calcitrioL 0.25 MCG CAPSULE PO (08:46)
[2021-03-19] MEDS: METOPROLOL SUCCINATE EXT REL 50 MG TABCR PO (08:46)
[2021-03-19] MEDS: hydrALAZINE HCL 50 MG TABLET PO ×2 (08:46→12:09)
[2021-03-19] MEDS: GABAPENTIN 300 MG CAPSULE 600 MG PO ×2 (08:46→12:09)
[2021-03-19] MEDS: amLODIPine BESYLATE 5 MG TABLET 10 MG PO (08:46)
[2021-03-19] MEDS: VENLAFAXINE HCL XR 75 MG CAP.ER.24H 225 MG PO (08:46)
[2021-03-19] MEDS: ASPIRIN 81 MG ENTERIC TABLET PO (08:47)
[2021-03-19] MEDS: oxyCODONE HCL (*CRX) 5 MG TAB IR 10 MG PO ×2 (08:47→12:09)
[2021-03-19 08:58] LABS: Vancomycin Random 5.6 ug/mL (10-20)
--- NOTE | 2021-03-19 11:02 | PM.DS ---
DS: Admitting Diagnosis Discharge Date 03/19/2021 Admitting Diagnosis Shortness of breath DS: Discharge Diagnosis Discharge Diagnosis (1) End-stage renal disease on peritoneal dialysis: Code(s): N18.6 - End stage renal disease; Z99.2 - Dependence on renal dialysis Status: Acute Assessment and Plan: Patient 55-year-old gentleman who presents the emergency department with chief complaint of shortness of breath has progressively gotten worse. Patient reports that he has history of peritoneal dialysis and reports that over the last couple days has been getting more short of breath. Patient states this evening he became extremely short of breath and called EMS. Patient was requiring supplemental oxygen and is currently on high flow oxygen and is feeling a little better on his breathing. Patient denies chest pain reports has had no weight gain reports that about a week and a half ago they changed his dialysate to remove less fluid. The patient is volume overloaded as his BNP is 18,900, with his of grade II diastaltic dysfunction. He was increase in his peritoneal dialysis rate and was negative 5 L throughout the hospital stay with improvement in his breathing status he is going to be increasing his dialysis rate from here on and this was discussed with the primary dialysis unit by his bullet charging machine operator. He was still requiring small amount of oxygen and home oxygen evaluation was done and arrangements were made for him to go home on oxygen. He was adamant at going home today and hence arrangements were made for the same. His white cell count was elevated on admission at 17,000 which did improve with antibiotic therapy that she was started on on admission. He will be discharged on doxycycline 100 mg twice daily for 5 more days at the time of discharge. His WBC count did improve with antibiotic therapy and was 12,000 at the time of discharge. (2) CHF (congestive heart failure): Qualifiers: Heart failure chronicity: unspecified Heart failure type: unspecified Qualified Code(s): I50.9 - Heart failure, unspecified Code(s): I50.9 - Heart failure, unspecified Status: Acute Assessment and Plan: most likely patient has acute on chronic diastolic congestive heart failure however patient is dialysis dependent Increase dialysis as previously described (3) Acute dyspnea: Code(s): R06.00 - Dyspnea, unspecified Status: Acute Assessment and Plan: most likely secondary volume overload with history of diastolic congestive heart failure however patient is dialysis dependent Likely follow overloaded to recent decrease in his dialysis cycles. Now increasing it back to his previous cycles Follow-up with his regular bullet charging machine operator (4) Charcot foot due to diabetes mellitus: Code(s): E11.610 - Type 2 diabetes mellitus with diabetic neuropathic arthropathy Status: Acute Assessment and Plan: patient is seen by wound care will do the wound dressing, patient started on cefepime and vancomycin. No signs of active infection ongoing on his wound. Will switch to doxycycline at discharge (5) Essential (primary) hypertension: Code(s): I10 - Essential (primary) hypertension Status: Acute Assessment and Plan: will continue home regimen and monitor (6) Type 2 diabetes mellitus with peripheral neuropathy: Code(s): E11.42 - Type 2 diabetes mellitus with diabetic polyneuropathy Status: Acute Assessment and Plan: will continue home regimen and monitor (7) KT (obstructive sleep apnea): Code(s): G47.33 - Obstructive sleep apnea (adult) (pediatric) Status: Acute Assessment and Plan: On CPAP at night (8) Diabetic polyneuropathy associated with type 2 diabetes mellitus: Code(s): E11.42 - Type 2 diabetes mellitus with diabetic polyneuropathy Status: Acute DS: Summary Hospital Course Hospital Course: See above Time Spent with Pa
--- NOTE | 2021-03-19 12:03 | HOMEO2EVAL ---
Evaluation was performed at [facility] Home Oxygen Evaluation RC: Home Oxygen (O2) Evaluation Start: 03/19/21 09:25 Freq: ONCE Status: Active Protocol: RPE Activity Type Activity Date Activity User E-Sign Co-Sign Detail Recorded Client Recorded Date Recorded By Document 03/19/21 11:30 KATHERINE [email or web address] 03/19/21 12:03 KATHERINE Document 03/19/21 11:32 KATHERINE [email or web address] 03/19/21 12:03 KATHERINE Document 03/19/21 11:34 KATHERINE [email or web address] 03/19/21 12:03 KATHERINE Document 03/19/21 11:35 KATHERINE [email or web address] 03/19/21 12:03 KATHERINE Document 03/19/21 11:45 KATHERINE [email or web address] 03/19/21 12:03 KATHERINE 03/19/21 03/19/21 03/19/21 11:30 11:32 11:34 Home O2 Evaluation Test Phase Resting Exercise Exercise Oxygen Delivery Room Air Room Air Nasal Cannula Oxygen Flow Rate (L/min) 1 Pulse Oximetry (90-100 %) 92 87 L 87 L Pulse Rate (60-100 beats/min) 69 89 Home Oxygen Evaluation Comments Treatment Charges O2 Evaluation - Inpatient 03/19/21 03/19/21 11:35 11:45 Home O2 Evaluation Test Phase Exercise Resting Oxygen Delivery Nasal Cannula Room Air Oxygen Flow Rate (L/min) 2 Pulse Oximetry (90-100 %) 92 93 Pulse Rate (60-100 beats/min) 72 Home Oxygen Evaluation Comments HOME O2 REQUIRED AT 2 L WITH ACTIVITY Treatment Charges
--- NOTE | 2021-03-19 12:12 | PCRCNOTE ---
HOME O2 EVAL DONE, PT WILL BE SET UP WITH [facility]. 2 L WITH ACTIVITY. NEW SET UP, TANK TO ROOM FOR TRANSPORT HOME.
== END 2021-03-19 14:03 | disposition home or self-care (01) ==
LOC: ANHED 03-18 01:31 → ANHIMU 03-18 05:13
PROVIDERS: Family Medicine; Admitting Provider Internal Medicine; Emergency Provider Emergency Medicine; PCP Family Medicine; Visit Provider Internal Medicine
DX: I13.2 Hypertensive heart and chronic kidney disease with heart failure and with stage 5 chronic kidney disease, or end stage renal disease (principal); E87.70 Fluid overload, unspecified; R06.00 Dyspnea, unspecified; I50.30 Unspecified diastolic (congestive) heart failure; E11.22 Type 2 diabetes mellitus with diabetic chronic kidney disease; N18.6 End stage renal disease; Z99.2 Dependence on renal dialysis; E11.610 Type 2 diabetes mellitus with diabetic neuropathic arthropathy; E11.42 Type 2 diabetes mellitus with diabetic polyneuropathy; D63.8 Anemia in other chronic diseases classified elsewhere; Z99.81 Dependence on supplemental oxygen; E78.5 Hyperlipidemia, unspecified; M54.40 Lumbago with sciatica, unspecified side; G89.29 Other chronic pain; G47.33 Obstructive sleep apnea (adult) (pediatric); F41.8 Other specified anxiety disorders; F17.210 Nicotine dependence, cigarettes, uncomplicated; F17.290 Nicotine dependence, other tobacco product, uncomplicated; E66.01 Morbid (severe) obesity due to excess calories; Z68.43 Body mass index [BMI] 50.0-59.9, adult; Z79.82 Long term (current) use of aspirin; Z79.891 Long term (current) use of opiate analgesic; Z20.822 Contact with and (suspected) exposure to COVID-19
CPT/HCPCS: 36415; 36600; 71045; 80053; 80069; 80202; 81001; 82805; 83605; 83735; 83880; 84484; 85025; 85027; 85610; 85730; 87040; 90945; 93005; 94618; 94640; 96365; 96366; 96367; 96372; 96375; 99285; A9270; C9803; G0378; J0692; J1644; J1940; J3370; U0003; U0005

== ENCOUNTER 2021-05-13 12:55 | Emergency (ER) | payer OTHER, MEDICARE, SELFPAY ==
--- NOTE | 2021-05-13 13:33 | ED.MALEGU ---
HPI - Male Genitourinary General Chief complaint: Urogenital-Male Stated complaint: personal issues Source: patient and RN notes reviewed Mode of arrival: wheelchair Limitations: no limitations History of Present Illness HPI Narrative: patient states he was at [facility] for fluid overload and was diuresed 6 weeks ago. He told the nurse at that time that is scrotal sac was swollen and she told him that that would go down eventually. It is not gone down in last 6 weeks and it is uncomfortable to sit on. Complaint: testicle swelling Onset (ago): week(s) (6) Duration: constant Location: right testicle and left testicle Severity: severe Quality: other (no pain) Associated symptoms: Reports swelling Related Data Home Medications Medication Instructions Recorded Confirmed hydralazine 50 mg tablet 50 mg PO TID 11/07/19 05/13/21 aspirin 81 mg tablet,delayed 81 mg PO DAILY 11/15/19 03/18/21 release oxycodone 10 mg PO TID 08/17/20 05/13/21 calcitriol 0.25 mcg capsule 0.25 mcg PO DAILY 08/28/20 03/18/21 gabapentin 600 mg tablet 600 mg PO TID 08/28/20 05/13/21 tizanidine 4 mg capsule 4 mg PO TID PRN 08/28/20 03/18/21 Allergies Allergy/AdvReac Type Severity Reaction Status Date / Time Penicillins Allergy Unknown Unknown Verified 05/13/21 13:46 Review of Systems Review of Systems: All systems reviewed & are unremarkable except as noted in HPI and below Constitutional: Constitutional: Denies chills and Denies fever(s) Genitourinary: Genitourinary: Denies oliguria, Denies dysuria and Reports scrotal swelling PMFSH Past Medical History Medical History Acute osteomyelitis of right calcaneus Anemia of chronic disease Charcot's joint of right foot Chronic low back pain Chronic low back pain with sciatica Depression with anxiety Diabetic peripheral neuropathy Dyslipidemia (~10/2018) End-stage renal disease on peritoneal dialysis September 2019 Essential (primary) hypertension Insomnia Necrotizing fasciitis (~06/2012) Right foot, status post excisional debridement. Obstructive sleep apnea on CPAP Type 2 diabetes mellitus Surgical History Surgical History AV (arteriovenous fistula) (~2019) Right forearm History of amputation of hallux Left hallux amputation done at [facility]. - 2017 History of complete ray amputation of fourth toe of right foot (~07/2012) Per Dr. Espino. - 2012 due to osteomyelitis History of skin graft 07/22, 06/24 - right heel Peritoneal dialysis catheter in place Status post excisional debridement (~06/2012) Right foot necrotizing fasciitis per Dr. Espnio. 09/2019 Family History Family History Mother Diabetes mellitus Hypertension Social History Social History Social History: The patient lives in [place], [place] with his . They have 2 children. His son lives in [place], and the patient frequently visits him. He is on disability. He smoked up to 2 packs of cigarettes per day for at least 30 years. In 2018 he cut back to smoking a pack of cigarettes a week. He is still using E cigarettes. He denies alcohol and illicit drug use. His , Kirti, is his surrogate decision maker and he wishes to be a full code. Smoking packs per day: 1 Smoking cigarettes per day: 20.0 Years smoked: 35 Smoking pack-years: 35.00 Smoking status: Current every day smoker Tobacco type: cigarettes Second hand tobacco smoke exposure: Yes Alcohol intake: never Alcohol use details: consumes 1 beer rarely Substance use: never Substance use type: does not use Other substance usage details: Gender identity (if verbalized by the patient): Male Spiritual care concerns: No Agree to blood products: Yes Exam Const: General: no acut
[2021-05-13 13:41] VITALS: BP 149/80; PULSE 108; RESP 16; TEMP 36.6; O2SAT 94
== END 2021-05-13 15:10 | disposition home or self-care (01) ==
PROVIDERS: Emergency Provider Emergency Medicine; PCP Family Medicine
DX: N43.3 Hydrocele, unspecified (principal)
CPT/HCPCS: 99281; 99282

== ENCOUNTER 2021-05-25 17:47 | Emergency (ER) | payer OTHER, MEDICARE, SELFPAY ==
--- NOTE | 2021-05-25 18:22 | ED.CPR ---
HPI - CPR General Chief Complaint: Cardiac Arrest/CPR Stated Complaint: amb Source: EMS and RN notes reviewed Mode of arrival: EMS Limitations: clinical condition History of Present Illness HPI narrative: Patient collapsed at home. Initial call from EMS was fever fall and difficulty breathing. 7 minutes after the 1st call EMS advised that CPR was in progress. EMS arrived on scene 11 minutes after the initial call. I found the patient with ventricular fibrillation shock given. Epi given. Repeat analysis showed VFib again 2nd shock given. After this only PE a. CPR was performed throughout the entire time at the scene and EN route. The patient arrives with CPR in progress, I gel in place with BVM and 4 EPI injections and 1 sodium bicarb have been given. complaint: collapsed during activity Time: 17:01 Timing confirmed by: other (EMS) Place: home Bystander CPR performed: Yes Downtime before ACLS arrival (mins): 7 Initial findings in the field: unresponsive, no pulse and VTACH/VFIB ROSC in the field: No Associated injuries: No Known history of: CAD Treatments prior to arrival: BMV, other airway device, chest compressions, defibrillated shocks # (2), epinephrine mgs # (4) and sodium bicarbonate (1) Related Data Home Medications Medication Instructions Recorded Confirmed hydralazine 50 mg tablet 50 mg PO TID 11/07/19 05/25/21 aspirin 81 mg tablet,delayed 81 mg PO DAILY 11/15/19 05/25/21 release oxycodone 10 mg PO TID 08/17/20 05/25/21 calcitriol 0.25 mcg capsule 0.25 mcg PO DAILY 08/28/20 05/25/21 gabapentin 600 mg tablet 600 mg PO TID 08/28/20 05/25/21 tizanidine 4 mg capsule 4 mg PO TID PRN 08/28/20 05/25/21 Allergies Allergy/AdvReac Type Severity Reaction Status Date / Time Penicillins Allergy Unknown Unknown Verified 05/13/21 13:46 Review of Systems Review of Systems: ROS unobtainable: Yes unobtainable due to endotracheal tube and unobtainable due to medical condition PMFSH Past Medical History Medical History (Updated 05/25/21 @ 18:47 by Evan Tang MD) Acute osteomyelitis of right calcaneus Anemia of chronic disease BMI 40.0-44.9, adult Charcot's joint of right foot Chronic low back pain Chronic low back pain with sciatica Depression with anxiety Diabetic peripheral neuropathy Dyslipidemia (~10/2018) End-stage renal disease on peritoneal dialysis September 2019 Essential (primary) hypertension Insomnia Necrotizing fasciitis (~06/2012) Right foot, status post excisional debridement. Obstructive sleep apnea on CPAP Type 2 diabetes mellitus Surgical History Surgical History AV (arteriovenous fistula) (~2019) Right forearm History of amputation of hallux Left hallux amputation done at [facility]. - 2016 History of complete ray amputation of fourth toe of right foot (~07/2012) Per Dr. Espino. - 2012 due to osteomyelitis History of skin graft 07/22, 06/24 - right heel Peritoneal dialysis catheter in place Status post excisional debridement (~06/2012) Right foot necrotizing fasciitis per Dr. Espino. 09/2019 Family History Family History Mother Diabetes mellitus Hypertension Social History Social History Social History: The patient lives in [place], [place] with his . They have 2 children. His son lives in [place], and the patient frequently visits him. He is on disability. He smoked up to 2 packs of cigarettes per day for at least 30 years. In 2018 he cut back to smoking a pack of cigarettes a week. He is still using E cigarettes. He denies alcohol and illicit drug use. His , Kirti, is his surrogate decision maker and he wishes to be a full code. Smoking packs per day: 1 Smoking cigarettes per day: 20.0 Years smoked: 35 Smoking pack-years: 35.00 Smoking status: Current every day smoker Tob
[2021-05-25 18:42] VITALS: PULSE 0; RESP 0; O2SAT 62
[2021-05-25] MEDS: EPINEPHrine INJ 1 MG/10 ML SYRINGE 5 MG (18:50)
[2021-05-25 19:23] LABS: SARS-CoV-2 RNA PCR Negative (Negative)
--- NOTE | 2021-05-25 19:51 | PC.NURSE ---
Communications Editor Pete here at this time for Dr sign off. Pt Tiffany varela here also. [facility]. Spoke with Mike at [facility] the [facility] per Brother in Law request. Mike currently arrangeing transport for [facility] to [facility] for store[facility].
--- NOTE | 2021-05-25 21:25 | PC.NURSE ---
Mike from [facility] here at this time to metal pickling equipment operator Pt Body.
[2021-05-25 21:26] VITALS: BP 000/00; PULSE 999; RESP 999; TEMP 26.7; O2SAT 0
== END 2021-05-25 21:29 | disposition expired ==
PROVIDERS: Emergency Provider Emergency Medicine; PCP Family Medicine
DX: I46.9 Cardiac arrest, cause unspecified (principal); Z20.822 Contact with and (suspected) exposure to COVID-19
CPT/HCPCS: 31500; 92950; 96372; 99285; C9803; J0171; U0003; U0005